=== PATIENT | female | born 1960 | race Caucasian/White ===

== ENCOUNTER → 2020-07-03 | Outpatient (CLI) | payer OTHER ==
--- NOTE | 2020-07-04 08:11 | CTL ---
EXAMINATION TYPE: CT Low Dose Lung DATE OF EXAM ORDERED: 07/03/2020 HISTORY: Personal tobacco use, nicotine dependence. Lung cancer screening CT DLP: [address] CTDI: 1.8 mGy Automated exposure control for dose reduction was used. SCREENING VISIT: Initial COMPARISON: None TECHNIQUE: Low dose computed tomography scan was performed through the chest at 1 mm thick sections a nd reconstructed images in the coronal plane at [address] DIAGNOSTIC QUALITY: Satisfactory FINDINGS: LUNG NODULES: Present, detailed below: There is a 0.7 cm nodule within the anterior right midlung. Series 5 image 219.r a 1.0 cm densities i n the periphery of the lingula. Series 5 image 224. Some scarring appears to be present at the lung apices. There are some areas of pneumonitis in the pe riphery of the right posterior upper lobe. Series 5 image 101. There may be some nonspecific thickeni ng through the right perihilar region. Some underlying underlying adenopathy may be present. This is difficult to separate from the pulmonary vessels. Series 3 image 30. LUNGS: COPD: Severity: Mild. Some peribronchial thickening may be present. Correlate for chronic bronchitis. Fibrosis: Severity: None Lymph nodes: None Other findings: None RIGHT PLEURAL SPACE: Effusion: None Calcification: None Thickening: None Pneumothorax: None LEFT PLEURAL SPACE: Effusion: None Calcification: None Thickening: None Pneumothorax: HEART: Heart Size: Normal Coronary calcification: None Pericardial effusion: None OTHER FINDINGS: Upper abdomen: Normal Bony thorax: Normal Supraclavicular region: Normal Other: Ascending thoracic aorta at the level the main pulmonary artery measures 3.2 cm. The main pul monary artery at the bifurcation measures 2.42 cm. IMPRESSION: 1. Nonspecific increased peripheral lung markings bilaterally. There are some nodules within the ante rior lower lung julian warranting additional workup. FOLLOW UP CT CHEST RECOMMENDATION: Follow-up PET/CT CT LUNG RAD: Lung-Rad 4A Suspicious
== END | disposition home or self-care (01) ==
LOC: RADCTMAIN 16:43
PROVIDERS: ATTEND Family Medicine
DX: Z12.2 Encounter for screening for malignant neoplasm of respiratory organs (principal)
CPT/HCPCS: 71271

== ENCOUNTER → 2020-07-11 | Outpatient (CLI) | payer OTHER ==
[2020-07-11 15:11] LABS: HCT 44.2 % (34.0-46.0); HGB 14.3 gm/dL (11.4-16.0); MCH 32.6 pg (25.0-35.0); MCHC 32.2 g/dL (31.0-37.0); MCV 101.3 fL (80.0-100.0); Macrocytosis Slight; Mean Platelet Volume 7.9; Platelet Count 348 k/uL (150-450); RBC 4.37 m/uL (3.80-5.40); RDW 13.3 % (11.5-15.5); WBC 5.2 k/uL (3.8-10.6)
[2020-07-11 15:25] LABS: Potassium 4.3 mmol/L (3.5-5.1)
== END | disposition home or self-care (01) ==
LOC: LABPAT 13:34
PROVIDERS: ATTEND Surgery
DX: Z01.818 Encounter for other preprocedural examination (principal); K57.33 Diverticulitis of large intestine without perforation or abscess with bleeding; I45.10 Unspecified right bundle-branch block
CPT/HCPCS: 36415; 80051; 85027; 86850; 86900; 86901; 93005

== ENCOUNTER → 2020-07-21 | Day surgery (SDC) | payer OTHER ==
[2020-07-17 12:12] VITALS: BMI 23.1
[~2020-07-21] MED LIST: IOPAMIDOL CONTRAST (ORAL USE) VIAL PO PRN; LACTATED RINGERS 1,000 ML IV SCH; LIDOCAINE 1% (10MG/ML) FOR IV START INTRADERMA PRN; PROPOFOL 10 MG/ML 20 ML VIAL IV ONE
[2020-07-21 09:16] VITALS: RESP 16; TEMP 97.8
--- NOTE | 2020-07-21 10:21 | P.GSHP ---
History of Present Illness H&P Date: 07/21/20 Chief Complaint: diverticulitis this a 59-year-old female who presents today for colonoscopy. Patient's had complaints of abdominal pain diarrhea. She's been worked up for diverticulitis. Past Medical History Past Medical History: COPD, Hyperlipidemia Additional Past Medical History / Comment(s): Has HIV 1. Recent abn lung CT, awaiting f/u. Has colostomy. Had Covid vaccine #1 07/09/20. Colostomy reversal planned for 07/22/20 History of Any Multi-Drug Resistant Organisms: None Reported Past Surgical History: Bowel Resection Additional Past Surgical History / Comment(s): jaw surgery, D&C, fallopian tube exc. Colostomy 06/20/19 est Past Anesthesia/Blood Transfusion Reactions: No Reported Reaction Smoking Status: Current every day smoker - Past Family History Mother Family Medical History: Blood Disorder, Deep Vein Thrombosis (DVT), Pulmonary Embolus Additional Family Medical History / Comment(s): Factor V Medications and Allergies Home Medications Medication Instructions Recorded Confirmed Type ARIPiprazole [Abilify] 2 mg PO DAILY 07/17/20 07/17/20 History Albuterol Sulfate [Proventil Hfa] 2 inhalation INHALATION 07/17/20 07/17/20 History DIRECTED PRN Atorvastatin [Lipitor] 10 mg PO DAILY 07/17/20 07/17/20 History Dolutegravir Sodium [Tivicay] 50 mg PO DAILY 07/17/20 07/17/20 History Emtricitabine/Tenofov Alafenam 1 tab PO DAILY 07/17/20 07/17/20 History [Descovy 200-25 mg Tablet] PARoxetine HCL [Paxil] 20 mg PO DAILY 07/17/20 07/17/20 History Tamsulosin [Flomax] 0.4 mg PO DAILY 07/17/20 07/17/20 History Tiotropium 2.5 Mcg/Puff [Spiriva 2 puff INHALATION DAILY 07/17/20 07/17/20 History Respimat 2.5 Mcg] clonazePAM [KlonoPIN] 0.5 mg PO BID 07/17/20 07/17/20 History Allergies Allergy/AdvReac Type Severity Reaction Status Date / Time No Known Allergies Allergy Verified 07/21/20 09:17 Surgical - Exam Vital Signs Temp Pulse Resp BP Pulse Ox 97.8 F 88 16 140/73 91 L 07/21/20 09:15 07/21/20 09:15 07/21/20 09:15 07/21/20 09:15 07/21/20 09:15 - General well developed, well nourished - Eyes PERRL - ENT normal pinna - Neck no masses - Respiratory normal expansion - Cardiovascular Rhythm: regular - Abdomen Abdomen: soft, non tender Assessment and Plan Assessment: diverticula is. We'll perform colonoscopy.
--- NOTE | 2020-07-21 10:23 | P.OP ---
Date of Procedure: 07/21/20 Preoperative Diagnosis: diverticulitis Postoperative Diagnosis: inflammatory changes ofsigmoid colon and rectum Procedure(s) Performed: colonoscopy Anesthesia: MAC Surgeon: Paxton Zamora Pathology: other (Llsigmoidd colon and rectum) Condition: stable Disposition: PACU Description of Procedure: patient's placed on the endoscopy table lateral position. She received IV sedation. Digital rectal exam was performed which revealed no abnormalities. Flexible colonoscope was then placed the patient's anus and passed throughout tthe colon. The scope could not pass beyond the sigmoid colon significant G;. A biopsies performed. Scope was brought back the rectum this appeared as well a biopsies performed. Scope was withdrawn for patient. Patient was scheduled for a CAT scan of the abdomen.
[2020-07-21 11:05] VITALS: BP 129/78; PULSE 72
--- NOTE | 2020-07-21 13:48 | CT ---
EXAMINATION TYPE: CT abdomen pelvis w con DATE OF EXAM: 07/21/2020 HISTORY: colitis, diverticulitis CT DLP: 623.4mGycm Automated Exposure Control for Dose Reduction was Utilized. CONTRAST: CT scan of the abdomen and pelvis is performed with IV Contrast, patient injected with 100 mL of Isov ue 300. COMPARISON: CT low-dose lung screening July 03, 2020. FINDINGS: LUNG BASES: Peripheral reticular and reticulonodular changes in the bases with mild bronchiectasis in the lingula and some distal mucous plugging is redemonstrated. LIVER/GB: No significant abnormality is appreciated. PANCREAS: No significant abnormality is seen. SPLEEN: No significant abnormality is seen. ADRENALS: Low dense thickening to both adrenal glands is nonspecific favor benign lipid rich hyperpla aysha. KIDNEYS: Symmetric cortical medullary uptake and excretion without hydronephrosis seen bilaterally. B ladder shows moderate distention with multifocal areas of outpouching or diverticulum BOWEL: Ureteral contrast reaches level of the splenic flexure. There is left-sided ostomy. There is p arastomal hernia containing nondilated contrast filled small bowel loops. There is distal sigmoid rec shirin pouch with surgical sutures axial image 56. No suspicious small 4 large bowel dilatation. Mild wa ll thickening and mucosal enhancement in the sigmoid rectal pouch. UTERUS/ADNEXA: Anteverted uterus projects to right of midline. There is 3.7 x 2.9 cm high left pelvic or ovarian low dense lesion axial image 54. Right ovary not seen with certainty. No right-sided adne xal mass. LYMPH NODES: No greater than 1cm abdominal or pelvic lymph nodes are appreciated. OSSEOUS STRUCTURES: Pesn-qu-[id number] axial joint space loss both hips. OTHER: Moderate mixed plaque of the aorta extends into branch vessels. IMPRESSION: 1. Prior partial colectomy with left-sided ostomy. No bowel obstruction. Peristomal hernia noted. Pos sible mild uncomplicated colitis of the sigmoid rectal pouch. 2. Mildly distended bladder with several scattered diverticulum. 3. There is 3.7 cm left ovarian low dense lesion, follow-up nonurgent pelvic ultrasound advised to fu rther evaluate and characterize as this is abnormal finding in a postmenopausal female
== END ==
LOC: ORWHC2ENDO 08:47
PROVIDERS: ATTEND Surgery
DX: K62.89 Other specified diseases of anus and rectum (principal); E78.5 Hyperlipidemia, unspecified; J44.9 Chronic obstructive pulmonary disease, unspecified; B20 Human immunodeficiency virus [HIV] disease; Z93.3 Colostomy status; Z90.49 Acquired absence of other specified parts of digestive tract; F17.200 Nicotine dependence, unspecified, uncomplicated; Z98.890 Other specified postprocedural states; Z83.2 Family history of diseases of the blood and blood-forming organs and certain disorders involving the immune mechanism; Z82.49 Family history of ischemic heart disease and other diseases of the circulatory system; Z79.899 Other long term (current) drug therapy
CPT/HCPCS: 88305; 74177; 45380; J2704; Q9967

== ENCOUNTER 2020-07-22 07:41 | Inpatient (IN) | payer OTHER ==
[~2020-07-22 07:41] MED LIST changes: +ACETAMINOPHEN TAB 500 MG TAB PO PRN; +DEXAMETHASONE SOD PHOSPHATE 4 MG/ML 1 ML VIAL IV ONE; +HEPARIN SODIUM,PORCINE/PF 5,000 UNIT/0.5 ML SYRINGE SQ PRN; +HYDROmorphone 0.5 MG/0.5 ML SYRINGE IVP PRN; -IOPAMIDOL CONTRAST (ORAL USE) VIAL PO PRN; -LACTATED RINGERS 1,000 ML IV SCH; -LIDOCAINE 1% (10MG/ML) FOR IV START INTRADERMA PRN; +MIDAZOLAM 2 MG/2 ML VIAL IV PRN; -PROPOFOL 10 MG/ML 20 ML VIAL IV ONE; +SCOPOLAMINE 1.5MG/72HR PATCH TRANSDERM ONE; +metroNIDAZOLE-NS PMX 500 MG in SALINE 1 100ML.BAG IVPB PRN
[2020-07-22] MEDS: ONDANSETRON 4 MG/2 ML VIAL IVP ONE ×2 (09:03→15:13)
[2020-07-22] MEDS ORDERED: ALVIMOPAN 12 MG CAPSULE PO ONE (09:03)
[2020-07-22] MEDS: LACTATED RINGERS 1,000 ML IV SCH (09:03)
--- NOTE | 2020-07-22 09:14 | P.GSHP ---
History of Present Illness H&P Date: 07/22/20 Chief Complaint: History of perforated diverticulitis Is a 59-year-old female presents today for reversal colostomy. Patient has a History of perforated diverticulitis. Past Medical History Past Medical History: COPD, Hyperlipidemia Additional Past Medical History / Comment(s): Has HIV 1. Recent abn lung CT, awaiting f/u. Has colostomy. Had Covid vaccine #1 07/09/20. Colostomy reversal planned for 07/22/20 History of Any Multi-Drug Resistant Organisms: None Reported Past Surgical History: Bowel Resection Additional Past Surgical History / Comment(s): jaw surgery, D&C, fallopian tube exc. Colostomy 06/20/19 est Past Anesthesia/Blood Transfusion Reactions: No Reported Reaction Smoking Status: Current every day smoker - Past Family History Mother Family Medical History: Blood Disorder, Deep Vein Thrombosis (DVT), Pulmonary Embolus Additional Family Medical History / Comment(s): Factor V Medications and Allergies Home Medications Medication Instructions Recorded Confirmed Type ARIPiprazole [Abilify] 2 mg PO DAILY 07/17/20 07/22/20 History Albuterol Sulfate [Proventil Hfa] 2 inhalation INHALATION 07/17/20 07/22/20 History DIRECTED PRN Atorvastatin [Lipitor] 10 mg PO DAILY 07/17/20 07/22/20 History Dolutegravir Sodium [Tivicay] 50 mg PO DAILY 07/17/20 07/22/20 History Emtricitabine/Tenofov Alafenam 1 tab PO DAILY 07/17/20 07/22/20 History [Descovy 200-25 mg Tablet] PARoxetine HCL [Paxil] 20 mg PO DAILY 07/17/20 07/22/20 History Tamsulosin [Flomax] 0.4 mg PO DAILY 07/17/20 07/22/20 History Tiotropium 2.5 Mcg/Puff [Spiriva 2 puff INHALATION DAILY 07/17/20 07/22/20 History Respimat 2.5 Mcg] clonazePAM [KlonoPIN] 0.5 mg PO BID 07/17/20 07/22/20 History Allergies Allergy/AdvReac Type Severity Reaction Status Date / Time No Known Allergies Allergy Verified 07/22/20 08:40 Surgical - Exam Vital Signs Temp Pulse Resp BP Pulse Ox 98.6 F 84 16 137/76 95 07/22/20 08:39 07/22/20 08:39 07/22/20 08:39 07/22/20 08:39 07/22/20 08:39 - General well developed, well nourished, no distress - Eyes PERRL - ENT normal pinna - Neck no masses - Respiratory normal expansion - Cardiovascular Rhythm: regular - Abdomen Parastomal hernia Abdomen: soft, non tender Assessment and Plan Assessment: History of perforated diverticula with colostomy. Patient will undergo reversal colostomy today.
[2020-07-22] MEDS ORDERED: MIDAZOLAM 2 MG/2 ML VIAL IVP ONE (09:36)
--- NOTE | 2020-07-22 09:40 | P.ANPRN ---
Procedure Note - Anesthesia - Epidural/Spinal Epidural Continuous Time Out Performed: Yes Date of Procedure: 07/22/20 Procedure Start Time: :23 Procedure Stop Time: 09:33 Location of Patient: PreOp Indication: Acute Post-Operative Pain, Analgesia, Requested by Surgeon Sedation Type: Sedate with meaningful contact maintained Preparation: Sterile Prep Number of Attempts: 1 Position: Sitting Catheter Depth at Skin (cm): 4 Catheter: Indwelling Needle Guage: 18 Injectate: Test Dose Lidocaine1.5% w/1:200,000 epi Blood Aspirated: No Pain Paresthesia on Injection Noted: No Events: Uneventful and Well Tolerated
[2020-07-22] MEDS ORDERED: PROPOFOL 10 MG/ML 20 ML VIAL IV ONE (10:20)
[2020-07-22] MEDS ORDERED: fentaNYL (PF) 50 MCG/ML 2 ML AMP ONE (10:20)
[2020-07-22] MEDS ORDERED: ROCURONIUM 10 MG/ML (5 ML VIAL) IV ONE (10:20)
[2020-07-22] MEDS ORDERED: SUCCINYLCHOLINE CHLORIDE 100 MG/5 ML SYR IV ONE (10:20)
[2020-07-22] MEDS ORDERED: GLYCOPYRROLATE 0.2 MG/ML 2 ML VIAL ONE (10:20)
[2020-07-22] MEDS ORDERED: MIDAZOLAM 2 MG/2 ML VIAL ONE (10:20)
[2020-07-22] MEDS ORDERED: NEOSTIGMINE 1 MG/ML 10 ML VIAL ONE (10:20)
[2020-07-22] MEDS ORDERED: LIDOCAINE 1% INJ 10MG/ML (20 ML MDV) ONE (10:20)
[2020-07-22] MEDS ORDERED: NALOXONE 0.4 MG/ML 1 ML VIAL IV PRN (10:35)
[2020-07-22] MEDS ORDERED: LACTATED RINGERS 1,000 ML IV ONE ×2 (11:28)
[2020-07-22] MEDS ORDERED: METOCLOPRAMIDE 5 MG/ML 2 ML VIAL IVP PRN (12:22)
[2020-07-22] MEDS ORDERED: BENZOCAINE/MENTHOL LOZENG 1 EACH LOZENGE MUCOUS MEM PRN (12:22)
--- NOTE | 2020-07-22 12:31 | P.OP ---
Date of Procedure: 07/22/20 Preoperative Diagnosis: History of diverticulitis Incisional hernia Parastomal hernia Postoperative Diagnosis: History of diverticulitis Incisional hernia Parastomal hernia Left ovarian cyst Significant adhesionsz Procedure(s) Performed: Reversal of colostomy. Incidental appendectomy Left ovarian cystectomy Lysis of extensive adhesions Repair of parastomal hernia Repair of incisional hernia Anesthesia: MICHAEL Surgeon: Paxton Zamora Estimated Blood Loss (ml): 100 Pathology: other (:/Appendix) Condition: stable Disposition: PACU Description of Procedure: Patient's placed the operative table in the supine position. She received general endotracheal tube anesthesia. Her abdomen was prepped and draped usual sterile fashion. The colostomy had been blocked off with Ioban. The skin incised in midline. It was an incisional hernia. And then using cautery subcu taneous tissue divided the abdominal wall was divided. There is extensive adhesions in the pleural cavity. These were lysed with sharp dissection prostate 20 minutes of operative time used to lyse adhesions. The colon was then transected next the fascia using the GI stapler. And then the pelvic adhesions were lysed. An incidental appendectomy was performed by dividing the mesentery of the appendix with dense device and then using the linear stapler to divide the appendix. The patient's pathology. There was a large ovarian cysts seen on the left side. This was dissected free. A cystotomy was performed. In the cyst was resolved. The rectal stump was visualized. At this point an enterotomy is made in the proximal colon and the 29 mm EEA stapler anvil was placed into the colon. The colon was then transected with the ADELE stapler and then the spike on the anvil was driven through the staple line. The system placed the EEA stapler patient's rectum. The spike was returned to the anterior abdominal wall. The endoscope to the stapler. The stapler closed and fired. 2 intact tissue rings were withdrawn. Using either get the bowel was clamped and then the bowel was insufflated air using a rigid sigmoidoscope. There is no evidence of extravasation. The parastomal hernia was then closed using #1 strep tic suture. The fascia a midline using #1 PDS suture. During fashion. The incisional hernia was repaired. Skin was closed guera. The colostomy then excised with cautery. The anterior fascia closed with #1 strep fix. The skin was closed guera. Patient top she will was sent to recovery in stable condition.
[2020-07-22] MEDS ORDERED: diphenhydrAMINE 50 MG/ML 1 ML VIAL IVP ONE (13:07)
[2020-07-22] MEDS: ROPIVACAINE 250 MG, HYDROMORPHONE (PF) 5 MG in SODIUM CHLORIDE 0.9% 200 ML EPIDURAL PRN (15:14)
[2020-07-22] MEDS: D5-0.45% NACL WITH KCL 20MEQ/L 1,000 ML IV SCH ×3 (15:53→21:04)
[2020-07-22] MEDS: HEPARIN SODIUM,PORCINE/PF 5,000 UNIT/0.5 ML SYRINGE SQ SCH ×2 (17:29→23:38)
--- NOTE | 2020-07-22 20:11 | CONS ---
CONSULTATION This is a 59-year-old female, status post diverticulitis, reversal colostomy, appendectomy, left ovarian cystectomy, lysis of extensive adhesions, repair of parastomal hernia and repair of incisional hernia, all done today. Home medicines have been reordered. She is sleepy and lethargic. Temperature 97.8, pulse 83, respiratory rate 16 to 18. She is 91% on 3 L. Blood pressure 105/67. CARDIOVASCULAR: S1, S2. LUNGS: Clear. GI is bandaged. EXTREMITIES: No edema. ASSESSMENT: Status post surgery as mentioned above. Will continue her pain control. Continue treatment for COPD and dyslipidemia. Nicotine patches. Home medicines. Prognosis extremely guarded. MMODL / IJN: [id number] /
[2020-07-22] MEDS: ALBUTEROL NEBULIZED 2.5 MG/3 ML INHALATION SCH (20:46)
[2020-07-22] MEDS: FAMOTIDINE 20 MG/2 ML VIAL IV SCH (21:05)
[2020-07-22] MEDS: clonazePAM 0.5 MG TAB PO SCH (21:05)
[2020-07-22 22:54] LABS: African American GFR (CKD) 87 (>60 ml/min/1.73 sqM); Anion Gap 6 mmol/L; Blood Urea Nitrogen 10 mg/dL (7-17); Calcium 8.2 mg/dL (8.4-10.2); Carbon Dioxide 28 mmol/L (22-30); Chloride 102 mmol/L (98-107); Glucose 156 mg/dL (74-99); Non-African American GFR(CKD) 75 (>60 ml/min/1.73 sqM); Potassium 4.7 mmol/L (3.5-5.1); Sodium 136 mmol/L (137-145)
[2020-07-23] MEDS: D5-0.45% NACL WITH KCL 20MEQ/L 1,000 ML IV SCH ×3 (01:52→21:31)
[2020-07-23] MEDS: LACTATED RINGERS 1,000 ML IV SCH (05:24)
[2020-07-23] MEDS: ALBUTEROL NEBULIZED 2.5 MG/3 ML INHALATION SCH (07:30)
--- NOTE | 2020-07-23 07:46 | P.PN ---
Progress Note - Text Progress Note Date: 07/23/20 Postoperative day #1 status post reversal colostomy epidural catheter placed for postoperative analgesia, patient doing well epidural site okay, patient currently on combination of epidural infusion solution of Ropivacaine 0.0625% and Dilaudid 20 g per mL the infusion rate at 10 ml per hour , patient had no motor deficit epidural site okay , vital signs stable , VAS 0/10 , Assessment and plan= post operative day #1 patient doing well ,pain well controlled , there is no anesthesia related complications
[2020-07-23] MEDS ORDERED: IPRATROPIUM 0.5 MG/2.5 ML NEBU INHALATION SCH (08:00)
[2020-07-23] MEDS: HEPARIN SODIUM,PORCINE/PF 5,000 UNIT/0.5 ML SYRINGE SQ SCH ×2 (09:07→16:53)
[2020-07-23] MEDS: clonazePAM 0.5 MG TAB PO SCH ×2 (09:08→21:31)
[2020-07-23] MEDS: FAMOTIDINE 20 MG/2 ML VIAL IV SCH ×2 (09:08→21:31)
[2020-07-23] MEDS: ATORVASTATIN 10 MG TAB PO SCH (09:08)
[2020-07-23] MEDS: ARIPiprazole 2 MG TAB PO SCH (09:08)
[2020-07-23] MEDS: TAMSULOSIN 0.4 MG CAP.ER.24H PO SCH (09:08)
[2020-07-23] MEDS: PARoxetine 20 MG TAB PO SCH (09:08)
[2020-07-23] MEDS: Dolutegravir Sodium [Tivicay] PO SCH (09:10)
[2020-07-23] MEDS: Emtricitabine/Tenofov Alafenam [Descovy 200-25 Mg Tablet] PO SCH (09:11)
[2020-07-23 09:23] LABS: Basophils % (A) 0 %; Eosinophils # (A) 0.1 k/uL (0-0.7); Eosinophils % (A) 1 %; HCT 40.2 % (34.0-46.0); HGB 13.3 gm/dL (11.4-16.0); Lymphocytes # (A) 1.1 k/uL (1.0-4.8); Lymphocytes % (A) 10 %; MCH 33.9 pg (25.0-35.0); MCV 102.6 fL (80.0-100.0); Macrocytosis Slight; Mean Platelet Volume 7.2; Monocytes # (A) 0.3 k/uL (0-1.0); Monocytes % (A) 3 %; Neutrophils # (A) 9.1 k/uL (1.3-7.7); Neutrophils % (A) 85 %; Platelet Count 241 k/uL (150-450); RBC 3.92 m/uL (3.80-5.40); RDW 12.7 % (11.5-15.5); WBC 10.7 k/uL (3.8-10.6)
[2020-07-23] MEDS: ROPIVACAINE 250 MG, HYDROMORPHONE (PF) 5 MG in SODIUM CHLORIDE 0.9% 200 ML EPIDURAL PRN (10:17)
[2020-07-23] MEDS: IPRATROPIUM-ALBUTEROL 3 ML NEB INHALATION SCH ×3 (11:30→19:32)
--- NOTE | 2020-07-23 13:17 | P.PN ---
Subjective Progress Note Date: 07/23/20 CHIEF COMPLAINT: Diverticulitis HISTORY OF PRESENT ILLNESS: Patient is status post Reversal of colostomy, Incidental appendectomy, Left ovarian cystectomy, Lysis of extensive adhesions, Repair of parastomal hernia and Repair of incisional hernia for history of diverticulitis, incisional hernia, parastomal hernia, left ovarian cyst and significant adhesions. She is postop day #1. She reports her pain is controlled. She was nauseated earlier this morning but did improve after clear liquids. No bowel activity yet. She is afebrile. WBC 10.7 hemoglobin 13.3 platelets 241 PHYSICAL EXAM: VITAL SIGNS: Reviewed. GENERAL: Well-developed in no acute distress. HEENT: No sclera icterus. Extraocular movements grossly intact. Moist buccal mucosa. Head is atraumatic, normocephalic. ABDOMEN: Soft. Nondistended. Incisional dressing blood saturation noted at the distal portion of the dressing. NEUROLOGIC: Alert and oriented. Cranial nerves II through XII grossly intact. ASSESSMENT: 1. History of diverticulitis, incisional hernia, parastomal hernia, left ovarian cyst and significant adhesions status post Reversal of colostomy, Incidental appendectomy, Left ovarian cystectomy, Lysis of extensive adhesions, Repair of parastomal hernia and Repair of incisional hernia PLAN: -Continue clear liquid diet -Continue epidural for pain control -Continue Dumont catheter -Continue IV fluids -Encourage incentive spirometer use -Encourage patient to increase activity -GI prophylaxis Pepcid and DVT prophylaxis subcu heparin Physician Software Reverse Engineer note has been reviewed by physician. Signing provider agrees with the documented findings, assessment, and plan of care. Objective - Vital Signs Vital signs: Vital Signs Temp 98.2 F 07/23/20 04:57 Pulse 95 07/23/20 11:41 Resp 16 07/23/20 04:57 BP 115/79 07/23/20 09:05 Pulse Ox 95 07/23/20 09:05 Intake & Output 07/22/20 07/23/20 07/23/20 18:59 06:59 18:59 Intake Total 2393 1740 Output Total 450 200 Balance 1943 1540 Weight 63.9 kg Intake: IV 2393 Intake, IV Titration 1500 Amount D5-0.45% NaCl with KCl 1500 20Meq/l 1,000 ml @ 125 mls/hr IV .Q8H DAVIE Rx#: [id number] Oral 240 Output: Urine 300 200 Uretheral (Dumont) 200 Estimated Blood Loss 150 Other: Voiding Method Indwelling Catheter Indwelling Catheter Indwelling Catheter - Labs CBC & Chem 7: 07/23/20 08:48 07/22/20 21:50 Labs: Abnormal Lab Results - Last 24 Hours (Table) 07/22/20 07/23/20 Range/Units 21:50 08:48 WBC 10.7 H (3.8-10.6) k/uL MCV 102.6 H (80.0-100.0) fL Neutrophils # 9.1 H (1.3-7.7) k/uL Sodium 136 L (137-145) mmol/L Glucose 156 H (74-99) mg/dL Calcium 8.2 L (8.4-10.2) mg/dL
--- NOTE | 2020-07-23 16:13 | PN ---
PROGRESS NOTE A 59-year-old white female, status post appendectomy, hernia repair, colostomy reversal, remains on IV. She still remains on 3 L oxygen status post surgery. She is on DuoNeb updrafts, heparin subcu, will possibly add some Solu-Medrol for COPD exacerbation. Check chest x-ray. Clinically, she is improving. CARDIOVASCULAR: S1, S2. LUNGS: Scattered rhonchi and wheeze. HEMATOLOGY: Negative Homans. ASSESSMENT: Status post surgery, colostomy reversal, appendectomy, and hernia repair. Continue current treatment. Add steroids updraft. Wean off oxygen. Continue current treatment. MMODL / IJN: [id number] /
[2020-07-23] MEDS: methylPREDNISolone SOD SUCCI 40 MG/ML 1 ML VIAL IV SCH (16:53)
[2020-07-23] MEDS: ONDANSETRON 4 MG/2 ML VIAL IVP PRN (16:53)
[2020-07-24] MEDS: methylPREDNISolone SOD SUCCI 40 MG/ML 1 ML VIAL IV SCH ×4 (00:18→23:50)
[2020-07-24] MEDS: HEPARIN SODIUM,PORCINE/PF 5,000 UNIT/0.5 ML SYRINGE SQ SCH ×4 (00:19→23:26)
[2020-07-24] MEDS: D5-0.45% NACL WITH KCL 20MEQ/L 1,000 ML IV SCH ×2 (04:56→15:06)
[2020-07-24] MEDS: LACTATED RINGERS 1,000 ML IV SCH (05:24)
[2020-07-24 05:32] LABS: Basophils % (A) 0 %; Eosinophils # (A) 0.1 k/uL (0-0.7); Eosinophils % (A) 1 %; HCT 36.7 % (34.0-46.0); HGB 12.2 gm/dL (11.4-16.0); Lymphocytes # (A) 0.4 k/uL (1.0-4.8); Lymphocytes % (A) 3 %; MCH 33.9 pg (25.0-35.0); MCHC 33.3 g/dL (31.0-37.0); MCV 101.6 fL (80.0-100.0); Mean Platelet Volume 7.1; Monocytes # (A) 0.3 k/uL (0-1.0); Monocytes % (A) 2 %; Neutrophils # (A) 12.4 k/uL (1.3-7.7); Neutrophils % (A) 94 %; Platelet Count 225 k/uL (150-450); RBC 3.61 m/uL (3.80-5.40); RDW 12.6 % (11.5-15.5); WBC 13.2 k/uL (3.8-10.6)
[2020-07-24] MEDS: ARIPiprazole 2 MG TAB PO SCH (08:38)
[2020-07-24] MEDS: ATORVASTATIN 10 MG TAB PO SCH (08:38)
[2020-07-24] MEDS: clonazePAM 0.5 MG TAB PO SCH ×2 (08:38→20:49)
[2020-07-24] MEDS: FAMOTIDINE 20 MG/2 ML VIAL IV SCH ×2 (08:38→20:49)
[2020-07-24] MEDS: PARoxetine 20 MG TAB PO SCH (08:39)
[2020-07-24] MEDS: Emtricitabine/Tenofov Alafenam [Descovy 200-25 Mg Tablet] PO SCH (08:39)
[2020-07-24] MEDS: TAMSULOSIN 0.4 MG CAP.ER.24H PO SCH (08:39)
[2020-07-24] MEDS: Dolutegravir Sodium [Tivicay] PO SCH (08:39)
--- NOTE | 2020-07-24 08:43 | P.PN ---
Progress Note - Text Progress Note Date: 07/24/20 Patient without complaints. Tolerating clears. Denies headache or weakness. Pain 0/10. Epidural at 7 ml/hr. Epidural site clean and dry. POD#2 s/p LAR. Assessment and plan: will continue epidural
[2020-07-24] MEDS: ROPIVACAINE 250 MG, HYDROMORPHONE (PF) 5 MG in SODIUM CHLORIDE 0.9% 200 ML EPIDURAL PRN (09:03)
[2020-07-24] MEDS: IPRATROPIUM-ALBUTEROL 3 ML NEB INHALATION SCH ×4 (09:56→19:53)
[2020-07-24 10:03] LABS: African American GFR (CKD) 108.4 (60.0-200.0); BUN/Creat Ratio 11.43 Ratio (12.00-20.00); Calcium 7.9 mg/dL (8.7-10.3); Non-African American GFR(CKD) 93.5 (60.0-200.0); Potassium 5.6 mmol/L (3.5-5.5)
--- NOTE | 2020-07-24 13:02 | P.PN ---
Subjective Progress Note Date: 07/24/20 CHIEF COMPLAINT: Diverticulitis HISTORY OF PRESENT ILLNESS: Patient is status post Reversal of colostomy, Incidental appendectomy, Left ovarian cystectomy, Lysis of extensive adhesions, Repair of parastomal hernia and Repair of incisional hernia for history of diverticulitis, incisional hernia, parastomal hernia, left ovarian cyst and significant adhesions. She is postop day #2. She reports her pain is controlled. Patient reports that she is passing gas. She did have some nausea earlier which is now improved. Medicine service did place patient on IV Solu- Medrol for COPD exacerbation. She is afebrile. Wbc is up at 13.2 likely due to steroids. Sodium 133 potassium 5.6 creatinine 0.7 currently on a clear liquid diet. PHYSICAL EXAM: VITAL SIGNS: Reviewed. GENERAL: Well-developed in no acute distress. HEENT: No sclera icterus. Extraocular movements grossly intact. Moist buccal mucosa. Head is atraumatic, normocephalic. ABDOMEN: Soft. Nondistended. Incisional dressing blood saturation noted at the distal portion of the dressing. NEUROLOGIC: Alert and oriented. Cranial nerves II through XII grossly intact. ASSESSMENT: 1. History of diverticulitis, incisional hernia, parastomal hernia, left ovarian cyst and significant adhesions status post Reversal of colostomy, Incidental appendectomy, Left ovarian cystectomy, Lysis of extensive adhesions, Repair of parastomal hernia and Repair of incisional hernia 2. Hyperkalemia PLAN: -Advance diet to full liquids -Discontinue IV fluids. IV fluids did contain potassium. -Change incisional dressing -Repeat potassium level in a.m. -Continue epidural for pain control -Continue Dumont catheter -Encourage incentive spirometer use -Encourage patient to increase activity -GI prophylaxis Pepcid and DVT prophylaxis subcu heparin Physician Rn Field note has been reviewed by physician. Signing provider agrees with the documented findings, assessment, and plan of care. Objective - Vital Signs Vital signs: Vital Signs Temp 98.2 F 07/24/20 05:00 Pulse 90 07/24/20 12:35 Resp 16 07/24/20 12:26 BP 107/66 07/24/20 05:00 Pulse Ox 95 07/24/20 05:00 Intake & Output 07/23/20 07/24/20 07/24/20 18:59 06:59 18:59 Intake Total 1620 1625 227.667 Output Total 600 1600 Balance 1020 25 227.667 Intake: Intake, IV Titration 1620 1225 227.667 Amount D5-0.45% NaCl with KCl 1500 1225 20Meq/l 1,000 ml @ 125 mls/hr IV .Q8H [facility] Rx#: [id number] Ropivacaine 250 mg 120 227.667 Hydromorphone (Pf) 5 mg In Sodium Chloride 0.9% 200 ml @ Per Protocol EPIDURAL .Q0M PRN Rx#: [id number] Oral 400 Output: Urine 600 1600 Uretheral (Dumont) 1600 Other: Voiding Method Indwelling Catheter Indwelling Catheter Indwelling Catheter - Labs CBC & Chem 7: 07/24/20 05:20 07/24/20 05:20 Labs: Abnormal Lab Results - Last 24 Hours (Table) 07/24/20 07/24/20 Range/Units 05:20 05:20 WBC 13.2 H (3.8-10.6) k/uL RBC 3.61 L (3.80-5.40) m/uL MCV 101.6 H (80.0-100.0) fL Neutrophils # 12.4 H (1.3-7.7) k/uL Lymphocytes # 0.4 L (1.0-4.8) k/uL Sodium 133 L (135-145) mmol/L Potassium 5.6 H (3.5-5.5) mmol/L BUN 8.0 L (9.0-27.0) mg/dL BUN/Creatinine Ratio 11.43 L (12.00-20.00) Ratio Glucose 168 H (70-110) mg/dL Calcium 7.9 L (8.7-10.3) mg/dL
--- NOTE | 2020-07-24 18:38 | PN ---
PROGRESS NOTE This 59-year-old white female is status post appendectomy, colostomy reversal, having some COPD exacerbation postoperatively. She is on 3 L, saturation 97, which is improving. Pulse rate is near 100, respiratory rate 18-20, blood pressure 107/68. She is afebrile. CARDIOVASCULAR: S1, S2. LUNGS: Decreased breath sounds. Mild wheeze x4. GI: Bandaged. HEMATOLOGY: Negative Homans. ASSESSMENT: 1. Status post surgery, as mentioned above. 2. Chronic obstructive pulmonary disease exacerbation. Continue home medications, updraft treatments. Blood pressure will be controlled with home blood pressure medicines. Prognosis guarded. MMODL / IJN: [id number] /
[2020-07-25 01:42] LABS: Glucose,Whole Blood 139 mg/dL (75-99)
[2020-07-25] MEDS: ONDANSETRON 4 MG/2 ML VIAL IVP PRN (01:45)
[2020-07-25] MEDS: HYDROmorphone 1 MG/ML 1 ML SYRINGE IVP PRN ×2 (04:00→23:18)
[2020-07-25] MEDS: LACTATED RINGERS 1,000 ML IV SCH (05:25)
[2020-07-25 06:22] LABS: Basophils % (A) 0 %; Eosinophils # (A) 0.1 k/uL (0-0.7); Eosinophils % (A) 1 %; HCT 33.9 % (34.0-46.0); HGB 11.1 gm/dL (11.4-16.0); Lymphocytes # (A) 0.4 k/uL (1.0-4.8); Lymphocytes % (A) 4 %; MCH 32.9 pg (25.0-35.0); MCHC 32.6 g/dL (31.0-37.0); MCV 100.9 fL (80.0-100.0); Mean Platelet Volume 7.5; Monocytes # (A) 0.3 k/uL (0-1.0); Monocytes % (A) 3 %; Neutrophils # (A) 10.3 k/uL (1.3-7.7); Neutrophils % (A) 93 %; Platelet Count 235 k/uL (150-450); RBC 3.36 m/uL (3.80-5.40); RDW 13.1 % (11.5-15.5); WBC 11.1 k/uL (3.8-10.6)
[2020-07-25] MEDS ORDERED: FUROSEMIDE 10 MG/ML 4 ML VIAL IV STA (07:14)
[2020-07-25] MEDS ORDERED: methylPREDNISolone SOD SUCCI 125 MG/2 ML VIAL IV STA (07:15)
[2020-07-25 07:37] LABS: ABG Base Excess 8.5 mmol/L; ABG HCO3 35 mmol/L (21-25); ABG Oxygen Saturation 88.1 % (94-97); ABG PCO2 67 mmHg (35-45); ABG PH 7.32 (7.35-7.45); ABG TCO2 37 mmol/L (19-24); Allen Test Performed? Yes
--- NOTE | 2020-07-25 07:37 | XR ---
EXAMINATION TYPE: XR chest 1V portable DATE OF EXAM: 07/25/2020 CLINICAL HISTORY: Hypoxia TECHNIQUE: Single AP portable frontal upright view of the chest is obtained. COMPARISON: CT low dose lung screening July 03, 2020 FINDINGS: There is chronic emphysematous and pulmonary fibrotic changes with new elevated right shamika diaphragm and patchy multifocal opacities. Cardiac silhouette size is upper limits of normal. The o sseous structures are intact. IMPRESSION: Chronic changes with new bilateral multifocal opacities.
[2020-07-25 07:39] LABS: Glucose,Whole Blood 143 mg/dL (75-99)
[2020-07-25 07:46] LABS: ABG PO2 56 mmHg (83-108)
[2020-07-25] MEDS: IPRATROPIUM-ALBUTEROL 3 ML NEB INHALATION SCH ×4 (08:07→19:11)
[2020-07-25] MEDS: FAMOTIDINE 20 MG/2 ML VIAL IV SCH ×2 (08:40→21:07)
[2020-07-25] MEDS: clonazePAM 0.5 MG TAB PO SCH ×2 (08:40→21:07)
[2020-07-25] MEDS: TAMSULOSIN 0.4 MG CAP.ER.24H PO SCH (08:40)
[2020-07-25] MEDS: HEPARIN SODIUM,PORCINE/PF 5,000 UNIT/0.5 ML SYRINGE SQ SCH ×3 (08:40→23:17)
[2020-07-25] MEDS: ATORVASTATIN 10 MG TAB PO SCH (08:41)
[2020-07-25] MEDS: methylPREDNISolone SOD SUCCI 40 MG/ML 1 ML VIAL IV SCH (08:41)
[2020-07-25] MEDS: PARoxetine 20 MG TAB PO SCH (08:41)
[2020-07-25] MEDS: Emtricitabine/Tenofov Alafenam [Descovy 200-25 Mg Tablet] PO SCH (08:42)
[2020-07-25] MEDS: Dolutegravir Sodium [Tivicay] PO SCH (08:42)
--- NOTE | 2020-07-25 09:11 | P.CNPUL ---
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, becomes anxious noted to be very hypoxic wheezy FiO2 requirement went up to 100% nonrebreather mask, chest x-ray patchy bilateral upper lobe infiltrates are new along with right lower lobe infiltrates, she has been on bronchodilators along with DVT prophylaxis with subcu heparin, Dilaudid for pain control, IV Solu-Medrol, and epidural pain pump, arterial blood gases revealed respiratory acidosis, pH is 7.32 pCO2 67 pO2 was only 56, she is afebrile sats are 92 with BiPAP 40% oxygen, white cell count is 11,000, BUN/creatinine is a 10/.7, d-dimer is pending, BNP and CMP pending, Review of Systems All systems: negative Past Medical History Past Medical History: COPD, Hyperlipidemia Additional Past Medical History / Comment(s): Has HIV 1. Recent abn lung CT, awaiting f/u. Has colostomy. Had Covid vaccine #1 07/09/20. Colostomy reversal planned for 07/22/20 History of Any Multi-Drug Resistant Organisms: None Reported Past Surgical History: Bowel Resection Additional Past Surgical History / Comment(s): jaw surgery, D&C, fallopian tube exc. Colostomy 06/20/19 est Past Anesthesia/Blood Transfusion Reactions: No Reported Reaction Smoking Status: Current every day smoker - Past Family History Mother Family Medical History: Blood Disorder, Deep Vein Thrombosis (DVT), Pulmonary Embolus Additional Family Medical History / Comment(s): Factor V Medications and Allergies Home Medications Medication Instructions Recorded Confirmed Type ARIPiprazole [Abilify] 2 mg PO DAILY 07/17/20 07/22/20 History Albuterol Sulfate [Proventil Hfa] 2 inhalation INHALATION 07/17/20 07/22/20 History DIRECTED PRN Atorvastatin [Lipitor] 10 mg PO DAILY 07/17/20 07/22/20 History Dolutegravir Sodium [Tivicay] 50 mg PO DAILY 07/17/20 07/22/20 History Emtricitabine/Tenofov Alafenam 1 tab PO DAILY 07/17/20 07/22/20 History [Descovy 200-25 mg Tablet] PARoxetine HCL [Paxil] 20 mg PO DAILY 07/17/20 07/22/20 History Tamsulosin [Flomax] 0.4 mg PO DAILY 07/17/20 07/22/20 History Tiotropium 2.5 Mcg/Puff [Spiriva 2 puff INHALATION DAILY 07/17/20 07/22/20 History Respimat 2.5 Mcg] clonazePAM [KlonoPIN] 0.5 mg PO BID 07/17/20 07/22/20 History Allergies Allergy/AdvReac Type Severity Reaction Status Date / Time No Known Allergies Allergy Verified 07/22/20 08:40 Physical Exam Vitals: Vital Signs Temp Pulse Pulse Resp BP Pulse Ox 07/25/20 08:20 92 07/25/20 08:07 89 07/25/20 08:00 97.5 F L 95 28 H 152/67 07/25/20 07:16 97.7 F 99 32 H 133/80 92 L 07/25/20 03:53 97.4 F L 88 112/74 91 L 07/24/20 23:23 98.0 F 96 114/61 95 07/24/20 20:31 97.8 F 104 H 14 114/67 95 07/24/20 20:08 106 H 07/24/20 19:54 106 H 96 07/24/20 15:58 90 07/24/20 15:49 98 07/24/20 12:35 90 07/24/20 12:26 98.4 F 90 101 H 19 107/68 97 07/24/20 10:08 96 07/24/20 09:59 90 Intake and Output 07/24/20 07/25/20 07/25/20 22:59 06:59 14:59 Intake Total 150 Output Total 1700 850 Balance -1550 -850 Intake: Oral 150 Output: Urine 1700 850 Uretheral (Dumont) 850 Other: Voiding Method Indwelling Catheter - Constitutional General appearance: average body habitus, cooperative, disheveled, severe distress - EENT Eyes: PERRLA Ears: bilateral: normal - Neck Neck: normal ROM Carotids: bilateral: upstroke normal Thyroid: bilateral: normal size - Respiratory Respiratory: bilateral: diminished, wheezing (Bilateral inspiratory and expiratory) - Cardiovascular Rhythm: regular Heart sounds: normal: S1, S2 - Gastrointestinal General gastrointestinal: decreased bowel sounds - Neurologic Neurologic: CNII-XII intact - Musculoskeletal Musculoskeletal: gait normal, generalized weakness, strength equal bilaterally - Psychiatric Psychiatric: A&O x's 3, appropriate affect, intact judgment & insight Results - Laboratory Findings CBC and BMP: 07/25/20 06:10 07/24/20 05:20 ABG ABG pH 7.32 (7.35-7.45) L 07/25/20 07:25 ABG pCO2 67 mmHg (35-45) H 07/25/20 07:25 ABG pO2 56 mmHg (83-108) L* 07/25/20 07:25 ABG O2 Saturation 88.1 % (94-97) L 07/25/20 07:25 Abnormal lab findings: Abnormal Labs 07/22/20 07/23/20 07/24/20 21:50 08:48 05:20 WBC 10.7 H 13.2 H RBC 3.61 L Hgb Hct MCV 102.6 H 101.6 H Neutrophils # 9.1 H 12.4 H Lymphocytes # 0.4 L ABG pH ABG pCO2 ABG pO2 ABG HCO3 ABG Total CO2 ABG O2 Saturation Sodium 136 L Potassium BUN BUN/Creatinine Ratio Glucose 156 H POC Glucose (mg/dL) Calcium 8.2 L 07/24/20 07/25/20 07/25/20 05:20 01:40 06:10 WBC 11.1 H RBC 3.36 L Hgb 11.1 L Hct 33.9 L MCV 100.9 H Neutrophils # 10.3 H Lymphocytes # 0.4 L ABG pH ABG pCO2 ABG pO2 ABG HCO3 ABG Total CO2 ABG O2 Saturation Sodium 133 L Potassium 5.6 H BUN 8.0 L BUN/Creatinine Ratio 11.43 L Glucose 168 H POC Glucose (mg/dL) 139 H Calcium 7.9 L 07/25/20 07/25/20 07:25 07:37 WBC RBC Hgb Hct MCV Neutrophils # Lymphocytes # ABG pH 7.32 L ABG pCO2 67 H ABG pO2 56 L* ABG HCO3 35 H ABG Total CO2 37 H ABG O2 Saturation 88.1 L Sodium Potassium BUN BUN/Creatinine Ratio Glucose POC Glucose (mg/dL) 143 H Calcium - Diagnostic Findings Chest x-ray: report reviewed, image reviewed (Finding as noted above) Assessment and Plan Assessment: Developing pneumonia likely aspiration pneumonia Acute COPD exacerbation Acute hypoxic and hypercapnic respiratory failure Postop day #3 of reversal of colostomy Mood disorder depression Severe COPD end-stage lung disease Dyslipidemia Plan: Broad-spectrum antibiotics IV steroids Breathing treatments BiPAP support If d-dimer is elevated consider doing a computed tomography scan of the chest rule out pulmonary embolism Continue heparin for DVT prophylaxiss Time with Patient: Greater than 30
[2020-07-25 10:29] LABS: Albumin 3.1 g/dL (3.80-4.90); Albumin/Globulin Ratio 1.55 (1.60-3.17); Anion Gap 3.2 mmol/L (4.00-12.00); BUN/Creat Ratio 13.33 Ratio (12.00-20.00); Calcium 8.4 mg/dL (8.7-10.3); Carbon Dioxide 32.8 mmol/L (21.6-31.8); Non-African American GFR(CKD) 98.4 (60.0-200.0); Potassium 5.7 mmol/L (3.5-5.5); Total Bilirubin 0.3 mg/dL (0.2-1.2); Total Protein 5.1 g/dL (6.2-8.2)
[2020-07-25] MEDS ORDERED: IPRATROPIUM-ALBUTEROL 3 ML NEB INHALATION SCH (12:00)
[2020-07-25] MEDS: methylPREDNISolone SOD SUCCI 125 MG/2 ML VIAL IV SCH ×3 (12:54→23:17)
[2020-07-25] MEDS: PIPERACILLIN-TAZOBACTAM 3.375 GM in SODIUM CHLORIDE 0.9% 100 ML IVPB SCH ×3 (12:54→23:17)
[2020-07-25] MEDS: ARIPiprazole 2 MG TAB PO SCH (12:55)
--- NOTE | 2020-07-25 13:11 | CT ---
EXAMINATION TYPE: CT chest wo con DATE OF EXAM: 07/25/2020 COMPARISON: 07/03/2020 HISTORY: Shortness of breath CT DLP: 272.3 mGycm Automated exposure control for dose reduction was used. Images obtained from the thoracic inlet to the diaphragm without contrast. There are bilateral pleural effusions. There is patchy areas of airspace consolidation in the upper a nd lower lobes bilaterally. There is no pericardial effusion. There is no mediastinal adenopathy. The re are no hilar masses. Heart size is normal. There is small hiatal hernia. Bony thorax is intact. Sternum is intact. There is no compression fracture. There is oral contrast in the large bowel. Upper abdominal soft tissues are intact. IMPRESSION: Extensive bilateral pneumonia. Pleural effusions.. Pleural fluid and pneumonia significantly increase d compared to old exam.
--- NOTE | 2020-07-25 13:21 | P.PN ---
Subjective Progress Note Date: 07/25/20 CHIEF COMPLAINT: Diverticulitis HISTORY OF PRESENT ILLNESS: Patient is status post Reversal of colostomy, Incidental appendectomy, Left ovarian cystectomy, Lysis of extensive adhesions, Repair of parastomal hernia and Repair of incisional hernia for history of diverticulitis, incisional hernia, parastomal hernia, left ovarian cyst and significant adhesions. She is postop day #3. This morning an "ATEAM" was called on the patient due to hypoxia. Patient also had pulled out her epidural. She has been transferred to cardiac floor. She did get a dose of IV Lasix IV Solu-Medrol and is requiring BiPAP. Pulmonary service has been consulted. She had a computed tomography scan of the chest shows extensive bilateral pneumonia. Pleural effusions. There are concerns that patient possibly aspirated. Pulmonary service has added IV Zosyn. She's also on steroids and neb treatments for her COPD exacerbation. Afebrile. WBC 11.1 hemoglobin 11.1 sodium 135 potassium 5.7 creatinine 0.6 patient is off of IV fluids. Patient has been passing gas. She did have a bowel movement. Denies any nausea or vomiting. PHYSICAL EXAM: VITAL SIGNS: Reviewed. GENERAL: Well-developed in no acute distress. HEENT: No sclera icterus. Extraocular movements grossly intact. Moist buccal mucosa. Head is atraumatic, normocephalic. ABDOMEN: Soft. Nondistended. Incisional dressing blood saturation noted at the distal portion of the dressing. NEUROLOGIC: Alert and oriented. Cranial nerves II through XII grossly intact. ASSESSMENT: 1. History of diverticulitis, incisional hernia, parastomal hernia, left ovarian cyst and significant adhesions status post Reversal of colostomy, Incidental appendectomy, Left ovarian cystectomy, Lysis of extensive adhesions, Repair of parastomal hernia and Repair of incisional hernia 2. Hyperkalemia should improve after the IV Lasix PLAN: -Continue full liquid diet -Change incisional dressing -Repeat potassium level in a.m. -Continue Dumont catheter -Encourage incentive spirometer use -Encourage patient to increase activity -GI prophylaxis Pepcid and DVT prophylaxis subcu heparin Physician Hemotherapist note has been reviewed by physician. Signing provider agrees with the documented findings, assessment, and plan of care. Objective - Vital Signs Vital signs: Vital Signs Temp 97.5 F L 07/25/20 08:00 Pulse 79 07/25/20 13:00 Resp 36 H 07/25/20 13:00 BP 152/67 07/25/20 08:00 Pulse Ox 84 L 07/25/20 13:00 Intake & Output 07/24/20 07/25/20 07/25/20 18:59 06:59 18:59 Intake Total 377.667 Output Total 3200 850 2700 Balance -2822.333 -850 -2910 Intake: Intake, IV Titration 227.667 Amount Ropivacaine 250 mg 227.667 Hydromorphone (Pf) 5 mg In Sodium Chloride 0.9% 200 ml @ Per Protocol EPIDURAL .Q0M PRN Rx#: [id number] Oral 150 Output: Urine 3200 850 2700 Uretheral (Dumont) 850 Other: Voiding Method Indwelling Catheter Indwelling Catheter Indwelling Catheter # Bowel Movements 1 - Labs CBC & Chem 7: 07/25/20 06:10 07/25/20 06:10 Labs: Abnormal Lab Results - Last 24 Hours (Table) 07/25/20 07/25/20 07/25/20 Range/Units 01:40 06:10 06:10 WBC 11.1 H (3.8-10.6) k/uL RBC 3.36 L (3.80-5.40) m/uL Hgb 11.1 L (11.4-16.0) gm/dL Hct 33.9 L (34.0-46.0) % MCV 100.9 H (80.0-100.0) fL Neutrophils # 10.3 H (1.3-7.7) k/uL Lymphocytes # 0.4 L (1.0-4.8) k/uL D-Dimer (<0.60) mg/L FEU ABG pH (7.35-7.45) ABG pCO2 (35-45) mmHg ABG pO2 (83-108) mmHg ABG HCO3 (21-25) mmol/L ABG Total CO2 (19-24) mmol/L ABG O2 Saturation (94-97) % Potassium 5.7 H (3.5-5.5) mmol/L Carbon Dioxide 32.8 H (21.6-31.8) mmol/L Anion Gap 3.20 L (4.00-12.00) mmol/L BUN 8.0 L (9.0-27.0) mg/dL Glucose 125 H (70-110) mg/dL POC Glucose (mg/dL) 139 H (75-99) mg/dL Calcium 8.4 L (8.7-10.3) mg/dL Total Protein 5.1 L (6.2-8.2) g/dL Albumin 3.10 L (3.80-4.90) g/dL Albumin/Globulin Ratio 1.55 L (1.60-3.17) g/dL 07/25/20 07/25/20 07/25/20 Range/Units 07:25 07:37 09:12 WBC (3.8-10.6) k/uL RBC (3.80-5.40) m/uL Hgb (11.4-16.0) gm/dL Hct (34.0-46.0) % MCV (80.0-100.0) fL Neutrophils # (1.3-7.7) k/uL Lymphocytes # (1.0-4.8) k/uL D-Dimer 1.63 H (<0.60) mg/L FEU ABG pH 7.32 L (7.35-7.45) ABG pCO2 67 H (35-45) mmHg ABG pO2 56 L* (83-108) mmHg ABG HCO3 35 H (21-25) mmol/L ABG Total CO2 37 H (19-24) mmol/L ABG O2 Saturation 88.1 L (94-97) % Potassium (3.5-5.5) mmol/L Carbon Dioxide (21.6-31.8) mmol/L Anion Gap (4.00-12.00) mmol/L BUN (9.0-27.0) mg/dL Glucose (70-110) mg/dL POC Glucose (mg/dL) 143 H (75-99) mg/dL Calcium (8.7-10.3) mg/dL Total Protein (6.2-8.2) g/dL Albumin (3.80-4.90) g/dL Albumin/Globulin Ratio (1.60-3.17) g/dL
--- NOTE | 2020-07-25 15:23 | PN ---
PROGRESS NOTE A 59-year-old white female had increased respiratory distress this morning. She was sent possible fluid overload. She was placed on the BiPAP due to elevated CO2 levels. CAT scan was ordered of her chest today, it shows extensive bilateral pneumonia, pleural effusions. When I started on broad-spectrum antibiotics, get IV Lasix, Solu- Medrol, etc. Prognosis extremely guarded. Continue to treat for bilateral pneumonia at this time, possible fluid overload. LUNGS: With scattered rhonchi and wheeze. She looks weak and fatigued. GI: Soft. HEMATOLOGY: Negative Homans. Prognosis extremely guarded. MMODL / IJN: [id number] /
--- NOTE | 2020-07-25 16:25 | P.EN ---
A- team: Indication: Respiratory distress Patient seen and examined at bedside. She complains of shrotness of breath, no chest pain, belly pain unchanged, no nausea. Vital signs reviewed General: ill appearing, moderate distress, appears at stated age Derm: warm, dry Head: atraumatic, normocephalic, symmetric Eyes: EOMI, no lid lag, anicteric sclera Mouth: no lip lesion, mucus membranes moist Cardiovascular: S1S2 tachy , no murmur, positive posterior tibial pulse bilateral, Lungs: Crackels bilateral bases, + accessory muscle use, + 3 word conversational dyspnea Abdominal: soft, nontender to palpation, no guarding, no appreciable organomegaly Assessment/Plan: 1. Acute hypoxic respiratory failure due to fluid overload - CXR review with increased interstitial edema - lasix 40 IVP - BiPap - Transfer to - [facility] reviewed with slight low O2. Placed on Bipap to help with fluid overload and work of breathing. Hypekalemia - Lasix IVP Notified: Dr. Ferrera came to bedside Dr. Saavedra and family updated by nursing. A Total of 32 minutes of critical care time was spent on the complex care of this patient.
[2020-07-25] MEDS: AZITHROMYCIN 500 MG in SODIUM CHLORIDE 0.9% 250 ML IVPB SCH (17:18)
[2020-07-25 17:47] LABS: Glucose,Whole Blood 126 mg/dL (75-99)
[2020-07-25] MEDS: FORMOTEROL FUMARATE 20 MCG/2 ML NEBU INHALATION SCH (19:11)
[2020-07-25 20:36] LABS: Glucose,Whole Blood 134 mg/dL (75-99)
--- NOTE | 2020-07-25 23:22 | P.CONS ---
History of Present Illness - Reason for Consult Consult date: 07/25/20 Pneumonia Requesting physician: Quoc Saavedra - Chief Complaint shortness of breath x 1 day - History of Present Illness Patient is a 59-year female with a past medical history significant for perforated diverticulitis status post diverting colostomy and this patient has been electively admitted to the hospital on 07/22/2020 for reversal of her colostomy patient did have the procedure completed same day in this patient who is status post incidental appendectomy left ovarian cystectomy lysis of extensive lesion repair of parastomal as well as incisional hernia patient has been subsequently admitted to hospital for postoperative care patient started having a problem with increasing shortness of breath yesterday for the patient did require BiPAP patient denies having any chest pain or significant cough or sputum production patient denies any nausea no vomiting abdominal pain is currently controlled patient did not have any fever during this hospital stay the patient did have a mild elevated white to 13.2 yesterday repeat is 11.1 today patient did have mild BUN/creatinine and liver enzymes mcpherson PCR came back negative patient did have a chest x-ray chronic changes with new bilateral multifocal opacities CT of the chest extensive bilateral pneumonia pleural effusion patient has been started on azithromycin and Zosyn infectious disease was consulted for further management, patient did mention he is breathing slightly comfortably and was on nasal oxygen at the time of evaluation this afternoon, patient also history of HIV for the patient to follow with me and is currently on Tivicay and discovey Review of Systems Positive point has been mentioned in HPI rest of the systems are negative Past Medical History Past Medical History: COPD, Hyperlipidemia Additional Past Medical History / Comment(s): Has HIV 1. Recent abn lung CT, awaiting f/u. Has colostomy. Had Covid vaccine #1 07/09/20. Colostomy reversal planned for 07/22/20 History of Any Multi-Drug Resistant Organisms: None Reported Past Surgical History: Bowel Resection Additional Past Surgical History / Comment(s): jaw surgery, D&C, fallopian tube exc. Colostomy 06/20/19 est Past Anesthesia/Blood Transfusion Reactions: No Reported Reaction Smoking Status: Current every day smoker - Past Family History Mother Family Medical History: Blood Disorder, Deep Vein Thrombosis (DVT), Pulmonary Embolus Additional Family Medical History / Comment(s): Factor V Medications and Allergies Home Medications Medication Instructions Recorded Confirmed Type ARIPiprazole [Abilify] 2 mg PO DAILY 07/17/20 07/22/20 History Albuterol Sulfate [Proventil Hfa] 2 inhalation INHALATION 07/17/20 07/22/20 History DIRECTED PRN Atorvastatin [Lipitor] 10 mg PO DAILY 07/17/20 07/22/20 History Dolutegravir Sodium [Tivicay] 50 mg PO DAILY 07/17/20 07/22/20 History Emtricitabine/Tenofov Alafenam 1 tab PO DAILY 07/17/20 07/22/20 History [Descovy 200-25 mg Tablet] PARoxetine HCL [Paxil] 20 mg PO DAILY 07/17/20 07/22/20 History Tamsulosin [Flomax] 0.4 mg PO DAILY 07/17/20 07/22/20 History Tiotropium 2.5 Mcg/Puff [Spiriva 2 puff INHALATION DAILY 07/17/20 07/22/20 History Respimat 2.5 Mcg] clonazePAM [KlonoPIN] 0.5 mg PO BID 07/17/20 07/22/20 History Allergies Allergy/AdvReac Type Severity Reaction Status Date / Time No Known Allergies Allergy Verified 07/22/20 08:40 Physical Exam Vitals: Vital Signs Temp Pulse Pulse Resp BP Pulse Ox 07/25/20 19:27 108 H 07/25/20 19:21 108 H 07/25/20 19:20 100 07/25/20 19:14 104 H 07/25/20 17:23 114 H 33 H 126/54 91 L 07/25/20 15:32 80 07/25/20 15:21 80 07/25/20 13:00 79 36 H 84 L 07/25/20 11:46 82 07/25/20 11:36 80 07/25/20 08:20 92 07/25/20 08:07 89 07/25/20 08:00 97.5 F L 95 28 H 152/67 07/25/20 07:16 97.7 F 99 32 H 133/80 92 L 07/25/20 03:53 97.4 F L 88 112/74 91 L 07/24/20 23:23 98.0 F 96 114/61 95 Intake and Output 07/25/20 07/25/20 07/25/20 06:59 14:59 22:59 Intake Total 450 Output Total 850 2700 625 Balance -646 -8404 -175 Intake: Intake, IV Titration 450 Amount Azithromycin 500 mg In 250 Sodium Chloride 0.9% 250 ml @ 250 mls/hr IVPB DAILY@1600 [facility] Rx#: [id number] Piperacillin-Tazobactam 3 200 .375 gm In Sodium Chloride 0.9% 100 ml @ 25 mls/hr IVPB Q8HR DAVIE Rx# :[id number] Output: Urine 850 2700 625 Uretheral (Dumont) 850 Other: Voiding Method Indwelling Catheter Indwelling Catheter # Voids 1 # Bowel Movements 1 GENERAL DESCRIPTION: Middle-aged female lying in bed, no distress. No tachypnea or accessory muscle of respiration use. HEENT: Shows Pallor , no scleral icterus. Oral mucous membrane is dry. NECK: Trachea central, no thyromegaly. LUNGS: Unlabored breathing. Decrease intensity of breath sounds. No wheeze or crackle. HEART: S1, S2, regular rate and rhythm. ABDOMEN: Soft, no tenderness , guarding or rigidity EXTREMITIES: No edema of feet. SKIN: No rash, no masses palpable. NEUROLOGICAL: The patient is awake, alert, oriented x3, mood and affect normal. Results CBC & Chem 7: 07/25/20 06:10 07/25/20 06:10 Labs: Abnormal Lab Results - Last 24 Hours (Table) 07/25/20 07/25/20 07/25/20 Range/Units 01:40 06:10 06:10 WBC 11.1 H (3.8-10.6) k/uL RBC 3.36 L (3.80-5.40) m/uL Hgb 11.1 L (11.4-16.0) gm/dL Hct 33.9 L (34.0-46.0) % MCV 100.9 H (80.0-100.0) fL Neutrophils # 10.3 H (1.3-7.7) k/uL Lymphocytes # 0.4 L (1.0-4.8) k/uL D-Dimer (<0.60) mg/L FEU ABG pH (7.35-7.45) ABG pCO2 (35-45) mmHg ABG pO2 (83-108) mmHg ABG HCO3 (21-25) mmol/L ABG Total CO2 (19-24) mmol/L ABG O2 Saturation (94-97) % Potassium 5.7 H (3.5-5.5) mmol/L Carbon Dioxide 32.8 H (21.6-31.8) mmol/L Anion Gap 3.20 L (4.00-12.00) mmol/L BUN 8.0 L (9.0-27.0) mg/dL Glucose 125 H (70-110) mg/dL POC Glucose (mg/dL) 139 H (75-99) mg/dL Calcium 8.4 L (8.7-10.3) mg/dL Total Protein 5.1 L (6.2-8.2) g/dL Albumin 3.10 L (3.80-4.90) g/dL Albumin/Globulin Ratio 1.55 L (1.60-3.17) g/dL 07/25/20 07/25/20 07/25/20 Range/Units 07:25 07:37 09:12 WBC (3.8-10.6) k/uL RBC (3.80-5.40) m/uL Hgb (11.4-16.0) gm/dL Hct (34.0-46.0) % MCV (80.0-100.0) fL Neutrophils # (1.3-7.7) k/uL Lymphocytes # (1.0-4.8) k/uL D-Dimer 1.63 H (<0.60) mg/L FEU ABG pH 7.32 L (7.35-7.45) ABG pCO2 67 H (35-45) mmHg ABG pO2 56 L* (83-108) mmHg ABG HCO3 35 H (21-25) mmol/L ABG Total CO2 37 H (19-24) mmol/L ABG O2 Saturation 88.1 L (94-97) % Potassium (3.5-5.5) mmol/L Carbon Dioxide (21.6-31.8) mmol/L Anion Gap (4.00-12.00) mmol/L BUN (9.0-27.0) mg/dL Glucose (70-110) mg/dL POC Glucose (mg/dL) 143 H (75-99) mg/dL Calcium (8.7-10.3) mg/dL Total Protein (6.2-8.2) g/dL Albumin (3.80-4.90) g/dL Albumin/Globulin Ratio (1.60-3.17) g/dL 07/25/20 07/25/20 Range/Units 17:45 20:15 WBC (3.8-10.6) k/uL RBC (3.80-5.40) m/uL Hgb (11.4-16.0) gm/dL Hct (34.0-46.0) % MCV (80.0-100.0) fL Neutrophils # (1.3-7.7) k/uL Lymphocytes # (1.0-4.8) k/uL D-Dimer (<0.60) mg/L FEU ABG pH (7.35-7.45) ABG pCO2 (35-45) mmHg ABG pO2 (83-108) mmHg ABG HCO3 (21-25) mmol/L ABG Total CO2 (19-24) mmol/L ABG O2 Saturation (94-97) % Potassium (3.5-5.5) mmol/L Carbon Dioxide (21.6-31.8) mmol/L Anion Gap (4.00-12.00) mmol/L BUN (9.0-27.0) mg/dL Glucose (70-110) mg/dL POC Glucose (mg/dL) 126 H 134 H (75-99) mg/dL Calcium (8.7-10.3) mg/dL Total Protein (6.2-8.2) g/dL Albumin (3.80-4.90) g/dL Albumin/Globulin Ratio (1.60-3.17) g/dL Assessment and Plan Assessment: 1-patient with increasing shortness of breath and hypoxemia more likely related to possible fluid overload as clinically not behaving as pneumonia in this patient with no fever significant cough or sputum production 2-patient with HIV in this patient who did have a undetectable viral load and a CD4 count more than 400 on her last office visit (1) HIV (human immunodeficiency virus infection) Current Visit: Yes Status: Acute Code(s): B20 - HUMAN IMMUNODEFICIENCY VIRUS [HIV] DISEASE SNOMED Code(s): 39152771 (2) Pneumonia Current Visit: Yes Status: Acute Code(s): J18.9 - PNEUMONIA, UNSPECIFIED ORGANISM SNOMED Code(s): 080368123 Plan: 1-we will obtain a CRP procalcitonin sputum culture if possible 2-patient has been started on diuretics antibiotics may continue while waiting for the condition to stabilize and culture to finalize 3-patient will be continued on discovy and Tivicay, patient can take her oral medication if this medication are not available in the hospital We will follow on clinical condition and cultures to further adjust medication if needed Thank you for this consultation we will follow the patient along with you Time with Patient: Greater than 30
[2020-07-26] MEDS: methylPREDNISolone SOD SUCCI 125 MG/2 ML VIAL IV SCH ×4 (05:50→23:24)
[2020-07-26 06:02] LABS: Glucose,Whole Blood 140 mg/dL (75-99)
[2020-07-26] MEDS: FORMOTEROL FUMARATE 20 MCG/2 ML NEBU INHALATION SCH ×2 (07:45→21:32)
[2020-07-26] MEDS: IPRATROPIUM-ALBUTEROL 3 ML NEB INHALATION SCH ×4 (07:45→21:32)
--- NOTE | 2020-07-26 09:45 | PN ---
PROGRESS NOTE 59-year-old white female with bilateral pneumonia, elevated D-dimer. Chest x-ray shows bilateral infiltrates, started on BiPAP yesterday, steroids, updrafts, Lasix. Dr. Ferrera called due to acute hypoxemic respiratory failure, fluid overload. She was given Lasix IV and BiPAP yesterday. Transferred to the 3rd floor. She was breathing better later in the day. She continues on high-flow cannula 10, O2 saturation is 90%, pulse is 102. Dr. Cheatham consulted for bilateral pneumonia seen on CAT scan, acute hypoxemic respiratory distress. His recommendations were possible fluid, he says not behaving as pneumonia. The patient with HIV in this patient. Undetectable count more than 400 with a history of HIV. He is going to order CRP, procalcitonin. Diuretics, antibiotics, await for cultures. PROGNOSIS: Guarded. MMALANL / BERTHAN: [id number] /
[2020-07-26] MEDS: PIPERACILLIN-TAZOBACTAM 3.375 GM in SODIUM CHLORIDE 0.9% 100 ML IVPB SCH ×3 (09:50→23:24)
[2020-07-26] MEDS: ARIPiprazole 2 MG TAB PO SCH (09:51)
[2020-07-26] MEDS: ATORVASTATIN 10 MG TAB PO SCH (09:51)
[2020-07-26] MEDS: FUROSEMIDE 10 MG/ML 2 ML VIAL IV SCH ×2 (09:51→23:24)
[2020-07-26] MEDS: FAMOTIDINE 20 MG/2 ML VIAL IV SCH ×2 (09:51→23:24)
[2020-07-26] MEDS: clonazePAM 0.5 MG TAB PO SCH ×2 (09:51→23:24)
[2020-07-26] MEDS: HEPARIN SODIUM,PORCINE/PF 5,000 UNIT/0.5 ML SYRINGE SQ SCH ×3 (09:51→23:24)
[2020-07-26] MEDS: PARoxetine 20 MG TAB PO SCH (09:52)
[2020-07-26] MEDS: TAMSULOSIN 0.4 MG CAP.ER.24H PO SCH (09:52)
[2020-07-26] MEDS: Emtricitabine/Tenofov Alafenam [Descovy 200-25 Mg Tablet] PO SCH (09:53)
[2020-07-26] MEDS: Dolutegravir Sodium [Tivicay] PO SCH (09:53)
[2020-07-26] MEDS: LACTATED RINGERS 1,000 ML IV SCH (10:00)
--- NOTE | 2020-07-26 10:50 | P.PN ---
Subjective Progress Note Date: 07/26/20 Principal diagnosis: eveloping pneumonia likely aspiration pneumonia Acute COPD exacerbation Acute hypoxic and hypercapnic respiratory failure Postop day #3 of reversal of colostomy Mood disorder depression Severe COPD end-stage lung disease Dyslipidemia July 26, 2020, patient seen eval examined during the rounds labs reviewed medications reviewed care plan discussed, respiratory is status still marginal but slightly improved compared to yesterday, patient remains on high flow oxygen with 10 L has been on BiPAP 12/5 with 60% oxygen switched to high flow oxygen, chest x-ray today reviewed bilateral dense infiltrate are present consistent with aspiration pneumonia, patient has been consult about smoking cessation, also present on the bedside also consult, will continue current plan of care with bronchodilators 4 times a day, antibiotics with Zithromax and Solu- Medrol and IV Zosyn, slowly titrate oxygen down, continue to monitor and do aspiration precautions, critical care time spent 35 minutes This is a 59-year-old female who was admitted into the hospital underwent reversal of the colostomy with incidental appendectomy left ovarian cystectomy lysis of adhesion and bands and repair of the parastomal hernia and repair of incisional hernia, she has a prior history of diverticulitis, postop day #3 overnight 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, becomes anxious noted to be very hypoxic wheezy FiO2 requirement went up to 100% nonrebreather mask, chest x-ray patchy bilateral upper lobe infiltrates are new along with right lower lobe infiltrates, she has been on bronchodilators along with DVT prophylaxis with subcu heparin, Dilaudid for pain control, IV Solu-Medrol, and epidural pain pump, arterial blood gases revealed respiratory acidosis, pH is 7.32 pCO2 67 pO2 was only 56, she is afebrile sats are 92 with BiPAP 40% oxygen, white cell count is 11,000, BUN/creatinine is a 10/.7, d-dimer is pending, BNP and CMP pending, Objective - Vital Signs Vital signs: Vital Signs Temp 97.4 F L 07/26/20 04:00 Pulse 102 H 07/26/20 08:05 Resp 20 07/26/20 04:00 BP 112/74 07/26/20 04:00 Pulse Ox 90 L 07/26/20 07:49 Intake & Output 05/07/21 05/08/21 05/08/21 18:59 06:59 18:59 Intake Total 450 100 480 Output Total 2700 625 Balance -2250 -525 480 Weight 65.5 kg Intake: Intake, IV Titration 450 100 Amount Azithromycin 500 mg In 250 Sodium Chloride 0.9% 250 ml @ 250 mls/hr IVPB DAILY@1600 [facility] Rx#: [id number] Piperacillin-Tazobactam 3 200 100 .375 gm In Sodium Chloride 0.9% 100 ml @ 25 mls/hr IVPB Q8HR [facility] Rx# :[id number] Oral 480 Output: Urine 2700 625 Other: Voiding Method Indwelling Catheter Indwelling Catheter # Voids 1 # Bowel Movements 1 0 - Exam Constitutional General appearance: average body habitus, cooperative, disheveled, severe distress - EENT Eyes: PERRLA Ears: bilateral: normal - Neck Neck: normal ROM Carotids: bilateral: upstroke normal Thyroid: bilateral: normal size - Respiratory Respiratory: bilateral: diminished, wheezing (Bilateral inspiratory and expiratory) - Cardiovascular Rhythm: regular Heart sounds: normal: S1, S2 - Gastrointestinal General gastrointestinal: decreased bowel sounds - Neurologic Neurologic: CNII-XII intact - Musculoskeletal Musculoskeletal: gait normal, generalized weakness, strength equal bilaterally - Psychiatric Psychiatric: A&O x's 3, appropriate affect, intact judgment & insight - Labs CBC & Chem 7: 07/25/20 06:10 07/25/20 06:10 Labs: Abnormal Lab Results - Last 24 Hours (Table) 07/25/20 07/25/20 07/26/20 Range/Units 17:45 20:15 05:47 POC Glucose (mg/dL) 126 H 134 H 140 H (75-99) mg/dL C-Reactive Protein (<1.0) mg/dL 07/26/20 Range/Units 08:17 POC Glucose (mg/dL) (75-99) mg/dL C-Reactive Protein 38.3 H (<1.0) mg/dL Assessment and Plan Assessment: Developing pneumonia likely aspiration pneumonia related to mixed bacterial gram-negative Acute COPD exacerbation Acute hypoxic and hypercapnic respiratory failure Postop reversal of colostomy Mood disorder depression Severe COPD end-stage lung disease Dyslipidemia Active smoker Plan: Broad-spectrum antibiotics with Zosyn and Zithromax IV steroids continue Solu-Medrol Breathing treatments 4 times a day and when necessary BiPAP support each night and when necessary during the day in between and use nasal cannula computed tomography scan of the chest reviewed consistent with aspiration pneumonia no pulmonary embolism seen Continue heparin for DVT prophylaxiss Peptic ulcer disease prophylaxis Time with Patient: Greater than 30
[2020-07-26 11:52] LABS: Glucose,Whole Blood 140 mg/dL (75-99)
--- NOTE | 2020-07-26 13:28 | P.PN ---
Progress Note - Text Progress Note Date: 07/26/20 Patient feels well. She has no shortness of breath. She has minimal abdominal pain. On exam vital signs are stable. Abdomen soft. Incisions clean dry tach. Patient is status post reversal colostomy. She'll have her diet advanced.
[2020-07-26] MEDS: AZITHROMYCIN 500 MG in SODIUM CHLORIDE 0.9% 250 ML IVPB SCH (16:07)
[2020-07-26 16:43] LABS: Glucose,Whole Blood 158 mg/dL (75-99)
[2020-07-26 20:02] LABS: Glucose,Whole Blood 143 mg/dL (75-99)
--- NOTE | 2020-07-26 21:05 | PN ---
PROGRESS NOTE DATE OF SERVICE: 07/26/2020 REASON FOR FOLLOWUP: 1. Pneumonia. 2. HIV. INTERVAL HISTORY: The patient is currently afebrile. The patient is breathing more comfortably. The patient denies having any chest pain, cough with occasional sputum. No nausea, no vomiting. No abdominal pain or diarrhea. PHYSICAL EXAMINATION: Blood pressure 100/59, pulse of 104, temperature is 97.4. She is 97% on 8L nasal cannula oxygen. General description is a middle-aged female lying in bed in no distress. Respiratory system: Unlabored breathing, decreased breath sounds, no wheeze. Heart S1, S2. Regular rate and rhythm. Abdomen soft, no tenderness. LAB: ( ) is up to 2.16. DIAGNOSTIC IMPRESSION AND PLAN: 1. Patient with acute shortness of breath and cough with concern for pneumonia. Patient is covered with Zosyn.( ) sputum and antibiotics. 2. Patient with HIV. The patient continue her home medication of DDK and Descovy. MMODL / IJN: [id number] /
[2020-07-27] MEDS: methylPREDNISolone SOD SUCCI 125 MG/2 ML VIAL IV SCH ×2 (06:08→15:21)
[2020-07-27 06:28] LABS: Glucose,Whole Blood 133 mg/dL (75-99)
[2020-07-27] MEDS: FORMOTEROL FUMARATE 20 MCG/2 ML NEBU INHALATION SCH ×2 (07:33→19:50)
[2020-07-27] MEDS: IPRATROPIUM-ALBUTEROL 3 ML NEB INHALATION SCH ×4 (07:33→19:50)
[2020-07-27] MEDS: LACTATED RINGERS 1,000 ML IV SCH (07:45)
[2020-07-27 07:49] LABS: Basophils % (A) 0 %; Eosinophils % (A) 0 %; HCT 35.3 % (34.0-46.0); HGB 11.6 gm/dL (11.4-16.0); Lymphocytes # (A) 0.2 k/uL (1.0-4.8); Lymphocytes % (A) 2 %; MCH 32.9 pg (25.0-35.0); MCHC 32.7 g/dL (31.0-37.0); MCV 100.7 fL (80.0-100.0); Mean Platelet Volume 7.8; Monocytes # (A) 0.3 k/uL (0-1.0); Monocytes % (A) 3 %; Neutrophils # (A) 9.1 k/uL (1.3-7.7); Neutrophils % (A) 95 %; Platelet Count 313 k/uL (150-450); RBC 3.51 m/uL (3.80-5.40); RDW 12.6 % (11.5-15.5); WBC 9.7 k/uL (3.8-10.6)
[2020-07-27] MEDS: Emtricitabine/Tenofov Alafenam [Descovy 200-25 Mg Tablet] PO SCH (07:56)
[2020-07-27] MEDS: HEPARIN SODIUM,PORCINE/PF 5,000 UNIT/0.5 ML SYRINGE SQ SCH ×2 (07:56→15:46)
[2020-07-27] MEDS: Dolutegravir Sodium [Tivicay] PO SCH (07:56)
[2020-07-27] MEDS: PIPERACILLIN-TAZOBACTAM 3.375 GM in SODIUM CHLORIDE 0.9% 100 ML IVPB SCH ×2 (07:57→15:47)
[2020-07-27] MEDS: ARIPiprazole 2 MG TAB PO SCH (07:57)
[2020-07-27] MEDS: FUROSEMIDE 10 MG/ML 2 ML VIAL IV SCH ×2 (07:57→20:40)
[2020-07-27] MEDS: clonazePAM 0.5 MG TAB PO SCH ×2 (07:57→20:39)
[2020-07-27] MEDS: FAMOTIDINE 20 MG/2 ML VIAL IV SCH ×2 (07:57→20:39)
[2020-07-27] MEDS: TAMSULOSIN 0.4 MG CAP.ER.24H PO SCH (07:57)
[2020-07-27] MEDS: PARoxetine 20 MG TAB PO SCH (07:57)
[2020-07-27] MEDS: ATORVASTATIN 10 MG TAB PO SCH (07:57)
[2020-07-27 08:04] LABS: ALT 19 U/L (4-34); AST 27 U/L (14-36); African American GFR (CKD) >90 (>60 ml/min/1.73 sqM); Alkaline Phosphatase 63 U/L (38-126); Anion Gap 7 mmol/L; Blood Urea Nitrogen 17 mg/dL (7-17); Calcium 8.8 mg/dL (8.4-10.2); Chloride 90 mmol/L (98-107); Glucose 113 mg/dL (74-99); Non-African American GFR(CKD) 80 (>60 ml/min/1.73 sqM); Potassium 3.9 mmol/L (3.5-5.1); Sodium 137 mmol/L (137-145); Total Bilirubin 0.5 mg/dL (0.2-1.3); Total Protein 5.9 g/dL (6.3-8.2)
[2020-07-27 08:11] LABS: Carbon Dioxide 40 mmol/L (22-30)
--- NOTE | 2020-07-27 11:26 | P.PN ---
Progress Note - Text Progress Note Date: 07/27/20 The patient is resting in her bed. She had some confusion and pulled out her epidural last night. She has some incisional pain. On exam vital signs are stable. Abdomen soft. Incision is clean dry intact. Status post repair of parastomal and ventral hernia and reversal colostomy. Patient is doing better. She'll continue receive supportive care.
[2020-07-27 11:50] LABS: Glucose,Whole Blood 157 mg/dL (75-99)
--- NOTE | 2020-07-27 13:40 | P.PN ---
Subjective Progress Note Date: 07/27/20 Principal diagnosis: eveloping pneumonia likely aspiration pneumonia Acute COPD exacerbation Acute hypoxic and hypercapnic respiratory failure Postop day #3 of reversal of colostomy Mood disorder depression Severe COPD end-stage lung disease Dyslipidemia 07/27/2020, patient seen eval examined during the rounds, the sputum status continued to improve, patient is on 2 L oxygen slight intermittent confusion is present, patient remains on antibiotics breathing treatments IV steroids, cough congestion and wheezing have significantly improved, patient remains on BiPAP support at nighttime July 26, 2020, patient seen eval examined during the rounds labs reviewed medications reviewed care plan discussed, respiratory is status still marginal but slightly improved compared to yesterday, patient remains on high flow oxygen with 10 L has been on BiPAP 02/22 with 60% oxygen switched to high flow oxygen, chest x-ray today reviewed bilateral dense infiltrate are present consistent with aspiration pneumonia, patient has been consult about smoking cessation, also present on the bedside also consult, will continue current plan of care with bronchodilators 4 times a day, antibiotics with Zithromax and Solu- Medrol and IV Zosyn, slowly titrate oxygen down, continue to monitor and do aspiration precautions, critical care time spent 35 minutes This is a 59-year-old female who was admitted into the hospital underwent reversal of the colostomy with incidental appendectomy left ovarian cystectomy lysis of adhesion and bands and repair of the parastomal hernia and repair of incisional hernia, she has a prior history of diverticulitis, postop day #3 overnight 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, becomes anxious noted to be very hypoxic wheezy FiO2 requirement went up to 100% nonrebreather mask, chest x-ray patchy bilateral upper lobe infiltrates are new along with right lower lobe infiltrates, she has been on bronchodilators along with DVT prophylaxis with subcu heparin, Dilaudid for pain control, IV Solu-Medrol, and epidural pain pump, arterial blood gases revealed respiratory acidosis, pH is 7.32 pCO2 67 pO2 was only 56, she is afebrile sats are 92 with BiPAP 40% oxygen, white cell count is 11,000, BUN/creatinine is a 10/.7, d-dimer is pending, BNP and CMP pending, Objective - Vital Signs Vital signs: Vital Signs Temp 98 F 07/27/20 08:00 Pulse 106 H 07/27/20 12:00 Resp 19 07/27/20 12:00 BP 119/59 07/27/20 12:00 Pulse Ox 91 L 07/27/20 12:00 Intake & Output 07/26/20 07/27/20 07/27/20 18:59 06:59 18:59 Intake Total 2160 340 Output Total 2200 1300 Balance -40 -1300 340 Weight 64.5 kg Intake: Intake, IV Titration 100 Amount Piperacillin-Tazobactam 3 100 .375 gm In Sodium Chloride 0.9% 100 ml @ 25 mls/hr IVPB Q8HR [facility] Rx# :[id number] Oral 2160 240 Output: Urine 2200 1300 Other: Voiding Method Indwelling Catheter Indwelling Catheter Indwelling Catheter - Exam Constitutional General appearance: average body habitus, cooperative, disheveled, severe distress - EENT Eyes: PERRLA Ears: bilateral: normal - Neck Neck: normal ROM Carotids: bilateral: upstroke normal Thyroid: bilateral: normal size - Respiratory Respiratory: bilateral: diminished, wheezing (Bilateral inspiratory and expiratory) - Cardiovascular Rhythm: regular Heart sounds: normal: S1, S2 - Gastrointestinal General gastrointestinal: decreased bowel sounds - Neurologic Neurologic: CNII-XII intact - Musculoskeletal Musculoskeletal: gait normal, generalized weakness, strength equal bilaterally - Psychiatric Psychiatric: A&O x's 3, appropriate affect, intact judgment & insight - Labs CBC & Chem 7: 07/27/20 06:47 07/27/20 06:47 Labs: Abnormal Lab Results - Last 24 Hours (Table) 07/26/20 07/26/20 07/27/20 Range/Units 16:42 20:00 06:26 RBC (3.80-5.40) m/uL MCV (80.0-100.0) fL Neutrophils # (1.3-7.7) k/uL Lymphocytes # (1.0-4.8) k/uL Chloride (98-107) mmol/L Carbon Dioxide (22-30) mmol/L Glucose (74-99) mg/dL POC Glucose (mg/dL) 158 H 143 H 133 H (75-99) mg/dL Total Protein (6.3-8.2) g/dL Albumin (3.5-5.0) g/dL 07/27/20 07/27/20 07/27/20 Range/Units 06:47 06:47 11:48 RBC 3.51 L (3.80-5.40) m/uL MCV 100.7 H (80.0-100.0) fL Neutrophils # 9.1 H (1.3-7.7) k/uL Lymphocytes # 0.2 L (1.0-4.8) k/uL Chloride 90 L (98-107) mmol/L Carbon Dioxide 40 H (22-30) mmol/L Glucose 113 H (74-99) mg/dL POC Glucose (mg/dL) 157 H (75-99) mg/dL Total Protein 5.9 L (6.3-8.2) g/dL Albumin 3.0 L (3.5-5.0) g/dL Assessment and Plan Assessment: Aspiration pneumonia related to mixed bacterial gram-negative Acute COPD exacerbation Acute hypoxic and hypercapnic respiratory failure Postop reversal of colostomy Mood disorder depression Severe COPD end-stage lung disease Dyslipidemia Active smoker Plan: Broad-spectrum antibiotics with Zosyn and Zithromax IV steroids continue Solu-Medrol, start tapering it down Breathing treatments 4 times a day and when necessary BiPAP support each night and when necessary during the day in between and use nasal cannula computed tomography scan of the chest reviewed consistent with aspiration pneumonia no pulmonary embolism seen Continue heparin for DVT prophylaxiss Peptic ulcer disease prophylaxis Time with Patient: Greater than 30
--- NOTE | 2020-07-27 15:33 | PN ---
PROGRESS NOTE DATE OF SERVICE: 07/27/2020 REASON FOR FOLLOWUP: 1. Pneumonia. 2. HIV. INTERVAL HISTORY: The patient is currently afebrile. The patient is breathing comfortably. Still complaining of cough and bringing up some sputum. Mentioned she has been asking for a sputum cup, nobody is giving it to her. Denies any abdominal pain. No vomiting or diarrhea. PHYSICAL EXAMINATION: Blood pressure 119/59, pulse of 106, temperature 99, she is 91% on 3 L nasal cannula. General description is an elderly female lying in bed in no distress. Respiratory system: Unlabored breathing, clear to auscultation anteriorly. Heart S1, S2. Regular rate and rhythm. Abdomen soft, no tenderness. LABS: Hemoglobin 11.1, white count 9.7, BUN of 17 and creatinine 0.8. DIAGNOSTIC IMPRESSION AND PLAN: 1. Patient with pneumonia, possible nosocomial. We will try to obtain a sputum to narrow down her antibiotics. Continue Zosyn to which the patient is responding. 2. HIV. Continue with Jane and Gilbert. MMODL / IJN: [id number] / MTDD
[2020-07-27] MEDS: AZITHROMYCIN 500 MG in SODIUM CHLORIDE 0.9% 250 ML IVPB SCH (15:46)
[2020-07-27 16:56] LABS: Glucose,Whole Blood 163 mg/dL (75-99)
[2020-07-27 19:58] LABS: Glucose,Whole Blood 214 mg/dL (75-99)
[2020-07-27] MEDS: methylPREDNISolone SOD SUCCI 40 MG/ML 1 ML VIAL IV SCH (20:40)
--- NOTE | 2020-07-27 20:52 | P.PN ---
Progress Note - Text Progress Note Date: 07/27/20 Presenting complaint: hallucinating Interval history: Covering for Dr. Quoc Saavedra Been treated for pneumonia, HIV, status post parastomal and ventral hernia and reversal of colostomy. Also acute hypoxic and hypercapnic respiratory failure, COPD exacerbation. Today: Patient for Dr. crouch. Has been hallucinating. Seen people around in the room. Tolerating a soft diet. No nausea vomiting. Slight shortness of breath. at the bedside. Review of systems: Was done for constitutional, cardiovascular, GI, pulmonary. relevant finding as above Active Medications Albuterol/Ipratropium (Ipratropium-Albuterol 3 Ml Neb) 3 ml INHALATION RT-QID [facility] Last Admin: 07/27/20 19:50 Dose: 3 ml Documented by: Aripiprazole (Aripiprazole 2 Mg Tab) 2 mg PO DAILY [facility] Last Admin: 07/27/20 07:57 Dose: 2 mg Documented by: Atorvastatin Calcium (Atorvastatin 10 Mg Tab) 10 mg PO DAILY [facility] Last Admin: 07/27/20 07:57 Dose: 10 mg Documented by: Benzocaine/Menthol (Benzocaine/Menthol Lozeng 1 Each Lozenge) 1 each MUCOUS MEM Q1HR PRN PRN Reason: Sore Throat Clonazepam (Clonazepam 0.5 Mg Tab) 0.5 mg PO BID [facility] Last Admin: 07/27/20 20:39 Dose: 0.5 mg Documented by: Famotidine (Famotidine 20 Mg/2 Ml Vial) 20 mg IV BID [facility] Last Admin: 07/27/20 20:39 Dose: 20 mg Documented by: Formoterol Fumarate (Formoterol Fumarate 20 Mcg/2 Ml Nebu) 20 mcg INHALATION RT-BID [facility] Last Admin: 07/27/20 19:50 Dose: 20 mcg Documented by: Furosemide (Furosemide 10 Mg/Ml 2 Ml Vial) 20 mg IV Q12HR [facility] Last Admin: 07/27/20 20:40 Dose: 20 mg Documented by: Heparin Sodium (Porcine) (Heparin Sodium,Porcine/Pf 5,000 Unit/0.5 Ml Syringe) 5,000 unit SQ Q8HR [facility] Last Admin: 07/27/20 15:46 Dose: 5,000 unit Documented by: Hydromorphone HCl (Hydromorphone 1 Mg/Ml 1 Ml Syringe) 1 mg IVP Q3HR PRN PRN Reason: Severe Pain Last Admin: 07/25/20 23:18 Dose: 1 mg Documented by: Lactated Ringer's (Lactated Ringers) 1,000 mls @ 20 mls/hr IV .Q24H [facility] Last Admin: 07/27/20 07:45 Dose: Not Given Documented by: Ropivacaine 250 mg/Hydromorphone HCl 5 mg/ Sodium Chloride 250 mls @ 0 mls/hr EPIDURAL .Q0M PRN; Protocol PRN Reason: Pain Control Last Admin: 07/24/20 09:03 Dose: 10 mls/hr Documented by: Piperacillin Sod/Tazobactam (Sod 3.375 gm/ Sodium Chloride) 100 mls @ 25 mls/hr IVPB Q8HR [facility] Last Admin: 07/27/20 15:47 Dose: 25 mls/hr Documented by: Azithromycin 500 mg/ Sodium (Chloride) 250 mls @ 250 mls/hr IVPB DAILY@1600 [facility] Last Admin: 07/27/20 15:46 Dose: 250 mls/hr Documented by: Methylprednisolone Sodium Succinate (Methylprednisolone Sod Succi 40 Mg/Ml 1 Ml Vial) 40 mg IV Q12HR [facility] Last Admin: 07/27/20 20:40 Dose: 40 mg Documented by: Metoclopramide HCl (Metoclopramide 5 Mg/Ml 2 Ml Vial) 10 mg IVP Q6HR PRN PRN Reason: Nausea and Vomiting Naloxone HCl (Naloxone 0.4 Mg/Ml 1 Ml Vial) 0.2 mg IV Q2M PRN PRN Reason: Opioid Reversal Dolutegravir Sodium ([Tivicay]) 50 mg PO DAILY [facility] Last Admin: 07/27/20 07:56 Dose: 50 mg Documented by: Emtricitabine/Tenofov Alafenam [ Descovy 200-25 Mg Tablet] 1 tab PO DAILY [facility] Last Admin: 07/27/20 07:56 Dose: 1 tab Documented by: Ondansetron HCl (Ondansetron 4 Mg/2 Ml Vial) 4 mg IVP Q8HR PRN PRN Reason: Nausea And Vomiting Last Admin: 07/25/20 01:45 Dose: 4 mg Documented by: Paroxetine HCl (Paroxetine 20 Mg Tab) 20 mg PO DAILY [facility] Last Admin: 07/27/20 07:57 Dose: 20 mg Documented by: Tamsulosin HCl (Tamsulosin 0.4 Mg Cap.Er.24h) 0.4 mg PO DAILY [facility] Last Admin: 07/27/20 07:57 Dose: 0.4 mg Documented by: On examination: VITAL SIGNS: 98, 113, 19, 109, 93% on 3 tumors GENERAL APPEARANCE: Reclining in bed, awake EYES: Pupils equal. Conjunctiva normal. NECK: JVD not raised. Mass not palpable. RESPIRATORY: Respiratory effort increased. Decreased breath sounds mild wheezing. CARDIOVASCULAR: First and second sounds normal. No edema. ABDOMEN: Soft. Mildly tender, bowel sounds sluggish, dressing over incision Liver and spleen not palpable. No tenderness. No mass palpable. PSYCHIATRY: Alert and oriented x3. Mood and affect anxious Investigations: WBC 9.7 hemoglobin 11.6 platelets 313 potassium 3.9 creatinine 0.8 Assessment and plan: -Patient status post reversal of colostomy, incidental appendectomy, left ovarian cystectomy, lysis radiations, repair of incisional hernia, repair of parastomal hernia Patient did pull out her epidural -Acute COPD exacerbation On DuoNeb, Solu-Medrol -Chronic nicotine dependence, patient cigarette smoker At nicotine patch -Bilateral pneumonia suspected gram-negative organism/aspiration On IV Zosyn -Hyperlipidemia On Lipitor --HIV Continue current medications -Depression and anxiety not otherwise specified On Klonopin, Paxil and Abilify -New onset of hallucinations Continue the antibiotics. If no improvement by tomorrow. consult psychiatry. Care was discussed with the patient. And has been at the bedside. Thank you Dr. Zamora
[2020-07-27] MEDS: NICOTINE 21MG/24HR PATCH TRANSDERM SCH (23:37)
[2020-07-28] MEDS: HEPARIN SODIUM,PORCINE/PF 5,000 UNIT/0.5 ML SYRINGE SQ SCH ×4 (00:19→23:33)
[2020-07-28] MEDS: PIPERACILLIN-TAZOBACTAM 3.375 GM in SODIUM CHLORIDE 0.9% 100 ML IVPB SCH ×4 (00:19→23:33)
[2020-07-28 05:59] LABS: Glucose,Whole Blood 140 mg/dL (75-99)
[2020-07-28] MEDS: LACTATED RINGERS 1,000 ML IV SCH (06:35)
[2020-07-28 07:27] LABS: Basophils % (A) 0 %; Eosinophils # (A) 0.1 k/uL (0-0.7); Eosinophils % (A) 1 %; HGB 10.9 gm/dL (11.4-16.0); Lymphocytes # (A) 0.2 k/uL (1.0-4.8); Lymphocytes % (A) 3 %; MCH 33.5 pg (25.0-35.0); MCHC 33.1 g/dL (31.0-37.0); MCV 101.3 fL (80.0-100.0); Mean Platelet Volume 7.6; Monocytes # (A) 0.2 k/uL (0-1.0); Monocytes % (A) 3 %; Neutrophils # (A) 6.3 k/uL (1.3-7.7); Neutrophils % (A) 91 %; Platelet Count 321 k/uL (150-450); RBC 3.26 m/uL (3.80-5.40); RDW 12.8 % (11.5-15.5); WBC 6.9 k/uL (3.8-10.6)
[2020-07-28 07:50] LABS: African American GFR (CKD) >90 (>60 ml/min/1.73 sqM); Anion Gap 3 mmol/L; Blood Urea Nitrogen 22 mg/dL (7-17); Calcium 8.5 mg/dL (8.4-10.2); Carbon Dioxide 39 mmol/L (22-30); Chloride 96 mmol/L (98-107); Glucose 131 mg/dL (74-99); Non-African American GFR(CKD) 80 (>60 ml/min/1.73 sqM); Sodium 138 mmol/L (137-145)
[2020-07-28] MEDS: Emtricitabine/Tenofov Alafenam [Descovy 200-25 Mg Tablet] PO SCH (09:22)
[2020-07-28] MEDS: IPRATROPIUM-ALBUTEROL 3 ML NEB INHALATION SCH ×4 (09:22→19:30)
[2020-07-28] MEDS: FORMOTEROL FUMARATE 20 MCG/2 ML NEBU INHALATION SCH ×2 (09:22→19:30)
[2020-07-28] MEDS: Dolutegravir Sodium [Tivicay] PO SCH (09:22)
[2020-07-28] MEDS: FUROSEMIDE 10 MG/ML 2 ML VIAL IV SCH ×2 (09:22→21:07)
[2020-07-28] MEDS: FAMOTIDINE 20 MG/2 ML VIAL IV SCH (09:23)
[2020-07-28] MEDS: ATORVASTATIN 10 MG TAB PO SCH (09:23)
[2020-07-28] MEDS: ARIPiprazole 2 MG TAB PO SCH (09:23)
[2020-07-28] MEDS: methylPREDNISolone SOD SUCCI 40 MG/ML 1 ML VIAL IV SCH ×2 (09:23→21:07)
[2020-07-28] MEDS: TAMSULOSIN 0.4 MG CAP.ER.24H PO SCH (09:23)
[2020-07-28] MEDS: PARoxetine 20 MG TAB PO SCH (09:23)
[2020-07-28] MEDS: clonazePAM 0.5 MG TAB PO SCH ×2 (09:24→21:08)
[2020-07-28] MEDS: NICOTINE 21MG/24HR PATCH TRANSDERM SCH (10:09)
--- NOTE | 2020-07-28 12:05 | P.PN ---
Subjective Progress Note Date: 07/28/20 Principal diagnosis: eveloping pneumonia likely aspiration pneumonia Acute COPD exacerbation Acute hypoxic and hypercapnic respiratory failure Postop day #3 of reversal of colostomy Mood disorder depression Severe COPD end-stage lung disease Dyslipidemia 07/28/2020, patient is awake and alert, down to 3 L nasal cannula, short of breath and wheezing slightly improved though, less cough congestion and confusion is present, he remains on IV antibiotics breathing treatments steroids 07/27/2020, patient seen eval examined during the rounds, the sputum status continued to improve, patient is on 2 L oxygen slight intermittent confusion is present, patient remains on antibiotics breathing treatments IV steroids, cough congestion and wheezing have significantly improved, patient remains on BiPAP support at nighttime July 26, 2020, patient seen eval examined during the rounds labs reviewed medications reviewed care plan discussed, respiratory is status still marginal but slightly improved compared to yesterday, patient remains on high flow oxygen with 10 L has been on BiPAP / with 60% oxygen switched to high flow oxygen, chest x-ray today reviewed bilateral dense infiltrate are present consistent with aspiration pneumonia, patient has been consult about smoking cessation, also present on the bedside also consult, will continue current plan of care with bronchodilators 4 times a day, antibiotics with Zithromax and Solu- Medrol and IV Zosyn, slowly titrate oxygen down, continue to monitor and do aspiration precautions, critical care time spent 35 minutes This is a 59-year-old female who was admitted into the hospital underwent reversal of the colostomy with incidental appendectomy left ovarian cystectomy lysis of adhesion and bands and repair of the parastomal hernia and repair of incisional hernia, she has a prior history of diverticulitis, postop day #3 overnight 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, becomes anxious noted to be very hypoxic wheezy FiO2 requirement went up to 100% nonrebreather mask, chest x-ray patchy bilateral upper lobe infiltrates are new along with right lower lobe infiltrates, she has been on bronchodilators along with DVT prophylaxis with subcu heparin, Dilaudid for pain control, IV Solu-Medrol, and epidural pain pump, arterial blood gases revealed respiratory acidosis, pH is 7.32 pCO2 67 pO2 was only 56, she is afebrile sats are 92 with BiPAP 40% oxygen, white cell count is 11,000, BUN/creatinine is a 10/.7, d-dimer is pending, BNP and CMP pending, Objective - Vital Signs Vital signs: Vital Signs Temp 98.1 F 07/28/20 08:00 Pulse 100 07/28/20 09:46 Resp 18 07/28/20 08:00 BP 109/59 07/28/20 08:00 Pulse Ox 93 L 07/28/20 08:00 Intake & Output 07/27/20 07/28/20 07/28/20 18:59 06:59 18:59 Intake Total 820 358 Output Total 1100 Balance 820 -1100 358 Weight 64 kg Intake: Intake, IV Titration 100 Amount Piperacillin-Tazobactam 3 100 .375 gm In Sodium Chloride 0.9% 100 ml @ 25 mls/hr IVPB Q8HR [facility] Rx# :[id number] Oral 720 358 Output: Urine 1100 Other: Voiding Method Indwelling Catheter Indwelling Catheter Indwelling Catheter # Voids 1 # Bowel Movements 1 1 - Exam Constitutional General appearance: average body habitus, cooperative, disheveled, severe distress - EENT Eyes: PERRLA Ears: bilateral: normal - Neck Neck: normal ROM Carotids: bilateral: upstroke normal Thyroid: bilateral: normal size - Respiratory Respiratory: bilateral: diminished, wheezing (Bilateral inspiratory and expiratory) - Cardiovascular Rhythm: regular Heart sounds: normal: S1, S2 - Gastrointestinal General gastrointestinal: decreased bowel sounds - Neurologic Neurologic: CNII-XII intact - Musculoskeletal Musculoskeletal: gait normal, generalized weakness, strength equal bilaterally - Psychiatric Psychiatric: A&O x's 3, appropriate affect, intact judgment & insight - Labs CBC & Chem 7: 07/28/20 06:51 07/28/20 06:51 Labs: Abnormal Lab Results - Last 24 Hours (Table) 07/27/20 07/27/20 07/28/20 Range/Units 16:49 19:57 05:49 RBC (3.80-5.40) m/uL Hgb (11.4-16.0) gm/dL Hct (34.0-46.0) % MCV (80.0-100.0) fL Lymphocytes # (1.0-4.8) k/uL Chloride (98-107) mmol/L Carbon Dioxide (22-30) mmol/L BUN (7-17) mg/dL Glucose (74-99) mg/dL POC Glucose (mg/dL) 163 H 214 H 140 H (75-99) mg/dL 07/28/20 07/28/20 Range/Units 06:51 06:51 RBC 3.26 L (3.80-5.40) m/uL Hgb 10.9 L (11.4-16.0) gm/dL Hct 33.0 L (34.0-46.0) % MCV 101.3 H (80.0-100.0) fL Lymphocytes # 0.2 L (1.0-4.8) k/uL Chloride 96 L (98-107) mmol/L Carbon Dioxide 39 H (22-30) mmol/L BUN 22 H (7-17) mg/dL Glucose 131 H (74-99) mg/dL POC Glucose (mg/dL) (75-99) mg/dL Microbiology - Last 24 Hours (Table) 07/27/20 18:00 Gram Stain - Preliminary Sputum Sputum Culture - Preliminary Assessment and Plan Assessment: Aspiration pneumonia related to mixed bacterial gram-negative Acute COPD exacerbation Acute hypoxic and hypercapnic respiratory failure Postop reversal of colostomy Mood disorder depression Severe COPD end-stage lung disease Dyslipidemia Active smoker Plan: Broad-spectrum antibiotics with Zosyn and Zithromax IV steroids continue Solu-Medrol, start tapering it down Breathing treatments 4 times a day and when necessary BiPAP support each night and when necessary during the day in between and use nasal cannula computed tomography scan of the chest reviewed consistent with aspiration pneumonia no pulmonary embolism seen Continue heparin for DVT prophylaxiss Peptic ulcer disease prophylaxis Time with Patient: Greater than 30
[2020-07-28 12:06] LABS: Glucose,Whole Blood 149 mg/dL (75-99)
--- NOTE | 2020-07-28 13:20 | P.PN ---
Subjective Progress Note Date: 07/28/20 CHIEF COMPLAINT: Diverticulitis HISTORY OF PRESENT ILLNESS: Patient is status post Reversal of colostomy, Incidental appendectomy, Left ovarian cystectomy, Lysis of extensive adhesions, Repair of parastomal hernia and Repair of incisional hernia for history of diverticulitis, incisional hernia, parastomal hernia, left ovarian cyst and significant adhesions. She is postop day #6. Patient is lying in bed comfortably. She reports her pain is controlled. She is having bowel movements and passing gas. Denies a nausea vomiting. She is tolerating diet. She is currently down to 3 L of oxygen. White count 6.9 hemoglobin is 10.9. Patient is followed by pulmonary service in regards to possible aspiration pneumonia and COPD exacerbation PHYSICAL EXAM: VITAL SIGNS: Reviewed. GENERAL: Well-developed in no acute distress. HEENT: No sclera icterus. Extraocular movements grossly intact. Moist buccal mucosa. Head is atraumatic, normocephalic. ABDOMEN: Soft. Nondistended. Incisional dressing blood saturation noted at the distal portion of the dressing. NEUROLOGIC: Alert and oriented. Cranial nerves II through XII grossly intact. ASSESSMENT: 1. History of diverticulitis, incisional hernia, parastomal hernia, left ovarian cyst and significant adhesions status post Reversal of colostomy, Incidental appendectomy, Left ovarian cystectomy, Lysis of extensive adhesions, Repair of parastomal hernia and Repair of incisional hernia PLAN: -Continue regular diet -Encourage incentive spirometer use -Encourage patient to increase activity -GI prophylaxis Pepcid and DVT prophylaxis subcu heparin Physician Photography Teacher note has been reviewed by physician. Signing provider agrees with the documented findings, assessment, and plan of care. Objective - Vital Signs Vital signs: Vital Signs Temp 98.1 F 07/28/20 08:00 Pulse 100 07/28/20 09:46 Resp 18 07/28/20 08:00 BP 109/59 07/28/20 08:00 Pulse Ox 93 L 07/28/20 08:00 Intake & Output 07/27/20 07/28/20 07/28/20 18:59 06:59 18:59 Intake Total 820 358 Output Total 1100 Balance 820 -1100 358 Weight 64 kg Intake: Intake, IV Titration 100 Amount Piperacillin-Tazobactam 3 100 .375 gm In Sodium Chloride 0.9% 100 ml @ 25 mls/hr IVPB Q8HR [facility] Rx# :[id number] Oral 720 358 Output: Urine 1100 Other: Voiding Method Indwelling Catheter Indwelling Catheter Indwelling Catheter # Voids 1 # Bowel Movements 1 1 - Labs CBC & Chem 7: 07/28/20 06:51 07/28/20 06:51 Labs: Abnormal Lab Results - Last 24 Hours (Table) 07/27/20 07/27/20 07/28/20 Range/Units 16:49 19:57 05:49 RBC (3.80-5.40) m/uL Hgb (11.4-16.0) gm/dL Hct (34.0-46.0) % MCV (80.0-100.0) fL Lymphocytes # (1.0-4.8) k/uL Chloride (98-107) mmol/L Carbon Dioxide (22-30) mmol/L BUN (7-17) mg/dL Glucose (74-99) mg/dL POC Glucose (mg/dL) 163 H 214 H 140 H (75-99) mg/dL 07/28/20 07/28/20 07/28/20 Range/Units 06:51 06:51 12:04 RBC 3.26 L (3.80-5.40) m/uL Hgb 10.9 L (11.4-16.0) gm/dL Hct 33.0 L (34.0-46.0) % MCV 101.3 H (80.0-100.0) fL Lymphocytes # 0.2 L (1.0-4.8) k/uL Chloride 96 L (98-107) mmol/L Carbon Dioxide 39 H (22-30) mmol/L BUN 22 H (7-17) mg/dL Glucose 131 H (74-99) mg/dL POC Glucose (mg/dL) 149 H (75-99) mg/dL Microbiology - Last 24 Hours (Table) 07/27/20 18:00 Gram Stain - Preliminary Sputum Sputum Culture - Preliminary
[2020-07-28 17:15] LABS: Glucose,Whole Blood 146 mg/dL (75-99)
[2020-07-28] MEDS: AZITHROMYCIN 500 MG TAB PO SCH (18:04)
[2020-07-28 19:55] LABS: Glucose,Whole Blood 170 mg/dL (75-99)
--- NOTE | 2020-07-28 20:53 | PN ---
PROGRESS NOTE This is a 59-year-old white female. She remains 94% oxygen on 3 L. She is being treated for bilateral pneumonia. Cardiovascular: S1-S2. Lungs have decreased breath sounds x4, scattered rhonchi and wheeze. Her wheezing is improving slowly. She is being treated for bilateral pneumonia. Vital signs reviewed. Cardiovascular: S1-S2. Lungs: Wheezes x4. Psych: Fair mood and affect. ASSESSMENT: 1. Aspiration pneumonia secondary to mixed Gram-negative bacteria. 2. Chronic obstructive pulmonary disease exacerbation. 3. Hypoxemic hypercapnic respiratory failure. 4. Postoperative reversal of colostomy. 5. Mood disorder. 6. Chronic obstructive pulmonary disease. 7. Dyslipidemia. 8. Active smoker. Continue broad-spectrum antibiotics, Zosyn, azithromycin, IV steroids, breathing treatments, BiPAP at night. CT of the chest: aspiration pneumonia, negative for . Prognosis guarded. MMODL / IJN: [id number] /
[2020-07-28] MEDS: FAMOTIDINE 20 MG TAB PO SCH (21:08)
[2020-07-29 05:55] LABS: Glucose,Whole Blood 125 mg/dL (75-99)
[2020-07-29] MEDS: LACTATED RINGERS 1,000 ML IV SCH (06:43)
[2020-07-29] MEDS: FORMOTEROL FUMARATE 20 MCG/2 ML NEBU INHALATION SCH ×2 (08:23→20:29)
[2020-07-29] MEDS: IPRATROPIUM-ALBUTEROL 3 ML NEB INHALATION SCH ×4 (08:23→20:29)
--- NOTE | 2020-07-29 08:41 | P.PN ---
Subjective Progress Note Date: 07/29/20 Principal diagnosis: eveloping pneumonia likely aspiration pneumonia Acute COPD exacerbation Acute hypoxic and hypercapnic respiratory failure Postop day #3 of reversal of colostomy Mood disorder depression Severe COPD end-stage lung disease Dyslipidemia 07/29/2020, patient awake and alert denies any chest pain breathing comfortably, respiratory status stable, denies any chest pain, breathing improved however still wheezing we'll continue IV steroids obtain a follow-up chest x-ray tomorrow for pneumonia antibiotics and steroids can be changed to oral 24-48 hours pending x-ray finding 07/28/2020, patient is awake and alert, down to 3 L nasal cannula, short of breath and wheezing slightly improved though, less cough congestion and confusion is present, he remains on IV antibiotics breathing treatments steroids 07/27/2020, patient seen eval examined during the rounds, the sputum status continued to improve, patient is on 2 L oxygen slight intermittent confusion is present, patient remains on antibiotics breathing treatments IV steroids, cough congestion and wheezing have significantly improved, patient remains on BiPAP support at nighttime July 26, 2020, patient seen eval examined during the rounds labs reviewed medications reviewed care plan discussed, respiratory is status still marginal but slightly improved compared to yesterday, patient remains on high flow oxygen with 10 L has been on BiPAP 02/22 with 60% oxygen switched to high flow oxygen, chest x-ray today reviewed bilateral dense infiltrate are present consistent with aspiration pneumonia, patient has been consult about smoking cessation, also present on the bedside also consult, will continue current plan of care with bronchodilators 4 times a day, antibiotics with Zithromax and Solu- Medrol and IV Zosyn, slowly titrate oxygen down, continue to monitor and do aspiration precautions, critical care time spent 35 minutes This is a 59-year-old female who was admitted into the hospital underwent reversal of the colostomy with incidental appendectomy left ovarian cystectomy lysis of adhesion and bands and repair of the parastomal hernia and repair of incisional hernia, she has a prior history of diverticulitis, postop day #3 overnight she pulled off her RECENTERER pump, becomes anxious noted to be very hypoxic wheezy FiO2 requirement went up to 100% nonrebreather mask, chest x-ray patchy bilateral upper lobe infiltrates are new along with right lower lobe infiltrates, she has been on bronchodilators along with DVT prophylaxis with subcu heparin, Dilaudid for pain control, IV Solu-Medrol, and epidural pain pump, arterial blood gases revealed respiratory acidosis, pH is 7.32 pCO2 67 pO2 was only 56, she is afebrile sats are 92 with BiPAP 40% oxygen, white cell count is 11,000, BUN/creatinine is a 10/.7, d-dimer is pending, BNP and CMP pending, Objective - Vital Signs Vital signs: Vital Signs Temp 97.9 F 07/28/20 20:00 Pulse 94 07/29/20 08:34 Resp 18 07/29/20 04:00 BP 119/66 07/29/20 04:00 Pulse Ox 96 07/29/20 04:00 Intake & Output 07/28/20 07/29/20 07/29/20 18:59 06:59 18:59 Intake Total 598 240 Output Total 700 400 Balance -102 -160 Weight 63.5 kg Intake: Oral 598 240 Output: Urine 700 400 Other: Voiding Method Indwelling Catheter # Voids 1 - Exam Constitutional General appearance: average body habitus, cooperative, disheveled, severe distress - EENT Eyes: PERRLA Ears: bilateral: normal - Neck Neck: normal ROM Carotids: bilateral: upstroke normal Thyroid: bilateral: normal size - Respiratory Respiratory: bilateral: diminished, wheezing (Bilateral inspiratory and expira tory) - Cardiovascular Rhythm: regular Heart sounds: normal: S1, S2 - Gastrointestinal General gastrointestinal: decreased bowel sounds - Neurologic Neurologic: CNII-XII intact - Musculoskeletal Musculoskeletal: gait normal, generalized weakness, strength equal bilaterally - Psychiatric Psychiatric: A&O x's 3, appropriate affect, intact judgment & insight - Labs CBC & Chem 7: 07/28/20 06:51 07/28/20 06:51 Labs: Abnormal Lab Results - Last 24 Hours (Table) 07/28/20 07/28/20 07/28/20 Range/Units 06:51 12:04 17:13 POC Glucose (mg/dL) 149 H 146 H (75-99) mg/dL Procalcitonin 0.88 H (0.02-0.09) ng/mL 07/28/20 07/29/20 Range/Units 19:50 05:54 POC Glucose (mg/dL) 170 H 125 H (75-99) mg/dL Procalcitonin (0.02-0.09) ng/mL Assessment and Plan Assessment: Aspiration pneumonia related to mixed bacterial gram-negative Acute COPD exacerbation Acute hypoxic and hypercapnic respiratory failure Postop reversal of colostomy Mood disorder depression Severe COPD end-stage lung disease Dyslipidemia Active smoker Plan: Broad-spectrum antibiotics with Zosyn and Zithromax IV steroids continue Solu-Medrol, start tapering it down Can changed to oral and 24-48 hours, pending x-ray finding Breathing treatments 4 times a day and when necessary BiPAP support each night and when necessary during the day in between and use nasal cannula computed tomography scan of the chest reviewed consistent with aspiration pneumonia no pulmonary embolism seen Continue heparin for DVT prophylaxiss Peptic ulcer disease prophylaxis Time with Patient: Greater than 30
[2020-07-29 08:47] LABS: Basophils % (A) 0 %; Eosinophils % (A) 0 %; HCT 36.8 % (34.0-46.0); HGB 11.7 gm/dL (11.4-16.0); Lymphocytes # (A) 0.5 k/uL (1.0-4.8); Lymphocytes % (A) 8 %; MCH 32.9 pg (25.0-35.0); MCHC 31.9 g/dL (31.0-37.0); MCV 103.2 fL (80.0-100.0); Macrocytosis Slight; Mean Platelet Volume 7.4; Monocytes # (A) 0.3 k/uL (0-1.0); Monocytes % (A) 5 %; Neutrophils # (A) 4.6 k/uL (1.3-7.7); Neutrophils % (A) 84 %; Platelet Count 403 k/uL (150-450); RBC 3.56 m/uL (3.80-5.40); RDW 12.9 % (11.5-15.5); WBC 5.5 k/uL (3.8-10.6)
[2020-07-29] MEDS: Dolutegravir Sodium [Tivicay] PO SCH (09:06)
[2020-07-29] MEDS: Emtricitabine/Tenofov Alafenam [Descovy 200-25 Mg Tablet] PO SCH (09:06)
[2020-07-29] MEDS: methylPREDNISolone SOD SUCCI 40 MG/ML 1 ML VIAL IV SCH ×2 (09:06→20:40)
[2020-07-29] MEDS: FUROSEMIDE 10 MG/ML 2 ML VIAL IV SCH ×2 (09:06→20:39)
[2020-07-29] MEDS: HEPARIN SODIUM,PORCINE/PF 5,000 UNIT/0.5 ML SYRINGE SQ SCH ×2 (09:06→17:17)
[2020-07-29] MEDS: PIPERACILLIN-TAZOBACTAM 3.375 GM in SODIUM CHLORIDE 0.9% 100 ML IVPB SCH ×2 (09:07→17:17)
[2020-07-29] MEDS: clonazePAM 0.5 MG TAB PO SCH ×2 (09:07→20:39)
[2020-07-29] MEDS: TAMSULOSIN 0.4 MG CAP.ER.24H PO SCH (09:07)
[2020-07-29] MEDS: ARIPiprazole 2 MG TAB PO SCH (09:07)
[2020-07-29] MEDS: FAMOTIDINE 20 MG TAB PO SCH ×2 (09:07→20:39)
[2020-07-29] MEDS: PARoxetine 20 MG TAB PO SCH (09:07)
[2020-07-29] MEDS: ATORVASTATIN 10 MG TAB PO SCH (09:07)
[2020-07-29 09:13] LABS: ALT 16 U/L (4-34); AST 16 U/L (14-36); African American GFR (CKD) >90 (>60 ml/min/1.73 sqM); Alkaline Phosphatase 56 U/L (38-126); Anion Gap 7 mmol/L; Blood Urea Nitrogen 23 mg/dL (7-17); Calcium 8.6 mg/dL (8.4-10.2); Carbon Dioxide 32 mmol/L (22-30); Chloride 98 mmol/L (98-107); Glucose 160 mg/dL (74-99); Non-African American GFR(CKD) 80 (>60 ml/min/1.73 sqM); Potassium 4.2 mmol/L (3.5-5.1); Sodium 137 mmol/L (137-145); Total Bilirubin 0.3 mg/dL (0.2-1.3); Total Protein 5.8 g/dL (6.3-8.2)
[2020-07-29] MEDS: NICOTINE 21MG/24HR PATCH TRANSDERM SCH (11:28)
[2020-07-29 11:59] VITALS: BMI 22.9
[2020-07-29 12:07] LABS: Glucose,Whole Blood 133 mg/dL (75-99)
--- NOTE | 2020-07-29 13:01 | P.PN ---
Subjective Progress Note Date: 07/29/20 CHIEF COMPLAINT: Diverticulitis HISTORY OF PRESENT ILLNESS: Patient is status post Reversal of colostomy, Incidental appendectomy, Left ovarian cystectomy, Lysis of extensive adhesions, Repair of parastomal hernia and Repair of incisional hernia for history of diverticulitis, incisional hernia, parastomal hernia, left ovarian cyst and significant adhesions. She is postop day #7. Patient is lying in bed comfortably. She reports her pain is controlled. She is having bowel movements and passing gas. Denies a nausea vomiting. She is tolerating diet. She is currently down to 3 L of oxygen. Afebrile WBC 5.5 hemoglobin 11.7. Patient is followed by pulmonary service in regards to possible aspiration pneumonia and COPD exacerbation. Pulmonary services recommending patient to continue IV steroids and repeating a chest x-ray in a.m. PHYSICAL EXAM: VITAL SIGNS: Reviewed. GENERAL: Well-developed in no acute distress. HEENT: No sclera icterus. Extraocular movements grossly intact. Moist buccal mucosa. Head is atraumatic, normocephalic. ABDOMEN: Soft. Nondistended. Small amount of blood noted on the distal portion of the dressing NEUROLOGIC: Alert and oriented. Cranial nerves II through XII grossly intact. ASSESSMENT: 1. History of diverticulitis, incisional hernia, parastomal hernia, left ovarian cyst and significant adhesions status post Reversal of colostomy, Incidental appendectomy, Left ovarian cystectomy, Lysis of extensive adhesions, Repair of parastomal hernia and Repair of incisional hernia PLAN: -Hopefully discharge tomorrow, if cleared by pulmonary service -Continue regular diet -Encourage incentive spirometer use -Encourage patient to increase activity -GI prophylaxis Pepcid and DVT prophylaxis subcu heparin Physician Skills Auditor note has been reviewed by physician. Signing provider agrees with the documented findings, assessment, and plan of care. Objective - Vital Signs Vital signs: Vital Signs Temp 98.0 F 07/29/20 08:00 Pulse 90 07/29/20 11:56 Resp 18 07/29/20 08:00 BP 122/71 07/29/20 08:00 Pulse Ox 96 07/29/20 08:00 Intake & Output 07/28/20 07/29/20 07/29/20 18:59 06:59 18:59 Intake Total 598 240 440 Output Total 700 400 Balance -102 -160 440 Weight 63.5 kg 63.5 kg Intake: Oral 598 240 440 Output: Urine 700 400 Other: Voiding Method Indwelling Catheter Indwelling Catheter # Voids 1 - Labs CBC & Chem 7: 07/29/20 07:54 07/29/20 07:54 Labs: Abnormal Lab Results - Last 24 Hours (Table) 07/28/20 07/28/20 07/28/20 Range/Units 06:51 17:13 19:50 RBC (3.80-5.40) m/uL MCV (80.0-100.0) fL Lymphocytes # (1.0-4.8) k/uL Carbon Dioxide (22-30) mmol/L BUN (7-17) mg/dL Glucose (74-99) mg/dL POC Glucose (mg/dL) 146 H 170 H (75-99) mg/dL Total Protein (6.3-8.2) g/dL Albumin (3.5-5.0) g/dL Procalcitonin 0.88 H (0.02-0.09) ng/mL 07/29/20 07/29/20 07/29/20 Range/Units 05:54 07:54 07:54 RBC 3.56 L (3.80-5.40) m/uL MCV 103.2 H (80.0-100.0) fL Lymphocytes # 0.5 L (1.0-4.8) k/uL Carbon Dioxide 32 H (22-30) mmol/L BUN 23 H (7-17) mg/dL Glucose 160 H (74-99) mg/dL POC Glucose (mg/dL) 125 H (75-99) mg/dL Total Protein 5.8 L (6.3-8.2) g/dL Albumin 3.0 L (3.5-5.0) g/dL Procalcitonin (0.02-0.09) ng/mL 07/29/20 Range/Units 12:05 RBC (3.80-5.40) m/uL MCV (80.0-100.0) fL Lymphocytes # (1.0-4.8) k/uL Carbon Dioxide (22-30) mmol/L BUN (7-17) mg/dL Glucose (74-99) mg/dL POC Glucose (mg/dL) 133 H (75-99) mg/dL Total Protein (6.3-8.2) g/dL Albumin (3.5-5.0) g/dL Procalcitonin (0.02-0.09) ng/mL Microbiology - Last 24 Hours (Table) 07/27/20 18:00 Gram Stain - Preliminary Sputum Sputum Culture - Preliminary Yeast species
--- NOTE | 2020-07-29 13:22 | PN ---
PROGRESS NOTE DATE OF SERVICE: 07/29/2020 REASON FOR FOLLOWUP: 1. Pneumonia. 2. HIV. INTERVAL HISTORY: The patient is currently afebrile. Patient is breathing comfortably. The patient's cough has decreased in intensity, still bringing up some sputum. No chest pain. Abdominal pain is currently controlled. Has been able to tolerate her diet. No diarrhea. PHYSICAL EXAMINATION: Blood pressure 122/71, pulse of 80, temperature 98, she is 97% on 3 L nasal cannula. GENERAL DESCRIPTION: A middle-aged female up in the bed in no distress. RESPIRATORY SYSTEM: Unlabored breathing, decreased intensity of breath sounds, no wheeze. HEART: S1, S2. Regular rate and rhythm. ABDOMEN: Soft, no tenderness. LABS: Hemoglobin 11.5, white count 5.5, BUN of 23, creatinine 0.80. Sputum is a yeast species. DIAGNOSTIC IMPRESSION AND PLAN: 1. Patient admitted to the hospital with elective reversal of colostomy and subsequently developing respiratory distress, concern for possible pneumonitis. Overall improvement on Zosyn. Finish a short course of oral Avelox about 5 days. 2. Patient with HIV. Continue with DDK and [place]. Close outpatient followup. MMODL / IJN: [id number] /
--- NOTE | 2020-07-29 16:38 | PN ---
PROGRESS NOTE She is breathing much better every day. Being treated for sepsis. Cardiovascular S1-S2. Lungs scattered rhonchi and wheeze. Hematology negative Homans. Psych fair mood and affect. ASSESSMENT: 1. Bilateral pneumonia. 2. Chronic obstructive pulmonary disease exacerbation. 3. Acute hypoxemic respiratory failure. 4. Day 3 status post colostomy. Continue with Zosyn, Zithromax and Solu-Medrol. She is getting BiPAP. Home oxygen will have to be set up. Possible discharge home soon as she is improving. MMODL / IJN: [id number] /
[2020-07-29 17:14] LABS: Glucose,Whole Blood 128 mg/dL (75-99)
[2020-07-29] MEDS: AZITHROMYCIN 500 MG TAB PO SCH (17:17)
[2020-07-29 19:37] LABS: Glucose,Whole Blood 146 mg/dL (75-99)
[2020-07-30 00:09] VITALS: RESP 18
[2020-07-30] MEDS: HEPARIN SODIUM,PORCINE/PF 5,000 UNIT/0.5 ML SYRINGE SQ SCH ×2 (00:10→08:57)
[2020-07-30] MEDS: PIPERACILLIN-TAZOBACTAM 3.375 GM in SODIUM CHLORIDE 0.9% 100 ML IVPB SCH ×2 (00:10→08:56)
[2020-07-30 06:08] LABS: Glucose,Whole Blood 114 mg/dL (75-99)
--- NOTE | 2020-07-30 07:52 | XR ---
EXAMINATION TYPE: XR chest 1V DATE OF EXAM: 07/30/2020 COMPARISON: 07/25/2020 HISTORY: Axial TECHNIQUE: Single frontal view of the chest is obtained. FINDINGS: Bilateral consolidation and small right effusion. Coarsened interstitium. No pneumothorax. Heart size stable. Chronic rib deformities noted. Surgical guera in the abdomen. IMPRESSION: 1. Bilateral infiltrate with small effusion stable correlate for venous congestion versus interstitia l pneumonitis.
[2020-07-30] MEDS: FORMOTEROL FUMARATE 20 MCG/2 ML NEBU INHALATION SCH (08:45)
[2020-07-30] MEDS: IPRATROPIUM-ALBUTEROL 3 ML NEB INHALATION SCH ×2 (08:45→12:01)
[2020-07-30] MEDS: NICOTINE 21MG/24HR PATCH TRANSDERM SCH (08:57)
[2020-07-30] MEDS: Dolutegravir Sodium [Tivicay] PO SCH (08:57)
[2020-07-30] MEDS: FAMOTIDINE 20 MG TAB PO SCH (08:57)
[2020-07-30] MEDS: Emtricitabine/Tenofov Alafenam [Descovy 200-25 Mg Tablet] PO SCH (08:57)
[2020-07-30] MEDS: TAMSULOSIN 0.4 MG CAP.ER.24H PO SCH (08:58)
[2020-07-30] MEDS: ARIPiprazole 2 MG TAB PO SCH (09:00)
[2020-07-30] MEDS: FUROSEMIDE 10 MG/ML 2 ML VIAL IV SCH (09:00)
[2020-07-30] MEDS: PARoxetine 20 MG TAB PO SCH (09:00)
[2020-07-30] MEDS: ATORVASTATIN 10 MG TAB PO SCH (09:00)
[2020-07-30] MEDS: clonazePAM 0.5 MG TAB PO SCH (09:00)
[2020-07-30] MEDS: methylPREDNISolone SOD SUCCI 40 MG/ML 1 ML VIAL IV SCH (09:00)
[2020-07-30 09:12] VITALS: BP 130/74; TEMP 97.8
--- NOTE | 2020-07-30 11:33 | P.DS ---
Providers Date of admission: 07/22/20 07:41 Expected date of discharge: 07/30/20 Attending physician: Paxton Zamora Consults: 07/22/20 12:22 Consult Physician Routine Consulting Provider: Quoc Saavedra Consult Reason/Comments: Management Do you want consulting provider notified?: Yes 07/25/20 07:16 Consult Physician Stat Consulting Provider: Eamon Ferrera Consult Reason/Comments: hypoxia Do you want consulting provider notified?: Yes 07/25/20 14:03 Consult Physician Routine Consulting Provider: Miryam Cheatham Consult Reason/Comments: cap Do you want consulting provider notified?: Yes Primary care physician: Quoc Saavedra [facility] Course: Discharge diagnosis 1. History of diverticulitis, incisional hernia, parastomal hernia, left ovarian cyst and significant adhesions status post Reversal of colostomy, Incidental appendectomy, Left ovarian cystectomy, Lysis of extensive adhesions, Repair of parastomal hernia and Repair of incisional hernia Hospital course This is a 59-year-old female with a known history of diverticulitis, incisional hernia, parastomal hernia, left ovarian cyst and significant adhesions status post Reversal of colostomy, Incidental appendectomy, Left ovarian cystectomy, Lysis of extensive adhesions, Repair of parastomal hernia and Repair of incisional hernia. Patient did tolerate surgery well. During this admission patient had worsening respiratory status. She required a transfer to our select care floor. She did require BiPAP. She was started on IV steroids IV antibiotics for concerns of COPD exacerbation and pneumonia. She is followed by pulmonary service and medicine service. Patient is now on 3 L of oxygen satting 96%. Her respiratory status has shown improvement. Pulmonary service has cleared her for discharge and recommended to be discharged with Augmentin for 1 week and prednisone 40 mg daily for 5 days. Patient denies any abdominal pain. She's tolerating regular diet. She is having bowel movements. She is ambulating without difficulty. She's afebrile. She is stable for discharge. Patient will require home oxygen. And she has oxygen already set up at home per nursing staff. Please refer to chart for any further details. Physician Nurse Healthcare Manager note has been reviewed by physician. Signing provider agrees with the documented findings, assessment, and plan of care. Patient Condition at Discharge: Stable Plan - Discharge Summary Discharge Rx Participant: No New Discharge Prescriptions: New Amoxicillin/Potassium Clav [Augmentin 500-125 Tablet] 1 tab PO Q12HR 7 Days #14 tab predniSONE 10 mg PO DIRECTED 5 Days #20 tab Acetaminophen Tab [Tylenol Tab] 650 mg PO Q4H PRN #30 tablet PRN Reason: Pain Continue Dolutegravir Sodium [Tivicay] 50 mg PO DAILY PARoxetine HCL [Paxil] 20 mg PO DAILY Atorvastatin [Lipitor] 10 mg PO DAILY Albuterol Sulfate [Proventil Hfa] 2 inhalation INHALATION DIRECTED PRN PRN Reason: COPD Emtricitabine/Tenofov Alafenam [Descovy 200-25 mg Tablet] 1 tab PO DAILY ARIPiprazole [Abilify] 2 mg PO DAILY clonazePAM [KlonoPIN] 0.5 mg PO BID Tiotropium 2.5 Mcg/Puff [Spiriva Respimat 2.5 Mcg] 2 puff INHALATION DAILY Tamsulosin [Flomax] 0.4 mg PO DAILY Discharge Medication List ARIPiprazole [Abilify] 2 mg PO DAILY 07/17/20 [History] Albuterol Sulfate [Proventil Hfa] 2 inhalation INHALATION DIRECTED PRN 07/17/20 [History] Atorvastatin [Lipitor] 10 mg PO DAILY 07/17/20 [History] Dolutegravir Sodium [Tivicay] 50 mg PO DAILY 07/17/20 [History] Emtricitabine/Tenofov Alafenam [Descovy 200-25 mg Tablet] 1 tab PO DAILY 07/17/20 [History] PARoxetine HCL [Paxil] 20 mg PO DAILY 07/17/20 [History] Tamsulosin [Flomax] 0.4 mg PO DAILY 07/17/20 [History] Tiotropium 2.5 Mcg/Puff [Spiriva Respimat 2.5 Mcg] 2 puff INHALATION DAILY 07/17/20 [History] clonazePAM [KlonoPIN] 0.5 mg PO BID 07/17/20 [History] Acetaminophen Tab [Tylenol Tab] 650 mg PO Q4H PRN #30 tablet 07/30/20 [Rx] Amoxicillin/Potassium Clav [Augmentin 500-125 Tablet] 1 tab PO Q12HR 7 Days #14 tab 07/30/20 [Rx] predniSONE 10 mg PO DIRECTED 5 Days #20 tab 07/30/20 [Rx] Follow up Appointment(s)/Referral(s): Quoc Saavedra MD [Primary Care Provider[facility] - 1 Week Eamon Ferrera MD [STAFF PHYSICIAN] - 2 Weeks Paxton Zamora MD [STAFF PHYSICIAN] - 1 Week Activity/Diet/Wound Care/Special Instructions: Lasix per medicine service No lifting over 10 pounds You may shower. No soaking or tub baths for 2 weeks Very light activity until you are reevaluated at your follow up appointment with your surgeon Discharge Disposition: HOME WITH HOME HEALTH SERVICES
[2020-07-30 11:47] LABS: Glucose,Whole Blood 125 mg/dL (75-99)
[2020-07-30 12:14] VITALS: PULSE 89
--- NOTE | 2020-07-30 12:37 | PN ---
PROGRESS NOTE DATE OF SERVICE: 07/30/2020 REASON FOR FOLLOWUP: 1. Pneumonia. 2. HIV. INTERVAL HISTORY: The patient is currently afebrile. The patient is breathing comfortably. Patient denies having any chest pain, shortness of breath. Occasional cough and bringing up some sputum. No vomiting. No abdominal pain or diarrhea. PHYSICAL EXAMINATION: Blood pressure is a 130/74 with a pulse of 93, temperature 97.8. She is 95% on 3 L nasal cannula. General description is a middle-aged female lying in bed in no distress. Respiratory system: Unlabored breathing, clear to auscultation anteriorly. Heart S1, S2. Regular rate. ABDOMEN: Soft. No tenderness. LABORATORY DATA: No new labs have been obtained today. Chest x-ray this morning bilateral small effusion. DIAGNOSTIC IMPRESSION AND PLAN: 1. Patient with pneumonia. Sputum has Chana likely colonization, overall improvement with Zosyn and Zithromax to finish therapy with a short course of oral Avelox. 2. Patient with HIV. Continue with Jane and Gilbert and close outpatient followup. MMODL / IJN: [id number] /
--- NOTE | 2020-08-01 10:54 | CDI ---
Documentation Clarification Form Date: 08/01/20 From: Joi Vo Admit Date: 07/22/2020 07:41:00 AM Patient Name: Marina Field Visit Number: [id number] Discharge Date: 07/30/2020 01:11:00 PM ATTENTION: The Clinical Documentation Specialists (CDI) and [facility] Coding Staff appreciate your assistance in clarifying documentation. Please respond to the clarification below the line at the bottom and electronically sign. The CDI & [facility] Coding staff will review the response and follow-up if needed. Please note: Queries are made part of the Legal Health Record. If you have any questions, please contact the author of this message via ITS. Dr. Paxton Zamora, Sepsis is documented in Dr Saavedra's progress note on 07/29 , but is not noted in subsequent documentation. Clarification is requested. History/Risk Factors: Colostomy reversal, HIV1, COPD Clinical Indicators: She underwent surgery for reversal of colostomy. On 07/25 she developed acute hypoxic respiratory distress due to fluid overload per Christina Cruz 07/25 note. WBC on 07/24-13.2, 07/25-11.1; Neutrophils on 07/24-12.4, 07/25-10.3; T-97.5, P-95, R-28, BP-152/67 Treatment: Placed on BIPAP IVP Lasix Please clarify if [ ] Sepsis confirmed, remains under treatment [ ] Sepsis confirmed, resolved [ x ] Sepsis ruled out [ ] Other condition, please specify [ ] Unable to determine MTDD
== END 2020-07-30 13:11 | disposition home health service (06) | DRG 329 ==
LOC: 2ORMAIN 07:41 → 5NMEDONC 14:53 → 3SCARD 07-25 08:00
PROVIDERS: ADMIT Surgery; ATTEND Surgery
PROC: 0BNN0ZZ Release Right Pleura, Open Approach (ICD-10-PCS; principal; 2020-07-22 09:50)
PROC: 0WQF0ZZ Repair Abdominal Wall, Open Approach (ICD-10-PCS; principal; 2020-07-22 09:50)
PROC: 0UB10ZZ Excision of Left Ovary, Open Approach (ICD-10-PCS; principal; 2020-07-22 09:50)
PROC: 0DBN0ZZ Excision of Sigmoid Colon, Open Approach (ICD-10-PCS; principal; 2020-07-22 09:50)
PROC: 0BNP0ZZ Release Left Pleura, Open Approach (ICD-10-PCS; principal; 2020-07-22 09:50)
PROC: 0DTJ0ZZ Resection of Appendix, Open Approach (ICD-10-PCS; principal; 2020-07-22 09:50)
PROC: 5A09557 Assistance with Respiratory Ventilation, Greater than 96 Consecutive Hours, Continuous Positive Airway Pressure (ICD-10-PCS; 2020-07-25)
DX: Z43.3 Encounter for attention to colostomy (principal); J96.01 Acute respiratory failure with hypoxia; J96.02 Acute respiratory failure with hypercapnia; J69.0 Pneumonitis due to inhalation of food and vomit; J15.6 Pneumonia due to other Gram-negative bacteria; J90 Pleural effusion, not elsewhere classified; E87.2 Acidosis; J44.0 Chronic obstructive pulmonary disease with (acute) lower respiratory infection; J44.1 Chronic obstructive pulmonary disease with (acute) exacerbation; Z21 Asymptomatic human immunodeficiency virus [HIV] infection status; Z20.822 Contact with and (suspected) exposure to COVID-19; E87.5 Hyperkalemia; K57.30 Diverticulosis of large intestine without perforation or abscess without bleeding; K66.0 Peritoneal adhesions (postprocedural) (postinfection); K43.2 Incisional hernia without obstruction or gangrene; K43.5 Parastomal hernia without obstruction or gangrene; N83.202 Unspecified ovarian cyst, left side; E87.70 Fluid overload, unspecified; F32.9 Major depressive disorder, single episode, unspecified; F41.9 Anxiety disorder, unspecified; E78.5 Hyperlipidemia, unspecified; T38.0X5A Adverse effect of glucocorticoids and synthetic analogues, initial encounter; F17.210 Nicotine dependence, cigarettes, uncomplicated; Z71.6 Tobacco abuse counseling; Z79.899 Other long term (current) drug therapy; Z83.2 Family history of diseases of the blood and blood-forming organs and certain disorders involving the immune mechanism
CPT/HCPCS: 36600; 71045; 71250; 80048; 80053; 82805; 83880; 84145; 84443; 85025; 85379; 86140; 86850; 86900; 86901; 87070; 87205; 87635; 88304; 94640; 94660; 94760

== ENCOUNTER → 2020-08-15 | Outpatient (CLI) | payer OTHER ==
--- NOTE | 2020-08-18 09:13 | PE ---
Nuclear medicine PET/CT HISTORY: Solitary pulmonary nodule, initial, R 91.1 Patient received 10.9 mCi F-18 FDG intravenously delayed scanning was performed from the skull base t o the mid thighs. Localization and attenuation correction CT scan was performed. Correlation to CT chest 07/25/2020 Chest and neck: There are multiple abnormal foci of increased attenuation within the lungs bilaterall y, largest in the left posterior medially, SUV 15.3, multiple smaller lytic lesions are present in th e right hemithorax, largest on the right SUV 11.1, smaller lesions also show hypermetabolic uptake. A reas of consolidation show a shaggy appearance, nodular densities are present in the right lower lobe , confluent densities present greater on the left, no pleural or pericardial effusion. There is a hia shirin hernia with partial intrathoracic stomach. ABDOMEN: Low dense mass associated with the right adrenal gland likely represents an adenoma. No evid ent liver mass, gallbladder is within normal limits. No ascites or retroperitoneal adenopathy. Along the anterior abdominal wall there is surgical suture present, some skin thickening is present, abnorm al attenuation within the subcutaneous fat is noted, there may be a seroma in the infraumbilical midl ine measuring approximately 5.5 x 3 cm, no associated uptake. There is uptake associated with the abd ominal wall likely due to postop change. Probable Hutch diverticulum present posterior laterally at t he level of the bladder. No pelvic adenopathy or free fluid. Urinary bladder shows a thickened wall. Osseous structures show no suspicious uptake. IMPRESSION: Findings within the lungs could represent metastatic disease. Postinflammatory changes whyte spected along the anterior abdominal wall, correlate with patient's surgical history. Infectious etio logies such as pneumonia, septic emboli not excluded. A Red level critical message alert has been initiated for Quoc Saavedra MD via the [email or web address] Critical Results System on 08/18/2020 9:10 AM. This message alert has been sent to Quoc Saavedra MD via the preferences provided by the clinician for the receipt of Radiology Critical Findings. Message ID [id number].
== END | disposition home or self-care (01) ==
LOC: RADPETMAIN 11:47
PROVIDERS: ATTEND Family Medicine
DX: R91.8 Other nonspecific abnormal finding of lung field (principal)
CPT/HCPCS: 78815; A9552

== ENCOUNTER 2021-11-20 10:29 | Observation (INO) | payer OTHER ==
[2021-11-20] MEDS ORDERED: ONDANSETRON 4 MG/2 ML VIAL IVP STA (10:40)
[2021-11-20] MEDS ORDERED: SODIUM CHLORIDE 0.9% 500 ML 500 ML IV STA (10:40)
--- NOTE | 2021-11-20 10:50 | ED ---
Abdominal Pain HPI - General Chief Complaint: Abdominal Pain Stated Complaint: ABD Pain Time Seen by Provider: 11/20/21 10:39 Source: patient, RN notes reviewed, old records reviewed Mode of arrival: ambulatory Limitations: no limitations - History of Present Illness Initial Comments: Nontoxic-appearing 61-year-old female presents to the emergency room with 1 week of intermittent nausea vomiting and diarrhea. She states she was seen a couple of days ago at [facility] and had a CT scan and blood work which were unremarkable. She did see her primary care doctor who put her on Bentyl with no relief. Her last episode of vomiting was yesterday morning. She states last night she developed sharp cramping abdominal pain and today she had 2 episodes of watery brown diarrhea. Denies any rectal bleeding. She does have a history of bowel resection which was resulted in a colostomy with reversal last year. She denies any fevers. Patient also has a history of HIV. MD Complaint: abdominal pain -: days(s) (1) Location: diffuse Severity scale (1-10): 10 Quality: cramping, sharp Improves With: nothing Associated Symptoms: nausea, vomiting, diarrhea Treatments Prior to Arrival: other (bentyl) - Related Data Home Medications Medication Instructions Recorded Confirmed ARIPiprazole [Abilify] 2 mg PO DAILY 07/17/20 11/20/21 Atorvastatin [Lipitor] 10 mg PO DAILY 07/17/20 11/20/21 Dolutegravir Sodium [Tivicay] 50 mg PO DAILY 07/17/20 11/20/21 Emtricitabine/Tenofov Alafenam 1 tab PO DAILY 07/17/20 11/20/21 [Descovy 200-25 mg Tablet] PARoxetine HCL [Paxil] 20 mg PO DAILY 07/17/20 11/20/21 Tamsulosin [Flomax] 0.4 mg PO DAILY 07/17/20 11/20/21 clonazePAM [KlonoPIN] 0.5 mg PO BID 07/17/20 11/20/21 Albuterol Sulfate [Proair Hfa] 2 puff INHALATION RT-Q4H 11/20/21 11/20/21 Dicyclomine [Bentyl] 20 mg PO TID 11/20/21 11/20/21 Furosemide [Lasix] 20 mg PO DAILY 11/20/21 11/20/21 Potassium Chloride [Klor-Con M20] 20 meq PO DAILY 11/20/21 11/20/21 Allergies Allergy/AdvReac Type Severity Reaction Status Date / Time No Known Allergies Allergy Verified 11/20/21 14:08 Review of Systems ROS Statement: Those systems with pertinent positive or pertinent negative responses have been documented in the HPI. ROS Other: All systems not noted in ROS Statement are negative. Past Medical History Past Medical History: No Reported History Additional Past Medical History / Comment(s): Has HIV 1. Recent abn lung CT, awaiting f/u. Has colostomy. Had Covid vaccine #1 07/09/20. Colostomy reversal planned for 07/22/20 History of Any Multi-Drug Resistant Organisms: None Reported Past Surgical History: Bowel Resection Additional Past Surgical History / Comment(s): jaw surgery, D&C, fallopian tube exc. Colostomy 06/20/19 est Past Anesthesia/Blood Transfusion Reactions: No Reported Reaction Past Psychological History: No Psychological Hx Reported Smoking Status: Former smoker Past Alcohol Use History: None Reported Past Drug Use History: None Reported - Past Family History Mother Family Medical History: Blood Disorder, Deep Vein Thrombosis (DVT), Pulmonary Embolus Additional Family Medical History / Comment(s): Factor V General Exam Limitations: no limitations General appearance: alert, in no apparent distress Eye exam: Absent: periorbital swelling Respiratory exam: Absent: respiratory distress, accessory muscle use Cardiovascular Exam: Present: tachycardia GI/Abdominal exam: Present: soft, tenderness, other (multiple scarring). Absent: distended, guarding, rebound, rigid Back exam: Absent: tenderness, CVA tenderness (R), CVA tenderness (L), rash noted Neurological exam: Present: alert, oriented X3 Psychiatric exam: Present: normal affect, normal mood Skin exam: Present: warm, dry, normal color. Absent: cyanosis, diaphoretic Course Vital Signs 11/20/21 11/20/21 10:34 13:59 Temperature 98.2 F Pulse Rate 100 80 Respiratory 20 18 Rate Blood Pressure 105/67 100/65 O2 Sat by Pulse 95 94 L Oximetry Medical Decision Making - Medical Decision Making Patient presents with 1 week of intermittent nausea,vomiting and diarrhea. She states her last episode of vomiting was yesterday morning. She did have 2 watery bowel movements today. She denies any nausea at this time. She denies any hematochezia or hematemesis. No fevers. Her pain was resolved after Toradol and IV fluids. She states that she does have a history of colostomy with bowel resection. Reversal done in June 2020. There is a mild leukocytosis noted. X-ray shows multiple air-fluid levels consistent with bowel obstruction or severe ileus. There is also a left lower lobe interstitial infiltrate noted. Patient will be admitted to the hospital with ileus versus bowel obstruction. She will be treated with Rocephin with consults to Dr. Cheatham for pneumonia with history of HIV. Case discussed with Dr. Carrasco and Dr. Keys. Patient is agreeable to admission. - Lab Data Result diagrams: 11/20/21 11:08 11/20/21 11:08 Lab Results 11/20/21 11/20/21 11/20/21 Range/Units 11:08 11:08 11:08 WBC 11.5 H (3.8-10.6) k/uL RBC 3.79 L (3.80-5.40) m/uL Hgb 11.3 L (11.4-16.0) gm/dL Hct 36.0 (34.0-46.0) % MCV 95.0 (80.0-100.0) fL MCH 29.9 (25.0-35.0) pg MCHC 31.5 (31.0-37.0) g/dL RDW 13.5 (11.5-15.5) % Plt Count 656 H (150-450) k/uL MPV 6.8 Neutrophils % 87 % Lymphocytes % 8 % Monocytes % 4 % Eosinophils % 1 % Basophils % 0 % Neutrophils # 10.0 H (1.3-7.7) k/uL Lymphocytes # 0.9 L (1.0-4.8) k/uL Monocytes # 0.4 (0-1.0) k/uL Eosinophils # 0.1 (0-0.7) k/uL Basophils # 0.0 (0-0.2) k/uL Sodium 130 L (137-145) mmol/L Potassium 3.9 (3.5-5.1) mmol/L Chloride 92 L (98-107) mmol/L Carbon Dioxide 29 (22-30) mmol/L Anion Gap 9 mmol/L BUN 7 (7-17) mg/dL Creatinine 0.74 (0.52-1.04) mg/dL Est GFR (CKD-EPI)AfAm >90 (>60 ml/min/1.73 sqM) Est GFR (CKD-EPI)NonAf 87 (>60 ml/min/1.73 sqM) Glucose 114 H (74-99) mg/dL Plasma Lactic Acid Jose Armando 0.7 (0.7-2.0) mmol/L Calcium 8.3 L (8.4-10.2) mg/dL Total Bilirubin 0.2 (0.2-1.3) mg/dL AST 9 L (14-36) U/L ALT <6 (4-34) U/L Alkaline Phosphatase 97 (38-126) U/L Total Protein 6.2 L (6.3-8.2) g/dL Albumin 3.2 L (3.5-5.0) g/dL Amylase 34 (30-110) U/L Lipase 11 L (23-300) U/L Urine Color Urine Appearance (Clear) Urine pH (5.0-8.0) Ur Specific [place] (1.001-1.035) Urine Protein (Negative) Urine Glucose (UA) (Negative) Urine Ketones (Negative) Urine Blood (Negative) Urine Nitrite (Negative) Urine Bilirubin (Negative) Urine Urobilinogen (<2.0) mg/dL Ur Leukocyte Esterase (Negative) Urine RBC (0-5) /hpf Urine WBC (0-5) /hpf Ur Squamous Epith Cells (0-4) /hpf Urine Bacteria (None) /hpf Hyaline Casts (0-2) /lpf Urine Mucus (None) /hpf Coronavirus (PCR) (Not Detectd) 11/20/21 11/20/21 Range/Units 11:27 11:54 WBC (3.8-10.6) k/uL RBC (3.80-5.40) m/uL Hgb (11.4-16.0) gm/dL Hct (34.0-46.0) % MCV (80.0-100.0) fL MCH (25.0-35.0) pg MCHC (31.0-37.0) g/dL RDW (11.5-15.5) % Plt Count (150-450) k/uL MPV Neutrophils % % Lymphocytes % % Monocytes % % Eosinophils % % Basophils % % Neutrophils # (1.3-7.7) k/uL Lymphocytes # (1.0-4.8) k/uL Monocytes # (0-1.0) k/uL Eosinophils # (0-0.7) k/uL Basophils # (0-0.2) k/uL Sodium (137-145) mmol/L Potassium (3.5-5.1) mmol/L Chloride (98-107) mmol/L Carbon Dioxide (22-30) mmol/L Anion Gap mmol/L BUN (7-17) mg/dL Creatinine (0.52-1.04) mg/dL Est GFR (CKD-EPI)AfAm (>60 ml/min/1.73 sqM) Est GFR (CKD-EPI)NonAf (>60 ml/min/1.73 sqM) Glucose (74-99) mg/dL Plasma Lactic Acid Jose Armando (0.7-2.0) mmol/L Calcium (8.4-10.2) mg/dL Total Bilirubin (0.2-1.3) mg/dL AST (14-36) U/L ALT (4-34) U/L Alkaline Phosphatase (38-126) U/L Total Protein (6.3-8.2) g/dL Albumin (3.5-5.0) g/dL Amylase (30-110) U/L Lipase (23-300) U/L Urine Color Yellow Urine Appearance Clear (Clear) Urine pH 5.5 (5.0-8.0) Ur Specific [place] 1.011 (1.001-1.035) Urine Protein Negative (Negative) Urine Glucose (UA) Negative (Negative) Urine Ketones Negative (Negative) Urine Blood Negative (Negative) Urine Nitrite Negative (Negative) Urine Bilirubin Negative (Negative) Urine Urobilinogen <2.0 (<2.0) mg/dL Ur Leukocyte Esterase Moderate H (Negative) Urine RBC 1 (0-5) /hpf Urine WBC 6 H (0-5) /hpf Ur Squamous Epith Cells 1 (0-4) /hpf Urine Bacteria Rare H (None) /hpf Hyaline Casts 1 (0-2) /lpf Urine Mucus Rare H (None) /hpf Coronavirus (PCR) Not Detected (Not Detectd) Disposition Clinical Impression: Ileus, Pneumonia, HIV (human immunodeficiency virus infection) Disposition: ADMITTED IP TO THIS HOSP Referrals: Quoc Saavedra MD [Primary Care Provider] - 1-2 days Decision Date: 11/20/21 Decision Time: 13:14
[2021-11-20 11:24] LABS: Basophils % (A) 0 %; Eosinophils # (A) 0.1 k/uL (0-0.7); Eosinophils % (A) 1 %; HGB 11.3 gm/dL (11.4-16.0); Lymphocytes # (A) 0.9 k/uL (1.0-4.8); Lymphocytes % (A) 8 %; MCH 29.9 pg (25.0-35.0); MCHC 31.5 g/dL (31.0-37.0); Mean Platelet Volume 6.8; Monocytes # (A) 0.4 k/uL (0-1.0); Monocytes % (A) 4 %; Neutrophils % (A) 87 %; Platelet Count 656 k/uL (150-450); RBC 3.79 m/uL (3.80-5.40); RDW 13.5 % (11.5-15.5); WBC 11.5 k/uL (3.8-10.6)
[2021-11-20] MEDS ORDERED: KETOROLAC 15 MG/ML 1 ML VIAL IVP STA (11:32)
[2021-11-20 11:44] LABS: ALT <6 U/L (4-34); AST 9 U/L (14-36); African American GFR (CKD) >90 (>60 ml/min/1.73 sqM); Albumin 3.2 g/dL (3.5-5.0); Alkaline Phosphatase 97 U/L (38-126); Amylase 34 U/L (30-110); Anion Gap 9 mmol/L; Blood Urea Nitrogen 7 mg/dL (7-17); Calcium 8.3 mg/dL (8.4-10.2); Carbon Dioxide 29 mmol/L (22-30); Chloride 92 mmol/L (98-107); Glucose 114 mg/dL (74-99); Lipase 11 U/L (23-300); Non-African American GFR(CKD) 87 (>60 ml/min/1.73 sqM); Potassium 3.9 mmol/L (3.5-5.1); Sodium 130 mmol/L (137-145); Total Bilirubin 0.2 mg/dL (0.2-1.3); Total Protein 6.2 g/dL (6.3-8.2)
[2021-11-20 12:12] LABS: Appearance,Urine Clear (Clear); Bacteria,Urine Rare /hpf; Bilirubin,Urine Negative (Negative); Blood,Urine Negative (Negative); Color,Urine Yellow; Glucose,Urine (UA) Negative (Negative); Hyaline Casts,Urine 1 /lpf (0-2); Ketones,Urine Negative (Negative); Leukocyte Esterase,Urine Moderate (Negative); Mucus,Urine Rare /hpf; Nitrite,Urine Negative (Negative); PH, Urine 5.5 (5.0-8.0); Protein,Urine Negative (Negative); RBC,Urine 1 /hpf (0-5); Specific Gravity,Urine 1.011 (1.001-1.035); Squamous Epithelial Cell,Urine 1 /hpf (0-4); Urobilinogen,Urine <2.0 mg/dL (<2.0); WBC,Urine 6 /hpf (0-5)
--- NOTE | 2021-11-20 12:58 | XR ---
EXAMINATION TYPE: XR KUB DATE OF EXAM: 11/20/2021 COMPARISON: NONE HISTORY: Pain TECHNIQUE: One view abdominal series FINDINGS: The osseous structures are intact. The bowel gas pattern is nonspecific. Posterior bowel gas with mu ltiple air fluid levels. Left lower lobe subsegmental interstitial infiltrate and pleural thickening or tiny effusion. Calcifications the pelvis likely vascular. Diffuse osteopenia. Hypertrophic change of the spine. IMPRESSION: 1. Multiple air-fluid levels correlate for bowel obstruction or severe ileus. 2. Left lower lobe interstitial infiltrate and tiny effusion or pleural thickening.
[2021-11-20] MEDS ORDERED: cefTRIAXone IN SWFI 1,000 MG/10 ML SYRINGE IVP STA (13:12)
[2021-11-20] MEDS ORDERED: SODIUM CHLORIDE 0.9% 500 ML 500 ML IV ONE (13:16)
[2021-11-20] MEDS ORDERED: HYDROmorphone 1 MG/ML 1 ML SYRINGE IVP PRN (13:19)
[2021-11-20] MEDS ORDERED: NALOXONE 0.4 MG/ML 1 ML VIAL IV PRN (13:19)
[2021-11-20] MEDS: SODIUM CHLORIDE 0.9% 1,000 ML IV SCH (13:57)
[2021-11-20] MEDS ORDERED: AZITHROMYCIN 500 MG in SODIUM CHLORIDE 0.9% 250 ML IVPB STA (14:26)
[2021-11-20] MEDS: ALBUTEROL NEBULIZED 2.5 MG/3 ML INHALATION SCH ×2 (19:36→20:18)
[2021-11-20] MEDS: clonazePAM 0.5 MG TAB PO SCH (20:11)
--- NOTE | 2021-11-20 23:12 | P.CONS ---
History of Present Illness - Reason for Consult Consult date: 11/20/21 Pneumoniae HIV positive Requesting physician: Aurelio Sandoval - Chief Complaint Abdominal pain and vomiting x few days - History of Present Illness Patient is a 61-year-old female who with a past medical he significant for HIV for the patient to follow-up with me patient apparently started having a problem with abdominal pain that has been going on for about a week with intermittent nausea and vomiting and the patient also having some diarrhea patient mention she was evaluated by her primary care physician has been diagnosed with irritable bowel syndrome and started on some medication without any relief she is not sure about the medication subsequently has been seen at [facility] the patient did have a CT scan and blood work which was normal and the patient was discharged home however the patient mention the symptoms have gotten worse since about 2 in the morning when she having increasing lower abdominal pain and describing it to be crampy intensity almost 7-8 out of 10 and no radiation with associated nausea and multiple episodes of vomiting patient denies having any bleeding per rectum did have a loose stool patient do have history of bowel resection with colostomy and subsequent reversal with the symptom the patient has been evaluated by the ER physician on arrival to the ER the patient was afebrile and no fever have been recorded subsequently patient did have white count of 11.5 with a left shift creatinine has been normal he was mildly positive COVID testing was negative patient did have a KUB x-ray multiple air-fluid levels correlate for bowel obstruction or ileus left lower lobe interstitial infiltrate patient was admitted to the hospital infectious he was consulted with concern for possible pneumonia however the patient denies any significant cough or shortness of breath or sputum production Review of Systems Positive point has been mentioned in the HPI rest of the systems are negative Past Medical History Past Medical History: No Reported History Additional Past Medical History / Comment(s): Has HIV 1. Recent abn lung CT, awaiting f/u. Has colostomy. Had Covid vaccine #1 07/09/20. Colostomy reversal planned for 07/22/20 History of Any Multi-Drug Resistant Organisms: None Reported Past Surgical History: Bowel Resection Additional Past Surgical History / Comment(s): jaw surgery, D&C, fallopian tube exc. Colostomy 06/20/19 est Past Anesthesia/Blood Transfusion Reactions: No Reported Reaction Past Psychological History: No Psychological Hx Reported Smoking Status: Former smoker Past Alcohol Use History: None Reported Past Drug Use History: None Reported - Past Family History Mother Family Medical History: Blood Disorder, Deep Vein Thrombosis (DVT), Pulmonary Embolus Additional Family Medical History / Comment(s): Factor V Medications and Allergies Home Medications Medication Instructions Recorded Confirmed Type ARIPiprazole [Abilify] 2 mg PO DAILY 07/17/20 11/20/21 History Atorvastatin [Lipitor] 10 mg PO DAILY 07/17/20 11/20/21 History Dolutegravir Sodium [Tivicay] 50 mg PO DAILY 07/17/20 11/20/21 History Emtricitabine/Tenofov Alafenam 1 tab PO DAILY 07/17/20 11/20/21 History [Descovy 200-25 mg Tablet] PARoxetine HCL [Paxil] 20 mg PO DAILY 07/17/20 11/20/21 History Tamsulosin [Flomax] 0.4 mg PO DAILY 07/17/20 11/20/21 History clonazePAM [KlonoPIN] 0.5 mg PO BID 07/17/20 11/20/21 History Albuterol Sulfate [Proair Hfa] 2 puff INHALATION RT-Q4H 11/20/21 11/20/21 History Dicyclomine [Bentyl] 20 mg PO TID 11/20/21 11/20/21 History Furosemide [Lasix] 20 mg PO DAILY 11/20/21 11/20/21 History Potassium Chloride [Klor-Con M20] 20 meq PO DAILY 11/20/21 11/20/21 History Allergies Allergy/AdvReac Type Severity Reaction Status Date / Time No Known Allergies Allergy Verified 11/20/21 14:08 Physical Exam Vitals: Vital Signs Temp Pulse Resp BP Pulse Ox 11/20/21 13:59 80 18 100/65 94 L 11/20/21 10:34 98.2 F 100 20 105/67 95 Intake and Output 11/20/21 11/20/21 11/20/21 06:59 14:59 22:59 Other: Weight 66.678 kg GENERAL DESCRIPTION: Middle-aged female lying in bed, no distress. No tachypnea or accessory muscle of respiration use. HEENT: Shows Pallor , no scleral icterus. Oral mucous membrane is dry. No pharyngeal erythema or thrush NECK: Trachea central, no thyromegaly. LUNGS: Unlabored breathing. Decreased intensity of breath sounds with occasional wheeze HEART: S1, S2, regular rate and rhythm. No loud murmur ABDOMEN: Soft, mild distention and tenderness , no guarding or rigidity, no organomegaly EXTREMITIES: No edema of feet. SKIN: No rash, no masses palpable. NEUROLOGICAL: The patient is awake, alert, oriented x3, mood and affect normal. Results CBC & Chem 7: 11/20/21 11:08 11/20/21 11:08 Labs: Abnormal Lab Results - Last 24 Hours (Table) 11/20/21 11/20/21 11/20/21 Range/Units 11:08 11:08 11:54 WBC 11.5 H (3.8-10.6) k/uL RBC 3.79 L (3.80-5.40) m/uL Hgb 11.3 L (11.4-16.0) gm/dL Plt Count 656 H (150-450) k/uL Neutrophils # 10.0 H (1.3-7.7) k/uL Lymphocytes # 0.9 L (1.0-4.8) k/uL Sodium 130 L (137-145) mmol/L Chloride 92 L (98-107) mmol/L Glucose 114 H (74-99) mg/dL Calcium 8.3 L (8.4-10.2) mg/dL AST 9 L (14-36) U/L Total Protein 6.2 L (6.3-8.2) g/dL Albumin 3.2 L (3.5-5.0) g/dL Lipase 11 L (23-300) U/L Ur Leukocyte Esterase Moderate H (Negative) Urine WBC 6 H (0-5) /hpf Urine Bacteria Rare H (None) /hpf Urine Mucus Rare H (None) /hpf Assessment and Plan (1) HIV (human immunodeficiency virus infection) Current Visit: Yes Status: Acute Code(s): B20 - HUMAN IMMUNODEFICIENCY VIRUS [HIV] DISEASE SNOMED Code(s): 01349492 (2) Ileus Current Visit: Yes Status: Acute Code(s): K56.7 - ILEUS, UNSPECIFIED SNOME D Code(s): 222475022 Plan: 1patient presented to hospital with acute crampy abdominal pain nausea and vomiting and diarrhea with evidence of severe ileus on the basis with KUB x-ray patient also have a elevated white count more likely related to intra-abdominal pathology patient did not have significant respiratory symptoms clinically doubt pneumonia. 2patient with HIV well-controlled with a Tivicay and Truvada 3we will start the patient on Unasyn to cover for intra-abdominal pathology and await general surgery evaluation may benefit from a CT and the patient can tolerate oral contrast 4patient to continue with the Truvada and Tivicay for underlying HIV We will follow on clinical condition and cultures to further adjust medication if needed Thank you for this consultation will follow this patient along with you Time with Patient: Greater than 30
[2021-11-21] MEDS: AMPICILLIN-SULBACTAM 3 GM in SODIUM CHLORIDE 0.9% 100 ML IVPB SCH ×5 (00:26→23:10)
[2021-11-21] MEDS: ALBUTEROL NEBULIZED 2.5 MG/3 ML INHALATION SCH ×6 (00:44→20:06)
[2021-11-21] MEDS: SODIUM CHLORIDE 0.9% 1,000 ML IV SCH ×2 (05:46→12:24)
--- NOTE | 2021-11-21 08:17 | P.HPIM ---
History of Present Illness H&P Date: 11/20/21 Chief Complaint: Abdominal pain 61-year-old female presents to the emergency room with 1 week of intermittent nausea vomiting and diarrhea. She states she was seen a couple of days ago at [facility] and had a CT scan and blood work which were unremarkable. She did see her primary care doctor who put her on Bentyl with no relief. Her last episode of vomiting was yesterday morning. She states last night she developed sharp cramping abdominal pain and today she had 2 episodes of watery brown diarrhea. Denies any rectal bleeding. She does have a history of bowel resection which was resulted in a colostomy with reversal last year. She denies any fevers. Patient also has a history of HIV. Patient has been evaluated by the ER physician; patient was afebrile; blood work reveals a WBC of 11.5 with a left shift, hemoglobin of 11.3 and platelet count of 656, sodium 1:30, potassium 2.9, BUN/creatinine of 7/0.74 and blood glucose of 114; COVID testing was negative patient did have a KUB x-ray multiple air- fluid levels correlate for bowel obstruction or ileus left lower lobe interstitial infiltrate Patient admitted to the hospital with possible pneumonia in a patient with history of HIV and ileus versus small bowel obstruction Review of Systems REVIEW OF SYSTEMS: CONSTITUTIONAL: No fever, no malaise, no fatigue. HEENT: No recent visual problems or hearing problems. Denied any sore throat. CARDIOVASCULAR: No chest pain, orthopnea, PND, no palpitations, no syncope. PULMONARY: No shortness of breath, no cough, no hemoptysis. GASTROINTESTINAL: abdominal pain. NEUROLOGICAL: No headaches, no weakness, no numbness. HEMATOLOGICAL: Denies any bleeding or petechiae. GENITOURINARY: Denies any burning micturition, frequency, or urgency. MUSCULOSKELETAL/RHEUMATOLOGICAL: Denies any joint pain, swelling, or any muscle pain. ENDOCRINE: Denies any polyuria or polydipsia. The rest of the 14-point review of systems is negative. Past Medical History Past Medical History: No Reported History Additional Past Medical History / Comment(s): Has HIV 1. Recent abn lung CT, awaiting f/u. Has colostomy. Had Covid vaccine #1 07/09/20. Colostomy reversal planned for 07/22/20 History of Any Multi-Drug Resistant Organisms: None Reported Past Surgical History: Bowel Resection Additional Past Surgical History / Comment(s): jaw surgery, D&C, fallopian tube exc. Colostomy 06/20/19 est Past Anesthesia/Blood Transfusion Reactions: No Reported Reaction Past Psychological History: No Psychological Hx Reported Smoking Status: Former smoker Past Alcohol Use History: None Reported Past Drug Use History: None Reported - Past Family History Mother Family Medical History: Blood Disorder, Deep Vein Thrombosis (DVT), Pulmonary Embolus Additional Family Medical History / Comment(s): Factor V Medications and Allergies Home Medications Medication Instructions Recorded Confirmed Type ARIPiprazole [Abilify] 2 mg PO DAILY 07/17/20 11/20/21 History Atorvastatin [Lipitor] 10 mg PO DAILY 07/17/20 11/20/21 History Dolutegravir Sodium [Tivicay] 50 mg PO DAILY 07/17/20 11/20/21 History Emtricitabine/Tenofov Alafenam 1 tab PO DAILY 07/17/20 11/20/21 History [Descovy 200-25 mg Tablet] PARoxetine HCL [Paxil] 20 mg PO DAILY 07/17/20 11/20/21 History Tamsulosin [Flomax] 0.4 mg PO DAILY 07/17/20 11/20/21 History clonazePAM [KlonoPIN] 0.5 mg PO BID 07/17/20 11/20/21 History Albuterol Sulfate [Proair Hfa] 2 puff INHALATION RT-Q4H 11/20/21 11/20/21 History Dicyclomine [Bentyl] 20 mg PO TID 11/20/21 11/20/21 History Furosemide [Lasix] 20 mg PO DAILY 11/20/21 11/20/21 History Potassium Chloride [Klor-Con M20] 20 meq PO DAILY 11/20/21 11/20/21 History Allergies Allergy/AdvReac Type Severity Reaction Status Date / Time No Known Allergies Allergy Verified 11/20/21 14:08 Physical Exam Vitals: Vital Signs Temp Pulse Resp BP Pulse Ox 11/20/21 13:59 80 18 100/65 94 L 11/20/21 10:34 98.2 F 100 20 105/67 95 Intake and Output 11/19/21 11/20/21 11/20/21 22:59 06:59 14:59 Other: Weight 66.678 kg GENERAL DESCRIPTION: Middle-aged female lying in bed, no distress. No tachypnea or accessory muscle of respiration use. HEENT: Shows Pallor , no scleral icterus. Oral mucous membrane is dry. No pharyngeal erythema or thrush NECK: Trachea central, no thyromegaly. LUNGS: Unlabored breathing. Decreased intensity of breath sounds with oc casional wheeze HEART: S1, S2, regular rate and rhythm. No loud murmur ABDOMEN: Soft, mild distention and tenderness , no guarding or rigidity, no organomegaly EXTREMITIES: No edema of feet. SKIN: No rash, no masses palpable. NEUROLOGICAL: The patient is awake, alert, oriented x3, mood and affect normal Results CBC & Chem 7: 11/20/21 11:08 11/20/21 11:08 Labs: Abnormal Lab Results - Last 24 Hours (Table) 11/20/21 11/20/21 11/20/21 Range/Units 11:08 11:08 11:54 WBC 11.5 H (3.8-10.6) k/uL RBC 3.79 L (3.80-5.40) m/uL Hgb 11.3 L (11.4-16.0) gm/dL Plt Count 656 H (150-450) k/uL Neutrophils # 10.0 H (1.3-7.7) k/uL Lymphocytes # 0.9 L (1.0-4.8) k/uL Sodium 130 L (137-145) mmol/L Chloride 92 L (98-107) mmol/L Glucose 114 H (74-99) mg/dL Calcium 8.3 L (8.4-10.2) mg/dL AST 9 L (14-36) U/L Total Protein 6.2 L (6.3-8.2) g/dL Albumin 3.2 L (3.5-5.0) g/dL Lipase 11 L (23-300) U/L Ur Leukocyte Esterase Moderate H (Negative) Urine WBC 6 H (0-5) /hpf Urine Bacteria Rare H (None) /hpf Urine Mucus Rare H (None) /hpf Assessment and Plan Assessment: 1. Abdominal ileus versus small bowel obstruction - Patient has been made nothing by mouth; IV fluid hydration with normal saline - We will monitor electrolytes and renal function closely - Gen. surgery is consulted for further evaluation 2. Possible pneumonia - Patient received IV ceftriaxone and azithromycin in ED; ID on board and patient has been switched to IV Unasyn to cover intra-abdominal pathology - Patient denies any cough or sputum production; we will order blood cultures and sputum culture if able; monitor CBC, CRP and pro-calcitonin 3. HIV infection --- patient with HIV well-controlled with a Tivicay and Truvada patient to continue with the Truvada and Tivicay for underlying HIV 4. Hyperlipidemia; currently takes Lipitor at home which has been placed to ileus/SBO resolves 5. Asthma; not in exacerbation; we will continue with home inhaler therapy 6. BPH; takes Flomax for 0.4 mg daily; we will hold till oral intake is established 7. Bipolar disorder/depression/anxiety; we will continue with current regimen with Abilify, Paxil, Klonopin DVT prophylaxis; SCDs/subcu Lovenox CODE STATUS; full code
[2021-11-21] MEDS ORDERED: NON FORMULARY DRUG (Emtricitabine/Tenofov Alafenam [Descovy 200-25 Mg Tablet] 1 EACH Table PO SCH (09:00)
[2021-11-21] MEDS ORDERED: DOLUTEGRAVIR SODIUM 50 MG TABLET PO SCH (09:00)
[2021-11-21] MEDS: clonazePAM 0.5 MG TAB PO SCH ×2 (09:32→20:06)
[2021-11-21] MEDS: PANTOPRAZOLE 40 MG/10 ML VIAL IV SCH (09:32)
[2021-11-21] MEDS: PARoxetine 20 MG TAB PO SCH (09:32)
[2021-11-21] MEDS: ARIPiprazole 2 MG TAB PO SCH (09:33)
[2021-11-21] MEDS: IOPAMIDOL CONTRAST (ORAL USE) VIAL PO PRN ×2 (09:46→10:48)
--- NOTE | 2021-11-21 11:06 | HP ---
HISTORY AND PHYSICAL HISTORY OF PRESENT ILLNESS: A 61-year-old white female with past medical history of HIV, had abdominal pain for about a week with intermittent nausea, vomiting, had some diarrhea, failed outpatient irritable bowel syndrome medicines. She came in as the abdominal pain got worse, associated with nausea. No bleeding per rectum. She had a colostomy last year. Creatinine has been normal. Mildly positive for COVID shows possible bowel obstruction versus ileus and left lower lobe infiltrate, admitted for possible pneumonia with ileus. REVIEW OF SYSTEMS: A 14-point review of systems; abdominal pain, nausea, vomiting, diarrhea, otherwise negative. 1. HIV-1. 2. COVID positive. PAST SURGERIES: Fallopian tube, D and C, colostomy. MEDICATIONS: Reviewed. A 14-point review of systems negative except as above. PHYSICAL EXAMINATION: GENERAL: She is a middle-aged female. No tachypnea or accessory muscle use. HEENT: No scleral icterus. No pallor. NECK: No thyromegaly. CARDIOVASCULAR: S1, S2. LUNGS: Scattered wheeze x4. No rhonchi. HEMATOLOGY: Negative Homans. ASSESSMENT: Human immunodeficiency virus abdominal pain with nausea, vomiting, diarrhea, elevated white count secondary pneumonia. Human immunodeficiency virus controlled with Tivicay and Truvada abdominal pathology. Evaluation may benefit from a CT, and the patient can tolerate oral contrast. Continue human immunodeficiency virus meds. Surgical consult. Prognosis guarded. MMODL / IJN: [id number] /
[2021-11-21 11:41] LABS: Basophils # (A) 0.03 X 10*3/uL (0.00-0.10); Basophils % (A) 0.4 %; Eosinophils # (A) 0.02 X 10*3/uL (0.04-0.35); Eosinophils % (A) 0.3 %; HCT 28.7 % (37.2-46.3); HGB 9.1 g/dL (12.0-15.0); Immature Grans, Automated 0.9 %; Lymphocytes # (A) 0.79 X 10*3/uL (0.90-5.00); Lymphocytes % (A) 10.1 %; MCH 30.3 pg (27.0-32.0); MCHC 31.7 g/dL (32.0-37.0); MCV 95.7 fL (80.0-97.0); Mean Platelet Volume 8.7 fL (9.5-12.2); Monocytes # (A) 0.45 X 10*3/uL (0.20-1.00); Monocytes % (A) 5.7 %; NRBC Per 100 WBC 0 /100 WBCS (0.0-0.0); Neutrophils # (A) 6.48 X 10*3/uL (1.80-7.70); Neutrophils % (A) 82.6 %; Platelet Count 566 X 10*3/uL (140-440); RDW 13.7 % (11.5-14.5); WBC 7.84 X 10*3/uL (4.50-10.00)
--- NOTE | 2021-11-21 11:48 | P.GSCN ---
History of Present Illness Consult date: 11/21/21 Reason for Consult: Abdominal pain History of present illness: 61-year-old female has had complaints of nausea and diffuse abdominal pain. Say s she has irritable bowel syndrome. Patient was seen at [facility] and again at [facility] recently. She had a CAT scan performed there which was reportedly normal. Patient came to this hospital cut she still was not feeling well. Describes diarrhea nausea and vomiting. Patient states she does feel better today although still having diarrhea. There is no pain at this time. No nausea or vomiting at this time. Repeat CAT scan was performed which results are still pending. Colonic wall thickening is appreciated however. Denies rectal bleeding. History of previous colostomy reversal by Dr. Zamora last July. C. diff is negative thus far. White blood cell count normal. Review of Systems The patient denies any acute changes in vision or hearing, no dysphagia or odynophagia, no chest pain or shortness of breath, no dysuria or hematuria, no headache, no runny nose, no rectal bleeding or melena, no unexplained weight loss Past Medical History Past Medical History: No Reported History Additional Past Medical History / Comment(s): Has HIV 1. Recent abn lung CT, awaiting f/u. Has colostomy. Had Covid vaccine #1 07/09/20. Colostomy reversal planned for 07/22/20 History of Any Multi-Drug Resistant Organisms: None Reported Past Surgical History: Bowel Resection Additional Past Surgical History / Comment(s): jaw surgery, D&C, fallopian tube exc. Colostomy 06/20/19 est Past Anesthesia/Blood Transfusion Reactions: No Reported Reaction Past Psychological History: No Psychological Hx Reported Smoking Status: Former smoker Past Alcohol Use History: None Reported Past Drug Use History: None Reported - Past Family History Mother Family Medical History: Blood Disorder, Deep Vein Thrombosis (DVT), Pulmonary Embolus Additional Family Medical History / Comment(s): Factor V Medications and Allergies Home Medications Medication Instructions Recorded Confirmed Type ARIPiprazole [Abilify] 2 mg PO DAILY 07/17/20 11/20/21 History Atorvastatin [Lipitor] 10 mg PO DAILY 07/17/20 11/20/21 History Dolutegravir Sodium [Tivicay] 50 mg PO DAILY 07/17/20 11/20/21 History Emtricitabine/Tenofov Alafenam 1 tab PO DAILY 07/17/20 11/20/21 History [Descovy 200-25 mg Tablet] PARoxetine HCL [Paxil] 20 mg PO DAILY 07/17/20 11/20/21 History Tamsulosin [Flomax] 0.4 mg PO DAILY 07/17/20 11/20/21 History clonazePAM [KlonoPIN] 0.5 mg PO BID 07/17/20 11/20/21 History Albuterol Sulfate [Proair Hfa] 2 puff INHALATION RT-Q4H 11/20/21 11/20/21 History Dicyclomine [Bentyl] 20 mg PO TID 11/20/21 11/20/21 History Furosemide [Lasix] 20 mg PO DAILY 11/20/21 11/20/21 History Potassium Chloride [Klor-Con M20] 20 meq PO DAILY 11/20/21 11/20/21 History Allergies Allergy/AdvReac Type Severity Reaction Status Date / Time No Known Allergies Allergy Verified 11/20/21 14:08 Surgical - Exam Vital Signs Temp Pulse Resp BP Pulse Ox 98.2 F 100 20 105/67 95 11/20/21 10:34 11/20/21 10:34 11/20/21 10:34 11/20/21 10:34 11/20/21 10:34 Physical exam: General: Well-developed, well-nourished HEENT: Normocephalic, sclerae nonicteric Abdomen: Nontender, nondistended Extremities: No edema Neuro: Alert and oriented Results - Labs 11/21/21 06:59 11/20/21 11:08 Abnormal Lab Results - Last 24 Hours (Table) 11/20/21 11/20/21 11/21/21 Range/Units 11:08 11:54 06:59 RBC 3.00 L (4.10-5.20) X 10*6/uL Hgb 9.1 L (12.0-15.0) g/dL Hct 28.7 L (37.2-46.3) % MCHC 31.7 L (32.0-37.0) g/dL Plt Count 566 H (140-440) X 10*3/uL MPV 8.7 L (9.5-12.2) fL Immature Gran # 0.07 H (0.00-0.04) X 10*3/uL Lymphocytes # 0.79 L (0.90-5.00) X 10*3/uL Eosinophils # 0.02 L (0.04-0.35) X 10*3/uL Sodium 130 L (137-145) mmol/L Chloride 92 L (98-107) mmol/L Glucose 114 H (74-99) mg/dL Calcium 8.3 L (8.4-10.2) mg/dL AST 9 L (14-36) U/L Total Protein 6.2 L (6.3-8.2) g/dL Albumin 3.2 L (3.5-5.0) g/dL Lipase 11 L (23-300) U/L Ur Leukocyte Esterase Moderate H (Negative) Urine WBC 6 H (0-5) /hpf Urine Bacteria Rare H (None) /hpf Urine Mucus Rare H (None) /hpf Diabetes panel 11/20/21 Range/Units 11:08 Sodium 130 L (137-145) mmol/L Potassium 3.9 (3.5-5.1) mmol/L Chloride 92 L (98-107) mmol/L Carbon Dioxide 29 (22-30) mmol/L BUN 7 (7-17) mg/dL Creatinine 0.74 (0.52-1.04) mg/dL Glucose 114 H (74-99) mg/dL Calcium 8.3 L (8.4-10.2) mg/dL AST 9 L (14-36) U/L ALT <6 (4-34) U/L Alkaline Phosphatase 97 (38-126) U/L Total Protein 6.2 L (6.3-8.2) g/dL Albumin 3.2 L (3.5-5.0) g/dL Calcium panel 11/20/21 Range/Units 11:08 Calcium 8.3 L (8.4-10.2) mg/dL Albumin 3.2 L (3.5-5.0) g/dL Pituitary panel 11/20/21 Range/Units 11:08 Sodium 130 L (137-145) mmol/L Potassium 3.9 (3.5-5.1) mmol/L Chloride 92 L (98-107) mmol/L Carbon Dioxide 29 (22-30) mmol/L BUN 7 (7-17) mg/dL Creatinine 0.74 (0.52-1.04) mg/dL Glucose 114 H (74-99) mg/dL Calcium 8.3 L (8.4-10.2) mg/dL Adrenal panel 11/20/21 Range/Units 11:08 Sodium 130 L (137-145) mmol/L Potassium 3.9 (3.5-5.1) mmol/L Chloride 92 L (98-107) mmol/L Carbon Dioxide 29 (22-30) mmol/L BUN 7 (7-17) mg/dL Creatinine 0.74 (0.52-1.04) mg/dL Glucose 114 H (74-99) mg/dL Calcium 8.3 L (8.4-10.2) mg/dL Total Bilirubin 0.2 (0.2-1.3) mg/dL AST 9 L (14-36) U/L ALT <6 (4-34) U/L Alkaline Phosphatase 97 (38-126) U/L Total Protein 6.2 L (6.3-8.2) g/dL Albumin 3.2 L (3.5-5.0) g/dL Assessment and Plan (1) Ileus Narrative/Plan: 61-year-old female with diarrhea and abdominal pain with nausea and vomiting. The patient's pain, nausea and vomiting have resolved. Still having diarrhea. Await final report from CAT scan performed today. Continue antibiotics. Will order stool cultures. Current Visit: Yes Status: Acute Code(s): K56.7 - ILEUS, UNSPECIFIED SNOMED Code(s): 294467987
[2021-11-21] MEDS: TIVICAY 50 MG PO SCH (12:23)
[2021-11-21] MEDS: Emtricitabine/Tenofov Alafenam [Descovy 200-25 Mg Tablet] PO SCH (12:23)
[2021-11-21 12:51] LABS: T4/T8 Ratio (CD4:CD8) 0.4 (1.0-3.7)
--- NOTE | 2021-11-21 12:59 | CT ---
EXAMINATION TYPE: CT abdomen pelvis w con CT DLP: 679.20 mGycm, Automated exposure control for dose reduction was used. DATE OF EXAM: 11/21/2021 11:44 AM COMPARISON: PET CT 08/15/2020. CLINICAL INDICATION:Female, 61 years old with history of abdominal pain; abdominal pain. Ileus vs bow el obstruction. TECHNIQUE: Standard CT of the abdomen and pelvis following the administration of 100 cc of Isovue 3 00 IV contrast material and oral contrast. Coronal and sagittal reformats were performed. FINDINGS: LOWER CHEST: Interval increased patchy airspace disease and nodular consolidation within the left low er lobe. Additional nodules demonstrated within the right middle lobe, lingula, and right lower lobe. Several previously seen nodules within the right lower lobe have resolved. Trace right pleural effus ion. ABDOMEN LIVER: Unremarkable GALLBLADDER AND BILE DUCTS: Unremarkable. PANCREAS: Unremarkable. SPLEEN: Unremarkable. ADRENAL GLANDS: Stable thickening of both adrenal glands which is nonspecific and favored to be benig n lipid rich hyperplasia. KIDNEYS AND URETERS: No evidence of hydronephrosis or renal calculus. The kidneys enhance symmetrical ly. PELVIS BLADDER: Trabeculated appearance of the urinary bladder with diverticula identified with largest anne g the posterior lateral wall. REPRODUCTIVE: Unremarkable CT appearance of the uterus. Stable left adnexal 4.3 cm cystic lesion whic h may represent an ovarian cyst. ABDOMEN & PELVIS STOMACH AND BOWEL: Small hiatal hernia, duodenum is unremarkable. Long segment circumferential wall t hickening of the descending colon without surrounding inflammatory changes. Enteric contrast reaches the rectum. Postsurgical changes of the sigmoid colon. No pneumatosis or portal venous gas. No khadijah lonic abscess. No evidence of bowel obstruction. PERITONEUM: No evidence of pneumoperitoneum or free fluid. VASCULATURE: Mild atherosclerotic calcifications are present throughout the abdominal aorta and its b ranches. No evidence of aortic aneurysm. MUSCULOSKELETAL: No acute osseous abnormalities LYMPH NODES: No gross evidence for lymphadenopathy. SOFT TISSUE/ABDOMINAL WALL: Postsurgical changes of the anterior wall. Right periumbilical eventratio n versus hernia containing nonobstructive small bowel. Additional ventral wall small fat containing e pigastric wall hernias. Lower ventral pelvic wall containing incisional hernia. IMPRESSION: 1. Long segment circumferential wall thickening of the descending colon without surrounding inflammat ory changes. This may represent nonspecific colitis from infectious/inflammatory etiology. No evidenc e for ileus or bowel obstruction. 2. Increased left lower lobe groundglass and consolidative opacities from prior examination suspiciou s for infectious/inflammatory process. Additional bibasilar pulmonary nodules identified with resolut ion of some nodules in the right lower lobe from prior examination. Etiologies include infectious/inf lammatory process with metastasis is not excluded. Consider short-term CT chest examination in 3 carter hs.
[2021-11-22] MEDS: ALBUTEROL NEBULIZED 2.5 MG/3 ML INHALATION SCH ×5 (01:48→19:29)
[2021-11-22] MEDS ORDERED: ALBUTEROL NEBULIZED 2.5 MG/3 ML INHALATION PRN (01:50)
[2021-11-22] MEDS: AMPICILLIN-SULBACTAM 3 GM in SODIUM CHLORIDE 0.9% 100 ML IVPB SCH ×4 (05:44→23:29)
[2021-11-22] MEDS: SODIUM CHLORIDE 0.9% 1,000 ML IV SCH ×2 (05:45→23:29)
--- NOTE | 2021-11-22 07:29 | PN ---
PROGRESS NOTE 61-year-old female complaining of nausea and diffuse abdominal pain, irritable bowel syndrome. CAT scan was done, showed some bowel thickening, possibility of some bowel obstruction. C difficile is negative. White count is normal. Waiting for surgical recommendations. Otherwise, treating her for some tracheobronchitis, possible pneumonia, and COPD. Sodium is 130, potassium 3.9. Hemoglobin is 9.1. Creatinine 0.74, BUN is 7. ASSESSMENT: Ileus. She complained of diarrhea, abdominal pain, nausea, and vomiting. Pain and nausea have resolved. Still having diarrhea. Await final report from CAT scan. Continue antibiotics. Stool cultures. White count went from 11.5 down to 7.8, hemoglobin 11.3 down to 9.1, neutrophils went from high at 10 down to 6.48. Sodium was 130. Potassium is 3.9. C-reactive protein 13.6. C difficile is negative. Coronavirus is negative. Waiting for abdominal and pelvis CT to be read. Continue current treatment at this time. She will continue with antibiotics for possible sepsis and pneumonia. Full liquid diet until CAT scan is read. PROGNOSIS: Guarded. MMODL / IJN: [id number] /
[2021-11-22 09:12] LABS: Basophils # (A) 0.02 X 10*3/uL (0.00-0.10); Basophils % (A) 0.3 %; Eosinophils # (A) 0.03 X 10*3/uL (0.04-0.35); Eosinophils % (A) 0.5 %; HCT 27.6 % (37.2-46.3); HGB 8.8 g/dL (12.0-15.0); Immature Grans, Automated 1.2 %; Lymphocytes % (A) 12.3 %; MCHC 31.9 g/dL (32.0-37.0); MCV 94.2 fL (80.0-97.0); Mean Platelet Volume 8.8 fL (9.5-12.2); Monocytes % (A) 6.1 %; NRBC Per 100 WBC 0 /100 WBCS (0.0-0.0); Neutrophils % (A) 79.6 %; Platelet Count 568 X 10*3/uL (140-440); RBC 2.93 X 10*6/uL (4.10-5.20); RDW 13.9 % (11.5-14.5); WBC 6.53 X 10*3/uL (4.50-10.00)
[2021-11-22] MEDS: PANTOPRAZOLE 40 MG/10 ML VIAL IV SCH (09:31)
[2021-11-22] MEDS: ARIPiprazole 2 MG TAB PO SCH (09:32)
[2021-11-22] MEDS: clonazePAM 0.5 MG TAB PO SCH ×2 (09:32→20:09)
[2021-11-22] MEDS: PARoxetine 20 MG TAB PO SCH (09:32)
[2021-11-22] MEDS: TIVICAY 50 MG PO SCH (09:33)
[2021-11-22] MEDS: Emtricitabine/Tenofov Alafenam [Descovy 200-25 Mg Tablet] PO SCH (09:34)
--- NOTE | 2021-11-22 10:00 | P.PN ---
Subjective Progress Note Date: 11/22/21 Principal diagnosis: Colitis Patient doing well today. Denies abdominal pain. She has a normal white blood cell count. Hemoglobin is stable. Jocelyne showed thickening of the descending colon. Remains on antibiotics. No bleeding. Objective - Vital Signs Vital signs: Vital Signs Temp 97.8 F 11/22/21 04:34 Pulse 84 11/22/21 07:54 Resp 18 11/22/21 04:34 BP 105/66 11/22/21 04:34 Pulse Ox 92 L 11/22/21 04:34 FiO2 Intake & Output 11/21/21 11/22/21 11/22/21 18:59 06:59 18:59 Intake Total 900 Balance 900 Intake: Intake, IV Titration 900 Amount Sodium Chloride 0.9% 1, 900 000 ml @ 75 mls/hr IV . [id number] [facility] Rx#:[id number] Other: # Voids 2 # Bowel Movements 2 1 - Exam Abdomen: Soft, nontender, nondistended - Labs CBC & Chem 7: 11/22/21 05:19 11/20/21 11:08 Labs: Abnormal Lab Results - Last 24 Hours (Table) 11/20/21 11/21/21 11/21/21 Range/Units 13:52 06:59 06:59 RBC 3.00 L (4.10-5.20) X 10*6/uL Hgb 9.1 L (12.0-15.0) g/dL Hct 28.7 L (37.2-46.3) % MCHC 31.7 L (32.0-37.0) g/dL Plt Count 566 H (140-440) X 10*3/uL MPV 8.7 L (9.5-12.2) fL Immature Gran # 0.07 H (0.00-0.04) X 10*3/uL Lymphocytes # 0.79 L (0.90-5.00) X 10*3/uL Eosinophils # 0.02 L (0.04-0.35) X 10*3/uL C-Reactive Protein 13.60 H (0.00-0.80) mg/dL % CD4 [place] 23 L (35-66) % Absolute CD4 [place] 244 L (443-1471) cell/ul CD4/CD8 Ratio 0.4 L (1.0-3.7) % CD8 Suppressor 53 H (9-37) % 11/22/21 Range/Units 05:19 RBC 2.93 L (4.10-5.20) X 10*6/uL Hgb 8.8 L (12.0-15.0) g/dL Hct 27.6 L (37.2-46.3) % MCHC 31.9 L (32.0-37.0) g/dL Plt Count 568 H (140-440) X 10*3/uL MPV 8.8 L (9.5-12.2) fL Immature Gran # 0.08 H (0.00-0.04) X 10*3/uL Lymphocytes # 0.80 L (0.90-5.00) X 10*3/uL Eosinophils # 0.03 L (0.04-0.35) X 10*3/uL C-Reactive Protein (0.00-0.80) mg/dL % CD4 [place] (35-66) % Absolute CD4 [place] (443-1471) cell/ul CD4/CD8 Ratio (1.0-3.7) % CD8 Suppressor (9-37) % Microbiology - Last 24 Hours (Table) 11/21/21 09:50 Stool Culture - Preliminary Stool Assessment and Plan (1) Colitis Narrative/Plan: Continue antibiotics for colitis seen on CAT scan. Etiology unclear. Follow stool cultures. C. diff is negative. Could possibly treat as outpatient given the patient's benign exam and lack of abdominal pain. Current Visit: Yes Status: Acute Code(s): K52.9 - NONINFECTIVE G ASTROENTERITIS AND COLITIS, UNSPECIFIED SNOMED Code(s): 49405100
[2021-11-22] MEDS ORDERED: RX INFO: IV CONTRAST WAS GIVEN 1 EACH MISC MISCELLANE PRN (10:57)
[2021-11-22] MEDS: metroNIDAZOLE 500 MG TAB PO SCH ×2 (12:42→20:09)
[2021-11-22 13:15] LABS: ALT <5 U/L (8-44); AST <5 U/L (13-35); African American GFR (CKD) 112.4 (60.0-200.0); Albumin 2.6 g/dL (3.8-4.9); Albumin/Globulin Ratio 1.13 (1.60-3.17); Alkaline Phosphatase 76 U/L (41-126); Blood Urea Nitrogen 2.1 mg/dL (9.0-27.0); Carbon Dioxide 24.8 mmol/L (20.0-27.5); Chloride 101 mmol/L (96-109); Globulin 2.3 g/dL (1.6-3.3); Glucose 94 mg/dL (70-110); Potassium 3.2 mmol/L (3.5-5.5); Sodium 137 mmol/L (135-145); Total Bilirubin <0.15 mg/dL (0.30-1.20); Total Protein 4.9 g/dL (6.2-8.2)
--- NOTE | 2021-11-22 13:45 | US ---
EXAMINATION TYPE: US pelvic complete DATE OF EXAM: 11/22/2021 COMPARISON: NONE CLINICAL HISTORY: ovary cyst. Pain ovarian cyst. TECHNIQUE: Transabdominal (TA). EXAM MEASUREMENTS: Uterus: 8.2 x 2.6 x cm Endometrial Stripe: .5 cm. Simple appearing fluid within the endometrial canal measuring up to 3mm. Left Ovary: 2.7 x 3.3 x 2.9 cm Missed labeled diverticuli for left ovary. 1. Uterus: Anteverted wnl 2. Endometrium: Fluid visualized measuring 3 mm. 3. Right Ovary: Obscured by overlying bowel gas 4. Left Ovary: Cystic area 2.7 x3.3 x 2.9 cm. Daughter cyst identified within this with thin septati on. No internal color flow within the lesion. 5. Bilateral Adnexa: wnl 6. Posterior cul-de-sac: wnl IMPRESSION: Left ovarian cystic lesion consistent with an uncomplicated ovarian cyst.
[2021-11-22] MEDS ORDERED: POTASSIUM CHLORIDE ER 20 MEQ TAB.ER PO STA (15:57)
--- NOTE | 2021-11-22 16:06 | CT ---
EXAMINATION TYPE: CT chest w con DATE OF EXAM: 11/22/2021 COMPARISON: PET CT scan 08/15/2020 HISTORY: pulmonary nodules CT DLP: 161.8 mGycm Automated exposure control for dose reduction was used. CONTRAST: Performed with IV Contrast, patient injected with 100ml mL of Isovue 300. Images obtained from the thoracic inlet through the diaphragm with the IV contrast. There is extensive airspace consolidation in the posterior left lower lobe. Heart size is normal. No pericardial effusion. There is some mild pulmonary emphysema. There is no mediastinal adenopathy. No hilar mass. There is small left pleural effusion. Upper abdominal soft tissues are intact. The thoracic spine is intact. No compression fracture. Sternum is intact. No evidence of a rib fractu re. Shoulder joints are intact. IMPRESSION: There is patchy airspace consolidation in the left lower lobe which is increased compared to old exam . There are multiple bilateral patchy pulmonary infiltrates in the right lung and in the left upper l obe which are essentially cleared compared to old exam.
[2021-11-22] MEDS ORDERED: AZITHROMYCIN 500 MG in SODIUM CHLORIDE 0.9% 250 ML IVPB SCH (21:00)
--- NOTE | 2021-11-22 21:32 | P.PN ---
Subjective Progress Note Date: 11/21/21 Principal diagnosis: Colitis and HIV Patient is a 61-year-old female with a past medical history significant for HIV presenting to the hospital with abdominal pain or vomiting and diarrhea in this patient CT completed this morning did shows evidence of colitis stool for C. diff was negative on today's evaluation that is 11/21/2021, the patient denies having any fever or any chills patient is breathing comfortably the patient abdominal pain has resolved no further vomiting and diarrhea slowed on no chest pain or shortness of breath she did have some cough not bringing up any sputum Objective - Vital Signs Vital signs: Vital Signs Temp 98 F 11/21/21 12:04 Pulse 88 11/21/21 12:27 Resp 20 11/21/21 12:04 BP 114/72 11/21/21 12:04 Pulse Ox 93 L 11/21/21 12:04 FiO2 Intake & Output 11/20/21 11/21/21 11/21/21 18:59 06:59 18:59 Intake Total 900 Balance 900 Weight 64 kg Intake: Intake, IV Titration 900 Amount Sodium Chloride 0.9% 1, 900 000 ml @ 75 mls/hr IV . [id number] [facility] Rx#:[id number] Other: # Voids 2 # Bowel Movements 3 2 - Exam GENERAL DESCRIPTION: Middle-age female lying in bed in no distress RESPIRATORY SYSTEM: Unlabored breathing , decreased breath sounds at bases HEART: S1 S2 regular rate and rhythm , ABDOMEN: Soft , no tenderness EXTREMITIES: No edema feet - Labs CBC & Chem 7: 11/22/21 05:19 11/22/21 05:19 Labs: Abnormal Lab Results - Last 24 Hours (Table) 11/20/21 11/21/21 11/21/21 Range/Units 13:52 06:59 06:59 RBC 3.00 L (4.10-5.20) X 10*6/uL Hgb 9.1 L (12.0-15.0) g/dL Hct 28.7 L (37.2-46.3) % MCHC 31.7 L (32.0-37.0) g/dL Plt Count 566 H (140-440) X 10*3/uL MPV 8.7 L (9.5-12.2) fL Immature Gran # 0.07 H (0.00-0.04) X 10*3/uL Lymphocytes # 0.79 L (0.90-5.00) X 10*3/uL Eosinophils # 0.02 L (0.04-0.35) X 10*3/uL C-Reactive Protein 13.60 H (0.00-0.80) mg/dL % CD4 Ada 23 L (35-66) % Absolute CD4 Ada 244 L (443-1471) cell/ul CD4/CD8 Ratio 0.4 L (1.0-3.7) % CD8 Suppressor 53 H (9-37) % Assessment and Plan (1) HIV (human immunodeficiency virus infection) Current Visit: Yes Status: Acute Code(s): B20 - HUMAN IMMUNODEFICIENCY VIRUS [HIV] DISEASE SNOMED Code(s): 83915854 (2) Ileus Current Visit: Yes Status: Acute Code(s): K56.7 - ILEUS, UNSPECIFIED SNOMED Code(s): 846035562 Plan: 1patient presented to hospital with acute crampy abdominal pain nausea and vomiting and diarrhea with evidence of severe ileus on the basis with KUB x-ray patient also have a elevated white count more likely related to intra-abdominal pathology patient did not have significant respiratory symptoms , daily in mind abnormal x-ray finding possible component of aspiration pneumonia 2patient with HIV well-controlled with a Tivicay and Truvada which will be continued 3 patient will continue with the Unasyn in view of clinical response while waiting for the stool cultures to finalize and moderately the course closely Time with Patient: Less than 30
--- NOTE | 2021-11-22 21:33 | P.PN ---
Subjective Progress Note Date: 11/22/21 Principal diagnosis: Colitis and HIV Patient is a 61-year-old female with a past medical history significant for HIV presenting to the hospital with abdominal pain or vomiting and diarrhea in this patient CT completed this morning did shows evidence of colitis stool for C. diff was negative on today's evaluation that is 11/22/2021, the patient remains to be afebrile, patient is breathing comfortably on room air, occasional cough and no sputum production the patient abdominal pain has resolved no further vomiting and diarrhea slowed , the patient denies chest pain or shortness of breath Objective - Vital Signs Vital signs: Vital Signs Temp 98.5 F 11/22/21 11:25 Pulse 88 11/22/21 16:09 Resp 18 11/22/21 11:25 BP 98/63 11/22/21 11:25 Pulse Ox 93 L 11/22/21 11:25 FiO2 Intake & Output 11/21/21 11/22/21 11/22/21 18:59 06:59 18:59 Intake Total 900 Balance 900 Intake: Intake, IV Titration 900 Amount Sodium Chloride 0.9% 1, 900 000 ml @ 75 mls/hr IV . [id number] [facility] Rx#:[id number] Other: # Voids 2 2 # Bowel Movements 2 1 - Exam GENERAL DESCRIPTION: Middle-age female lying in bed in no distress RESPIRATORY SYSTEM: Unlabored breathing , decreased breath sounds at bases HEART: S1 S2 regular rate and rhythm , ABDOMEN: Soft , no tenderness EXTREMITIES: No edema feet - Labs CBC & Chem 7: 11/22/21 05:19 11/22/21 05:19 Labs: Abnormal Lab Results - Last 24 Hours (Table) 11/22/21 11/22/21 Range/Units 05:19 05:19 RBC 2.93 L (4.10-5.20) X 10*6/uL Hgb 8.8 L (12.0-15.0) g/dL Hct 27.6 L (37.2-46.3) % MCHC 31.9 L (32.0-37.0) g/dL Plt Count 568 H (140-440) X 10*3/uL MPV 8.8 L (9.5-12.2) fL Immature Gran # 0.08 H (0.00-0.04) X 10*3/uL Lymphocytes # 0.80 L (0.90-5.00) X 10*3/uL Eosinophils # 0.03 L (0.04-0.35) X 10*3/uL Potassium 3.2 L (3.5-5.5) mmol/L BUN 2.1 L (9.0-27.0) mg/dL BUN/Creatinine Ratio 3.50 L (12.00-20.00) Ratio Calcium 8.0 L (8.7-10.3) mg/dL Total Bilirubin <0.15 L (0.30-1.20) mg/dL AST <5 L (13-35) U/L ALT <5 L (8-44) U/L Total Protein 4.9 L (6.2-8.2) g/dL Albumin 2.6 L (3.8-4.9) g/dL Albumin/Globulin Ratio 1.13 L (1.60-3.17) g/dL Microbiology - Last 24 Hours (Table) 11/21/21 09:50 Stool Culture - Preliminary Stool Assessment and Plan (1) HIV (human immunodeficiency virus infection) Current Visit: Yes Status: Acute Code(s): B20 - HUMAN IMMUNODEFICIENCY VIRUS [HIV] DISEASE SNOMED Code(s): 99331470 (2) Ileus Current Visit: Yes Status: Acute Code(s): K56.7 - ILEUS, UNSPECIFIED SNOMED Code(s): 746295414 Plan: 1patient presented to hospital with acute crampy abdominal pain nausea and vomiting and diarrhea with evidence of severe ileus on the basis with KUB x-ray patient also have a elevated white count more likely related to intra-abdominal pathology patient did not have significant respiratory symptoms , daily in mind abnormal x-ray finding possible component of aspiration pneumonia 2patient with HIV well-controlled with a Tivicay and Truvada which will be continued 3 patient has shown clinical improvement and will continue with the Unasyn that should cover both the colitis as well as possible aspiration pneumonitis Time with Patient: Less than 30
--- NOTE | 2021-11-22 23:35 | PN ---
PROGRESS NOTE SUBJECTIVE: This is a 61-year-old white female, discussed with her CAT scan of abdomen and pelvis. We are going to order an ultrasound for possible ovarian cyst up to 3.7 cm. We are also going to do a CAT scan of the chest due to pulmonary nodules prior to discharge. CAT scan of the abdomen shows descending colitis, for which she is on IV antibiotics. May start her on some Flagyl to go with Zosyn. OBJECTIVE: VITAL SIGNS: Temperature 98.5, pulse 90, respiratory rate 16 to 18, blood pressure 98/63, and O2 93 on room air. LUNGS: Scattered rhonchi and wheeze. CARDIOVASCULAR: S1 and S2. HEMATOLOGY: Negative Homans. GI: Soft. PLAN: Test as mentioned above. Otherwise, we can send her home on oral antibiotics pending how she does. PROGNOSIS: Guarded. MMODL / IJN: [id number] /
[2021-11-23] MEDS: AMPICILLIN-SULBACTAM 3 GM in SODIUM CHLORIDE 0.9% 100 ML IVPB SCH ×2 (05:23→12:37)
[2021-11-23] MEDS: metroNIDAZOLE 500 MG TAB PO SCH ×2 (05:23→12:37)
[2021-11-23] MEDS: ALBUTEROL NEBULIZED 2.5 MG/3 ML INHALATION SCH ×2 (07:56→11:45)
[2021-11-23] MEDS: TIVICAY 50 MG PO SCH (08:54)
[2021-11-23] MEDS: Emtricitabine/Tenofov Alafenam [Descovy 200-25 Mg Tablet] PO SCH (08:54)
[2021-11-23] MEDS: SODIUM CHLORIDE 0.9% 1,000 ML IV SCH (08:56)
[2021-11-23] MEDS: ARIPiprazole 2 MG TAB PO SCH (08:56)
[2021-11-23] MEDS: PARoxetine 20 MG TAB PO SCH (08:56)
[2021-11-23] MEDS: clonazePAM 0.5 MG TAB PO SCH (08:56)
[2021-11-23] MEDS: PANTOPRAZOLE 40 MG/10 ML VIAL IV SCH (08:56)
--- NOTE | 2021-11-23 10:26 | P.PN ---
Subjective Progress Note Date: 11/23/21 Principal diagnosis: Colitis Patient doing well today. She is ambulating in the room. She says she has no pain. As her diarrhea resolved as well. She would like to go home today. Objective - Vital Signs Vital signs: Vital Signs Temp 98 F 11/23/21 05:04 Pulse 78 11/23/21 08:15 Resp 20 11/23/21 05:04 BP 124/77 11/23/21 05:04 Pulse Ox 95 11/23/21 05:04 FiO2 Intake & Output 11/22/21 11/23/21 11/23/21 18:59 06:59 18:59 Intake Total 900 Output Total 350 Balance 550 Intake: Intake, IV Titration 900 Amount Sodium Chloride 0.9% 1, 900 000 ml @ 75 mls/hr IV . [id number] [facility] Rx#:[id number] Output: Urine 350 Other: # Voids 2 - Exam Abdomen: Soft, nontender, nondistended - Labs CBC & Chem 7: 11/22/21 05:19 11/22/21 05:19 Labs: Abnormal Lab Results - Last 24 Hours (Table) 11/22/21 Range/Units 05:19 Potassium 3.2 L (3.5-5.5) mmol/L BUN 2.1 L (9.0-27.0) mg/dL BUN/Creatinine Ratio 3.50 L (12.00-20.00) Ratio Calcium 8.0 L (8.7-10.3) mg/dL Total Bilirubin <0.15 L (0.30-1.20) mg/dL AST <5 L (13-35) U/L ALT <5 L (8-44) U/L Total Protein 4.9 L (6.2-8.2) g/dL Albumin 2.6 L (3.8-4.9) g/dL Albumin/Globulin Ratio 1.13 L (1.60-3.17) g/dL Assessment and Plan (1) Colitis Narrative/Plan: Patient doing well at this time. Colitis improved. May discharge from a surgical point of view. Current Visit: Yes Status: Acute Code(s): K52.9 - NONINFECTIVE GASTROENTERITIS AND COLITIS, UNSPECIFIED SNOMED Code(s): 48749761
[2021-11-23 11:39] VITALS: BP 123/76; RESP 16; TEMP 97.5
[2021-11-23 12:03] VITALS: PULSE 72
== END 2021-11-23 13:45 | disposition home or self-care (01) ==
LOC: EC 10:29 → 1SOBS 14:18 → 4SSUR 15:55 → 5NMEDONC 18:16
PROVIDERS: ADMIT Family Medicine; ATTEND Family Medicine
DX: K52.9 Noninfective gastroenteritis and colitis, unspecified (principal); K56.7 Ileus, unspecified; B20 Human immunodeficiency virus [HIV] disease; M85.88 Other specified disorders of bone density and structure, other site; F31.9 Bipolar disorder, unspecified; F32.A Depression, unspecified; F41.9 Anxiety disorder, unspecified; E78.5 Hyperlipidemia, unspecified; K58.9 Irritable bowel syndrome, unspecified; N83.292 Other ovarian cyst, left side; J90 Pleural effusion, not elsewhere classified; J43.8 Other emphysema; I70.0 Atherosclerosis of aorta; K43.2 Incisional hernia without obstruction or gangrene; Z79.899 Other long term (current) drug therapy; Z28.310 Unvaccinated for COVID-19; Z87.891 Personal history of nicotine dependence; Z83.2 Family history of diseases of the blood and blood-forming organs and certain disorders involving the immune mechanism; Z20.822 Contact with and (suspected) exposure to COVID-19
CPT/HCPCS: 96376 ×2; 96361 ×3; 96366 ×3; 96367; 96375 ×2; 96365 ×4; 99285; 36415; 94640 ×7; 80053 ×2; 86304; 86360; 82150; 83605; 83690; 85025 ×3; 86140; 81001; 87324; 87045; 87046; 84145; 87635; 74018; 76856; 71260; 74177; G0378 ×4; J2405; J0456 ×2; J0696; J0295 ×3; J1885; C9113 ×3; Q9967 ×2

== ENCOUNTER 2021-11-30 10:03 | Emergency (ER) | payer OTHER ==
[2021-11-30 10:27] VITALS: TEMP 97.6
[2021-11-30] MEDS ORDERED: SODIUM CHLORIDE 0.9% 1,000 ML IV STA (12:26)
[2021-11-30] MEDS ORDERED: ONDANSETRON 4 MG/2 ML VIAL IVP STA (12:26)
[2021-11-30] MEDS ORDERED: MORPHINE SULFATE 4 MG/ML SYRINGE IV STA (12:26)
--- NOTE | 2021-11-30 12:33 | ED ---
General Adult HPI - General Chief complaint: Abdominal Pain Stated complaint: abd pain Time Seen by Provider: 11/30/21 12:00 Source: patient Mode of arrival: ambulatory Limitations: no limitations - History of Present Illness Initial comments: Dictation was produced using [employer] dictation software. please excuse any grammatical, word or spelling errors. Chief Complaint: 61-year-old female presents to the emergency department for abd ominal pain History of Present Illness: 61-year-old female with past medical history of HIV, colon resection, irritable bowel syndrome presents to the ER for nausea vomiting abdominal pain. Patient states she's been having symptoms for the last 2 or 3 days. Patient was recently admitted to the hospital from November 21 through November 23. She was admitted for bowel instruction versus severe ileus. She was inpatient for approximately 2-3 days. She was discharged stable medical condition. Patient states that she was on 5 after being discharged until 2-3 days ago when she all of a sudden is having difficulty voiding stool and has been having bouts of suprapubic abdominal pain and nausea vomiting. She states that her emesis is nonbilious and nonbloody. Patient has any fever or consti tutional symptoms. She states that the pain as a dull ache to the suprapubic area. The ROS documented in this emergency department record has been reviewed and confirmed by me. Those systems with pertinent positive or negative responses have been documented in the HPI. All other systems are other negative and/or noncontributory. PHYSICAL EXAM: General Impression: Alert and oriented x3, not in acute distress HEENT: Normocephalic atraumatic, extra-ocular movements intact, pupils equal and reactive to light bilaterally, mucous membranes moist. Cardiovascular: Heart regular rate and rhythm Chest: Able to complete full sentences, no retractions, no tachypnea Abdomen: abdomen soft, mild palpatory tenderness to the suprapubic area, non- distended, no organomegaly Musculoskeletal: Pulses present and equal in all extremities, no peripheral edema Motor: no focal deficits noted Neurological: CN II-XII grossly intact, no focal motor or sensory deficits noted Skin: Intact with no visualized rashes Psych: Normal affect and mood ED course: 61-year-old female with past medical history of of irritable bowel syndrome, HIV presents to the emergency department for abdominal pain, nausea and vomiting. Signs upon arrival are within acceptable limits. Laboratory evaluation obtained. CBC unremarkable. Coag panel is unremarkable. Metabolic panel is negative. X-ray shows fluid levels with a small large bowel with dilated large bowel suggesting ileus. Patient reevaluated bedside at 2:30 PM. Labs and imaging results were discussed with patient. She states she feels significant better after analgesics. It was recommended patient to be admitted to the hospital for ileus. Patient did not want to be admitted to the hospital. She was agreeable however to the try oral intake to she can handle by mouth trial. Patient reevaluated again at 4:00 PM found to be stable medical condition. She was able to tolerate her oral intake. Patient wants to be discharged. Patient given strict return precautions. EKG interpretation: Ventricular rate 76, sinus rhythm,. Interval 93, Q's 89, QT c 416. No DE prolongation, no QTC prolongation, no ST or T-wave changes noted. EKG compared to Jul 25 2020 showing no changes. Overall, this EKG is unremarkable - Related Data Home Medications Medication Instructions Recorded Confirmed ARIPiprazole [Abilify] 2 mg PO DAILY 07/17/20 11/20/21 Atorvastatin [Lipitor] 10 mg PO DAILY 07/17/20 11/20/21 Dolutegravir Sodium [Tivicay] 50 mg PO DAILY 07/17/20 11/20/21 Emtricitabine/Tenofov Alafenam 1 tab PO DAILY 07/17/20 11/20/21 [Descovy 200-25 mg Tablet] PARoxetine HCL [Paxil] 20 mg PO DAILY 07/17/20 11/20/21 clonazePAM [KlonoPIN] 0.5 mg PO BID 07/17/20 11/20/21 Albuterol Sulfate [Proair Hfa] 2 puff INHALATION RT-Q4H 11/20/21 11/20/21 Dicyclomine [Bentyl] 20 mg PO TID 11/20/21 11/20/21 Furosemide [Lasix] 20 mg PO DAILY 11/20/21 11/20/21 Potassium Chloride [Klor-Con M20] 20 meq PO DAILY 11/20/21 11/20/21 Previous Rx's Medication Instructions Recorded Albuterol Nebulized [Ventolin 2.5 mg INHALATION RT-QID ml 11/23/21 Nebulized] metroNIDAZOLE [Flagyl] 500 mg PO Q8H tab 11/23/21 HYDROcodone/APAP 5-325MG [[place] 1 tab PO Q6HR PRN 3 Days #12 tab 11/30/21 5-325] Allergies Allergy/AdvReac Type Severity Reaction Status Date / Time No Known Allergies Allergy Verified 11/30/21 10:27 Review of Systems ROS Statement: Those systems with pertinent positive or pertinent negative responses have been documented in the HPI. ROS Other: All systems not noted in ROS Statement are negative. Past Medical History Past Medical History: No Reported History Additional Past Medical History / Comment(s): Has HIV 1. Recent abn lung CT, awaiting f/u. Has colostomy. Had Covid vaccine #1 07/09/20. Colostomy reversal planned for 07/22/20 History of Any Multi-Drug Resistant Organisms: None Reported Past Surgical History: Bowel Resection Additional Past Surgical History / Comment(s): jaw surgery, D&C, fallopian tube exc. Colostomy 06/20/19 est Past Anesthesia/Blood Transfusion Reactions: No Reported Reaction Past Psychological History: No Psychological Hx Reported Smoking Status: Former smoker Past Alcohol Use History: None Reported Past Drug Use History: None Reported - Past Family History Mother Family Medical History: Blood Disorder, Deep Vein Thrombosis (DVT), Pulmonary Embolus Additional Family Medical History / Comment(s): Factor V General Exam Limitations: no limitations Course Vital Signs 11/30/21 11/30/21 10:25 14:39 Temperature 97.6 F Pulse Rate 104 H 98 Respiratory 20 20 Rate Blood Pressure 130/80 120/65 O2 Sat by Pulse 97 99 Oximetry Medical Decision Making - Lab Data Result diagrams: 11/30/21 13:10 11/30/21 13:10 Lab Results 11/30/21 11/30/21 11/30/21 Range/Units 13:10 13:10 13:10 WBC 8.8 (3.8-10.6) k/uL RBC 4.20 (3.80-5.40) m/uL Hgb 12.7 (11.4-16.0) gm/dL Hct 40.8 (34.0-46.0) % MCV 97.0 (80.0-100.0) fL MCH 30.2 (25.0-35.0) pg MCHC 31.1 (31.0-37.0) g/dL RDW 14.8 (11.5-15.5) % Plt Count 687 H (150-450) k/uL MPV 7.1 Neutrophils % 87 % Lymphocytes % 8 % Monocytes % 3 % Eosinophils % 0 % Basophils % 0 % Neutrophils # 7.6 (1.3-7.7) k/uL Lymphocytes # 0.7 L (1.0-4.8) k/uL Monocytes # 0.3 (0-1.0) k/uL Eosinophils # 0.0 (0-0.7) k/uL Basophils # 0.0 (0-0.2) k/uL Hypochromasia Slight PT (9.0-12.0) sec INR (<1.2) APTT (22.0-30.0) sec Sodium 133 L (137-145) mmol/L Potassium 4.7 (3.5-5.1) mmol/L Chloride 92 L (98-107) mmol/L Carbon Dioxide 34 H (22-30) mmol/L Anion Gap 7 mmol/L BUN 7 (7-17) mg/dL Creatinine 0.77 (0.52-1.04) mg/dL Est GFR (CKD-EPI)AfAm >90 (>60 ml/min/1.73 sqM) Est GFR (CKD-EPI)NonAf 82 (>60 ml/min/1.73 sqM) Glucose 124 H (74-99) mg/dL Plasma Lactic Acid Jose Armando 1.1 (0.7-2.0) mmol/L Calcium 9.0 (8.4-10.2) mg/dL Magnesium 2.2 (1.6-2.3) mg/dL Total Bilirubin 0.4 (0.2-1.3) mg/dL AST 13 L (14-36) U/L ALT 6 (4-34) U/L Alkaline Phosphatase 91 (38-126) U/L Total Protein 6.6 (6.3-8.2) g/dL Albumin 3.8 (3.5-5.0) g/dL Lipase 36 (23-300) U/L 11/30/21 Range/Units 13:10 WBC (3.8-10.6) k/uL RBC (3.80-5.40) m/uL Hgb (11.4-16.0) gm/dL Hct (34.0-46.0) % MCV (80.0-100.0) fL MCH (25.0-35.0) pg MCHC (31.0-37.0) g/dL RDW (11.5-15.5) % Plt Count (150-450) k/uL MPV Neutrophils % % Lymphocytes % % Monocytes % % Eosinophils % % Basophils % % Neutrophils # (1.3-7.7) k/uL Lymphocytes # (1.0-4.8) k/uL Monocytes # (0-1.0) k/uL Eosinophils # (0-0.7) k/uL Basophils # (0-0.2) k/uL Hypochromasia PT 10.0 (9.0-12.0) sec INR 0.9 (<1.2) APTT 20.8 L (22.0-30.0) sec Sodium (137-145) mmol/L Potassium (3.5-5.1) mmol/L Chloride (98-107) mmol/L Carbon Dioxide (22-30) mmol/L Anion Gap mmol/L BUN (7-17) mg/dL Creatinine (0.52-1.04) mg/dL Est GFR (CKD-EPI)AfAm (>60 ml/min/1.73 sqM) Est GFR (CKD-EPI)NonAf (>60 ml/min/1.73 sqM) Glucose (74-99) mg/dL Plasma Lactic Acid Jose Armando (0.7-2.0) mmol/L Calcium (8.4-10.2) mg/dL Magnesium (1.6-2.3) mg/dL Total Bilirubin (0.2-1.3) mg/dL AST (14-36) U/L ALT (4-34) U/L Alkaline Phosphatase (38-126) U/L Total Protein (6.3-8.2) g/dL Albumin (3.5-5.0) g/dL Lipase (23-300) U/L Disposition Clinical Impression: Ileus Disposition: HOME SELF-CARE Condition: Fair Instructions (If sedation given, give patient instructions): Ileus (ED) Prescriptions: HYDROcodone/APAP 5-325MG [[place] 5-325] 1 tab PO Q6HR PRN 3 Days #12 tab PRN Reason: Severe Pain Is patient prescribed a controlled substance at d/c from ED?: Yes If prescribed controlled substance>3 days was MAPS reviewed?: Prescribed <3 Days Referrals: Quoc Saavedra MD [Primary Care Provider] - 1-2 days Time of Disposition: 16:04
[2021-11-30 13:43] LABS: Basophils % (A) 0 %; Eosinophils % (A) 0 %; HCT 40.8 % (34.0-46.0); HGB 12.7 gm/dL (11.4-16.0); Hypochromasia Slight; Lymphocytes # (A) 0.7 k/uL (1.0-4.8); Lymphocytes % (A) 8 %; MCH 30.2 pg (25.0-35.0); MCHC 31.1 g/dL (31.0-37.0); Mean Platelet Volume 7.1; Monocytes # (A) 0.3 k/uL (0-1.0); Monocytes % (A) 3 %; Neutrophils # (A) 7.6 k/uL (1.3-7.7); Neutrophils % (A) 87 %; Platelet Count 687 k/uL (150-450); RDW 14.8 % (11.5-15.5); WBC 8.8 k/uL (3.8-10.6)
[2021-11-30 13:58] LABS: INR 0.9 (<1.2)
[2021-11-30 14:05] LABS: ALT 6 U/L (4-34); AST 13 U/L (14-36); African American GFR (CKD) >90 (>60 ml/min/1.73 sqM); Albumin 3.8 g/dL (3.5-5.0); Alkaline Phosphatase 91 U/L (38-126); Anion Gap 7 mmol/L; Blood Urea Nitrogen 7 mg/dL (7-17); Carbon Dioxide 34 mmol/L (22-30); Chloride 92 mmol/L (98-107); Glucose 124 mg/dL (74-99); Lipase 36 U/L (23-300); Magnesium 2.2 mg/dL (1.6-2.3); Non-African American GFR(CKD) 82 (>60 ml/min/1.73 sqM); Potassium 4.7 mmol/L (3.5-5.1); Sodium 133 mmol/L (137-145); Total Bilirubin 0.4 mg/dL (0.2-1.3); Total Protein 6.6 g/dL (6.3-8.2)
[2021-11-30 14:06] LABS: Partial Thromboplastin Time 20.8 sec (22.0-30.0)
--- NOTE | 2021-11-30 14:17 | XR ---
EXAMINATION TYPE: XR abdomen acute w cxr DATE OF EXAM: 11/30/2021 2:11 PM INDICATION: Patient age:Female; 61 years old; Reason for study: abdominal pain, nausea, vomiting; PHH. COMPARISON: TECHNIQUE: Two radiographic views of the abdomen and an a chest radiograph were obtained. FINDINGS CHEST: Lungs/Pleura: No pneumothorax or pleural effusion. Patchy left midlung and lower lung airspace opacit ies. Mediastinum: Unremarkable. Vasculature: Normal. Heart: Normal in size. Musculoskeletal: The osseous structures are intact. Other findings: No significant. FINDINGS ABDOMEN: Bowel gas pattern: Few air fluid levels demonstrated within the small and large bowel with dilated tr ansverse colon measuring up to 8 cm. Small hiatal hernia. Musculoskeletal: Normal. Other: Pelvic phleboliths.. No pneumoperitoneum. IMPRESSION: 1. Few fluid levels within the small and large bowel with dilated large bowel. Findings suggestive of an ileus. 2. Left mid and lower lung airspace opacities concerning for pneumonia.
[2021-11-30 16:13] VITALS: BP 118/64; PULSE 68; RESP 18
== END 2021-11-30 16:13 | disposition home or self-care (01) ==
LOC: EC 10:03
DX: K56.7 Ileus, unspecified (principal); Z87.891 Personal history of nicotine dependence; Z21 Asymptomatic human immunodeficiency virus [HIV] infection status
CPT/HCPCS: 99284; 96374; 96375; 96361; 36415; 93005; 80053; 83605; 83690; 83735; 85025; 85610; 85730; 74022; J2270; J2405

== ENCOUNTER 2021-12-02 22:13 | Inpatient (IN) | payer OTHER ==
[2021-12-02] MEDS ORDERED: ONDANSETRON 4 MG/2 ML VIAL IVP STA (22:25)
[2021-12-02] MEDS ORDERED: HYDROmorphone 0.5 MG/0.5 ML SYRINGE IVP STA (22:25)
[2021-12-02] MEDS ORDERED: ONDANSETRON 4 MG/2 ML VIAL IVP PRN (22:26)
[2021-12-02] MEDS ORDERED: NALOXONE 0.4 MG/ML 1 ML VIAL IV PRN (22:26)
[2021-12-02] MEDS ORDERED: SODIUM CHLORIDE 0.9% 1,000 ML IV SCH (22:30)
--- NOTE | 2021-12-02 22:33 | ED ---
General Adult HPI - General Stated complaint: Bowel Obstruction Time Seen by Provider: 12/02/21 22:19 Source: patient, RN notes reviewed, old records reviewed Limitations: no limitations - History of Present Illness Initial comments: 61 yo female transfer from outside hospital for surgical evaluation and small bowel obstruction. Patient is known to Dr. Zamora, reversal of colostomy. Patient was seen at outside hospital she was transferred to [facility] for surgical evaluation of small bowel obstruction and was secondarily transferred to this institution due to her previous surgical history here and the fact that [facility] was completely full. Patient had complained of generalized abdominal pain nausea without vomiting and decreased stool output. - Related Data Home Medications Medication Instructions Recorded Confirmed ARIPiprazole [Abilify] 2 mg PO DAILY 07/17/20 11/20/21 Atorvastatin [Lipitor] 10 mg PO DAILY 07/17/20 11/20/21 Dolutegravir Sodium [Tivicay] 50 mg PO DAILY 07/17/20 11/20/21 Emtricitabine/Tenofov Alafenam 1 tab PO DAILY 07/17/20 11/20/21 [Descovy 200-25 mg Tablet] PARoxetine HCL [Paxil] 20 mg PO DAILY 07/17/20 11/20/21 clonazePAM [KlonoPIN] 0.5 mg PO BID 07/17/20 11/20/21 Albuterol Sulfate [Proair Hfa] 2 puff INHALATION RT-Q4H 11/20/21 11/20/21 Dicyclomine [Bentyl] 20 mg PO TID 11/20/21 11/20/21 Furosemide [Lasix] 20 mg PO DAILY 11/20/21 11/20/21 Potassium Chloride [Klor-Con M20] 20 meq PO DAILY 11/20/21 11/20/21 Previous Rx's Medication Instructions Recorded Albuterol Nebulized [Ventolin 2.5 mg INHALATION RT-QID ml 11/23/21 Nebulized] metroNIDAZOLE [Flagyl] 500 mg PO Q8H tab 11/23/21 HYDROcodone/APAP 5-325MG [[place] 1 tab PO Q6HR PRN 3 Days #12 tab 11/30/21 5-325] Allergies Allergy/AdvReac Type Severity Reaction Status Date / Time No Known Allergies Allergy Verified 11/30/21 10:27 Review of Systems ROS Statement: Those systems with pertinent positive or pertinent negative responses have been documented in the HPI. ROS Other: All systems not noted in ROS Statement are negative. Past Medical History Past Medical History: No Reported History Additional Past Medical History / Comment(s): Has HIV 1. Recent abn lung CT, awaiting f/u. Has colostomy. Had Covid vaccine #1 07/09/20. Colostomy reversal planned for 07/22/20 History of Any Multi-Drug Resistant Organisms: None Reported Past Surgical History: Bowel Resection Additional Past Surgical History / Comment(s): jaw surgery, D&C, fallopian tube exc. Colostomy 06/20/19 est Past Anesthesia/Blood Transfusion Reactions: No Reported Reaction Past Psychological History: No Psychological Hx Reported Smoking Status: Former smoker Past Alcohol Use History: None Reported Past Drug Use History: None Reported - Past Family History Mother Family Medical History: Blood Disorder, Deep Vein Thrombosis (DVT), Pulmonary Embolus Additional Family Medical History / Comment(s): Factor V General Exam General appearance: alert, in no apparent distress Head exam: Present: atraumatic, normocephalic Eye exam: Present: normal appearance, PERRL ENT exam: Present: normal exam Neck exam: Present: normal inspection. Absent: tenderness Respiratory exam: Present: normal lung sounds bilaterally. Absent: respiratory distress, wheezes GI/Abdominal exam: Present: soft, distended, tenderness. Absent: guarding, rebound, rigid Extremities exam: Present: normal inspection, normal capillary refill Neurological exam: Present: alert, oriented X3, CN II-XII intact. Absent: motor sensory deficit Psychiatric exam: Present: normal affect, normal mood Skin exam: Present: warm, dry, intact Medical Decision Making - Medical Decision Making patient had been transferred twice today and ended up at this institution. Repeat laboratory studies will be obtained these results are pending. She will be kept nothing by mouth, provided IV fluid and pain medication as well as antiemetics. She'll be admitted to her primary care physician with general surgery on consult. The images will be loaded to the PACS, pending. Disposition Clinical Impression: Abdominal pain, SBO (small bowel obstruction) Disposition: ADMITTED IP TO THIS HOSP Condition: Stable Is patient prescribed a controlled substance at d/c from ED?: No Referrals: Quoc Saavedra MD [Primary Care Provider] - 1-2 days Time of Disposition: :33
[2021-12-02 22:59] LABS: Basophils % (A) 1 %; Eosinophils # (A) 0.1 k/uL (0-0.7); Eosinophils % (A) 1 %; HCT 37.4 % (34.0-46.0); HGB 11.5 gm/dL (11.4-16.0); Hypochromasia Moderate; Lymphocytes # (A) 1.1 k/uL (1.0-4.8); Lymphocytes % (A) 15 %; MCH 30.1 pg (25.0-35.0); MCHC 30.7 g/dL (31.0-37.0); MCV 97.8 fL (80.0-100.0); Mean Platelet Volume 7.1; Monocytes # (A) 0.5 k/uL (0-1.0); Monocytes % (A) 7 %; Neutrophils # (A) 5.6 k/uL (1.3-7.7); Neutrophils % (A) 76 %; Platelet Count 542 k/uL (150-450); RBC 3.82 m/uL (3.80-5.40); RDW 14.8 % (11.5-15.5); WBC 7.4 k/uL (3.8-10.6)
[2021-12-02 23:07] LABS: ALT 6 U/L (4-34); African American GFR (CKD) >90 (>60 ml/min/1.73 sqM); Albumin 3.2 g/dL (3.5-5.0); Anion Gap 7 mmol/L; Blood Urea Nitrogen 5 mg/dL (7-17); Calcium 7.9 mg/dL (8.4-10.2); Carbon Dioxide 27 mmol/L (22-30); Chloride 98 mmol/L (98-107); Glucose 91 mg/dL (74-99); Non-African American GFR(CKD) >90 (>60 ml/min/1.73 sqM); Sodium 132 mmol/L (137-145); Total Bilirubin 0.5 mg/dL (0.2-1.3); Total Protein 5.8 g/dL (6.3-8.2)
[2021-12-02 23:09] LABS: Partial Thromboplastin Time 22.7 sec (22.0-30.0); Prothrombin Time 10.7 sec (9.0-12.0)
[2021-12-02 23:13] LABS: AST 14 U/L (14-36); Alkaline Phosphatase 52 U/L (38-126); Potassium 4.5 mmol/L (3.5-5.1)
[2021-12-02 23:26] LABS: Appearance,Urine Clear (Clear); Bilirubin,Urine Negative (Negative); Blood,Urine Negative (Negative); Color,Urine Yellow; Glucose,Urine (UA) Negative (Negative); Ketones,Urine Negative (Negative); Leukocyte Esterase,Urine Negative (Negative); Nitrite,Urine Negative (Negative); PH, Urine 6.5 (5.0-8.0); Protein,Urine Negative (Negative); Specific Gravity,Urine 1.024 (1.001-1.035); Urobilinogen,Urine <2.0 mg/dL (<2.0)
[2021-12-03] MEDS: HYDROmorphone 0.5 MG/0.5 ML SYRINGE IVP PRN ×3 (07:59→20:49)
[2021-12-03] MEDS ORDERED: ONDANSETRON 4 MG/2 ML VIAL IVP PRN (11:42)
[2021-12-03] MEDS: SODIUM CHLORIDE 0.9% 1,000 ML IV SCH ×2 (11:47→20:51)
--- NOTE | 2021-12-03 13:23 | P.GSCN ---
History of Present Illness Consult date: 12/03/21 History of present illness: CHIEF COMPLAINT: Abdominal pain HISTORY OF PRESENT ILLNESS: This is a 61-year-old female who was transferred from outside facility for small bowel obstruction. Initially she was at [facility] then transferred to [facility] for surgical evaluation for small bowel obstruction. Patient was then transferred to [facility] due to prior colostomy reversal completed by Dr. kelley and [facility] was completely full. Patient complains of diffuse abdominal pain for about 2 weeks. She was unable to have a bowel movement for about a week and a half. She has been nauseated. No vomiting. She was initially diagnosed with IBS about 2 weeks ago and had been taking Bentyl. Patient reports that her abdomen had been distended. She did have 2 bowel movements yesterday 1 was large and the other one medium size. She does not report any flatus. She reports some improvement in her abdominal distention. She had sigmoid colectomy with ostomy placement for diverticulitis at [facility] that she believes in 2019. And then in July 2020 she had colostomy reversal with Dr. kelley as well as incidental appendectomy, left ovarian cystectomy, lysis of extensive adhesions repair of parastomal hernia and repair of incisional hernia. Patient reports that since her bowel movements her abdominal pain has shown improvement and she has had some decrease in her distention. She denies any fever chills or sweats. Denies any cardiac history. Per [facility] notes and they reported a seat T scan finding of colonic obstruction at rest rectosigmoid anastomosis. On the abdominal x-ray from [facility] results showed evidence of small bowel obstruction. PAST MEDICAL HISTORY: HIV positive on medication PAST SURGICAL HISTORY: See list. MEDICATIONS: See list. ALLERGIES: See list. SOCIAL HISTORY: No illicit drug use. Prior history of smoking REVIEW OF SYSTEMS: CONSTITUTIONAL: Denies fever or chills. HEENT: Denies blurred vision, vision changes, or eye pain. Denies hemoptysis CARDIOVASCULAR: Denies chest pain or pressure. RESPIRATORY: No shortness of breath. GASTROINTESTINAL: See HPI for pertinent findings HEMATOLOGIC: Denies bleeding disorders. GENITOURINARY: Denies any blood in urine or increased urinary frequency. SKIN: Denies pruitis. Denies rash. PHYSICAL EXAM: VITAL SIGNS: Reviewed GENERAL: Well-developed in no acute distress. HEENT: No sclera icterus. Extraocular movements grossly intact. Moist buccal mucosa. Head is atraumatic, normocephalic. No nasal drainage. ABDOMEN: Soft. Distended. Mild diffuse tenderness NEUROLOGIC: Alert and oriented. Cranial nerves II through XII grossly intact. LABORATORY DATA: WBC is 7.4 Hgb 11.5 platelets 542 INR 1.0 Sodium 132 potassium 4.5 creatinine 0.68 Urinalysis negative IMAGING: ASSESSMENT: 1. Abdominal pain 2. Small bowel obstruction 3. Prior surgical history PLAN: -Encourage patient to ambulate -Continue IV fluids -Continue pain medication as needed -Continue supportive care -Further recommendations forthcoming per surgeon Physician [employer] note has been reviewed by physician. Signing provider agrees with the documented findings, assessment, and plan of care. Past Medical History Past Medical History: No Reported History Additional Past Medical History / Comment(s): Has HIV 1. Recent abn lung CT, awaiting f/u. Has colostomy. Had Covid vaccine #1 07/09/20. Colostomy reversal planned for 07/22/20 History of Any Multi-Drug Resistant Organisms: None Reported Past Surgical History: Bowel Resection Additional Past Surgical History / Comment(s): jaw surgery, D&C, fallopian tube exc. Colostomy 06/20/19 est Past Anesthesia/Blood Transfusion Reactions: No Reported Reaction Past Psychological History: No Psychological Hx Reported Additional Psychological History / Comment(s): occ panic attack Smoking Status: Former smoker Past Alcohol Use History: None Reported Additional Past Alcohol Use History / Comment(s): Smoker since age 7, 1/2 ppd Past Drug Use History: None Reported Additional Drug Use History / Comment(s): occ use - Past Family History Mother Family Medical History: Blood Disorder, Deep Vein Thrombosis (DVT), Pulmonary Embolus Additional Family Medical History / Comment(s): Factor V Medications and Allergies Home Medications Medication Instructions Recorded Confirmed Type ARIPiprazole [Abilify] 2 mg PO DAILY 07/17/20 12/03/21 History Atorvastatin [Lipitor] 10 mg PO DAILY 07/17/20 12/03/21 History Dolutegravir Sodium [Tivicay] 50 mg PO DAILY 07/17/20 12/03/21 History Emtricitabine/Tenofov Alafenam 1 tab PO DAILY 07/17/20 12/03/21 History [Descovy 200-25 mg Tablet] PARoxetine HCL [Paxil] 20 mg PO DAILY 07/17/20 12/03/21 History clonazePAM [KlonoPIN] 0.5 mg PO BID 07/17/20 12/03/21 History Albuterol Sulfate [Proair Hfa] 2 puff INHALATION RT-Q4H 11/20/21 12/03/21 History Dicyclomine [Bentyl] 20 mg PO TID 11/20/21 12/03/21 History Furosemide [Lasix] 20 mg PO DAILY 11/20/21 12/03/21 History Potassium Chloride [Klor-Con M20] 20 meq PO DAILY 11/20/21 12/03/21 History Albuterol Nebulized [Ventolin 2.5 mg INHALATION RT-QID ml 11/23/21 12/03/21 Rx Nebulized] metroNIDAZOLE [Flagyl] 500 mg PO Q8H tab 11/23/21 12/03/21 Rx HYDROcodone/APAP 5-325MG [[place] 1 tab PO Q6HR PRN 3 Days #12 tab 11/30/21 12/03/21 Rx 5-325] Allergies Allergy/AdvReac Type Severity Reaction Status Date / Time No Known Allergies Allergy Verified 12/03/21 07:10 Surgical - Exam Vital Signs Temp Pulse Resp BP Pulse Ox 97.5 F L 78 16 142/77 98 12/02/21 22:21 12/02/21 22:21 12/02/21 22:21 12/02/21 22:21 12/02/21 22:21 Results - Labs 12/02/21 22:35 12/02/21 22:35 Abnormal Lab Results - Last 24 Hours (Table) 12/02/21 12/02/21 Range/Units 22:35 22:35 MCHC 30.7 L (31.0-37.0) g/dL Plt Count 542 H (150-450) k/uL Sodium 132 L (137-145) mmol/L BUN 5 L (7-17) mg/dL Calcium 7.9 L (8.4-10.2) mg/dL Total Protein 5.8 L (6.3-8.2) g/dL Albumin 3.2 L (3.5-5.0) g/dL Diabetes panel 12/02/21 Range/Units 22:35 Sodium 132 L (137-145) mmol/L Potassium 4.5 (3.5-5.1) mmol/L Chloride 98 (98-107) mmol/L Carbon Dioxide 27 (22-30) mmol/L BUN 5 L (7-17) mg/dL Creatinine 0.68 (0.52-1.04) mg/dL Glucose 91 (74-99) mg/dL Calcium 7.9 L (8.4-10.2) mg/dL AST 14 (14-36) U/L ALT 6 (4-34) U/L Alkaline Phosphatase 52 (38-126) U/L Total Protein 5.8 L (6.3-8.2) g/dL Albumin 3.2 L (3.5-5.0) g/dL Calcium panel 12/02/21 Range/Units 22:35 Calcium 7.9 L (8.4-10.2) mg/dL Albumin 3.2 L (3.5-5.0) g/dL Pituitary panel 12/02/21 Range/Units 22:35 Sodium 132 L (137-145) mmol/L Potassium 4.5 (3.5-5.1) mmol/L Chloride 98 (98-107) mmol/L Carbon Dioxide 27 (22-30) mmol/L BUN 5 L (7-17) mg/dL Creatinine 0.68 (0.52-1.04) mg/dL Glucose 91 (74-99) mg/dL Calcium 7.9 L (8.4-10.2) mg/dL Adrenal panel 12/02/21 Range/Units 22:35 Sodium 132 L (137-145) mmol/L Potassium 4.5 (3.5-5.1) mmol/L Chloride 98 (98-107) mmol/L Carbon Dioxide 27 (22-30) mmol/L BUN 5 L (7-17) mg/dL Creatinine 0.68 (0.52-1.04) mg/dL Glucose 91 (74-99) mg/dL Calcium 7.9 L (8.4-10.2) mg/dL Total Bilirubin 0.5 (0.2-1.3) mg/dL AST 14 (14-36) U/L ALT 6 (4-34) U/L Alkaline Phosphatase 52 (38-126) U/L Total Protein 5.8 L (6.3-8.2) g/dL Albumin 3.2 L (3.5-5.0) g/dL
[2021-12-03] MEDS: ALBUTEROL NEBULIZED 2.5 MG/3 ML INHALATION SCH ×2 (15:36→19:57)
--- NOTE | 2021-12-03 15:40 | P.CNPUL ---
History of Present Illness Reason for consult: dyspnea, cough, COPD Chief complaint: Cough dry and nonproductive with dyspnea on exertion History of present illness: 61-year-old HIV positive female came into the hospital transfer from an other facility for evaluation of bowel obstruction and ileus/small bowel obstruction. Initially she was at [facility] then transferred to [facility] for surgical evaluation for small bowel obstruction. Patient was then transferred to [facility] due to prior colostomy reversal completed by Dr. kelley and [facility] was completely full. Patient complains of diffuse abdominal pain for about 2 weeks. She was unable to have a bowel movement for about a week and a half. She has been nauseated. No vomiting. She was initially diagnosed with IBS about 2 weeks ago and had been taking Bentyl. Patient reports that her abdomen had been distended. She did have 2 bowel movements yesterday 1 was large and the other one medium size. She does not report any flatus. She reports some improvement in her abdominal dis tention. She had sigmoid colectomy with ostomy placement for diverticulitis at [facility] that she believes in 2019. And then in July 2020 she had colostomy reversal with Dr. kelley as well as incidental appendectomy, left ovarian cystectomy, lysis of extensive adhesions repair of parastomal hernia and repair of incisional hernia. Patient reports that since her bowel movements her abdominal pain has shown improvement and she has had some decrease in her distention. She denies any fever chills or sweats. Denies any cardiac history. Per [facility]'s notes and they reported a computed tomography scan of the abdominal and pelvis finding of colonic obstruction at rectosigmoid anastomosis. On the abdominal x-ray from [facility] results showed evidence of small bowel obstruction. Currently patient is sitting upright denies any shortness of breath chest pain but does have dry nonproductive cough and dyspnea on exertion which is long-standing, patient has a significant history of smoking about half to 1 pack per day quit smoking in 2020, however has been other roommates continued to smoke. Labs are stable with normal white cell count, hemoglobin and hematocrit 11/37 platelet count of 542. Coags okay, mild hyponatremia with sodium 132, urine analysis unremarkable Review of Systems All systems: negative Past Medical History Past Medical History: No Reported History Additional Past Medical History / Comment(s): Has HIV 1. Recent abn lung CT, awaiting f/u. Has colostomy. Had Covid vaccine #1 07/09/20. Colostomy reversal planned for 07/22/20 History of Any Multi-Drug Resistant Organisms: None Reported Past Surgical History: Bowel Resection Additional Past Surgical History / Comment(s): jaw surgery, D&C, fallopian tube exc. Colostomy 06/20/19 est Past Anesthesia/Blood Transfusion Reactions: No Reported Reaction Past Psychological History: No Psychological Hx Reported Additional Psychological History / Comment(s): occ panic attack Smoking Status: Former smoker Past Alcohol Use History: None Reported Additional Past Alcohol Use History / Comment(s): Smoker since age 7, 1/2 ppd Past Drug Use History: None Reported Additional Drug Use History / Comment(s): occ use - Past Family History Mother Family Medical History: Blood Disorder, Deep Vein Thrombosis (DVT), Pulmonary Embolus Additional Family Medical History / Comment(s): Factor V Medications and Allergies Home Medications Medication Instructions Recorded Confirmed Type ARIPiprazole [Abilify] 2 mg PO DAILY 07/17/20 12/03/21 History Atorvastatin [Lipitor] 10 mg PO DAILY 07/17/20 12/03/21 History Dolutegravir Sodium [Tivicay] 50 mg PO DAILY 07/17/20 12/03/21 History Emtricitabine/Tenofov Alafenam 1 tab PO DAILY 07/17/20 12/03/21 History [Descovy 200-25 mg Tablet] PARoxetine HCL [Paxil] 20 mg PO DAILY 07/17/20 12/03/21 History clonazePAM [KlonoPIN] 0.5 mg PO BID 07/17/20 12/03/21 History Albuterol Sulfate [Proair Hfa] 2 puff INHALATION RT-Q4H 11/20/21 12/03/21 History Dicyclomine [Bentyl] 20 mg PO TID 11/20/21 12/03/21 History Furosemide [Lasix] 20 mg PO DAILY 11/20/21 12/03/21 History Potassium Chloride [Klor-Con M20] 20 meq PO DAILY 11/20/21 12/03/21 History Albuterol Nebulized [Ventolin 2.5 mg INHALATION RT-QID ml 11/23/21 12/03/21 Rx Nebulized] metroNIDAZOLE [Flagyl] 500 mg PO Q8H tab 11/23/21 12/03/21 Rx HYDROcodone/APAP 5-325MG [[place] 1 tab PO Q6HR PRN 3 Days #12 tab 11/30/21 12/03/21 Rx 5-325] Allergies Allergy/AdvReac Type Severity Reaction Status Date / Time No Known Allergies Allergy Verified 12/03/21 07:10 Physical Exam Vitals: Vital Signs Temp Pulse Pulse Resp BP BP Pulse Ox 12/03/21 13:22 98.1 F 77 14 120/74 90 L 12/03/21 08:09 14 12/03/21 07:00 98.2 F 83 14 132/82 92 L 12/03/21 02:05 97.9 F 88 17 101/63 96 12/02/21 23:45 98.6 F 77 18 132/80 95 12/02/21 22:21 97.5 F L 78 16 142/77 98 Intake and Output 12/03/21 12/03/21 12/03/21 06:59 14:59 22:59 Other: Voiding Method Toilet Toilet # Voids 1 2 Weight 66.678 kg - Constitutional General appearance: average body habitus, cooperative, no acute distress - EENT Eyes: anicteric sclerae, EOMI, PERRLA ENT: normal oropharynx Ears: bilateral: normal - Neck Neck: normal ROM Carotids: bilateral: upstroke normal Thyroid: bilateral: normal size - Respiratory Respiratory: bilateral: CTA - Cardiovascular Rhythm: regular Heart sounds: normal: S1, S2 - Gastrointestinal General gastrointestinal: decreased bowel sounds, soft - Integumentary Integumentary: normal turgor - Neurologic Neurologic: CNII-XII intact - Musculoskeletal Musculoskeletal: gait normal, generalized weakness, strength equal bilaterally - Psychiatric Psychiatric: A&O x's 3, appropriate affect, intact judgment & insight Results - Laboratory Findings CBC and BMP: 12/02/21 22:35 12/02/21 22:35 PT/INR, D-dimer PT 10.7 sec (9.0-12.0) 12/02/21 22:35 INR 1.0 (<1.2) 12/02/21 22:35 Abnormal lab findings: Abnormal Labs 09/14/22 09/14/22 22:35 22:35 MCHC 30.7 L Plt Count 542 H Sodium 132 L BUN 5 L Calcium 7.9 L Total Protein 5.8 L Albumin 3.2 L Assessment and Plan Assessment: Chronic cough likely related to chronic reactive bronchitis due to smoking limitation in Baseline COPD Baseline COPD Small bowel obstruction HIV positive status, compliant with medication Recently active smoker and extensive secondhand smoking exposure Dyslipidemia Generalized anxiety disorder Plan: Continue bronchodilators Cough suppressant Monitor clinical course closely We'll check a chest x-ray Further recommendations pending plan of care as per clinical response of the patient Time with Patient: Greater than 30
[2021-12-03] MEDS ORDERED: guaiFENesin-DM 100-10MG/5ML 10 ML CUP PO PRN (15:42)
[2021-12-03] MEDS: DICYCLOMINE 20 MG TAB PO SCH ×2 (15:43→20:50)
[2021-12-03] MEDS ORDERED: ALBUTEROL HFA INHALER INHALATION SCH (16:00)
--- NOTE | 2021-12-03 17:27 | XR ---
EXAMINATION TYPE: XR chest 2V DATE OF EXAM: 12/03/2021 COMPARISON: CT 11/22/2021. HISTORY: Cough, COPD. TECHNIQUE: Frontal and lateral views of the chest are obtained. FINDINGS: There is persistent mild left basilar opacity with trace pleural effusion. No pneumothorax seen. The cardiac silhouette size is within normal limits. The osseous structures are intact. IMPRESSION: Persistent left basilar infiltrate with trace pleural effusion.
[2021-12-03] MEDS ORDERED: IOPAMIDOL CONTRAST (ORAL USE) VIAL PO PRN (18:05)
[2021-12-03] MEDS: clonazePAM 0.5 MG TAB PO SCH (20:50)
--- NOTE | 2021-12-04 00:36 | HP ---
HISTORY AND PHYSICAL HISTORY OF PRESENT ILLNESS: This is a white female who was transferred from the hospital down in [place], transferred up here for possible surgical evaluation from a small bowel obstruction, surgical consult was placed. She came to the hospital with bowel obstruction, nausea, vomiting. She was seen at the ER within the last 3 days. HOME MEDICINES: Abilify 2 mg daily, Lipitor 10 mg daily, 15 mg daily, Descovy daily, Paxil 20 daily, Klonopin 0.5 b.i.d., ProAir HFA 2 puffs q.4 hours p.r.n., Bentyl 20 mg t.i.d., Lasix 20 mg daily, and Klor-Con 20 mEq daily. ALLERGIES: Negative. REVIEW OF SYSTEMS: A 14-point review of systems otherwise negative. Weakness, fatigue, cough, congestion, shortness of breath, nausea, vomiting. PAST MEDICAL HISTORY: HIV, abnormal lung CT, awaiting followup, had colostomy, COVID vaccine, reversal 07/22/2020. PHYSICAL EXAMINATION: VITAL SIGNS: Reviewed. LUNGS: Decreased breath sounds x4. GI: Increased bowel sounds x4. Mild distention. EXTREMITIES: No edema. GENERAL: She is thin cachectic overall, BMI is low PSYCH: Fair mood and affect. NEUROLOGIC: Alert, oriented x3. INTEGUMENT: Dry skin turgor, dry mucous membranes. ASSESSMENT: Abdominal pain, small bowel obstruction, dehydration. PROGNOSIS: Guarded. FOLLOWUP: Next 24 to 48 hours. Rehydrate, treat for COPD. MMODL / IJN: [id number] /
[2021-12-04] MEDS: ALBUTEROL NEBULIZED 2.5 MG/3 ML INHALATION SCH ×4 (07:22→19:31)
[2021-12-04] MEDS: clonazePAM 0.5 MG TAB PO SCH ×2 (07:52→20:22)
[2021-12-04] MEDS: SODIUM CHLORIDE 0.9% 1,000 ML IV SCH ×2 (07:52→20:23)
[2021-12-04] MEDS: DICYCLOMINE 20 MG TAB PO SCH ×3 (07:52→20:22)
[2021-12-04] MEDS: ATORVASTATIN 10 MG TAB PO SCH (07:52)
[2021-12-04] MEDS: NON FORMULARY DRUG (Emtricitabine/Tenofov Alafenam [Descovy 200-25 Mg Tablet] 1 EACH Table PO SCH (07:52)
[2021-12-04] MEDS: ARIPiprazole 2 MG TAB PO SCH (07:52)
[2021-12-04] MEDS: POTASSIUM CHLORIDE ER 20 MEQ TAB.ER PO SCH (07:52)
[2021-12-04] MEDS: FUROSEMIDE 20 MG TAB PO SCH ×2 (07:52→07:53)
[2021-12-04] MEDS: PARoxetine 20 MG TAB PO SCH (07:53)
[2021-12-04] MEDS: DOLUTEGRAVIR SODIUM 50 MG TABLET PO SCH (07:53)
[2021-12-04] MEDS: HYDROmorphone 0.5 MG/0.5 ML SYRINGE IVP PRN (07:55)
[2021-12-04 09:07] LABS: Basophils # (A) 0.04 X 10*3/uL (0.00-0.10); Basophils % (A) 0.7 %; Eosinophils # (A) 0.06 X 10*3/uL (0.04-0.35); Eosinophils % (A) 1.1 %; HGB 9.8 g/dL (12.0-15.0); Immature Grans, Automated 0.7 %; Lymphocytes % (A) 16.2 %; MCH 29.9 pg (27.0-32.0); MCHC 30.6 g/dL (32.0-37.0); MCV 97.6 fL (80.0-97.0); Mean Platelet Volume 9.1 fL (9.5-12.2); Monocytes # (A) 0.41 X 10*3/uL (0.20-1.00); Monocytes % (A) 7.4 %; NRBC Per 100 WBC 0 /100 WBCS (0.0-0.0); Neutrophils # (A) 4.12 X 10*3/uL (1.80-7.70); Neutrophils % (A) 73.9 %; Platelet Count 492 X 10*3/uL (140-440); RBC 3.28 X 10*6/uL (4.10-5.20); RDW 15.5 % (11.5-14.5); WBC 5.57 X 10*3/uL (4.50-10.00)
[2021-12-04 09:31] LABS: ALT <5 U/L (8-44); AST 8 U/L (13-35); African American GFR (CKD) 106.9 (60.0-200.0); Albumin 2.9 g/dL (3.8-4.9); Albumin/Globulin Ratio 1.45 (1.60-3.17); Alkaline Phosphatase 56 U/L (41-126); BUN/Creat Ratio 4.86 Ratio (12.00-20.00); Blood Urea Nitrogen 3.4 mg/dL (9.0-27.0); Carbon Dioxide 28.6 mmol/L (20.0-27.5); Chloride 100 mmol/L (96-109); Glucose 95 mg/dL (70-110); Non-African American GFR(CKD) 92.2 (60.0-200.0); Potassium 4.4 mmol/L (3.5-5.5); Sodium 135 mmol/L (135-145); Total Protein 4.9 g/dL (6.2-8.2)
--- NOTE | 2021-12-04 11:18 | P.PN ---
Subjective Progress Note Date: 12/04/21 CHIEF COMPLAINT: Small bowel obstruction HISTORY OF PRESENT ILLNESS: Patient is having bowel movements and flatus. She denies any blood in her stools. She is tolerating diet. She's had decrease in her abdominal pain. She still has some mild abdominal distention. Afebrile. White count normal at 5.57 Hgb 9.8 platelets 492 sodium 135 potassium 4.4 creatinine 0.7 PHYSICAL EXAM: VITAL SIGNS: Reviewed. GENERAL: Well-developed in no acute distress. HEENT: No sclera icterus. Extraocular movements grossly intact. Moist buccal mucosa. Head is atraumatic, normocephalic. ABDOMEN: Soft. Mildly distended. Mild tenderness to palpation lower abdomen. NEUROLOGIC: Alert and oriented. Cranial nerves II through XII grossly intact. ASSESSMENT: 1. Small bowel obstruction resolved 2. History of sigmoid colectomy with ostomy placement for diverticulitis and then reversal of colostomy in July 2020 3. Change in bowel habits PLAN: -Patient can be discharged from surgical standpoint -Patient had colonoscopy outpatient on 12/07/[address] kelley -Patient is to continue a full liquid diet after discharge -Patient given prescription for GoLYTELY prep for outpatient colonoscopy -Patient was seen and examined with Dr. kelley. He is aware of patient's symptoms and findings. He did not recommend any further imaging regarding patient's bowel obstruction since she is tolerating diet, having bowel movements and improvement in abdominal pain. Dr. Kelley does recommend outpatient colonoscopy on Tuesday. Physician Chief Sales Officer note has been reviewed by physician. Signing provider agrees with the documented findings, assessment, and plan of care. Objective - Vital Signs Vital signs: Vital Signs Temp 97.8 F 12/04/21 07:00 Pulse 80 12/04/21 07:34 Resp 16 12/04/21 07:00 BP 124/81 12/04/21 07:00 Pulse Ox 98 12/04/21 07:00 FiO2 Intake & Output 12/03/21 12/04/21 12/04/21 18:59 06:59 18:59 Intake Total 240 Balance 240 Intake: Oral 240 Other: Voiding Method Toilet Toilet Toilet # Voids 2 1 1 - Labs CBC & Chem 7: 12/04/21 05:17 09/16/22 05:17 Labs: Abnormal Lab Results - Last 24 Hours (Table) 12/04/21 12/04/21 Range/Units 05:17 05:17 RBC 3.28 L (4.10-5.20) X 10*6/uL Hgb 9.8 L (12.0-15.0) g/dL Hct 32.0 L (37.2-46.3) % MCV 97.6 H (80.0-97.0) fL MCHC 30.6 L (32.0-37.0) g/dL RDW 15.5 H (11.5-14.5) % Plt Count 492 H (140-440) X 10*3/uL MPV 9.1 L (9.5-12.2) fL Carbon Dioxide 28.6 H (20.0-27.5) mmol/L Anion Gap 6.40 L (10.00-18.00) mmol/L BUN 3.4 L (9.0-27.0) mg/dL BUN/Creatinine Ratio 4.86 L (12.00-20.00) Ratio Calcium 8.0 L (8.7-10.3) mg/dL Total Bilirubin 0.20 L (0.30-1.20) mg/dL AST 8 L (13-35) U/L ALT <5 L (8-44) U/L Total Protein 4.9 L (6.2-8.2) g/dL Albumin 2.9 L (3.8-4.9) g/dL Albumin/Globulin Ratio 1.45 L (1.60-3.17) g/dL
--- NOTE | 2021-12-04 11:28 | P.PN ---
Subjective Progress Note Date: 12/04/21 Principal diagnosis: Left-sided tiny small pleural effusion likely reactive due to intra-abdominal process Left sided basal atelectasis likely related to intra-abdominal process Chronic cough likely related to chronic reactive bronchitis due to smoking limitation in Baseline COPD Baseline COPD Small bowel obstruction HIV positive status, compliant with medication Recently active smoker and extensive secondhand smoking exposure Dyslipidemia Generalized anxiety disorder 12/04/2021, patient seen and evaluated examined during the rounds labs reviewed medications reviewed chest x-ray performed. A lateral view reviewed as well, cough is ongoing but slightly better with the bronchodilator, breathing is much easier, chest x-ray showed left lower lobe subsegmental atelectasis likely related to intra-abdominal process with small reactive pleural effusion patient has incentive is prior meeter recommended to keep on doing continuously, will follow-up in outpatient setting COPD, chronic cough, chronic pleural effusion and basal atelectasis 61-year-old HIV positive female came into the hospital transfer from an other facility for evaluation of bowel obstruction and ileus/small bowel obstruction. Initially she was at [facility] then transferred to [facility] for surgical evaluation for small bowel obstruction. Patient was then transferred to [facility] due to prior colostomy reversal completed by Dr. kelley and [facility] was completely full. Patient complains of diffuse abdominal pain for about 2 weeks. She was unable to have a bowel movement for about a week and a half. She has been nauseated. No vomiting. She was initially diagnosed with IBS about 2 weeks ago and had been taking Bentyl. Patient reports that her abdomen had been distended. She did have 2 bowel movements yesterday 1 was large and the other one medium size. She does not report any flatus. She reports some improvement in her abdominal distention. She had sigmoid colectomy with ostomy placement for diverticulitis at [facility] that she believes in 2019. And then in July 2020 she had colostomy reversal with Dr. kelley as well as incidental appendectomy, left ovarian cystectomy, lysis of extensive adhesions repair of parastomal hernia and repair of incisional hernia. Patient reports that since her bowel movements her abdominal pain has shown improvement and she has had some decrease in her distention. She denies any fever chills or sweats. Denies any cardiac history. Per [facility] notes and they reported a computed tomography scan of the abdominal and pelvis finding of colonic obstruction at rectosigmoid anastomosis. On the abdominal x-ray from [facility] results showed evidence of small bowel obstruction. Currently patient is sitting upright denies any shortness of breath chest pain but does have dry nonproductive cough and dyspnea on exertion which is long-standing, patient has a significant history of smoking about half to 1 pack per day quit smoking in 2020, however has been other roommates continued to smoke. Labs are stable with normal white cell count, hemoglobin and hematocrit platelet count of 542. Coags okay, mild hyponatremia with sodium 132, urine analysis unremarkable Objective - Vital Signs Vital signs: Vital Signs Temp 97.8 F 12/04/21 07:00 Pulse 80 12/04/21 07:34 Resp 16 12/04/21 07:00 BP 124/81 12/04/21 07:00 Pulse Ox 98 12/04/21 07:00 FiO2 Intake & Output 12/03/21 12/04/21 12/04/21 18:59 06:59 18:59 Intake Total 240 Balance 240 Intake: Oral 240 Other: Voiding Method Toilet Toilet Toilet # Voids 2 1 1 - Exam - Constitutional General appearance: average body habitus, cooperative, no acute distress - EENT Eyes: anicteric sclerae, EOMI, PERRLA ENT: normal oropharynx Ears: bilateral: normal - Neck Neck: normal ROM Carotids: bilateral: upstroke normal Thyroid: bilateral: normal size - Respiratory Respiratory: bilateral: CTA - Cardiovascular Rhythm: regular Heart sounds: normal: S1, S2 - Gastrointestinal General gastrointestinal: decreased bowel sounds, soft - Integumentary Integumentary: normal turgor - Neurologic Neurologic: CNII-XII intact - Musculoskeletal Musculoskeletal: gait normal, generalized weakness, strength equal bilaterally - Psychiatric Psychiatric: A&O x's 3, appropriate affect, intact judgment & insight - Labs CBC & Chem 7: 12/04/21 05:17 12/04/21 05:17 Labs: Abnormal Lab Results - Last 24 Hours (Table) 12/04/21 12/04/21 Range/Units 05:17 05:17 RBC 3.28 L (4.10-5.20) X 10*6/uL Hgb 9.8 L (12.0-15.0) g/dL Hct 32.0 L (37.2-46.3) % MCV 97.6 H (80.0-97.0) fL MCHC 30.6 L (32.0-37.0) g/dL RDW 15.5 H (11.5-14.5) % Plt Count 492 H (140-440) X 10*3/uL MPV 9.1 L (9.5-12.2) fL Carbon Dioxide 28.6 H (20.0-27.5) mmol/L Anion Gap 6.40 L (10.00-18.00) mmol/L BUN 3.4 L (9.0-27.0) mg/dL BUN/Creatinine Ratio 4.86 L (12.00-20.00) Ratio Calcium 8.0 L (8.7-10.3) mg/dL Total Bilirubin 0.20 L (0.30-1.20) mg/dL AST 8 L (13-35) U/L ALT <5 L (8-44) U/L Total Protein 4.9 L (6.2-8.2) g/dL Albumin 2.9 L (3.8-4.9) g/dL Albumin/Globulin Ratio 1.45 L (1.60-3.17) g/dL Assessment and Plan Assessment: Left-sided tiny small pleural effusion likely reactive due to intra-abdominal process Left sided basal atelectasis likely related to intra-abdominal process Chronic cough likely related to chronic reactive bronchitis due to smoking li mitation in Baseline COPD Baseline COPD Small bowel obstruction HIV positive status, compliant with medication Recently active smoker and extensive secondhand smoking exposure Dyslipidemia Generalized anxiety disorder Plan: Continue deep breathing sense incentive spirometry Continue bronchodilators Cough suppressant Monitor clinical course closely Reviewed. PA Lateral chest x-ray Further evaluation as outpatient setting Further recommendations pending plan of care as per clinical response of the patient Time with Patient: Greater than 30
[2021-12-04] MEDS: HYDROcodone/APAP 5-325MG 1 EACH TAB PO PRN (15:13)
[2021-12-05] MEDS: ARIPiprazole 2 MG TAB PO SCH (07:41)
[2021-12-05] MEDS: clonazePAM 0.5 MG TAB PO SCH ×2 (07:41→20:23)
[2021-12-05] MEDS: DICYCLOMINE 20 MG TAB PO SCH ×3 (07:41→20:23)
[2021-12-05] MEDS: HYDROcodone/APAP 5-325MG 1 EACH TAB PO PRN (07:41)
[2021-12-05] MEDS: PARoxetine 20 MG TAB PO SCH (07:41)
[2021-12-05] MEDS: ATORVASTATIN 10 MG TAB PO SCH (07:41)
[2021-12-05] MEDS: NON FORMULARY DRUG (Emtricitabine/Tenofov Alafenam [Descovy 200-25 Mg Tablet] 1 EACH Table PO SCH (07:42)
[2021-12-05] MEDS: DOLUTEGRAVIR SODIUM 50 MG TABLET PO SCH (07:42)
[2021-12-05] MEDS: POTASSIUM CHLORIDE ER 20 MEQ TAB.ER PO SCH (07:42)
[2021-12-05] MEDS: ALBUTEROL NEBULIZED 2.5 MG/3 ML INHALATION SCH ×4 (08:28→20:35)
[2021-12-05 10:12] LABS: HCT 32.4 % (37.2-46.3); MCH 30.1 pg (27.0-32.0); MCHC 30.9 g/dL (32.0-37.0); MCV 97.6 fL (80.0-97.0); Mean Platelet Volume 9.3 fL (9.5-12.2); NRBC Per 100 WBC 0 /100 WBCS (0.0-0.0); Platelet Count 500 X 10*3/uL (140-440); RBC 3.32 X 10*6/uL (4.10-5.20); WBC 4.32 X 10*3/uL (4.50-10.00)
--- NOTE | 2021-12-05 13:54 | P.PN ---
Subjective Progress Note Date: 12/05/21 CHIEF COMPLAINT: Abdominal pain HISTORY OF PRESENT ILLNESS: The patient is a 61-year-old female with pre- existing history of diverticulitis status post colostomy reversal due to diverticulitis over year ago. She was admitted for bowel obstruction. Patient reports having a large bowel movement and passing flatus. She reports intermittent midline abdominal pain from her prior surgery one year ago. Patient is pending additional studies. ROS: No reports of nausea and vomiting. No fevers or chills. No new chest pain. No productive sputum PHYSICAL EXAM: VITAL SIGNS: Reviewed CONSTITUTIONAL: Well developed and in no acute distress. EYES: Conjuctivae without sclera icterus. Extraocular movements grossly intact. HEAD, EARS, NOSE, THROAT: Moist buccal mucosa. Head is atraumatic, normocep halic. Hears conversational speech. No nasal drainage. RESPIRATORY: Non-labored respirations and equal bilateral excursions. CARDIOVASCULAR: Palpable 2+ radial pulses. ABDOMEN: Well-healed midline incision with multiple incisional hernias of the epigastrium and at the umbilicus. Well-healed left lower quadrant scar from previous ostomy. No peritonitis. Mild tenderness epigastrium. MUSCULOSKELETAL: No gross deformity of the lower extremities noted. No clubbing. No cyanosis. SKIN: Good skin turgor. Well perfused. NEUROLOGIC: Cranial nerves II through XII grossly intact. No focal or l ateralizing signs. PSYCH: Appropriate affect. Alert and oriented to person, place and time. CLINICAL LABS: Reviewed. WBC normal. Hemoglobin of 9.8-10.0, anemia STUDIES: CT of the abdomen pelvis with reviewed demonstrating bladder diverticula along the left dome of the bladder. Bowel wall thickening in the sigmoid colon, left pelvis. Multiple incisional hernias of the epigastrium and midline. This my independent interpretation. REPORT: CT report reviewed also confirming left ovarian cyst and localize colitis. RECORDS: Operative port 2020 reviewed for colostomy reversal. ASSESSMENT: 1. Colitis, sigmoid colon 2. History of bowel obstruction resolved 3. Chronic anemia PLAN: 1. Clinically, her bowel obstruction has resolved. 2. May benefit from colonoscopy due to abnormal findings on computed tomography scan for localize colitis 3. Patient reports intermittent abdominal pain which may be secondary to her incisional hernias which was also reviewed with her. Objective - Vital Signs Vital signs: Vital Signs Temp 98.1 F 12/05/21 07:00 Pulse 72 12/05/21 12:19 Resp 16 12/05/21 07:00 BP 128/64 12/05/21 07:00 Pulse Ox 96 12/05/21 07:00 FiO2 Intake & Output 12/04/21 12/05/21 12/05/21 18:59 06:59 18:59 Intake Total 120 Balance 120 Intake: Oral 120 Other: Voiding Method Toilet Toilet Toilet # Voids 2 2 - Labs CBC & Chem 7: 12/05/21 05:00 12/04/21 05:17 Labs: Abnormal Lab Results - Last 24 Hours (Table) 12/05/21 Range/Units 05:00 WBC 4.32 L (4.50-10.00) X 10*3/uL RBC 3.32 L (4.10-5.20) X 10*6/uL Hgb 10.0 L (12.0-15.0) g/dL Hct 32.4 L (37.2-46.3) % MCV 97.6 H (80.0-97.0) fL MCHC 30.9 L (32.0-37.0) g/dL RDW 16.0 H (11.5-14.5) % Plt Count 500 H (140-440) X 10*3/uL MPV 9.3 L (9.5-12.2) fL
[2021-12-05] MEDS: SODIUM CHLORIDE 0.9% 1,000 ML IV SCH (16:17)
--- NOTE | 2021-12-05 23:11 | PN ---
PROGRESS NOTE SUBJECTIVE: This is a 61-year-old white female with small bowel obstruction and abdominal pain. She is due to have an EGD tomorrow. OBJECTIVE: CARDIOVASCULAR: S1 and S2. LUNGS: Clear. PSYCH: Fair mood and affect. NEUROLOGIC: Alert and oriented x3. OPHTHALMOLOGICAL: Pupils equal, round, and reactive. ASSESSMENT: Small bowel obstruction with abdominal pain, possible esophageal stricture. EGD on Tuesday. Continue over the weekend. MMODL / IJN: [id number] /
[2021-12-06] MEDS: ATORVASTATIN 10 MG TAB PO SCH (07:18)
[2021-12-06] MEDS: POTASSIUM CHLORIDE ER 20 MEQ TAB.ER PO SCH (07:18)
[2021-12-06] MEDS: DICYCLOMINE 20 MG TAB PO SCH ×3 (07:18→20:38)
[2021-12-06] MEDS: PARoxetine 20 MG TAB PO SCH (07:18)
[2021-12-06] MEDS: clonazePAM 0.5 MG TAB PO SCH ×2 (07:18→20:38)
[2021-12-06] MEDS: ARIPiprazole 2 MG TAB PO SCH (07:18)
[2021-12-06] MEDS: FUROSEMIDE 20 MG TAB PO SCH (07:18)
[2021-12-06] MEDS: NON FORMULARY DRUG (Emtricitabine/Tenofov Alafenam [Descovy 200-25 Mg Tablet] 1 EACH Table PO SCH (07:20)
[2021-12-06] MEDS: DOLUTEGRAVIR SODIUM 50 MG TABLET PO SCH (07:20)
[2021-12-06] MEDS: ALBUTEROL NEBULIZED 2.5 MG/3 ML INHALATION SCH ×4 (08:47→19:23)
[2021-12-06] MEDS ORDERED: PEG 3350 (236 GM/BTL) + LYTES 4,000 ML BOTTLE PO ONE (09:00)
[2021-12-06] MEDS: HYDROcodone/APAP 5-325MG 1 EACH TAB PO PRN (11:16)
[2021-12-06] MEDS: SODIUM CHLORIDE 0.9% 1,000 ML IV SCH (12:22)
--- NOTE | 2021-12-06 14:56 | P.PN ---
Subjective Progress Note Date: 12/06/21 CHIEF COMPLAINT: Abdominal pain HISTORY OF PRESENT ILLNESS: The patient is a 61-year-old female with pre- existing history of diverticulitis status post colostomy reversal due to diverticulitis over year ago. She was passing flatus have a bowel movement yesterday and felt well this morning. She reports moderate abdominal cramping since start of her bowel prep. No bowel movement since yesterday or this morning. She is on her fourth, of 16 ounce bowel prep. ROS: No reports of vomiting. No fevers or chills. No new chest pain. No productive sputum PHYSICAL EXAM: VITAL SIGNS: Reviewed CONSTITUTIONAL: Well developed and in no acute distress. EYES: Conjuctivae without sclera icterus. Extraocular movements grossly intact. HEAD, EARS, NOSE, THROAT: Moist buccal mucosa. Head is atraumatic, normocephalic. Hears conversational speech. No nasal drainage. RESPIRATORY: Non-labored respirations and equal bilateral excursions. CARDIOVASCULAR: Palpable 2+ radial pulses. ABDOMEN: No peritonitis. Mild distention. MUSCULOSKELETAL: No gross deformity of the lower extremities noted. No cl ubbing. No cyanosis. SKIN: Good skin turgor. Well perfused. NEUROLOGIC: Cranial nerves II through XII grossly intact. No focal or lateralizing signs. PSYCH: Appropriate affect. Alert and oriented to person, place and time. CLINICAL LABS: Reviewed. WBC low, hemoglobin low with anemia. STUDIES: CT of the abdomen pelvis with reviewed demonstrating bladder diverticula along the left dome of the bladder. Bowel wall thickening in the sigmoid colon, left pelvis. Multiple incisional hernias of the epigastrium and midline. This my independent interpretation. ASSESSMENT: 1. Colitis, sigmoid colon 2. History of bowel obstruction resolved 3. Chronic anemia PLAN: 1. Patient encouraged to continue with bowel prep. 2. May need additional imaging due to change in clinical course Objective - Vital Signs Vital signs: Vital Signs Temp 97.9 F 12/06/21 12:41 Pulse 82 12/06/21 12:41 Resp 18 12/06/21 12:41 BP 135/80 12/06/21 12:41 Pulse Ox 95 12/06/21 12:41 FiO2 Intake & Output 12/05/21 12/06/21 12/06/21 18:59 06:59 18:59 Intake Total 90 Balance 90 Intake: Oral 90 Other: Voiding Method Toilet Toilet Toilet # Voids 2 2 4 - Labs CBC & Chem 7: 12/05/21 05:00 12/04/21 05:17
[2021-12-06] MEDS: HYDROmorphone 0.5 MG/0.5 ML SYRINGE IVP PRN ×2 (17:26→20:38)
--- NOTE | 2021-12-06 17:44 | PN ---
PROGRESS NOTE SUBJECTIVE: A 61-year-old female with history of diverticulitis, status post colostomy with diverticular reanastomosis of the bowel. She reports having a large bowel movement. Passing flatus. She still has severe epigastric midline abdominal pain. She has nausea, but no vomiting. OBJECTIVE: VITAL SIGNS: Reviewed. Temperature is 98.1, pulse 72, blood pressure 120s/60s, O2 of 96. GENERAL: Well-developed female. No acute distress. CARDIOVASCULAR: S1, S2. ABDOMEN: Midline incision. Multiple incisional hernias. Tenderness in the epigastrium. PSYCH: Fair mood and affect. LABORATORY DATA: White count normal. Hemoglobin is 9.8 to 10. CAT scan of the abdomen and pelvis was reviewed demonstrating bladder diverticula of dome of the bladder, bowel wall thickening in the sigmoid region , multiple incisional hernias. In 2020, she had a colostomy reversal. ASSESSMENT: Colitis of sigmoid colon, bowel obstruction resolved, chronic anemia. Supposed to get colonoscopy localized colitis. Continue current treatment. PROGNOSIS: Guarded. MMODL / IJN: [id number] /
[2021-12-07 06:24] LABS: Anisocytosis Slight; Basophils # (A) 0.1 k/uL (0-0.2); Basophils % (A) 0 %; Eosinophils # (A) 0.1 k/uL (0-0.7); Eosinophils % (A) 1 %; HCT 39.6 % (34.0-46.0); HGB 12.4 gm/dL (11.4-16.0); Hypochromasia Moderate; Lymphocytes # (A) 0.7 k/uL (1.0-4.8); Lymphocytes % (A) 6 %; MCHC 31.4 g/dL (31.0-37.0); MCV 98.5 fL (80.0-100.0); Macrocytosis Slight; Mean Platelet Volume 8.4; Monocytes # (A) 0.4 k/uL (0-1.0); Monocytes % (A) 3 %; Neutrophils # (A) 10.7 k/uL (1.3-7.7); Neutrophils % (A) 89 %; Platelet Count 526 k/uL (150-450); RBC 4.02 m/uL (3.80-5.40); RDW 17.1 % (11.5-15.5)
--- NOTE | 2021-12-07 07:01 | PN ---
PROGRESS NOTE SUBJECTIVE: She is doing a prep today to get the colonoscopy tomorrow and possibly an EGD, as she has some kind of recurrent. She remains on her home medicines at this time. She is complaining of some chronic nausea and epigastric abdominal pain. OBJECTIVE: VITAL SIGNS: Temperature 97.9, blood pressure 135/80, she is 95% on room air, pulse 60 to 70, respiratory rate 16 to 18. CARDIOVASCULAR: S1, S2. GI: She has tenderness to palpation epigastric. HEMATOLOGY: Negative Homans. PSYCH: Fair mood and affect. PLAN: Colonoscopy, EGD in the morning. Possible discharge home after colonoscopy, EGD depending on findings of patient's abdominal pain. MMODL / IJN: [id number] /
[2021-12-07] MEDS: ALBUTEROL NEBULIZED 2.5 MG/3 ML INHALATION SCH ×3 (07:12→16:13)
[2021-12-07 07:53] LABS: ALT 6 U/L (4-34); AST 12 U/L (14-36); African American GFR (CKD) 78 (>60 ml/min/1.73 sqM); Albumin 3.8 g/dL (3.5-5.0); Albumin/Globulin Ratio 1.5; Alkaline Phosphatase 82 U/L (38-126); Anion Gap 12 mmol/L; Blood Urea Nitrogen 7 mg/dL (7-17); Carbon Dioxide 29 mmol/L (22-30); Chloride 90 mmol/L (98-107); Globulin 2.5 g/dL; Glucose 106 mg/dL (74-99); Non-African American GFR(CKD) 67 (>60 ml/min/1.73 sqM); Potassium 5.1 mmol/L (3.5-5.1); Sodium 131 mmol/L (137-145); Total Bilirubin 0.7 mg/dL (0.2-1.3); Total Protein 6.3 g/dL (6.3-8.2)
[2021-12-07 07:55] VITALS: RESP 18
[2021-12-07] MEDS: HYDROmorphone 0.5 MG/0.5 ML SYRINGE IVP PRN (08:49)
[2021-12-07] MEDS: ATORVASTATIN 10 MG TAB PO SCH (08:50)
[2021-12-07] MEDS: ARIPiprazole 2 MG TAB PO SCH (08:50)
[2021-12-07] MEDS: DICYCLOMINE 20 MG TAB PO SCH ×2 (08:50→16:45)
[2021-12-07] MEDS: DOLUTEGRAVIR SODIUM 50 MG TABLET PO SCH (08:51)
[2021-12-07] MEDS: PARoxetine 20 MG TAB PO SCH (08:51)
[2021-12-07] MEDS: SODIUM CHLORIDE 0.9% 1,000 ML IV SCH (08:51)
[2021-12-07] MEDS: POTASSIUM CHLORIDE ER 20 MEQ TAB.ER PO SCH (08:51)
[2021-12-07] MEDS: clonazePAM 0.5 MG TAB PO SCH (08:51)
[2021-12-07] MEDS: NON FORMULARY DRUG (Emtricitabine/Tenofov Alafenam [Descovy 200-25 Mg Tablet] 1 EACH Table PO SCH (08:51)
[2021-12-07] MEDS: FUROSEMIDE 20 MG TAB PO SCH (08:51)
[2021-12-07] MEDS ORDERED: PROPOFOL 10 MG/ML 20 ML VIAL IV ONE (12:30)
[2021-12-07] MEDS ORDERED: LIDOCAINE 2% INJ 20 MG/ML (2 ML VIAL) ONE (12:30)
[2021-12-07] MEDS ORDERED: IV FLUID CONTINUATION 200 ML IV ONE (12:30)
[2021-12-07] MEDS ORDERED: SODIUM CHLORIDE 0.9% 500 ML 500 ML IV ONE (12:34)
--- NOTE | 2021-12-07 12:43 | P.OP ---
Date of Procedure: 12/07/21 Preoperative Diagnosis: Colorectal anastomotic stricture Postoperative Diagnosis: Rectal rectal anastomotic stricture Procedure(s) Performed: Balloon dilatation of colorectal anastomotic stricture Anesthesia: MICHAEL Surgeon: Paxton Zamora Pathology: none sent Condition: stable Disposition: PACU Description of Procedure: The patient's placed on the endoscopy table in the lateral position. She received IV sedation. Digital rectal exam performed. This revealed no abnormalities. Flexible colonoscope was then placed patient anus and the rectum. The colorectal anastomosis was visualized. It appeared to be slightly narrowed and strictured. This point the 20 mm balloon was placed across the stricture and dilated and held position. This was done sequentially twice. The balloon was withdrawn. A large amount liquid stool and passed through the anastomosis. Scope was withdrawn.
--- NOTE | 2021-12-07 12:48 | P.PN ---
Subjective Progress Note Date: 12/07/21 Principal diagnosis: Left-sided tiny small pleural effusion likely reactive due to intra-abdominal process Left sided basal atelectasis likely related to intra-abdominal process Chronic cough likely related to chronic reactive bronchitis due to smoking limitation in Baseline COPD Baseline COPD Small bowel obstruction HIV positive status, compliant with medication Recently active smoker and extensive secondhand smoking exposure Dyslipidemia Generalized anxiety disorder 12/07/2021, patient seen eval examined patient has been using deep breathing exercise incentive spirometry, denies any chest pain or shortness of breath, respiratory status stable, less cough now, patient is scheduled for endoscopy today including both colonoscopy and EGD, labs from today reviewed white cell count is 12,000, sodium was 131 12/04/2021, patient seen and evaluated examined during the rounds labs reviewed medications reviewed chest x-ray performed. A lateral view reviewed as well, cough is ongoing but slightly better with the bronchodilator, breathing is much easier, chest x-ray showed left lower lobe subsegmental atelectasis likely related to intra-abdominal process with small reactive pleural effusion patient has incentive is prior meeter recommended to keep on doing continuously, will follow-up in outpatient setting COPD, chronic cough, chronic pleural effusion and basal atelectasis 61-year-old HIV positive female came into the hospital transfer from an other facility for evaluation of bowel obstruction and ileus/small bowel obstruction. Initially she was at [facility] then transferred to [facility] for surgical evaluation for small bowel obstruction. Patient was then transferred to [facility] due to prior colostomy reversal completed by Dr. kelley and [facility] was completely full. Patient complains of diffuse abdominal pain for about 2 weeks. She was unable to have a bowel movement for about a week and a half. She has been nauseated. No vomiting. She was initially diagnosed with IBS about 2 weeks ago and had been taking Bentyl. Patient reports that her abdomen had been distended. She did have 2 bowel movements yesterday 1 was large and the other one medium size. She does not report any flatus. She reports some improvement in her abdominal distention. She had sigmoid colectomy with ostomy placement for diverticulitis at [facility] that she believes in 2019. And then in July 2020 she had co lostomy reversal with Dr. kelley as well as incidental appendectomy, left ovarian cystectomy, lysis of extensive adhesions repair of parastomal hernia and repair of incisional hernia. Patient reports that since her bowel movements her abdominal pain has shown improvement and she has had some decrease in her distention. She denies any fever chills or sweats. Denies any cardiac history. Per [facility] notes and they reported a computed tomography scan of the abdominal and pelvis finding of colonic obstruction at rectosigmoid anastomosis. On the abdominal x-ray from [facility] results showed evidence of small bowel obstruction. Currently patient is sitting upright denies any shortness of breath chest pain but does have dry nonproductive cough and dyspnea on exertion which is long-standing, patient has a significant history of smoking about half to 1 pack per day quit smoking in 2020, however has been other roommates continued to smoke. Labs are stable with normal white cell count, hemoglobin and hematocrit platelet count of 542. Coags okay, mild hyponatremia with sodium 132, urine analysis unremarkable Objective - Vital Signs Vital signs: Vital Signs Temp 98.2 F 12/07/21 06:55 Pulse 103 H 12/07/21 11:16 Resp 18 12/07/21 06:55 BP 129/82 12/07/21 06:55 Pulse Ox 93 L 12/07/21 06:55 FiO2 Intake & Output 12/06/21 12/07/21 12/07/21 18:59 06:59 18:59 Intake Total 90 Balance 90 Intake: Oral 90 Other: Voiding Method Toilet Toilet Toilet # Voids 4 2 - Exam - Constitutional General appearance: average body habitus, cooperative, no acute distress - EENT Eyes: anicteric sclerae, EOMI, PERRLA ENT: normal oropharynx Ears: bilateral: normal - Neck Neck: normal ROM Carotids: bilateral: upstroke normal Thyroid: bilateral: normal size - Respiratory Respiratory: bilateral: CTA - Cardiovascular Rhythm: regular Heart sounds: normal: S1, S2 - Gastrointestinal General gastrointestinal: decreased bowel sounds, soft - Integumentary Integumentary: normal turgor - Neurologic Neurologic: CNII-XII intact - Musculoskeletal Musculoskeletal: gait normal, generalized weakness, strength equal bilaterally - Psychiatric Psychiatric: A&O x's 3, appropriate affect, intact judgment & insight - Labs CBC & Chem 7: 12/07/21 05:27 12/07/21 07:21 Labs: Abnormal Lab Results - Last 24 Hours (Table) 12/07/21 12/07/21 Range/Units 05:27 07:21 WBC 12.0 H (3.8-10.6) k/uL RDW 17.1 H (11.5-15.5) % Plt Count 526 H (150-450) k/uL Neutrophils # 10.7 H (1.3-7.7) k/uL Lymphocytes # 0.7 L (1.0-4.8) k/uL Sodium 131 L (137-145) mmol/L Chloride 90 L (98-107) mmol/L Glucose 106 H (74-99) mg/dL AST 12 L (14-36) U/L Assessment and Plan Assessment: Left-sided tiny small pleural effusion likely reactive due to intra-abdominal process Left sided basal atelectasis likely related to intra-abdominal process Chronic cough likely related to chronic reactive bronchitis due to smoking limitation in Baseline COPD Baseline COPD Hyponatremia Mild leukocytosis Small bowel obstruction HIV positive status, compliant with medication Recently active smoker and extensive secondhand smoking exposure Dyslipidemia Generalized anxiety disorder Plan: Continue deep breathing sense incentive spirometry Continue bronchodilators Cough suppressant Monitor clinical course closely Gentle rehydration with crystalloid Increase activity as tolerated DVT and peptic ulcer disease prophylaxis Further evaluation as outpatient setting Further recommendations pending plan of care as per clinical response of the patient Time with Patient: Greater than 30
[2021-12-07 13:39] VITALS: BMI 24.4
[2021-12-07 14:10] VITALS: TEMP 97.9
[2021-12-07 15:02] VITALS: BP 111/77
[2021-12-07 16:25] VITALS: PULSE 98
--- NOTE | 2021-12-08 05:01 | PN ---
PROGRESS NOTE SUBJECTIVE: A 61-year-old white female had EGD and colonoscopy with chronic stenotic obstruction improved with stretching per Dr. Zamora. She has improved. The patient was asymptomatic. We are going to send her home. OBJECTIVE: LUNGS: Clear. CARDIOVASCULAR: S1, S2. GI: Soft. HEMATOLOGY: Negative Homans. PSYCH: Fair mood and affect. PLAN: Continue current treatment. Follow up in the next 24 to 48 hours for discharge. MMODL / IJN: [id number] /
== END 2021-12-07 19:23 | disposition home or self-care (01) | DRG 394 ==
LOC: EC 22:13 → 6NMEDSUR 22:26 → OBSVTOIN 12-03 10:40
PROVIDERS: ADMIT Family Medicine; ATTEND Family Medicine
PROC: 0D7P8ZZ Dilation of Rectum, Via Natural or Artificial Opening Endoscopic (ICD-10-PCS; principal; 2021-12-07 14:00)
PROC: 0D7E8ZZ Dilation of Large Intestine, Via Natural or Artificial Opening Endoscopic (ICD-10-PCS; principal; 2021-12-07 14:00)
DX: K91.89 Other postprocedural complications and disorders of digestive system (principal); E87.1 Hypo-osmolality and hyponatremia; K56.699 Other intestinal obstruction unspecified as to partial versus complete obstruction; J98.11 Atelectasis; R64 Cachexia; F41.1 Generalized anxiety disorder; K62.4 Stenosis of anus and rectum; F41.0 Panic disorder [episodic paroxysmal anxiety]; D64.9 Anemia, unspecified; E78.5 Hyperlipidemia, unspecified; E86.0 Dehydration; J44.9 Chronic obstructive pulmonary disease, unspecified; K52.9 Noninfective gastroenteritis and colitis, unspecified; Z21 Asymptomatic human immunodeficiency virus [HIV] infection status; Z90.49 Acquired absence of other specified parts of digestive tract; Z87.891 Personal history of nicotine dependence; Z77.22 Contact with and (suspected) exposure to environmental tobacco smoke (acute) (chronic); Z79.899 Other long term (current) drug therapy; Z83.2 Family history of diseases of the blood and blood-forming organs and certain disorders involving the immune mechanism; Z71.3 Dietary counseling and surveillance; Z68.24 Body mass index [BMI] 24.0-24.9, adult
CPT/HCPCS: 36415; 45386; 71046; 80053; 81003; 83605; 85025; 85027; 85610; 85730; 87040; 94640; 96361; 96374; 96375; 99285

== ENCOUNTER 2023-06-26 10:17 | Inpatient (IN) | payer OTHER ==
--- NOTE | 2023-06-26 10:37 | ED ---
General Adult HPI - General Chief complaint: Shortness of Breath Stated complaint: Respiratory issues Time Seen by Provider: 06/26/23 10:20 Source: patient, EMS, RN notes reviewed, old records reviewed Mode of arrival: EMS Limitations: no limitations - History of Present Illness Initial comments: This is a 62-year-old female with a past medical history significant for COPD. Patient states she quit smoking 3 years ago. Patient states last night she s tarted having difficulty breathing she did a bunch of albuterol treatments with her nebulizer and states she did not get improved. Patient states this morning she woke up but she is could not catch her breath so she called the ambulance. According to EMS they gave her 2 breathing treatments and Boutt. Patient states she has not felt any better. EMS also put her on CPAP. Patient states so far it is not helping much though her pulse ox on CPAP is 95%. Patient denies any fever chills or cough or patient has any abdominal pain patient is any vomiting but is nauseous currently. - Related Data Home Medications Medication Instructions Recorded Confirmed ARIPiprazole [Abilify] 2 mg PO DAILY 07/17/20 12/03/21 Atorvastatin [Lipitor] 10 mg PO DAILY 07/17/20 12/03/21 Dolutegravir Sodium [Tivicay] 50 mg PO DAILY 07/17/20 12/03/21 Emtricitabine/Tenofov Alafenam 1 tab PO DAILY 07/17/20 12/03/21 [Descovy 200-25 mg Tablet] PARoxetine HCL [Paxil] 20 mg PO DAILY 07/17/20 12/03/21 clonazePAM [KlonoPIN] 0.5 mg PO BID 07/17/20 12/03/21 Albuterol Sulfate [Proair Hfa] 2 puff INHALATION RT-Q4H 11/20/21 12/03/21 Dicyclomine [Bentyl] 20 mg PO TID 11/20/21 12/03/21 Furosemide [Lasix] 20 mg PO DAILY 11/20/21 12/03/21 Potassium Chloride [Klor-Con M20] 20 meq PO DAILY 11/20/21 12/03/21 Previous Rx's Medication Instructions Recorded Albuterol Nebulized [Ventolin 2.5 mg INHALATION RT-QID ml 11/23/21 Nebulized] HYDROcodone/APAP 5-325MG [[place] 1 tab PO Q6HR PRN 3 Days #12 tab 11/30/21 5-325] Peg 3350 (236 gm/Btl) + Lytes 4,000 ml PO DIRECTED #1 each 12/04/21 [Golytely Lavage] Allergies Allergy/AdvReac Type Severity Reaction Status Date / Time No Known Allergies Allergy Verified 06/26/23 10:24 Review of Systems ROS Statement: Those systems with pertinent positive or pertinent negative responses have been documented in the HPI. ROS Other: All systems not noted in ROS Statement are negative. Past Medical History Past Medical History: No Reported History Additional Past Medical History / Comment(s): Has HIV 1. Recent abn lung CT, awaiting f/u. Has colostomy. Had Covid vaccine #1 07/09/20. Colostomy reversal planned for 07/22/20 History of Any Multi-Drug Resistant Organisms: None Reported Past Surgical History: Bowel Resection Additional Past Surgical History / Comment(s): jaw surgery, D&C, fallopian tube exc. Colostomy 06/20/19 est Past Anesthesia/Blood Transfusion Reactions: No Reported Reaction Past Psychological History: No Psychological Hx Reported Smoking Status: Former smoker Past Alcohol Use History: None Reported Past Drug Use History: None Reported - Past Family History Mother Family Medical History: Blood Disorder, Deep Vein Thrombosis (DVT), Pulmonary Embolus Additional Family Medical History / Comment(s): Factor V General Exam - General Exam Comments Initial Comments: GENERAL: Patient is well-developed and well-nourished. Patient is nontoxic and well- hydrated and is in mild distress. ENT: Neck is soft and supple. No significant lymphadenopathy is noted. Oropharynx is clear. Moist mucous membranes. Neck has full range of motion without eliciting any pain. EYES: The sclera were anicteric and conjunctiva were pink and moist. Extraocular movements were intact and pupils were equal round and reactive to light. Eyelids were unremarkable. PULMONARY: Patient is not moving much air but there is some expiratory wheezing. Patient has some crackles on the left side CARDIOVASCULAR: There is a regular rate and rhythm without any murmurs gallops or rubs. ABDOMEN: Soft and nontender with normal bowel sounds. SKIN: Skin is clear with no lesions or rashes and otherwise unremarkable. NEUROLOGIC: Patient is alert and oriented x3. Cranial nerves II through XII are grossly intact. Motor and sensory are also intact. Normal speech, volume and content. Symmetrical smile. MUSCULOSKELETAL: Normal extremities with adequate strength and full range of motion. Left foot has edema compared to the right patient states this is chronic. LYMPHATICS: No significant lymphadenopathy is noted PSYCHIATRIC: Normal psychiatric evaluation. Limitations: no limitations Course Vital Signs 06/26/23 06/26/23 06/26/23 10:18 10:22 10:23 Temperature 97.3 F L Pulse Rate 118 H Respiratory 32 H Rate Blood Pressure O2 Sat by Pulse 94 L Oximetry Fraction of 50 50 Inspired Oxygen (FIO2) 06/26/23 06/26/23 06/26/23 10:27 11:02 11:41 Temperature Pulse Rate 126 H 126 H Respiratory 30 H Rate Blood Pressure 121/68 O2 Sat by Pulse 95 Oximetry Fraction of 50 Inspired Oxygen (FIO2) 06/26/23 12:10 Temperature Pulse Rate 115 H Respiratory Rate Blood Pressure O2 Sat by Pulse Oximetry Fraction of Inspired Oxygen (FIO2) Medical Decision Making - Medical Decision Making EKG is interpreted by myself but EKG shows a sinus tachycardia with occasional PAC at 120 beats a minute WA interval 137 QRS is 80 QT interval is 298 QTc is 369. Patient's EKG shows no ST segment ovation or depression. Patient's ideal body weight is 47.6 kg Was pt. sent in by a medical professional or institution (LUISA Khan, ER[employer]ION CONTROL SPECIALIST, urgent care, hospital, or jail...) When possible be specific @ -No Did you speak to anyone other than the patient for history (EMS, parent, family, police, friend...)? What history was obtained from this source @ -No Did you review nursing and triage notes (agree or disagree)? Why? @ -I reviewed and agree with nursing and triage notes Were old charts reviewed (outside hosp., previous admission, EMS record, old EKG, old radiological studies, urgent care reports/EKG's, jail records)? Report findings @ -I compared this to 6 was last chest x-ray shows complete opacification of the left side of the lung. I reviewed old lab work and old charts this patient Differential Diagnosis (chest pain, altered mental status, abdominal pain women, abdominal pain men, vaginal bleeding, weakness, fever, dyspnea, syncope, headache, dizziness, GI bleed, back pain, seizure, CVA, palpatations, mental health, musculoskeletal)? @ -Not applicable EKG interpreted by me (3pts min.). @ -As above X-rays interpreted by me (1pt min.). @ -Chest x-ray shows complete opacification of the left lung CT interpreted by me (1pt min.). @ -None done U/S interpreted by me (1pt. min.). @ -None done What testing was considered but not performed or refused? (CT, X-rays, U/S, labs)? Why? @ -None What meds were considered but not given or refused? Why? @ -None Did you discuss the management of the patient with other professionals (professionals i.e. , PA, EROSION CONTROL SPECIALIST, lab, RT, psych nurse, healthcare social worker, director student union, teacher, sailing officer, director case management)? Give summary @ -I spoke with Dr. Reed agreed admit the patient admit the patient wrote admitting orders Was smoking cessation discussed for >3mins.? @ -No Was critical care preformed (if so, how long)? @ -35 minutes Were there social determinants of health that impacted care today? How? (Homelessness, low income, unemployed, alcoholism, drug addiction, transportation, low edu. Level, literacy, decrease access to med. care, correction, rehab)? @ -No Was there de-escalation of care discussed even if they declined (Discuss DNR or withdrawal of care, Hospice)? DNR status @ -No What co-morbidities impacted this encounter? (DM, HTN, Smoking, COPD, CAD, Cancer, CVA, ARF, Chemo, Hep., AIDS, mental health diagnosis, sleep apnea, morbid obesity)? @ -None Was patient admitted / discharged? Hospital course, mention meds given and route, prescriptions, significant lab abnormalities, going to OR and other pertinent info. @ -Patient was placed on BiPAP when she arrived. Patient was also given antibiotics breathing treatment and steroids. Patient was oxygenating 95% and feeling much more comfortable. I will admit the patient to Dr. Reed I will place the patient on antibiotics and patient given breathing treatment steroids and get infectious disease on consult as well as pulmonary on consult Undiagnosed new problem with uncertain prognosis? @ -No Drug Therapy requiring intensive monitoring for toxicity (Heparin, Nitro, Insulin, Cardizem)? @ -No Were any procedures done? @ -No Diagnosis/symptom? @ -Pneumonia Acute, or Chronic, or Acute on Chronic? @ -Acute Uncomplicated (without systemic symptoms) or Complicated (systemic symptoms)? @ -Complicated Side effects of treatment? @ -No Exacerbation, Progression, or Severe Exacerbation? @ -No Poses a threat to life or bodily function? How? (Chest pain, [place], HI, pneumonia, PE, COPD, DKA, ARF, appy, cholecystitis, CVA, Diverticulitis, Homicidal, Suicidal, threat to staff... and all critical care pts) @ -Yes this could lead to hypoxia and end organ dysfunction - Lab Data Result diagrams: 06/26/23 11:54 06/26/23 11:54 Lab Results 06/26/23 06/26/23 06/26/23 Range/Units 11:54 11:54 11:54 WBC 42.1 H (3.8-10.6) k/uL RBC 4.40 (3.80-5.40) m/uL Hgb 13.1 (11.4-16.0) gm/dL Hct 43.3 (34.0-46.0) % MCV 98.6 (80.0-100.0) fL MCH 29.9 (25.0-35.0) pg MCHC 30.3 L (31.0-37.0) g/dL RDW 15.0 (11.5-15.5) % Plt Count 541 H (150-450) k/uL MPV 7.9 Hypochromasia Marked Sodium 137 (137-145) mmol/L Potassium 4.0 (3.5-5.1) mmol/L Chloride 94 L (98-107) mmol/L Carbon Dioxide 34 H (22-30) mmol/L Anion Gap 9 mmol/L BUN 8 (7-17) mg/dL Creatinine 0.53 (0.52-1.04) mg/dL Est GFR (CKD-EPI)AfAm >90 (>60 ml/min/1.73 sqM) Est GFR (CKD-EPI)NonAf >90 (>60 ml/min/1.73 sqM) Glucose 142 H (74-99) mg/dL Plasma Lactic Acid Jose Armando 3.2 H* (0.7-2.0) mmol/L Calcium 9.3 (8.4-10.2) mg/dL Magnesium 1.5 L (1.6-2.3) mg/dL Total Bilirubin 0.6 (0.2-1.3) mg/dL AST 16 (14-36) U/L ALT 13 (4-34) U/L Alkaline Phosphatase 93 (38-126) U/L Troponin I (0.000-0.034) ng/mL NT-Pro-B Natriuret Pep 261 pg/mL Total Protein 6.6 (6.3-8.2) g/dL Albumin 3.9 (3.5-5.0) g/dL 06/26/23 Range/Units 11:54 WBC (3.8-10.6) k/uL RBC (3.80-5.40) m/uL Hgb (11.4-16.0) gm/dL Hct (34.0-46.0) % MCV (80.0-100.0) fL MCH (25.0-35.0) pg MCHC (31.0-37.0) g/dL RDW (11.5-15.5) % Plt Count (150-450) k/uL MPV Hypochromasia Sodium (137-145) mmol/L Potassium (3.5-5.1) mmol/L Chloride (98-107) mmol/L Carbon Dioxide (22-30) mmol/L Anion Gap mmol/L BUN (7-17) mg/dL Creatinine (0.52-1.04) mg/dL Est GFR (CKD-EPI)AfAm (>60 ml/min/1.73 sqM) Est GFR (CKD-EPI)NonAf (>60 ml/min/1.73 sqM) Glucose (74-99) mg/dL Plasma Lactic Acid Jose Armando (0.7-2.0) mmol/L Calcium (8.4-10.2) mg/dL Magnesium (1.6-2.3) mg/dL Total Bilirubin (0.2-1.3) mg/dL AST (14-36) U/L ALT (4-34) U/L Alkaline Phosphatase (38-126) U/L Troponin I <0.012 (0.000-0.034) ng/mL NT-Pro-B Natriuret Pep pg/mL Total Protein (6.3-8.2) g/dL Albumin (3.5-5.0) g/dL Critical Care Time Critical Care Time: Yes Total Critical Care Time: 35 Disposition Clinical Impression: Pneumonia, Hypoxia Disposition: ADMITTED IP TO THIS HOSP Referrals: Quoc Saavedra MD [Primary Care Provider] - 1-2 days Time of Disposition: 13:28
[2023-06-26] MEDS: methylPREDNISolone SOD SUCCI 125 MG/2 ML VIAL IV STA (10:52)
[2023-06-26] MEDS: TERBUTALINE 1 MG/ML VIAL SQ STA (10:53)
[2023-06-26] MEDS: ONDANSETRON 4 MG/2 ML VIAL IVP STA (10:57)
[2023-06-26] MEDS: ALBUTEROL NEBULIZED 2.5 MG/3 ML INHALATION STA (11:00)
[2023-06-26] MEDS: IPRATROPIUM 0.5 MG/2.5 ML NEBU INHALATION STA (11:01)
[2023-06-26] MEDS: cefTRIAXone IN SWFI 1,000 MG/10 ML SYRINGE IVP STA (11:56)
[2023-06-26 12:25] LABS: HCT 43.3 % (34.0-46.0); HGB 13.1 gm/dL (11.4-16.0); Hypochromasia Marked; MCH 29.9 pg (25.0-35.0); MCHC 30.3 g/dL (31.0-37.0); MCV 98.6 fL (80.0-100.0); Mean Platelet Volume 7.9; Platelet Count 541 k/uL (150-450); WBC 42.1 k/uL (3.8-10.6)
[2023-06-26 12:35] LABS: ALT 13 U/L (4-34); AST 16 U/L (14-36); African American GFR (CKD) >90 (>60 ml/min/1.73 sqM); Albumin 3.9 g/dL (3.5-5.0); Alkaline Phosphatase 93 U/L (38-126); Anion Gap 9 mmol/L; Blood Urea Nitrogen 8 mg/dL (7-17); Calcium 9.3 mg/dL (8.4-10.2); Carbon Dioxide 34 mmol/L (22-30); Chloride 94 mmol/L (98-107); Glucose 142 mg/dL (74-99); Magnesium 1.5 mg/dL (1.6-2.3); Non-African American GFR(CKD) >90 (>60 ml/min/1.73 sqM); Sodium 137 mmol/L (137-145); Total Bilirubin 0.6 mg/dL (0.2-1.3); Total Protein 6.6 g/dL (6.3-8.2)
[2023-06-26 12:40] LABS: NT-Pro-B-Type Natriuretic Pept 261 pg/mL
--- NOTE | 2023-06-26 12:54 | XR ---
EXAMINATION TYPE: XR chest 1V portable DATE OF EXAM: 06/26/2023 12:09 PM CLINICAL INDICATION:Female, 62 years old with history of difficulty breathing; COMPARISON: Chest radiographs from 12/03/2021. TECHNIQUE: XR chest 1V portable Frontal view of the chest. FINDINGS: Lungs/Pleura: Near complete opacification of the left lung which is new from prior. There may be blun ting of the left costophrenic angle. Chronic interstitial changes throughout the lungs. Prior. There is no evidence of pleural effusion, focal consolidation, or pneumothorax. Pulmonary vascularity: Unremarkable. Heart/mediastinum: Cardiomediastinal silhouette is partially obscured due to overlying and adjacent o pacities. Musculoskeletal: No acute osseous pathology. Other findings: None IMPRESSION: Near complete opacification of the left lung likely from combination of atelectasis, airspace disease and pleural fusion. Correlate clinically.
[2023-06-26] MEDS: SODIUM CHLORIDE 0.9% 500 ML 500 ML IV ONE (13:18)
[2023-06-26] MEDS: SODIUM CHLORIDE 0.9% 1,000 ML IV ONE (13:19)
[2023-06-26] MEDS ORDERED: VANCOMYCIN IV PER PHARMACY 1 EACH MISC MISCELLANE PRN (13:41)
[2023-06-26] MEDS ORDERED: PNEUMONIA PROTOCOL UTILIZED 1 EACH MISC PO PRN (13:41)
[2023-06-26 14:11] LABS: INR 0.9 (<1.2); Partial Thromboplastin Time 22.4 sec (22.0-30.0); Prothrombin Time 9.8 sec (10.0-12.5)
[2023-06-26] MEDS: PIPERACILLIN-TAZOBACTAM 3.375 GM in SODIUM CHLORIDE 0.9% 100 ML IVPB STA (14:40)
[2023-06-26 14:46] LABS: Band Neutrophils % 14 %; Eosinophils # (M) 0.42 k/uL (0-0.7); Lymphocytes # (M) 1.68 k/uL (1.0-4.8); Metamyelocytes # (M) 0.42 k/uL (0); Metamyelocytes % 1 %; Neutrophils % (M) 81 %; Nucleated Red Blood Cells 0 /100 WBC (0-0); Total Cells Counted 200
[2023-06-26] MEDS: IPRATROPIUM-ALBUTEROL 3 ML NEB INHALATION SCH (15:50)
[2023-06-26] MEDS: HYDROcodone/APAP 5-325MG 1 EACH TAB PO PRN (17:38)
[2023-06-26] MEDS: ENOXAPARIN 40 MG/0.4 ML SYRINGE SQ SCH (17:38)
[2023-06-26] MEDS: DICYCLOMINE 20 MG TAB PO SCH (17:38)
[2023-06-26] MEDS: methylPREDNISolone SOD SUCCI 125 MG/2 ML VIAL IV SCH (17:38)
[2023-06-26] MEDS: AZITHROMYCIN 500 MG in SODIUM CHLORIDE 0.9% 250 ML IVPB STA (18:12)
[2023-06-26] MEDS: VANCOMYCIN 1,500 MG in SODIUM CHLORIDE 0.9% 500 ML 500 ML IVPB ONE (18:12)
[2023-06-26] MEDS: PIPERACILLIN-TAZOBACTAM 3.375 GM in SODIUM CHLORIDE 0.9% 100 ML IVPB SCH (20:57)
[2023-06-26] MEDS: clonazePAM 0.5 MG TAB PO SCH (20:58)
--- NOTE | 2023-06-26 23:00 | P.CONS ---
History of Present Illness - Reason for Consult Consult date: 06/26/23 Pneumonia Requesting physician: Can Loyola - Chief Complaint increasing shortness of breath x 1 day - History of Present Illness Patient is a 62-year-old female past medical history significant for HIV on HAART also with a history of COPD quit smoking 3 years ago presenting to the hospital for evaluation of difficulty in breathing that apparently has been getting worse since last night patient did use bunch of albuterol treatment and nebulizer did not have any improvement EMS was called and and the patient was brought into the hospital on arrival to the ER patient was afebrile patient was mildly tachycardic but not hypotensive she was hypoxic currently on a BiPAP did have elevated lactic acid with a white count of 42.1 creatinine 0.53 liver isms are normal influenza RSV COVID testing was negative patient did have a chest x- ray near complete opacification of the left lung likely from combination of atelectasis and airspace disease and effusion patient was started on vancomycin and Zosyn infectious he was consulted for further management of antibiotic therapy at the time my evaluation the patient is lethargic and cannot provide any history most information has been obtained from review the chart Review of Systems Positive points has been mentioned in HPI complete review could not be obtained because of his underlying mental status Past Medical History Past Medical History: No Reported History Additional Past Medical History / Comment(s): Has HIV 1. Recent abn lung CT, awaiting f/u. Has colostomy. Had Covid vaccine #1 07/09/20. Colostomy reversal planned for 07/22/20 History of Any Multi-Drug Resistant Organisms: None Reported Past Surgical History: Bowel Resection Additional Past Surgical History / Comment(s): jaw surgery, D&C, fallopian tube exc. Colostomy 06/20/19 est Past Anesthesia/Blood Transfusion Reactions: No Reported Reaction Past Psychological History: No Psychological Hx Reported Smoking Status: Former smoker Past Alcohol Use History: None Reported Past Drug Use History: None Reported - Past Family History Mother Family Medical History: Blood Disorder, Deep Vein Thrombosis (DVT), Pulmonary Embolus Additional Family Medical History / Comment(s): Factor V Medications and Allergies Home Medications Medication Instructions Recorded Confirmed Type ARIPiprazole [Abilify] 2 mg PO DAILY 07/17/20 06/26/23 History Atorvastatin [Lipitor] 10 mg PO DAILY 07/17/20 06/26/23 History Dolutegravir Sodium [Tivicay] 50 mg PO DAILY 07/17/20 06/26/23 History Emtricitabine/Tenofov Alafenam 1 tab PO DAILY 07/17/20 06/26/23 History [Descovy 200-25 mg Tablet] clonazePAM [KlonoPIN] 0.5 mg PO TID 07/17/20 06/26/23 History Dicyclomine [Bentyl] 20 mg PO TID 11/20/21 06/26/23 History Budesonide 0.5 mg INHALATION RT-BID 06/26/23 06/26/23 History Budesonide/Formoterol Fumarate 2 puff INHALATION RT-BID 06/26/23 06/26/23 History [Symbicort 160-4.5 Mcg Inhaler] Ergocalciferol [Vitamin D2 (1250 1,250 mcg PO Q7D 06/26/23 06/26/23 History Mcg = 24936 Iu)] Folic Acid 1 mg PO DAILY 06/26/23 06/26/23 History HYDROcodone/APAP 5-325MG [[place] 1 tab PO DAILY PRN 06/26/23 06/26/23 History 5-325] predniSONE 10 mg PO DAILY 06/26/23 06/26/23 History Amoxic-Pot Clav 875-125Mg 1 each PO Q12HR 10 Days #20 tab 07/01/23 Rx [Augmentin 875-125] Amoxic-Pot Clav 875-125Mg 1 tab PO Q12HR 10 Days #20 tab 07/01/23 Rx [Augmentin 875-125] Formoterol Fumarate [Perforomist] 20 mcg INHALATION RT-BID 30 Days 07/01/23 Rx #60 ml Furosemide [Lasix] 40 mg PO DAILY 30 Days #30 tab 07/01/23 Rx Ipratropium-Albuterol Nebulize 3 ml INHALATION RT-QID 30 Days 07/01/23 Rx [Duoneb 0.5 mg-3 mg/3 ml Soln] #120 each Pantoprazole [Protonix] 40 mg PO AC-BRKFST 90 Days #90 tab 07/01/23 Rx Allergies Allergy/AdvReac Type Severity Reaction Status Date / Time No Known Allergies Allergy Verified 06/26/23 14:38 Physical Exam Vitals: Vital Signs Temp Pulse Resp BP Pulse Ox FiO2 06/26/23 12:10 115 H 06/26/23 11:41 126 H 30 H 121/68 95 06/26/23 11:02 126 H 06/26/23 10:27 50 06/26/23 10:23 50 06/26/23 10:22 50 06/26/23 10:18 97.3 F L 118 H 32 H 94 L Intake and Output 06/26/23 06/26/23 06/26/23 06:59 14:59 22:59 Other: Weight 73.482 kg GENERAL DESCRIPTION: Middle-aged female lying in bed, mild distress. No tachypnea or accessory muscle of respiration use. HEENT: Shows Pallor , no scleral icterus. Oral mucous membrane is dry. NECK: Trachea central, no thyromegaly. LUNGS: Unlabored breathing. Decreased breath sounds left side HEART: S1, S2, regular rate and rhythm. No loud murmur ABDOMEN: Soft, no tenderness , guarding or rigidity, no organomegaly EXTREMITIES: No edema of feet. SKIN: No rash, no masses palpable. NEUROLOGICAL: The patient is lethargic orientation could not be determined Results CBC & Chem 7: 07/01/23 05:44 07/01/23 05:36 Labs: Abnormal Lab Results - Last 24 Hours (Table) 06/26/23 06/26/23 06/26/23 Range/Units 11:54 11:54 11:54 WBC 42.1 H (3.8-10.6) k/uL MCHC 30.3 L (31.0-37.0) g/dL Plt Count 541 H (150-450) k/uL Neutrophils # (Manual) 39.90 H (1.3-7.7) k/uL Metamyelocytes # (Man) 0.42 H (0) k/uL PT 9.8 L (10.0-12.5) sec Chloride 94 L (98-107) mmol/L Carbon Dioxide 34 H (22-30) mmol/L Glucose 142 H (74-99) mg/dL Plasma Lactic Acid Jose Armando (0.7-2.0) mmol/L Magnesium 1.5 L (1.6-2.3) mg/dL 06/26/23 Range/Units 11:54 WBC (3.8-10.6) k/uL MCHC (31.0-37.0) g/dL Plt Count (150-450) k/uL Neutrophils # (Manual) (1.3-7.7) k/uL Metamyelocytes # (Man) (0) k/uL PT (10.0-12.5) sec Chloride (98-107) mmol/L Carbon Dioxide (22-30) mmol/L Glucose (74-99) mg/dL Plasma Lactic Acid Jose Armando 3.2 H* (0.7-2.0) mmol/L Magnesium (1.6-2.3) mg/dL Assessment and Plan (1) HIV (human immunodeficiency virus infection) Status: Acute Code(s): B20 - HUMAN IMMUNODEFICIENCY VIRUS [HIV] DISEASE SNOMED Code(s): 71226844 (2) Leukocytosis Status: Acute Code(s): D72.829 - ELEVATED WHITE BLOOD CELL COUNT, UNSPECIFIED SNOMED Code(s): 182715398 (3) Pneumonia Status: Acute Code(s): J18.9 - PNEUMONIA, UNSPECIFIED ORGANISM SNOMED Code(s): 643582923 Plan: 1patient presented to hospital with increasing shortness of breath in this patient with evidence of complete opacification of the left lung with a question of possible infectious versus noninfectious etiology as the patient did have significant history of smoking 2-patient benefit from pulmonary evaluation possible bronchoscopy/thoracocentesis 3-continue with empiric vancomycin and Zosyn however watch her kidney function closely with this antibiotic combination 4-we will check a CD4 count and continue patient on Descovy and Tivicay for HIV We will follow on clinical condition and cultures to further adjust medication if needed Thank you for this consultation we will follow the patient along with you Dictation was produced using [employer] dictation software. please excuse any grammatical, word or spelling errors. Time with Patient: Greater than 30
[2023-06-27] MEDS ORDERED: RX INFO: IV CONTRAST WAS GIVEN 1 EACH MISC MISCELLANE PRN (00:09)
--- NOTE | 2023-06-27 01:54 | CT ---
EXAMINATION TYPE: CT chest w con DATE OF EXAM: 06/27/2023 COMPARISON: Chest x-ray one day earlier. Chest CT November 22, 2021 HISTORY: SOB. Abnormal x-ray. CT DLP: 332.7 mGycm. Automated Exposure Control for Dose Reduction was Utilized. TECHNIQUE: CT scan of the thorax is performed following with IV Contrast, patient injected with 100 mL of Isovue 300. FINDINGS: LUNGS: Moderate underlying emphysematous change redemonstrated with mild to moderate upper lung irreg ular parenchymal scarring. Mild irregular scarring in the right lung base. There are new multifocal a reas of irregular consolidation and groundglass opacities throughout the left lung greatest involving the lingula and left upper lobe. Tiny left pleural effusion is seen. MEDIASTINUM: There is new enlarged 2.2 x 1.7 cm left hilar lymph node image 33. No cardiomegaly or pericardial effusion is seen. OTHER: Small to moderate sized hiatal hernia is now present. IMPRESSION: 1. Moderate underlying emphysematous change redemonstrated. Tiny left pleural effusion is confirmed. Multifocal areas of ground glass opacity and irregular consolidation throughout the left lung correla te with recent x-ray. Correlate for acute infectious process. Left hilar adenopathy is also seen may be reactive in etiology. Underlying nodules or neoplasm not excluded. Short-term follow-up imaging af ter treatment is advised to rule out neoplasm.
--- NOTE | 2023-06-27 02:03 | XR ---
EXAMINATION TYPE: XR chest 2V DATE OF EXAM: 06/27/2023 COMPARISON: Chest CT same day HISTORY: Pneumonia TECHNIQUE: Frontal and lateral views of the chest are obtained. FINDINGS: Chronic emphysematous change with increased opacity throughout the left lung is redemonstrated. Cardi ac silhouette size remains within normal limits. Osseous structures are intact. IMPRESSION: Chronic emphysematous change with multifocal left lung edema and/or acute infiltrates re demonstrated.
[2023-06-27] MEDS: VANCOMYCIN 1,500 MG in SODIUM CHLORIDE 0.9% 500 ML 500 ML IVPB SCH (03:02)
--- NOTE | 2023-06-27 04:31 | P.CNPUL ---
History of Present Illness Consult date: 06/27/23 Requesting physician: Can Loyola Reason for consult: pneumonia Chief complaint: Acute shortness of breath and hypoxia History of present illness: Patient is a 62-year-old white female with past medical history significant for COPD, HIV positive, former tobacco dependence, bowel obstruction status post resection and colostomy with reversal. Her primary care provider is Dr. Quoc Saavedra. She does follow with a local supervisor inspecting, Dr. Deion Jorge. Of note, the patient states that she was treated 3 weeks ago at [facility] for pneumonia. She states that she was hospitalized for about 2 weeks. On discharge she initially felt better, however yesterday she woke up with acute shortness of breath. No improvement with her rescue albuterol nebs, so she called 911. She is currently sitting up in bed, on BiPAP, with settings 14/6 and FiO2 of 50%. She is alert and oriented, in no acute distress, no signs of CO2 narcosis. She is achieving tidal volumes of 400. Respiratory rate is 20. She has had a persistent congested and productive cough with yellow sputum. Denies any fevers. Denies hemoptysis. Denies chest pain. Chest x-ray on arrival showed near complete opacification of the left lung, likely combination of airspace disease and obstructive atelectasis. I did follow this with a CT of the chest with contrast which showed moderate underlying emphysematous changes, multifocal areas of groundglass opacity and irregular consolidations throughout the left lung, left hilar adenopathy, which may be reactive, underlying nodules and neoplasms were not entirely excluded. No personal history of malignancy. CBC on arrival shows acute leukocytosis with a WBC count of 42.1, otherwise unremarkable. CMP on arrival: Sodium 137, potassium 4, chloride 94, serum bicar b 34, BUN 8, creatinine 0.53, glucose 142. Lactic acid level as high as 3.4 down to 2.6. Troponins less than 0.012. NT proBNP 261. Negative for influenza, RSV, COVID. She has been started on broad-spectrum antibiotics in the form of azithromycin, Zosyn, and vancomycin. She is immunosuppressed, and has HIV positive status. She has been normally maintained on a combination of Tivicay and Descovy. Infectious disease specialist was consulted. Patient currently afebrile. She is tolerating BiPAP at this time. Remaining vital signs are stable. Review of Systems REVIEW OF SYSTEMS: CONSTITUTIONAL: Denies any recent significant weight loss or weight gain. EYES: Denies change in vision. EARS, NOSE, MOUTH, THROAT: Denies headaches, denies sore throat. CARDIOVASCULAR: Denies chest pain, palpitations or syncopal episodes. RESPIRATORY: See HPI. GASTROINTESTINAL: Denies change in appetite, abdominal pain, nausea and vomiting, or diarrhea GENITOURINARY: Denies hematuria, denies infections. MUSKULOSKELETAL: Denies pain, denies swelling. INTEGUMENTARY: Denies rash, denies eczema. NEUROLOGICAL: Denies recent memory loss, no recent seizure activity. PSYCHIATRIC: Denies anxiety, denies depression. HEMATOLOGIC/LYMPHATIC: Denies anemia, denies enlarged lymph node Past Medical History Past Medical History: No Reported History Additional Past Medical History / Comment(s): Has HIV 1. Recent abn lung CT, awaiting f/u. Has colostomy. Had Covid vaccine #1 07/09/20. Colostomy reversal planned for 07/22/20 History of Any Multi-Drug Resistant Organisms: None Reported Past Surgical History: Bowel Resection Additional Past Surgical History / Comment(s): jaw surgery, D&C, fallopian tube exc. Colostomy 06/20/19 est Past Anesthesia/Blood Transfusion Reactions: No Reported Reaction Past Psychological History: No Psychological Hx Reported Smoking Status: Former smoker Past Alcohol Use History: None Reported Past Drug Use History: None Reported - Past Family History Mother Family Medical History: Blood Disorder, Deep Vein Thrombosis (DVT), Pulmonary Embolus Additional Family Medical History / Comment(s): Factor V Medications and Allergies Home Medications Medication Instructions Recorded Confirmed Type ARIPiprazole [Abilify] 2 mg PO DAILY 07/17/20 06/26/23 History Atorvastatin [Lipitor] 10 mg PO DAILY 07/17/20 06/26/23 History Dolutegravir Sodium [Tivicay] 50 mg PO DAILY 07/17/20 06/26/23 History Emtricitabine/Tenofov Alafenam 1 tab PO DAILY 07/17/20 06/26/23 History [Descovy 200-25 mg Tablet] clonazePAM [KlonoPIN] 0.5 mg PO TID 07/17/20 06/26/23 History Dicyclomine [Bentyl] 20 mg PO TID 11/20/21 06/26/23 History Furosemide [Lasix] 20 mg PO DAILY 11/20/21 06/26/23 History Potassium Chloride [Klor-Con M20] 20 meq PO BID 11/20/21 06/26/23 History Budesonide 0.5 mg INHALATION RT-BID 06/26/23 06/26/23 History Budesonide/Formoterol Fumarate 2 puff INHALATION RT-BID 06/26/23 06/26/23 History [Symbicort 160-4.5 Mcg Inhaler] Ergocalciferol [Vitamin D2 (1250 1,250 mcg PO Q7D 06/26/23 06/26/23 History Mcg = 16750 Iu)] Famotidine [Pepcid] 20 mg PO DAILY 06/26/23 06/26/23 History Folic Acid 1 mg PO DAILY 06/26/23 06/26/23 History HYDROcodone/APAP 5-325MG [[place] 1 tab PO DAILY PRN 06/26/23 06/26/23 History 5-325] Tamsulosin [Flomax] 0.4 mg PO DAILY 06/26/23 06/26/23 History Tiotropium 2.5 Mcg/Puff [Spiriva 2 puff INHALATION RT-DAILY 06/26/23 06/26/23 History Respimat 2.5 Mcg] predniSONE 10 mg PO DAILY 06/26/23 06/26/23 History Allergies Allergy/AdvReac Type Severity Reaction Status Date / Time No Known Allergies Allergy Verified 06/26/23 14:38 Physical Exam Vitals: Vital Signs Temp Pulse Pulse Resp BP BP Pulse Ox 06/27/23 03:56 06/27/23 00:00 97.1 F L 85 13 92/61 98 06/26/23 23:27 06/26/23 20:54 84 06/26/23 20:00 97.8 F 85 25 H 99/65 98 06/26/23 16:09 104 H 06/26/23 16:00 98.7 F 105 H 18 107/72 97 06/26/23 15:51 102 H 06/26/23 12:10 115 H 06/26/23 11:41 126 H 30 H 121/68 95 06/26/23 11:02 126 H 06/26/23 10:27 06/26/23 10:23 06/26/23 10:22 06/26/23 10:18 97.3 F L 118 H 32 H 94 L FiO2 06/27/23 03:56 50 06/27/23 00:00 50 06/26/23 23:27 50 06/26/23 20:54 50 06/26/23 20:00 50 06/26/23 16:09 06/26/23 16:00 06/26/23 15:51 06/26/23 12:10 06/26/23 11:41 06/26/23 11:02 06/26/23 10:27 50 06/26/23 10:23 50 06/26/23 10:22 50 06/26/23 10:18 Intake and Output 06/26/23 06/26/23 06/27/23 14:59 22:59 06:59 Other: Voiding Method External Catheter Weight 73.482 kg GENERAL EXAM: Alert, 62-year-old white female, on BiPAP, fairly comfortable in no apparent distress. HEAD: Normocephalic and atraumatic EYES: Normal reaction of pupils, equal size. NOSE: Clear with pink turbinates. THROAT: No erythema or exudates. NECK: No masses, no JVD. CHEST: No chest wall deformity. LUNGS: Equal air entry with left-sided inspiratory crackles and rhonchi. On BiPAP with current settings of 14/6 and FiO2 of 50%. No conversational dyspnea or accessory muscle use.. CVS: S1 and S2 normal with no audible murmur, regular rhythm. No extra heart sounds ABDOMEN: No hepatosplenomegaly, active bowel sounds, no guarding or rigidity. Remote appearing midline abdominal incision. SPINE: No scoliosis or deformity SKIN: No rashes CENTRAL NERVOUS SYSTEM: No focal deficits, tone is normal in all 4 extremities. EXTREMITIES: There is mild nonpitting bilateral ankle edema. No clubbing, or cyanosis. Peripheral pulses are intact. Results - Laboratory Findings CBC and BMP: 06/26/23 11:54 06/26/23 11:54 PT/INR, D-dimer PT 9.8 sec (10.0-12.5) L 06/26/23 11:54 INR 0.9 (<1.2) 06/26/23 11:54 Abnormal lab findings: Abnormal Labs 06/26/23 06/26/23 06/26/23 11:54 11:54 11:54 WBC 42.1 H MCHC 30.3 L Plt Count 541 H Neutrophils # (Manual) 39.90 H Metamyelocytes # (Man) 0.42 H PT 9.8 L Chloride 94 L Carbon Dioxide 34 H Glucose 142 H Plasma Lactic Acid Jose Armando Magnesium 1.5 L 06/26/23 06/26/23 06/26/23 11:54 15:14 18:32 WBC MCHC Plt Count Neutrophils # (Manual) Metamyelocytes # (Man) PT Chloride Carbon Dioxide Glucose Plasma Lactic Acid Jose Armando 3.2 H* 3.2 H* 3.4 H* Magnesium 06/26/23 06/27/23 21:42 00:32 WBC MCHC Plt Count Neutrophils # (Manual) Metamyelocytes # (Man) PT Chloride Carbon Dioxide Glucose Plasma Lactic Acid Jose Armando 3.3 H* 2.6 H* Magnesium - Diagnostic Findings Chest x-ray: image reviewed CT scan - chest: image reviewed Assessment and Plan Assessment: Left-sided healthcare associated pneumonia/sepsis, previously treated at outside facility. Initial chest x-ray at our facility showed near complete opacification of the left lung, likely combination of airspace disease and obstructive atelectasis. I did follow this with a CT of the chest with contrast which showed moderate underlying emphysematous changes, multifocal areas of groundglass opacity and irregular consolidations throughout the left lung, left hilar adenopathy, which may be reactive, underlying nodules and neoplasms were not entirely excluded. No personal history of malignancy. Follow-up imaging, appears to show increased aeration of left lung. Acute COPD exacerbation Acute on chronic hypoxemic respiratory failure, secondary to above Acute leukocytosis Lactic acidemia, improving HIV positive status, maintained on a combination of Tivicay and Descovy Chronic obstructive pulmonary disease, reportedly prednisone and oxygen dependent at baseline. Chronic hypoxemic respiratory failure, secondary to above Former tobacco dependence, quitting 3 years ago History of previous bowel resection with colostomy and subsequent reversal Plan: Patient's medications, labs, imaging were reviewed. Patient remains on BiPAP with current settings. Follow-up imaging appears to show increased aeration of left lung. Patient is being covered on broad- spectrum antibiotics including azithromycin, Zosyn, and vancomycin. Patient is immunosuppressed. Infectious disease consult appreciated. Patient may benefit from follow-up bronchoscopy with BAL, which will be discussed with Dr. Toussaint later this morning. Continue combination of budesonide inhalation, formoterol inhalation, DuoNebs [id number], and IV Solu-Medrol Blood cultures pending. Obtain sputum culture if possible. Procalcitonin level pending. Negative for influenza, RSV, COVID. Prognosis is guarded. We will continue to follow, and additional recommendations are forthcoming. I have personally seen and examined the patient, performed the documentation and the assessment and plan as written. Number of minutes spent on the visit:20 Time with Patient: Greater than 30
[2023-06-27 05:48] LABS: Basophils % (A) 0 %; Eosinophils % (A) 0 %; HCT 32.3 % (34.0-46.0); Hypochromasia Moderate; Lymphocytes # (A) 0.4 k/uL (1.0-4.8); Lymphocytes % (A) 1 %; MCH 29.5 pg (25.0-35.0); MCHC 30.4 g/dL (31.0-37.0); MCV 97.3 fL (80.0-100.0); Mean Platelet Volume 8.1; Monocytes # (A) 0.5 k/uL (0-1.0); Monocytes % (A) 2 %; Neutrophils # (A) 30.9 k/uL (1.3-7.7); Neutrophils % (A) 97 %; Platelet Count 446 k/uL (150-450); RBC 3.32 m/uL (3.80-5.40); RDW 15.2 % (11.5-15.5)
[2023-06-27 05:49] LABS: HGB 9.8 gm/dL (11.4-16.0)
[2023-06-27 05:56] LABS: African American GFR (CKD) >90 (>60 ml/min/1.73 sqM); Anion Gap 5 mmol/L; Blood Urea Nitrogen 13 mg/dL (7-17); Calcium 8.5 mg/dL (8.4-10.2); Carbon Dioxide 28 mmol/L (22-30); Chloride 102 mmol/L (98-107); Glucose 143 mg/dL (74-99); Non-African American GFR(CKD) >90 (>60 ml/min/1.73 sqM); Potassium 4.4 mmol/L (3.5-5.1); Sodium 135 mmol/L (137-145)
[2023-06-27 06:13] LABS: RBC Morphology Normal
[2023-06-27] MEDS ORDERED: PARoxetine 20 MG TAB PO SCH (09:00)
[2023-06-27] MEDS ORDERED: DOLUTEGRAVIR SODIUM 50 MG TABLET PO SCH (09:00)
[2023-06-27] MEDS: BUDESONIDE 1 MG/2 ML NEBU INHALATION SCH (09:19)
[2023-06-27] MEDS: FORMOTEROL FUMARATE 20 MCG/2 ML NEBU INHALATION SCH (09:21)
[2023-06-27] MEDS: ATORVASTATIN 10 MG TAB PO SCH (09:32)
[2023-06-27] MEDS: ARIPiprazole 2 MG TAB PO SCH (09:32)
[2023-06-27] MEDS: AZITHROMYCIN 500 MG in SODIUM CHLORIDE 0.9% 250 ML IVPB SCH (10:27)
[2023-06-27] MEDS: TIVICAY 50 MG PO SCH (10:33)
[2023-06-27] MEDS: DESCOVY (Emtricitabine/Tenofov Alafenam) 200-25 Mg Tablet PO SCH (10:33)
--- NOTE | 2023-06-27 17:02 | P.CNPUL ---
History of Present Illness Consult date: 06/27/23 Reason for consult: dyspnea History of present illness: Patient is a 62-year-old white female with past medical history significant for COPD, HIV positive, former tobacco dependence, bowel obstruction status post resection and colostomy with reversal. Her primary care provider is Dr. Quoc Saavedra. She does follow with a local news assignment editor, Dr. Deion Jorge. Of note, the patient states that she was treated 3 weeks ago at [facility] for pneumonia. She states that she was hospitalized for about 2 weeks. On discharge she initially felt better, however yesterday she woke up with acute shortness of breath. No improvement with her rescue albuterol nebs, so she called 911. She is currently sitting up in bed, on BiPAP, with settings 14/6 and FiO2 of 50%. She is alert and oriented, in no acute distress, no signs of CO2 narcosis. She is achieving tidal volumes of 400. Respiratory rate is 20. She has had a persistent congested and productive cough with yellow sputum. Denies any fevers. Denies hemoptysis. Denies chest pain. Chest x-ray on arrival showed near complete opacification of the left lung, likely combination of airspace disease and obstructive atelectasis. I did follow this with a CT of the chest with contrast which showed moderate underlying emphysematous changes, multifocal areas of groundglass opacity and irregular consolidations throughout the left lung, left hilar adenopathy, which may be reactive, underlying nodules and neoplasms were not entirely excluded. No personal history of malignancy. CBC on arrival shows acute leukocytosis with a WBC count of 42.1, otherwise unremarkable. CMP on arrival: Sodium 137, potassium 4, chloride 94, serum bicarb 34, BUN 8, creatinine 0.53, glucose 142. Lactic acid level as high as 3.4 down to 2.6. Troponins less than 0.012. NT proBNP 261. Negative for influenza, RSV, COVID. She has been started on broad-spectrum antibiotics in the form of azithromycin, Zosyn, and vancomycin. She is immunosuppressed, and has HIV positive status. She has been normally maintained on a combination of Tivicay and Descovy. Infectious disease specialist was consulted. Patient currently afebrile. She is tolerating BiPAP at this time. Remaining vital signs are stable. The patient was seen today in consultation. The patient is slightly improved compared to yesterday. The patient is less short of breath. The patient has her CD4 count and viral load being checked as the patient is receiving highly active retroviral medication. The patient has consolidation of the left lung consistent with pneumonia. The patient is currently on broad- spectrum antibiotics. The patient is currently on Zosyn and vancomycin and Zithromax combination. The patient remains on IV Solu-Medrol. The patient is on DuoNeb nebulized treatments [id number]. She is on Lovenox for DVT prophylaxis. The white cell count has dropped compared to yesterday and is currently down to 32 with a hemoglobin of 9.8. Electrolytes are all within normal limits. Lactic acid level is dropped down to 2.2. Procalcitonin level is at 1.1 consistent with a bacterial infection. CAT scan of the chest was also done and it showed moderate emphysematous changes bilaterally and there is a tiny left-sided pleural effusion and areas of groundglass pulmonary filtrates and irregular consolidation involving the left lung consistent with pneumonia. There is also left hilar lymphadenopathy. Review of Systems CONSTITUTIONAL: Denies any recent significant weight loss or weight gain. EYES: Denies change in vision. EARS, NOSE, MOUTH, THROAT: Denies headaches, denies sore throat. CARDIOVASCULAR: Denies chest pain, palpitations or syncopal episodes. RESPIRATORY: See HPI. GASTROINTESTINAL: Denies change in appetite, abdominal pain, nausea and vomiting, or diarrhea GENITOURINARY: Denies hematuria, denies infections. MUSKULOSKELETAL: Denies pain, denies swelling. INTEGUMENTARY: Denies rash, denies eczema. NEUROLOGICAL: Denies recent memory loss, no recent seizure activity. PSYCHIATRIC: Denies anxiety, denies depression. HEMATOLOGIC/LYMPHATIC: Denies anemia, denies enlarged lymph node Past Medical History Past Medical History: No Reported History Additional Past Medical History / Comment(s): Has HIV 1. Recent abn lung CT, awaiting f/u. Has colostomy. Had Covid vaccine #1 07/09/20. Colostomy reversal planned for 07/22/20 History of Any Multi-Drug Resistant Organisms: None Reported Past Surgical History: Bowel Resection Additional Past Surgical History / Comment(s): jaw surgery, D&C, fallopian tube exc. Colostomy 06/20/19 est Past Anesthesia/Blood Transfusion Reactions: No Reported Reaction Past Psychological History: No Psychological Hx Reported Smoking Status: Former smoker Past Alcohol Use History: None Reported Past Drug Use History: None Reported - Past Family History Mother Family Medical History: Blood Disorder, Deep Vein Thrombosis (DVT), Pulmonary Embolus Additional Family Medical History / Comment(s): Factor V Medications and Allergies Home Medications Medication Instructions Recorded Confirmed Type ARIPiprazole [Abilify] 2 mg PO DAILY 07/17/20 06/26/23 History Atorvastatin [Lipitor] 10 mg PO DAILY 07/17/20 06/26/23 History Dolutegravir Sodium [Tivicay] 50 mg PO DAILY 07/17/20 06/26/23 History Emtricitabine/Tenofov Alafenam 1 tab PO DAILY 07/17/20 06/26/23 History [Descovy 200-25 mg Tablet] clonazePAM [KlonoPIN] 0.5 mg PO TID 07/17/20 06/26/23 History Dicyclomine [Bentyl] 20 mg PO TID 11/20/21 06/26/23 History Furosemide [Lasix] 20 mg PO DAILY 11/20/21 06/26/23 History Potassium Chloride [Klor-Con M20] 20 meq PO BID 11/20/21 06/26/23 History Budesonide 0.5 mg INHALATION RT-BID 06/26/23 06/26/23 History Budesonide/Formoterol Fumarate 2 puff INHALATION RT-BID 06/26/23 06/26/23 History [Symbicort 160-4.5 Mcg Inhaler] Ergocalciferol [Vitamin D2 (1250 1,250 mcg PO Q7D 06/26/23 06/26/23 History Mcg = 87513 Iu)] Famotidine [Pepcid] 20 mg PO DAILY 06/26/23 06/26/23 History Folic Acid 1 mg PO DAILY 06/26/23 06/26/23 History HYDROcodone/APAP 5-325MG [[place] 1 tab PO DAILY PRN 06/26/23 06/26/23 History 5-325] Tamsulosin [Flomax] 0.4 mg PO DAILY 06/26/23 06/26/23 History Tiotropium 2.5 Mcg/Puff [Spiriva 2 puff INHALATION RT-DAILY 06/26/23 06/26/23 History Respimat 2.5 Mcg] predniSONE 10 mg PO DAILY 06/26/23 06/26/23 History Allergies Allergy/AdvReac Type Severity Reaction Status Date / Time No Known Allergies Allergy Verified 06/26/23 14:38 Physical Exam Vitals: Vital Signs Temp Pulse Pulse Resp BP Pulse Ox FiO2 06/27/23 16:38 98.1 F 76 20 107/60 90 L 06/27/23 15:23 95 18 06/27/23 15:13 97 06/27/23 15:10 95 18 06/27/23 12:25 97.9 F 06/27/23 12:22 97.8 F 100 18 106/55 94 L 06/27/23 11:41 88 21 06/27/23 11:27 90 8 L 06/27/23 09:38 88 20 06/27/23 09:31 88 20 06/27/23 09:30 88 20 06/27/23 09:29 98.0 F 100 22 108/67 96 06/27/23 09:21 88 20 99 50 06/27/23 04:00 97.7 F 84 24 96/62 100 50 06/27/23 03:56 50 06/27/23 02:00 85 13 06/27/23 00:00 97.1 F L 85 13 92/61 98 50 06/26/23 23:27 50 06/26/23 20:54 84 50 06/26/23 20:00 97.8 F 85 25 H 99/65 98 50 Intake and Output 06/27/23 06/27/23 06/27/23 06:59 14:59 22:59 Intake Total 360 Output Total 500 Balance -500 360 Intake: Oral 360 Output: Urine 500 Other: Voiding Method External Catheter External Catheter GENERAL EXAM: Alert, 62-year-old white female, on BiPAP, fairly comfortable in no apparent distress. The patient was on 3 L of oxygen by nasal cannula and she was taken off the BiPAP. HEAD: Normocephalic and atraumatic EYES: Normal reaction of pupils, equal size. NOSE: Clear with pink turbinates. THROAT: No erythema or exudates. NECK: No masses, no JVD. CHEST: No chest wall deformity. LUNGS: Equal air entry with left-sided inspiratory crackles and rhonchi. No conversational dyspnea or accessory muscle use.. CVS: S1 and S2 normal with no audible murmur, regular rhythm. No extra heart sounds ABDOMEN: No hepatosplenomegaly, active bowel sounds, no guarding or rigidity. Remote appearing midline abdominal incision. SPINE: No scoliosis or deformity SKIN: No rashes CENTRAL NERVOUS SYSTEM: No focal deficits, tone is normal in all 4 extremities. EXTREMITIES: There is mild nonpitting bilateral ankle edema. No clubbing, or cyanosis. Peripheral pulses are intact. Results - Laboratory Findings CBC and BMP: 06/27/23 05:00 06/27/23 05:00 PT/INR, D-dimer PT 9.8 sec (10.0-12.5) L 06/26/23 11:54 INR 0.9 (<1.2) 06/26/23 11:54 Abnormal lab findings: Abnormal Labs 06/26/23 06/26/23 06/26/23 11:54 11:54 11:54 WBC 42.1 H RBC Hgb Hct MCHC 30.3 L Plt Count 541 H Neutrophils # Neutrophils # (Manual) 39.90 H Lymphocytes # Metamyelocytes # (Man) 0.42 H PT 9.8 L Sodium Chloride 94 L Carbon Dioxide 34 H Creatinine Glucose 142 H Plasma Lactic Acid Jose Armando Magnesium 1.5 L Procalcitonin 06/26/23 06/26/23 06/26/23 11:54 15:14 18:32 WBC RBC Hgb Hct MCHC Plt Count Neutrophils # Neutrophils # (Manual) Lymphocytes # Metamyelocytes # (Man) PT Sodium Chloride Carbon Dioxide Creatinine Glucose Plasma Lactic Acid Jose Armando 3.2 H* 3.2 H* 3.4 H* Magnesium Procalcitonin 06/26/23 06/27/23 06/27/23 21:42 00:32 05:00 WBC RBC Hgb Hct MCHC Plt Count Neutrophils # Neutrophils # (Manual) Lymphocytes # Metamyelocytes # (Man) PT Sodium Chloride Carbon Dioxide Creatinine Glucose Plasma Lactic Acid Jose Armando 3.3 H* 2.6 H* Magnesium Procalcitonin 1.10 H 06/27/23 06/27/23 06/27/23 05:00 05:00 05:00 WBC 32.0 H RBC 3.32 L Hgb 9.8 L D Hct 32.3 L MCHC 30.4 L Plt Count Neutrophils # 30.9 H Neutrophils # (Manual) Lymphocytes # 0.4 L Metamyelocytes # (Man) PT Sodium 135 L Chloride Carbon Dioxide Creatinine 0.49 L Glucose 143 H Plasma Lactic Acid Jose Armando 2.7 H* Magnesium Procalcitonin 06/27/23 06/27/23 06/27/23 09:10 12:27 16:14 WBC RBC Hgb Hct MCHC Plt Count Neutrophils # Neutrophils # (Manual) Lymphocytes # Metamyelocytes # (Man) PT Sodium Chloride Carbon Dioxide Creatinine Glucose Plasma Lactic Acid Jose Armando 2.5 H* 3.7 H* 2.2 H* Magnesium Procalcitonin - Diagnostic Findings Chest x-ray: image reviewed CT scan - chest: image reviewed Assessment and Plan Plan: Left-sided community-acquired versus healthcare associated pneumonia/sepsis, previously treated at outside facility. Possibility of opportunistic infection is felt to be less likely as the patient was taken her antiretroviral m edication. Awaiting CD4 count and viral load. Procalcitonin level is elevated suggestive of bacterial infection. The patient is currently on a combination of Zosyn and vancomycin and Zithromax. Acute leukocytosis, improving Acute lactic acidosis, improving Acute hypoxic respiratory failure and the patient was taken off the BiPAP and the patient is currently on 3 L of O2 nasal cannula Left hilar lymphadenopathy that needs to be monitored and watched on outpatient basis. May consider PET/CT on outpatient basis. Could be reactive. Could be malignant. Endobronchial ultrasound may be needed if there is persistent adenopathy involving the left hilum. Acute COPD exacerbation, secondary to above Acute on chronic hypoxemic respiratory failure, secondary to above HIV positive status, maintained on a combination of Tivicay and Descovy Chronic obstructive pulmonary disease, reportedly prednisone and oxygen dependent at baseline. Chronic hypoxemic respiratory failure, secondary to above Former tobacco dependence, quitting 3 years ago History of previous bowel resection with colostomy and subsequent reversal Plan: Discontinue the BiPAP and the patient is currently on 3 l of oxygen by nasal cannula White cell count is improving Lactic acid level is improving Repeat chest x-ray will next 24 to 48 hours to assess the progression of the left lung pulmonary infiltrate. If no improvement, bronchoscopy will be indicated. Opportunistic infections are considered to be less likely at this point in time. Continue combination of budesonide inhalation, formoterol inhalation, DuoNebs [id number], and IV Solu-Medrol Blood cultures pending. Obtain sputum culture if possible. Procalcitonin level pending. Negative for influenza, RSV, COVID. Prognosis is guarded. We will continue to follow, and additional recommendations are forthcoming.
--- NOTE | 2023-06-27 18:42 | P.HPIM ---
History of Present Illness H&P Date: 06/26/23 Chief Complaint: Short of breath I am rounding for Dr. Quoc Saavedra This is a pleasant 62-year-old patient who follows with Dr. Quoc Saavedra. Night before presentation to ER patient started getting increasingly short of breath. Increasing her frequent nebulizer did not respond. Became more more short of breath. Could not catch her breath. Some cough with yellow sputum. [place] feverish. Appetite okay. Patient does use 2 L of oxygen at home. Rather tired and rundown. Was put on a BiPAP in the ER. Review of systems: GEN.: Tired febrile EYES: None HEENT: None NECK: None RESPIRATORY: As above CARDIOVASCULAR: None GASTROINTESTINAL: None GENITOURINARY: None MUSCULOSKELETAL: None LYMPHATICS: None HEMATOLOGICAL: None PSYCHIATRY: None NEUROLOGICAL: None Social history: Lives with her . Smokes half a pack a day for last 47 years. Physical examination: VITAL SIGNS: 97.3, 118, 32, 94% on BiPAP upon presentation GENERAL: BMI 27, reclining in bed short of breath. EYES: Pupils equal. Conjunctiva mariana l. HEENT: External appearance of nose and ears normal, oral cavity grossly normal. NECK: JVD not raised; masses not palpable. HEART: First and second heart sounds are normal; no edema. LUNGS: Respiratory rate increased, accessory muscles are working, not able to speak in full sentences, poor air entry n. ABDOMEN: Soft, nontender, liver spleen not palpable, no masses palpable. PSYCH: Just about able to answer questions, tired l. MUSCULOSKELETAL:No Clubbing/cyanosis;muscles-grossly intact NEUROLOGICAL: Cranial nerves grossly intact; no facial asymmetry, power and sensation grossly intact. LYMPHATICS: No lymph nodes palpable in the axilla and neck INVESTIGATIONS, reviewed in the clinical context: June 25: White count 42 hemoglobin 13.1 platelets 541 left shift sodium 137 potassium 4 BUN 8 creatinine 0.53 lactic acid 3.2 proBNP 261 troponin I less than 0.012 EKG tracing personally reviewed by me-Richelle pulmonluna. Sinus tachycardia. Chest x-ray film personally reviewed by me-dense opacities on the left side Influenza type A, B, RSV, COVID-19: Not detected Assessment plan: -Severe pneumonia multilobar especially on the left side causing sepsis Received IV ceftriaxone in the ER. -Sepsis from pneumonia -Acute on chronic hypoxic respiratory failure from pneumonia and COPD exacerbation Patient on BiPAP -Acute severe COPD exacerbation in ex-smoker DuoNeb. IV Solu-Medrol -Hyperlipidemia Lipitor 10 mg a day -Bladder dysfunction Flomax -Anxiety depression Klonopin. Abilify Care was discussed with the patient. Pulmonary consulted. Past Medical History Past Medical History: No Reported History Additional Past Medical History / Comment(s): Has HIV 1. Recent abn lung CT, awaiting f/u. Has colostomy. Had Covid vaccine #1 07/09/20. Colostomy reversal planned for 07/22/20 History of Any Multi-Drug Resistant Organisms: None Reported Past Surgical History: Bowel Resection Additional Past Surgical History / Comment(s): jaw surgery, D&C, fallopian tube exc. Colostomy 06/20/19 est Past Anesthesia/Blood Transfusion Reactions: No Reported Reaction Past Psychological History: No Psychological Hx Reported Smoking Status: Former smoker Past Alcohol Use History: None Reported Past Drug Use History: None Reported - Past Family History Mother Family Medical History: Blood Disorder, Deep Vein Thrombosis (DVT), Pulmonary Embolus Additional Family Medical History / Comment(s): Factor V Medications and Allergies Home Medications Medication Instructions Recorded Confirmed Type ARIPiprazole [Abilify] 2 mg PO DAILY 07/17/20 06/26/23 History Atorvastatin [Lipitor] 10 mg PO DAILY 07/17/20 06/26/23 History Dolutegravir Sodium [Tivicay] 50 mg PO DAILY 07/17/20 06/26/23 History Emtricitabine/Tenofov Alafenam 1 tab PO DAILY 07/17/20 06/26/23 History [Descovy 200-25 mg Tablet] clonazePAM [KlonoPIN] 0.5 mg PO TID 07/17/20 06/26/23 History Dicyclomine [Bentyl] 20 mg PO TID 11/20/21 06/26/23 History Furosemide [Lasix] 20 mg PO DAILY 11/20/21 06/26/23 History Potassium Chloride [Klor-Con M20] 20 meq PO BID 11/20/21 06/26/23 History Budesonide 0.5 mg INHALATION RT-BID 06/26/23 06/26/23 History Budesonide/Formoterol Fumarate 2 puff INHALATION RT-BID 06/26/23 06/26/23 History [Symbicort 160-4.5 Mcg Inhaler] Ergocalciferol [Vitamin D2 (1250 1,250 mcg PO Q7D 06/26/23 06/26/23 History Mcg = 01300 Iu)] Famotidine [Pepcid] 20 mg PO DAILY 06/26/23 06/26/23 History Folic Acid 1 mg PO DAILY 06/26/23 06/26/23 History HYDROcodone/APAP 5-325MG [Pearson 1 tab PO DAILY PRN 06/26/23 06/26/23 History 5-325] Tamsulosin [Flomax] 0.4 mg PO DAILY 06/26/23 06/26/23 History Tiotropium 2.5 Mcg/Puff [Spiriva 2 puff INHALATION RT-DAILY 06/26/23 06/26/23 History Respimat 2.5 Mcg] predniSONE 10 mg PO DAILY 06/26/23 06/26/23 History Allergies Allergy/AdvReac Type Severity Reaction Status Date / Time No Known Allergies Allergy Verified 06/26/23 14:38 Physical Exam Vitals: Vital Signs Temp Pulse Resp BP Pulse Ox FiO2 06/26/23 12:10 115 H 06/26/23 11:41 126 H 30 H 121/68 95 06/26/23 11:02 126 H 06/26/23 10:27 50 06/26/23 10:23 50 06/26/23 10:22 50 06/26/23 10:18 97.3 F L 118 H 32 H 94 L Intake and Output 06/25/23 06/26/23 06/26/23 22:59 06:59 14:59 Other: Weight 73.482 kg Results CBC & Chem 7: 06/27/23 05:00 06/27/23 05:00 Labs: Abnormal Lab Results - Last 24 Hours (Table) 06/26/23 06/26/23 06/26/23 Range/Units 11:54 11:54 11:54 WBC 42.1 H (3.8-10.6) k/uL MCHC 30.3 L (31.0-37.0) g/dL Plt Count 541 H (150-450) k/uL Chloride 94 L (98-107) mmol/L Carbon Dioxide 34 H (22-30) mmol/L Glucose 142 H (74-99) mg/dL Plasma Lactic Acid Jose Armando 3.2 H* (0.7-2.0) mmol/L Magnesium 1.5 L (1.6-2.3) mg/dL
--- NOTE | 2023-06-27 19:04 | P.PN ---
Progress Note - Text Progress Note Date: 06/27/23 Chief Complaint: Short of breath I am rounding for Dr. Quoc Saavedra This is a pleasant 62-year-old patient who follows with Dr. Quoc Saavedra. Night before presentation to ER patient started getting increasingly short of breath. Increasing her frequent nebulizer did not respond. Became more more short of breath. Could not catch her breath. Some cough with yellow sputum. [place] feverish. Appetite okay. Patient does use 2 L of oxygen at home. Rather tired and rundown. Was put on a BiPAP in the ER. June 26: Propped up in bed. She ate improvement in breathing though still short of breath. Coughing up some sputum. IV vancomycin IV Zosyn azithromycin- pulmonary following did tolerate some diet. MRSA nasal screening Active Medications Hydrocodone Bitart/Acetaminophen (Hydrocodone/Apap 5-325mg 1 Each Tab) 1 each PO Q6HR PRN PRN Reason: Severe Pain (Scale 7 to 10) Last Admin: 06/27/23 10:36 Dose: 1 each Albuterol/Ipratropium (Ipratropium-Albuterol 3 Ml Neb) 3 ml INHALATION RT-QID FORMERLY [facility], [facility]1983 Last Admin: 06/27/23 15:10 Dose: 3 ml Aripiprazole (Aripiprazole 2 Mg Tab) 2 mg PO DAILY FOR[facility]LY [facility], [facility]1983 Last Admin: 06/27/23 09:32 Dose: 2 mg Atorvastatin Calcium (Atorvastatin 10 Mg Tab) 10 mg PO DAILY [facility], [facility]1983 Last Admin: 06/27/23 09:32 Dose: 10 mg Budesonide (Budesonide 1 Mg/2 Ml Nebu) 1 mg INHALATION RT-BID [facility], [facility]1983 Last Admin: 06/27/23 09:19 Dose: 1 mg Clonazepam (Clonazepam 0.5 Mg Tab) 0.5 mg PO BID [facility], [facility]1983 Last Admin: 06/27/23 09:32 Dose: 0.5 mg Dicyclomine HCl (Dicyclomine 20 Mg Tab) 20 mg PO TID [facility], [facility] Last Admin: 06/27/23 16:41 Dose: 20 mg Enoxaparin Sodium (Enoxaparin 40 Mg/0.4 Ml Syringe) 40 mg SQ DAILY [facility], [facility]–1983 Last Admin: 06/27/23 09:32 Dose: 40 mg Formoterol Fumarate (Formoterol Fumarate 20 Mcg/2 Ml Nebu) 20 mcg INHALATION RT-BID [facility], [facility] Last Admin: 06/27/23 09:21 Dose: 20 mcg Piperacillin Sod/Tazobactam (Sod 3.375 gm/ Sodium Chloride) 100 mls @ 25 mls/hr IVPB Q8H [facility], [facility]; Protocol Last Admin: 06/27/23 14:10 Dose: 25 mls/hr Azithromycin 500 mg/ Sodium (Chloride) 250 mls @ 250 mls/hr IVPB DAILY [facility], [facility]; Protocol Stop: 06/28/23 09:59 Last Admin: 06/27/23 10:27 Dose: 250 mls/hr Vancomycin HCl 1,500 mg/ (Sodium Chloride) 500 mls @ 167 mls/hr IVPB Q12H [facility], [facility]1983 Last Admin: 06/27/23 14:10 Dose: 167 mls/hr Methylprednisolone Sodium Succinate (Methylprednisolone Sod Succi 125 Mg/2 Ml Vial) 60 mg IV Q6HR [facility], [facility] Last Admin: 06/27/23 18:39 Dose: 60 mg Miscellaneous Information (Pneumonia Protocol Utilized 1 Each Misc) 1 each PO ONCE PRN PRN Reason: Per Protocol Miscellaneous Information (Rx Info: Iv Contrast Was Given 1 Each Misc) 1 each MISCELLANE DAILY PRN PRN Reason: Per Protocol Stop: 06/29/23 00:10 Miscellaneous Information (Vancomycin Trough Due 1 Each Misc) 0 each MISCELLANE DIRECTED ONE Stop: 06/28/23 13:01 Descovy ( Emtricitabine/Tenofov Alafenam) 200-25 Mg Tablet 1 each PO DAILY [facility], [facility] Last Admin: 06/27/23 10:33 Dose: 1 each Tivicay ( Dolutegravir Sodium) 50 Mg Tablet 50 each PO DAILY [facility], [facility] Last Admin: 06/27/23 10:33 Dose: 50 each Social history: Lives with her . Smokes half a pack a day for last 47 years. Physical examination: VITAL SIGNS: 98.1, 76, 20, 107 x 60, 90% on 3 L GENERAL: Clinic in bed, short of breath. EYES: Pupils equal. Conjunctiva mariana l. HEENT: External appearance of nose and ears normal, oral cavity grossly normal. NECK: JVD not raised; masses not palpable. HEART: First and second heart sounds are normal; no edema. LUNGS: Respiratory rate increased, diminished breath sound, coarse crackles wheezing ABDOMEN: Soft, nontender, liver spleen not palpable, no masses palpable. PSYCH: AOx3, mood affect a bit anxious. MUSCULOSKELETAL:No Clubbing/cyanosis;muscles-grossly intact INVESTIGATIONS, reviewed in the clinical context: June 26: White count 32 hemoglobin 9.8 platelets 446 potassium 4.4 creatinine 0.49 Procalcitonin 1.10 June 25: White count 42 hemoglobin 13.1 platelets 541 left shift sodium 137 potassium 4 BUN 8 creatinine 0.53 lactic acid 3.2 proBNP 261 troponin I less than 0.012 EKG tracing personally reviewed by me-P pulmonale. Sinus tachycardia. Chest x-ray film personally reviewed by me-dense opacities on the left side Influenza type A, B, RSV, COVID-19: Not detected Assessment plan: -Severe pneumonia multilobar especially on the left side causing sepsis: Slow to respond IV vancomycin, IV Zosyn Being followed by pulmonary -Sepsis from pneumonia -Acute on chronic hypoxic respiratory failure from pneumonia and COPD exacerbation: Slow to respond Initially on BiPAP. Now on nasal cannula -Acute severe COPD exacerbation in ex-smoker: Slow to respond DuoNeb. IV Solu-Medrol Add Mucinex -Hyperlipidemia Lipitor 10 mg a day -Bladder dysfunction Flomax -Anxiety depression Klonopin. Abilify Diabetic change to above. Pulmonary following. Add Mucinex. Sputum for Gram stain culture. Discussed with patient. Care will be resumed by Dr. Saavedra Past Medical History Past Medical History: No Reported History Additional Past Medical History / Comment(s): Has HIV 1. Recent abn lung CT, awaiting f/u. Has colostomy. Had Covid vaccine #1 07/09/20. Colostomy reversal planned for 07/22/20 History of Any Multi-Drug Resistant Organisms: None Reported Past Surgical History: Bowel Resection Additional Past Surgical History / Comment(s): jaw surgery, D&C, fallopian tube exc. Colostomy 06/20/19 est Past Anesthesia/Blood Transfusion Reactions: No Reported Reaction Past Psychological History: No Psychological Hx Reported Smoking Status: Former smoker Past Alcohol Use History: None Reported Past Drug Use History: None Reported
[2023-06-27] MEDS: guaiFENesin 600 MG TABLET.ER PO SCH (21:24)
--- NOTE | 2023-06-27 23:15 | P.PN ---
Subjective Progress Note Date: 06/27/23 Principal diagnosis: Reason for follow-up is pneumonia and HIV Patient is a 62-year-old female past medical history significant for HIV on HAART also with a history of COPD, presented to hospital with acute shortness of breath patient chest x-ray with the complete ossification of the left lung. On today's visit that is 06/27/2023, patient has been afebrile, patient is breathing comfortably today and is down to 3 L nasal cannula oxygen, patient denies having any significant cough no chest pain, denies any nausea no vomiting no abdominal pain or diarrhea. Patient white count is down to 32,000, creatinine 0.49 Objective - Vital Signs Vital signs: Vital Signs Temp 97.9 F 06/27/23 12:25 Pulse 100 06/27/23 12:22 Resp 18 06/27/23 12:22 BP 106/55 06/27/23 12:22 Pulse Ox 94 L 06/27/23 12:22 FiO2 50 06/27/23 09:21 Intake & Output 06/26/23 06/27/23 06/27/23 18:59 06:59 18:59 Intake Total 360 Output Total 500 Balance -500 360 Weight 73.482 kg Intake: Oral 360 Output: Urine 500 Other: Voiding Method External Catheter External Catheter # Voids 2 - Exam GENERAL DESCRIPTION: Middle-aged female lying in bed in no distress RESPIRATORY SYSTEM: Unlabored breathing , decreased breath sounds at bases HEART: S1 S2 regular rate and rhythm , ABDOMEN: Soft , no tenderness EXTREMITIES: No edema feet - Labs CBC & Chem 7: 06/27/23 05:00 06/27/23 05:00 Labs: Abnormal Lab Results - Last 24 Hours (Table) 06/26/23 06/26/23 06/26/23 Range/Units 11:54 11:54 11:54 WBC 42.1 H (3.8-10.6) k/uL RBC (3.80-5.40) m/uL Hgb (11.4-16.0) gm/dL Hct (34.0-46.0) % MCHC 30.3 L (31.0-37.0) g/dL Plt Count 541 H (150-450) k/uL Neutrophils # (1.3-7.7) k/uL Neutrophils # (Manual) 39.90 H (1.3-7.7) k/uL Lymphocytes # (1.0-4.8) k/uL Metamyelocytes # (Man) 0.42 H (0) k/uL PT 9.8 L (10.0-12.5) sec Sodium (137-145) mmol/L Chloride 94 L (98-107) mmol/L Carbon Dioxide 34 H (22-30) mmol/L Creatinine (0.52-1.04) mg/dL Glucose 142 H (74-99) mg/dL Plasma Lactic Acid Jose Armando (0.7-2.0) mmol/L Magnesium 1.5 L (1.6-2.3) mg/dL Procalcitonin (0.02-0.09) ng/mL 06/26/23 06/26/23 06/26/23 Range/Units 11:54 15:14 18:32 WBC (3.8-10.6) k/uL RBC (3.80-5.40) m/uL Hgb (11.4-16.0) gm/dL Hct (34.0-46.0) % MCHC (31.0-37.0) g/dL Plt Count (150-450) k/uL Neutrophils # (1.3-7.7) k/uL Neutrophils # (Manual) (1.3-7.7) k/uL Lymphocytes # (1.0-4.8) k/uL Metamyelocytes # (Man) (0) k/uL PT (10.0-12.5) sec Sodium (137-145) mmol/L Chloride (98-107) mmol/L Carbon Dioxide (22-30) mmol/L Creatinine (0.52-1.04) mg/dL Glucose (74-99) mg/dL Plasma Lactic Acid Jose Armando 3.2 H* 3.2 H* 3.4 H* (0.7-2.0) mmol/L Magnesium (1.6-2.3) mg/dL Procalcitonin (0.02-0.09) ng/mL 06/26/23 06/27/23 06/27/23 Range/Units 21:42 00:32 05:00 WBC (3.8-10.6) k/uL RBC (3.80-5.40) m/uL Hgb (11.4-16.0) gm/dL Hct (34.0-46.0) % MCHC (31.0-37.0) g/dL Plt Count (150-450) k/uL Neutrophils # (1.3-7.7) k/uL Neutrophils # (Manual) (1.3-7.7) k/uL Lymphocytes # (1.0-4.8) k/uL Metamyelocytes # (Man) (0) k/uL PT (10.0-12.5) sec Sodium (137-145) mmol/L Chloride (98-107) mmol/L Carbon Dioxide (22-30) mmol/L Creatinine (0.52-1.04) mg/dL Glucose (74-99) mg/dL Plasma Lactic Acid Jose Armando 3.3 H* 2.6 H* (0.7-2.0) mmol/L Magnesium (1.6-2.3) mg/dL Procalcitonin 1.10 H (0.02-0.09) ng/mL 06/27/23 06/27/23 06/27/23 Range/Units 05:00 05:00 05:00 WBC 32.0 H (3.8-10.6) k/uL RBC 3.32 L (3.80-5.40) m/uL Hgb 9.8 L D (11.4-16.0) gm/dL Hct 32.3 L (34.0-46.0) % MCHC 30.4 L (31.0-37.0) g/dL Plt Count (150-450) k/uL Neutrophils # 30.9 H (1.3-7.7) k/uL Neutrophils # (Manual) (1.3-7.7) k/uL Lymphocytes # 0.4 L (1.0-4.8) k/uL Metamyelocytes # (Man) (0) k/uL PT (10.0-12.5) sec Sodium 135 L (137-145) mmol/L Chloride (98-107) mmol/L Carbon Dioxide (22-30) mmol/L Creatinine 0.49 L (0.52-1.04) mg/dL Glucose 143 H (74-99) mg/dL Plasma Lactic Acid Jose Armando 2.7 H* (0.7-2.0) mmol/L Magnesium (1.6-2.3) mg/dL Procalcitonin (0.02-0.09) ng/mL 06/27/23 Range/Units 09:10 WBC (3.8-10.6) k/uL RBC (3.80-5.40) m/uL Hgb (11.4-16.0) gm/dL Hct (34.0-46.0) % MCHC (31.0-37.0) g/dL Plt Count (150-450) k/uL Neutrophils # (1.3-7.7) k/uL Neutrophils # (Manual) (1.3-7.7) k/uL Lymphocytes # (1.0-4.8) k/uL Metamyelocytes # (Man) (0) k/uL PT (10.0-12.5) sec Sodium (137-145) mmol/L Chloride (98-107) mmol/L Carbon Dioxide (22-30) mmol/L Creatinine (0.52-1.04) mg/dL Glucose (74-99) mg/dL Plasma Lactic Acid Jose Armando 2.5 H* (0.7-2.0) mmol/L Magnesium (1.6-2.3) mg/dL Procalcitonin (0.02-0.09) ng/mL Assessment and Plan (1) Leukocytosis Current Visit: Yes Status: Acute Code(s): D72.829 - ELEVATED WHITE BLOOD CELL COUNT, UNSPECIFIED SNOMED Code(s): 093625761 (2) Pneumonia Current Visit: Yes Status: Acute Code(s): J18.9 - PNEUMONIA, UNSPECIFIED ORGANISM SNOMED Code(s): 240002438 (3) HIV (human immunodeficiency virus infection) Current Visit: No Status: Acute Code(s): B20 - HUMAN IMMUNODEFICIENCY VIRUS [HIV] DISEASE SNOMED Code(s): 00142500 Plan: 1patient presented to hospital with increasing shortness of breath in this patient with evidence of complete opacification of the left lung with a question of possible infectious versus noninfectious etiology as the patient did have significant history of smoking 2-we will try to obtain a sputum elevated inflammatory markers 3-patient did have some clinical improvement and well continue with empiric vanc omycin and Zosyn however watch her kidney function closely with this antibiotic combination 4-patient to continue with Descovy and Tivicay for HIV, await CD4 count Dictation was produced using [employer] dictation software. please excuse any grammatical, word or spelling errors. Time with Patient: Less than 30
[2023-06-28 11:43] LABS: T4/T8 Ratio (CD4:CD8) 0.3 (1.0-3.7)
[2023-06-28 13:41] LABS: African American GFR (CKD) >90 (>60 ml/min/1.73 sqM); Non-African American GFR(CKD) >90 (>60 ml/min/1.73 sqM)
--- NOTE | 2023-06-28 14:20 | P.PN ---
Subjective Progress Note Date: 06/28/23 Patient is a 62-year-old white female with past medical history significant for COPD, HIV positive, former tobacco dependence, bowel obstruction status post resection and colostomy with reversal. Her primary care provider is Dr. Quoc Saavedra. She does follow with a local clinical services director, Dr. Deion Jorge. Of note, the patient states that she was treated 3 weeks ago at [facility] for pneumonia. She states that she was hospitalized for about 2 weeks. On discharge she initially felt better, however yesterday she woke up with acute shortness of breath. No improvement with her rescue albuterol nebs, so she called 911. She is currently sitting up in bed, on BiPAP, with settings 14/6 and FiO2 of 50%. She is alert and oriented, in no acute distress, no signs of CO2 narcosis. She is achieving tidal volumes of 400. Respiratory rate is 20. She has had a persistent congested and productive cough with yellow sputum. Denies any fevers. Denies hemoptysis. Denies chest pain. Chest x-ray on arrival showed near complete opacification of the left lung, likely combination of airspace disease and obstructive atelectasis. I did follow this with a CT of the chest with contrast which showed moderate underlying emphysematous changes, multifocal areas of groundglass opacity and irregular consolidations throughout the left lung, left hilar adenopathy, which may be reactive, underlying nodules and neoplasms were not entirely excluded. No personal history of malignancy. CBC on arrival shows acute leukocytosis with a WBC count of 42.1, otherwise unremarkable. CMP on arrival: Sodium 137, potassium 4, chloride 94, serum bicarb 34, BUN 8, creatinine 0.53, glucose 142. Lactic acid level as high as 3.4 down to 2.6. Troponins less than 0.012. NT proBNP 261. Negative for influenza, RSV, COVID. She has been started on broad-spectrum antibiotics in the form of azithromycin, Zosyn, and vancomycin. She is immunosuppressed, and has HIV positive status. She has been normally maintained on a combination of Tivicay and Descovy. Infectious disease specialist was consulted. Patient c urrently afebrile. She is tolerating BiPAP at this time. Remaining vital signs are stable. The patient was seen today in consultation. The patient is slightly improved compared to yesterday. The patient is less short of breath. The patient has her CD4 count and viral load being checked as the patient is receiving highly active retroviral medication. The patient has consolidation of the left lung consistent with pneumonia. The patient is currently on broad- spectrum antibiotics. The patient is currently on Zosyn and vancomycin and Zithromax combination. The patient remains on IV Solu-Medrol. The patient is on DuoNeb nebulized treatments [id number]. She is on Lovenox for DVT p rophylaxis. The white cell count has dropped compared to yesterday and is currently down to 32 with a hemoglobin of 9.8. Electrolytes are all within normal limits. Lactic acid level is dropped down to 2.2. Procalcitonin level is at 1.1 consistent with a bacterial infection. CAT scan of the chest was also done and it showed moderate emphysematous changes bilaterally and there is a tiny left-sided pleural effusion and areas of groundglass pulmonary filtrates and irregular consolidation involving the left lung consistent with pneumonia. There is also left hilar lymphadenopathy. On today's evaluation of 06/28/2023, I am seeing the patient for a follow-up. The patient is doing well. No specific complaints. She is currently being treated for a pneumonia of the left lung. Noted the patient has HIV and the patient is also being treated with antiretroviral medication. Note that the patient's CD4 count was 51 which is essentially low and she is potentially immunosuppressed. The CD/CD8 count ratio is at 0.3. Nevertheless, despite her lower CD4 count, the presentation is essentially consistent with a bacterial infection as the patient is responding to the current antibiotic coverage. The procalcitonin level at the time of admission was at 1.1. For now, the patient is on a comb ination of vancomycin and Zosyn. Sputum sample was positive for Chana. Blood cultures still pending for now. She is afebrile. She has a pulse ox of 97% on 2 L of oxygen by nasal cannula clinically she improved and she is feeling better compared to yesterday. Objective - Vital Signs Vital signs: Vital Signs Temp 98.3 F 06/28/23 08:00 Pulse 108 H 06/28/23 08:30 Resp 22 06/28/23 08:00 BP 129/76 06/28/23 08:00 Pulse Ox 92 L 04/09/24 08:08 FiO2 50 06/27/23 09:21 Intake & Output 06/27/23 06/28/23 06/28/23 18:59 06:59 18:59 Intake Total 960 480 Output Total 200 900 Balance 760 -420 Intake: Oral 960 480 Output: Urine 200 900 Other: Voiding Method External Catheter External Catheter # Voids 3 - Exam GENERAL EXAM: Alert, 62-year-old white female, on BiPAP, fairly comfortable in no apparent distress. The patient was on 3 L of oxygen by nasal cannula and she was taken off the BiPAP. HEAD: Normocephalic and atraumatic EYES: Normal reaction of pupils, equal size. NOSE: Clear with pink turbinates. THROAT: No erythema or exudates. NECK: No masses, no JVD. CHEST: No chest wall deformity. LUNGS: Equal air entry with left-sided inspiratory crackles and rhonchi. No conversational dyspnea or accessory muscle use.. CVS: S1 and S2 normal with no audible murmur, regular rhythm. No extra heart sounds ABDOMEN: No hepatosplenomegaly, active bowel sounds, no guarding or rigidity. Remote appearing midline abdominal incision. SPINE: No scoliosis or deformity SKIN: No rashes CENTRAL NERVOUS SYSTEM: No focal deficits, tone is normal in all 4 extremities. EXTREMITIES: There is mild nonpitting bilateral ankle edema. No clubbing, or cyanosis. Peripheral pulses are intact. - Labs CBC & Chem 7: 06/27/23 05:00 06/28/23 12:47 Labs: Abnormal Lab Results - Last 24 Hours (Table) 06/27/23 06/27/23 06/27/23 Range/Units 12:27 16:14 18:59 Plasma Lactic Acid Jose Armando 3.7 H* 2.2 H* 2.6 H* (0.7-2.0) mmol/L Microbiology - Last 24 Hours (Table) 06/27/23 10:32 Gram Stain - Preliminary Sputum Sputum Culture - Preliminary Chana albicans 06/26/23 11:45 Blood Culture - Preliminary Blood 06/26/23 11:30 Blood Culture - Preliminary Blood Assessment and Plan Plan: Left-sided community-acquired versus healthcare associated pneumonia/sepsis, previously treated at outside facility. Possibility of opportunistic infection is felt to be less likely as the patient was taken her antiretroviral medication. Procalcitonin level is elevated suggestive of bacterial infection. The patient is currently on a combination of Zosyn and vancomycin and Zithromax. Clinically, the patient is improving. Procalcitonin level is elevated at 1.1. CD4 count is 53 and obvious the patient is immunosuppressed. A portion resting infection is May need to be considered if the patient does not show any clinical improvement. Acute leukocytosis, improving, awaiting labs from today Acute lactic acidosis, improving Acute hypoxic respiratory failure and the patient was taken off the BiPAP and the patient is currently on 2 L of O2 nasal cannula Left hilar lymphadenopathy that needs to be monitored and watched on outpatient basis. May consider PET/CT on outpatient basis. Could be reactive. Could be malignant. Endobronchial ultrasound may be needed if there is persistent adenopathy involving the left hilum. Acute COPD exacerbation, secondary to above Acute on chronic hypoxemic respiratory failure, secondary to above HIV positive status, maintained on a combination of Tivicay and Descovy Chronic obstructive pulmonary disease, reportedly prednisone and oxygen dependent at baseline. Chronic hypoxemic respiratory failure, secondary to above Former tobacco dependence, quitting 3 years ago History of previous bowel resection with colostomy and subsequent reversal Plan: Currently on 2 L of oxygen nasal cannula White cell count is improving, awaiting labs from today including the white cell count Repeat chest x-ray today CD4 count is low and concern opportunistic infection of the patient shows no signs of any improvement meanwhile, the patient was kept on the same antibiotic coverage for now pending further cultures Continue combination of budesonide inhalation, formoterol inhalation, DuoNebs [id number], and IV Solu-Medrol Blood cultures pending. Obtain sputum culture if possible. Procalcitonin level pending. Negative for influenza, RSV, COVID. Prognosis is guarded. We will continue to follow, and additional recommend ations are forthcoming.
[2023-06-28] MEDS: VANCOMYCIN TROUGH DUE 1 EACH MISC MISCELLANE ONE (14:52)
--- NOTE | 2023-06-28 14:53 | P.PN ---
Subjective Progress Note Date: 06/28/23 Principal diagnosis: Reason for follow-up is pneumonia and HIV Patient is a 62-year-old female past medical history significant for HIV on HAART also with a history of COPD, presented to hospital with acute shortness of breath patient chest x-ray with the complete ossification of the left lung. On today's visit that is 06/28/2023,the patient denies any fever or any chills, patient is breathing comfortably and is down to 2 L nasal cannula oxygen the patient denies chest pain shortness of breath cough is decreased intensity, patient denies abdominal pain, no nausea vomiting or diarrhea. Patient did have a creatinine 0.54 no CBC was done today sputum is growing Chana albicans blood cultures pending Objective - Vital Signs Vital signs: Vital Signs Temp 97.8 F 06/28/23 12:00 Pulse 95 06/28/23 12:00 Resp 18 06/28/23 12:00 BP 104/66 06/28/23 12:00 Pulse Ox 97 06/28/23 12:00 FiO2 50 06/27/23 09:21 Intake & Output 06/27/23 06/28/23 06/28/23 18:59 06:59 18:59 Intake Total 960 480 Output Total 200 900 Balance 760 -420 Intake: Oral 960 480 Output: Urine 200 900 Other: Voiding Method External Catheter External Catheter # Voids 3 - Exam GENERAL DESCRIPTION: Middle-aged female lying in bed in no distress RESPIRATORY SYSTEM: Unlabored breathing , decreased breath sounds at bases HEART: S1 S2 regular rate and rhythm , ABDOMEN: Soft , no tenderness EXTREMITIES: No edema feet - Labs CBC & Chem 7: 06/27/23 05:00 06/28/23 12:47 Labs: Abnormal Lab Results - Last 24 Hours (Table) 06/27/23 06/27/23 06/27/23 Range/Units 09:10 16:14 18:59 Plasma Lactic Acid Jose Armando 2.2 H* 2.6 H* (0.7-2.0) mmol/L T-Suppressor Cells 153 L (190-832) cell/ul % CD4 [place] 14 L (35-66) % Absolute CD4 [place] 51 L (443-1471) cell/ul CD4/CD8 Ratio 0.3 L (1.0-3.7) % CD8 Suppressor 43 H (9-37) % Microbiology - Last 24 Hours (Table) 06/27/23 10:32 Gram Stain - Preliminary Sputum Sputum Culture - Preliminary Chana albicans 06/26/23 11:45 Blood Culture - Preliminary Blood 06/26/23 11:30 Blood Culture - Preliminary Blood Assessment and Plan (1) Leukocytosis Current Visit: Yes Status: Acute Code(s): D72.829 - ELEVATED WHITE BLOOD CELL COUNT, UNSPECIFIED SNOMED Code(s): 872230232 (2) Pneumonia Current Visit: Yes Status: Acute Code(s): J18.9 - PNEUMONIA, UNSPECIFIED ORGANISM SNOMED Code(s): 683897308 (3) HIV (human immunodeficiency virus infection) Current Visit: No Status: Acute Code(s): B20 - HUMAN IMMUNODEFICIENCY VIRUS [HIV] DISEASE SNOMED Code(s): 36908003 Plan: 1patient presented to hospital with increasing shortness of breath in this patient with evidence of complete opacification of the left lung with a question of possible infectious versus noninfectious etiology as the patient did have significant history of smoking 2-we will try to obtain a sputum elevated inflammatory markers 3-patient did have some clinical improvement, sputum growing Chana with no MRSA we will discontinue vancomycin continue patient on Zosyn and monitor clinical course closely 4-patient to continue with Descovy and Tivicay for HIV, CD4 count is low at 51.6 HIV viral load and genotype Dictation was produced using [employer] software. please excuse any grammatical, word or spelling errors.
--- NOTE | 2023-06-28 16:16 | XR ---
EXAMINATION TYPE: XR chest 1V portable DATE OF EXAM: 06/28/2023 COMPARISON: 06/27/2023 HISTORY: Pneumonia TECHNIQUE: Single frontal view of the chest is obtained. FINDINGS: A large area of consolidation involving the left upper and lower lobe stable given differe nces in technique. Small left pleural effusion. Tiny right pleural effusion. Basilar subsegmental con solidation. The heart size normal. Underlying COPD. No pneumothorax. IMPRESSION: 1. Diffuse left-sided infiltrate and right lower lobe infiltrate correlate for pneumonia. 2. COPD.
[2023-06-29 05:24] LABS: African American GFR (CKD) >90 (>60 ml/min/1.73 sqM); Non-African American GFR(CKD) >90 (>60 ml/min/1.73 sqM)
--- NOTE | 2023-06-29 07:53 | XR ---
EXAMINATION TYPE: XR chest 1V portable DATE OF EXAM: 06/29/2023 COMPARISON: 06/28/2023 HISTORY: Shortness of breath TECHNIQUE: Single frontal view of the chest is obtained. FINDINGS: Chronic emphysematous change with increased opacity throughout the left lung is redemonstr ated. May be on the basis of postinfectious in etiology. Follow-up to resolution to exclude underlyin g neoplasm. Cardiac silhouette size remains within normal limits. Osseous structures are intact. A pr ominent right hilum. May reflect enlarged pulmonary artery correlate for pulmonary arterial hypertens ion. IMPRESSION: 1. Bilateral infiltrate and small pleural effusion correlate for pneumonia. 2. Prominent pulmonary arteries correlate for pulmonary arterial hypertension. 3. Diffuse emphysematous changes.
[2023-06-29 08:23] LABS: HIV-1 RNA Not detected (Not detected); HIV-1 RNA, Quant <20 Copies/mL (<20); LOG HIV Copies/mL <1.30 (<1.30)
--- NOTE | 2023-06-29 12:10 | P.PN ---
Subjective Progress Note Date: 06/29/23 Patient is a 62-year-old white female with past medical history significant for COPD, HIV positive, former tobacco dependence, bowel obstruction status post resection and colostomy with reversal. Her primary care provider is Dr. Quoc Saavedra. She does follow with a local art objects supervisor, Dr. Deion Jorge. Of note, the patient states that she was treated 3 weeks ago at [facility] for pneumonia. She states that she was hospitalized for about 2 weeks. On discharge she initially felt better, however yesterday she woke up with acute shortness of breath. No improvement with her rescue albuterol nebs, so she called 911. She is currently sitting up in bed, on BiPAP, with settings 14/6 and FiO2 of 50%. She is alert and oriented, in no acute distress, no signs of CO2 narcosis. She is achieving tidal volumes of 400. Respiratory rate is 20. She has had a persistent congested and productive cough with yellow sputum. Denies any fevers. Denies hemoptysis. Denies chest pain. Chest x-ray on arrival showed near complete opacification of the left lung, likely combination of airspace disease and obstructive atelectasis. I did follow this with a CT of the chest with contrast which showed moderate underlying emphysematous changes, multifocal areas of groundglass opacity and irregular consolidations throughout the left lung, left hilar adenopathy, which may be reactive, underlying nodules and neoplasms were not entirely excluded. No personal history of malignancy. CBC on arrival shows acute leukocytosis with a WBC count of 42.1, otherwise unremarkable. CMP on arrival: Sodium 137, potassium 4, chloride 94, serum bicarb 34, BUN 8, creatinine 0.53, glucose 142. Lactic acid level as high as 3.4 down to 2.6. Troponins less than 0.012. NT proBNP 261. Negative for influenza, RSV, COVID. She has been started on broad-spectrum antibiotics in the form of azithromycin, Zosyn, and vancomycin. She is immunosuppressed, and has HIV positive status. She has been normally maintained on a combination of Tivicay and Descovy. Infectious disease specialist was consulted. Patient c urrently afebrile. She is tolerating BiPAP at this time. Remaining vital signs are stable. The patient was seen today in consultation. The patient is slightly improved compared to yesterday. The patient is less short of breath. The patient has her CD4 count and viral load being checked as the patient is receiving highly active retroviral medication. The patient has consolidation of the left lung consistent with pneumonia. The patient is currently on broad- spectrum antibiotics. The patient is currently on Zosyn and vancomycin and Zithromax combination. The patient remains on IV Solu-Medrol. The patient is on DuoNeb nebulized treatments [id number]. She is on Lovenox for DVT p rophylaxis. The white cell count has dropped compared to yesterday and is currently down to 32 with a hemoglobin of 9.8. Electrolytes are all within normal limits. Lactic acid level is dropped down to 2.2. Procalcitonin level is at 1.1 consistent with a bacterial infection. CAT scan of the chest was also done and it showed moderate emphysematous changes bilaterally and there is a tiny left-sided pleural effusion and areas of groundglass pulmonary filtrates and irregular consolidation involving the left lung consistent with pneumonia. There is also left hilar lymphadenopathy. On today's evaluation of 06/28/2023, I am seeing the patient for a follow-up. The patient is doing well. No specific complaints. She is currently being treated for a pneumonia of the left lung. Noted the patient has HIV and the patient is also being treated with antiretroviral medication. Note that the patient's CD4 count was 51 which is essentially low and she is potentially immunosuppressed. The CD/CD8 count ratio is at 0.3. Nevertheless, despite her lower CD4 count, the presentation is essentially consistent with a bacterial infection as the patient is responding to the current antibiotic coverage. The procalcitonin level at the time of admission was at 1.1. For now, the patient is on a comb ination of vancomycin and Zosyn. Sputum sample was positive for Chana. Blood cultures still pending for now. She is afebrile. She has a pulse ox of 97% on 2 L of oxygen by nasal cannula clinically she improved and she is feeling better compared to yesterday. On today's evaluation of 06/29/2023, the patient is doing well. No specific complaints. Repeat chest x-ray from yesterday showed an area of consolidation of the left lung which is essentially improved compared to the earlier chest x- ray was done at the time of admission. Repeat chest x-ray was done today and it shows some residual infiltration of the left lung. Overall x-ray picture is improved. The patient's white cell count is still pending for now. Noted the patient's white cell count was downtrending. The patient remains on broad- spectrum antibiotics with Zosyn and vancomycin. Trough levels were at 16. His CD4 count was low. His viral count was also nondetectable. The patient otherwise is doing well. No specific complaints. The patient is currently on O2 at 2 L/min nasal cannula. No chest pain. No altered mentation. No fever. Continues to be on Lovenox for DVT prophylaxis. Continues to be on DuoNeb u pdrafts. Continues to be on antiretroviral agents. The sputum sample was positive for Chana. Objective - Vital Signs Vital signs: Vital Signs Temp 97.7 F 06/29/23 06:50 Pulse 88 06/29/23 11:32 Resp 17 06/29/23 06:50 BP 129/75 06/29/23 06:50 Pulse Ox 97 06/29/23 07:47 FiO2 50 06/27/23 09:21 Intake & Output 06/28/23 06/29/23 06/29/23 18:59 06:59 18:59 Intake Total 1200 100 Output Total 900 Balance 300 100 Intake: Oral 1200 100 Output: Urine 900 Other: Voiding Method Toilet # Voids 1 - Exam GENERAL EXAM: Alert, 62-year-old white female, on BiPAP, fairly comfortable in no apparent distress. The patient was on 3 L of oxygen by nasal cannula and she was taken off the BiPAP. HEAD: Normocephalic and atraumatic EYES: Normal reaction of pupils, equal size. NOSE: Clear with pink turbinates. THROAT: No erythema or exudates. NECK: No masses, no JVD. CHEST: No chest wall deformity. LUNGS: Equal air entry with left-sided inspiratory crackles and rhonchi. No conversational dyspnea or accessory muscle use.. CVS: S1 and S2 normal with no audible murmur, regular rhythm. No extra heart sounds ABDOMEN: No hepatosplenomegaly, active bowel sounds, no guarding or rigidity. Remote appearing midline abdominal incision. SPINE: No scoliosis or deformity SKIN: No rashes CENTRAL NERVOUS SYSTEM: No focal deficits, tone is normal in all 4 extremities. EXTREMITIES: There is mild nonpitting bilateral ankle edema. No clubbing, or cyanosis. Peripheral pulses are intact. - Labs CBC & Chem 7: 06/27/23 05:00 06/29/23 04:14 Labs: Microbiology - Last 24 Hours (Table) 06/27/23 10:32 Gram Stain - Final Sputum Sputum Culture - Final Chana albicans 06/26/23 11:45 Blood Culture - Preliminary Blood 06/26/23 11:30 Blood Culture - Preliminary Blood 06/27/23 10:32 Nasal Screen MRSA/MSSA - Final Nasal Swab Assessment and Plan Plan: Left-sided community-acquired versus healthcare associated pneumonia/sepsis, previously treated at outside facility. Possibility of opportunistic infection is felt to be less likely as the patient was taken her antiretroviral medication. Procalcitonin level is elevated suggestive of bacterial infection. The patient is currently on a combination of Zosyn and vancomycin and Zithromax. Clinically, the patient is improving. Procalcitonin level is elevated at 1.1. CD4 count is 53 and obvious the patient is immunosuppressed. Noted the patient chest x-ray is improving and this has been noted on the follow-up chest x-ray that was done on 06/28/2023 on 06/29/2023. Clinically patient is also improving. Viral load was undetectable yet the CD4 count was essentially low. Acute leukocytosis, improving, awaiting labs from today Acute lactic acidosis, improving Acute hypoxic respiratory failure and the patient was taken off the BiPAP and the patient is currently on 2 L of O2 nasal cannula Left hilar lymphadenopathy that needs to be monitored and watched on outpatient basis. May consider PET/CT on outpatient basis. Could be reactive. Could be malignant. Endobronchial ultrasound may be needed if there is persistent adenopathy involving the left hilum. Acute COPD exacerbation, secondary to above Acute on chronic hypoxemic respiratory failure, secondary to above HIV positive status, maintained on a combination of Tivicay and Descovy Chronic obstructive pulmonary disease, reportedly prednisone and oxygen dependent at baseline. Chronic hypoxemic respiratory failure, secondary to above Former tobacco dependence, quitting 3 years ago History of previous bowel resection with colostomy and subsequent reversal Plan: Currently on 2 L of oxygen nasal cannula Clinically improving Chest x-ray is also improving White cell count is improving, awaiting labs from today including the white cell count CD4 count is low and concern opportunistic infection of the patient shows no signs of any improvement meanwhile, the patient was kept on the same antibiotic coverage for now pending further cultures Continue combination of budesonide inhalation, formoterol inhalation, DuoNebs [id number] Blood cultures pending. Sputum sample was positive for Chana Repeat procalcitonin level in a.m. negative for influenza, RSV, COVID. The patient will be taken off the IV Solu-Medrol without a prednisone burst taper Prognosis is guarded. We will continue to follow, and additional recommendations are forthcoming.
[2023-06-29] MEDS: predniSONE 20 MG TAB PO SCH (12:35)
[2023-06-29 12:36] LABS: Glucose,Whole Blood 182 mg/dL (70-110)
--- NOTE | 2023-06-29 14:30 | P.PN ---
Subjective Progress Note Date: 06/29/23 Principal diagnosis: Reason for follow-up is pneumonia and HIV Patient is a 62-year-old female past medical history significant for HIV on HAART also with a history of COPD, presented to hospital with acute shortness of breath patient chest x-ray with the complete ossification of the left lung. On today's visit that is 06/29/2023,the patient remains to be afebrile, patient is on 2 L nasal cannula supplemental oxygen, patient mention breathing more comfortably denies any chest pain no worsening cough or sputum production no abdominal pain no diarrhea. Patient HIV RNA came back not detected, sputum is Chana blood culture negative Objective - Vital Signs Vital signs: Vital Signs Temp 98.2 F 06/29/23 13:40 Pulse 79 06/29/23 13:40 Resp 18 06/29/23 13:40 BP 129/77 06/29/23 13:40 Pulse Ox 98 06/29/23 13:40 FiO2 50 06/27/23 09:21 Intake & Output 06/28/23 06/29/23 06/29/23 18:59 06:59 18:59 Intake Total 1200 100 Output Total 900 Balance 300 100 Intake: Oral 1200 100 Output: Urine 900 Other: Voiding Method Toilet # Voids 1 - Exam GENERAL DESCRIPTION: Middle-aged female lying in bed in no distress RESPIRATORY SYSTEM: Unlabored breathing , decreased breath sounds at bases HEART: S1 S2 regular rate and rhythm , ABDOMEN: Soft , no tenderness EXTREMITIES: No edema feet - Labs CBC & Chem 7: 06/27/23 05:00 06/29/23 04:14 Labs: Abnormal Lab Results - Last 24 Hours (Table) 06/29/23 Range/Units 12:35 POC Glucose (mg/dL) 182 H (70-110) mg/dL Microbiology - Last 24 Hours (Table) 06/27/23 10:32 Gram Stain - Final Sputum Sputum Culture - Final Chana albicans 06/26/23 11:45 Blood Culture - Preliminary Blood 06/26/23 11:30 Blood Culture - Preliminary Blood 06/27/23 10:32 Nasal Screen MRSA/MSSA - Final Nasal Swab Assessment and Plan (1) Leukocytosis Current Visit: Yes Status: Acute Code(s): D72.829 - ELEVATED WHITE BLOOD CELL COUNT, UNSPECIFIED SNOMED Code(s): 729619965 (2) Pneumonia Current Visit: Yes Status: Acute Code(s): J18.9 - PNEUMONIA, UNSPECIFIED ORGANISM SNOMED Code(s): 206736692 (3) HIV (human immunodeficiency virus infection) Current Visit: No Status: Acute Code(s): B20 - HUMAN IMMUNODEFICIENCY VIRUS [HIV] DISEASE SNOMED Code(s): 59137648 Plan: 1patient presented to hospital with increasing shortness of breath in this patient with evidence of complete opacification of the left lung with a question of possible infectious versus noninfectious etiology as the patient did have significant history of smoking 2--patient did have some clinical improvement, sputum growing Chana with no MRSA, patient to continue with the Zosyn and finishing therapy with oral Augmentin 4-patient to continue with Descovy and Tivicay for HIV, CD4 count is low at 51.6, however HIV viral load is not detected further management as an outpatient Dictation was produced using [employer] dictation software. please excuse any grammatical, word or spelling errors. Time with Patient: Less than 30
--- NOTE | 2023-06-29 21:11 | PN ---
PROGRESS NOTE SUBJECTIVE: Came in with pneumonia, hypoxemia, acute hypoxemic respiratory failure, severe COPD, O2 dependent at home and reviewed on 06/28/2023. OBJECTIVE: LUNGS: Scattered wheeze, rhonchi. CARDIOVASCULAR: S1, S2. NEUROLOGIC: Cranial nerves intact. PSYCH: She is alert and oriented x3. She is on 2 to 3 L sat in the high 90s. She is sitting up in the chair. ASSESSMENT: Pneumonia, community-acquired pneumonia, COPD, possible hypoxemic respiratory failure secondary to COPD and pneumonia, community-acquired pneumonia, hypoxemic respiratory failure, HIV. She remains on piperacillin, tazobactam, Descovy for HIV, Bentyl for IBS, Perforomist for COPD, DuoNeb for COPD, Abilify for bipolar, possible discharge home in next 24 to 48 hours. Prognosis guarded. MMALANL / BERTHAN: [id number] /
--- NOTE | 2023-06-30 08:22 | XR ---
EXAMINATION TYPE: XR chest 1V portable DATE OF EXAM: 06/30/2023 COMPARISON: 06/29/2023 HISTORY: Abnormal x-ray TECHNIQUE: Single frontal view of the chest is obtained. FINDINGS: Chronic emphysematous change with increased opacity throughout the left lung is redemonstr ated. May be on the basis of postinfectious in etiology. Follow-up to resolution to exclude underlyin g neoplasm. Cardiac silhouette size remains within normal limits. Osseous structures are intact. A pr ominent right hilum. May reflect enlarged pulmonary artery correlate for pulmonary arterial hypertens ion. Prominent left hilum likely also reflects the CT reported history of pathologic adenopathy. 1.2 cm nodule overlying the left clavicle in the left lung apex. IMPRESSION: 1. Stable bilateral infiltrates and small pleural effusion. Correlate for pneumonia. 2. There is a nodule overlying the left clavicle in the left apex measuring 1.2 cm. Prominence of the left hilum likely reflects the reported CT finding of adenopathy.
[2023-06-30 12:58] VITALS: BMI 28.8
[2023-06-30 13:49] LABS: Basophils % (A) 0 %; Eosinophils # (A) 0.1 k/uL (0-0.7); Eosinophils % (A) 1 %; HCT 31.5 % (34.0-46.0); HGB 9.4 gm/dL (11.4-16.0); Hypochromasia Marked; Lymphocytes # (A) 0.3 k/uL (1.0-4.8); Lymphocytes % (A) 3 %; MCH 29.7 pg (25.0-35.0); MCHC 29.9 g/dL (31.0-37.0); MCV 99.4 fL (80.0-100.0); Macrocytosis Slight; Monocytes # (A) 0.4 k/uL (0-1.0); Monocytes % (A) 4 %; Neutrophils # (A) 10.7 k/uL (1.3-7.7); Neutrophils % (A) 93 %; Platelet Count 418 k/uL (150-450); RBC 3.17 m/uL (3.80-5.40); RDW 15.2 % (11.5-15.5); WBC 11.6 k/uL (3.8-10.6)
--- NOTE | 2023-06-30 15:41 | P.PN ---
Subjective Progress Note Date: 06/30/23 Patient is a 62-year-old white female with past medical history significant for COPD, HIV positive, former tobacco dependence, bowel obstruction status post resection and colostomy with reversal. Her primary care provider is Dr. Quoc Saavedra. She does follow with a local cooler man, Dr. Deion Jorge. Of note, the patient states that she was treated 3 weeks ago at [facility] for pneumonia. She states that she was hospitalized for about 2 weeks. On discharge she initially felt better, however yesterday she woke up with acute shortness of breath. No improvement with her rescue albuterol nebs, so she called 911. She is currently sitting up in bed, on BiPAP, with settings 14/6 and FiO2 of 50%. She is alert and oriented, in no acute distress, no signs of CO2 narcosis. She is achieving tidal volumes of 400. Respiratory rate is 20. She has had a persistent congested and productive cough with yellow sputum. Denies any fevers. Denies hemoptysis. Denies chest pain. Chest x-ray on arrival showed near complete opacification of the left lung, likely combination of airspace disease and obstructive atelectasis. I did follow this with a CT of the chest with contrast which showed moderate underlying emphysematous changes, multifocal areas of groundglass opacity and irregular consolidations throughout the left lung, left hilar adenopathy, which may be reactive, underlying nodules and neoplasms were not entirely excluded. No personal history of malignancy. CBC on arrival shows acute leukocytosis with a WBC count of 42.1, otherwise unremarkable. CMP on arrival: Sodium 137, potassium 4, chloride 94, serum bicarb 34, BUN 8, creatinine 0.53, glucose 142. Lactic acid level as high as 3.4 down to 2.6. Troponins less than 0.012. NT proBNP 261. Negative for influenza, RSV, COVID. She has been started on broad-spectrum antibiotics in the form of azithromycin, Zosyn, and vancomycin. She is immunosuppressed, and has HIV positive status. She has been normally maintained on a combination of Tivicay and Descovy. Infectious disease specialist was consulted. Patient c urrently afebrile. She is tolerating BiPAP at this time. Remaining vital signs are stable. The patient was seen today in consultation. The patient is slightly improved compared to yesterday. The patient is less short of breath. The patient has her CD4 count and viral load being checked as the patient is receiving highly active retroviral medication. The patient has consolidation of the left lung consistent with pneumonia. The patient is currently on broad- spectrum antibiotics. The patient is currently on Zosyn and vancomycin and Zithromax combination. The patient remains on IV Solu-Medrol. The patient is on DuoNeb nebulized treatments [id number]. She is on Lovenox for DVT p rophylaxis. The white cell count has dropped compared to yesterday and is currently down to 32 with a hemoglobin of 9.8. Electrolytes are all within normal limits. Lactic acid level is dropped down to 2.2. Procalcitonin level is at 1.1 consistent with a bacterial infection. CAT scan of the chest was also done and it showed moderate emphysematous changes bilaterally and there is a tiny left-sided pleural effusion and areas of groundglass pulmonary filtrates and irregular consolidation involving the left lung consistent with pneumonia. There is also left hilar lymphadenopathy. On today's evaluation of 06/28/2023, I am seeing the patient for a follow-up. The patient is doing well. No specific complaints. She is currently being treated for a pneumonia of the left lung. Noted the patient has HIV and the patient is also being treated with antiretroviral medication. Note that the patient's CD4 count was 51 which is essentially low and she is potentially immunosuppressed. The CD/CD8 count ratio is at 0.3. Nevertheless, despite her lower CD4 count, the presentation is essentially consistent with a bacterial infection as the patient is responding to the current antibiotic coverage. The procalcitonin level at the time of admission was at 1.1. For now, the patient is on a comb ination of vancomycin and Zosyn. Sputum sample was positive for Chana. Blood cultures still pending for now. She is afebrile. She has a pulse ox of 97% on 2 L of oxygen by nasal cannula clinically she improved and she is feeling better compared to yesterday. On today's evaluation of 06/29/2023, the patient is doing well. No specific complaints. Repeat chest x-ray from yesterday showed an area of consolidation of the left lung which is essentially improved compared to the earlier chest x- ray was done at the time of admission. Repeat chest x-ray was done today and it shows some residual infiltration of the left lung. Overall x-ray picture is improved. The patient's white cell count is still pending for now. Noted the patient's white cell count was downtrending. The patient remains on broad- spectrum antibiotics with Zosyn and vancomycin. Trough levels were at 16. His CD4 count was low. His viral count was also nondetectable. The patient otherwise is doing well. No specific complaints. The patient is currently on O2 at 2 L/min nasal cannula. No chest pain. No altered mentation. No fever. Continues to be on Lovenox for DVT prophylaxis. Continues to be on DuoNeb u pdrafts. Continues to be on antiretroviral agents. The sputum sample was positive for Chana. On today's evaluation of 06/30/2023, the patient is doing well. Repeat chest x- ray was also done today that showed stable and improved left lower lobe pulmonary filtration. Questionable apex and left measuring around 1 cm. The patient otherwise has no specific complaints. The patient has no fever and she is hemodynamically stable and pulse ox is improved 99% on room air oxygen. Also, the white cell count is currently down to 11.6 with a hemoglobin 11.4 and a platelet count of 418. Awake and alert and communicating. No altered mentation at this point in time. The viral load regarding HIV was nondetectable. The patient continues to receive hide active active retroviral treatment. No significant shortness of breath at this point in time. The patient has a low CD4 count of 51.6. This will be managed further on an outpatient basis. Her pneumonia is essentially improving at this point in time. The patient had a sputum sample that showed Chana. The patient remains on Zosyn. Objective - Vital Signs Vital signs: Vital Signs Temp 98.2 F 06/30/23 12:52 Pulse 86 06/30/23 12:55 Resp 20 06/30/23 13:28 BP 138/82 06/30/23 12:52 Pulse Ox 100 06/30/23 12:52 FiO2 50 06/27/23 09:21 Intake & Output 06/29/23 06/30/23 06/30/23 18:59 06:59 18:59 Intake Total 100 Balance 100 Weight 78.6 kg 78.6 kg Intake: Oral 100 Other: Voiding Method Toilet Toilet # Voids 3 2 - Exam GENERAL EXAM: Alert, 62-year-old white female, on room air oxygen, no significant respiratory distress HEAD: Normocephalic and atraumatic EYES: Normal reaction of pupils, equal size. NOSE: Clear with pink turbinates. THROAT: No erythema or exudates. NECK: No masses, no JVD. CHEST: No chest wall deformity. LUNGS: Equal air entry with left-sided inspiratory crackles and rhonchi. No conversational dyspnea or accessory muscle use.. CVS: S1 and S2 normal with no audible murmur, regular rhythm. No extra heart sounds ABDOMEN: No hepatosplenomegaly, active bowel sounds, no guarding or rigidity. Remote appearing midline abdominal incision. SPINE: No scoliosis or deformity SKIN: No rashes CENTRAL NERVOUS SYSTEM: No focal deficits, tone is normal in all 4 extremities. EXTREMITIES: There is mild nonpitting bilateral ankle edema. No clubbing, or cyanosis. Peripheral pulses are intact. - Labs CBC & Chem 7: 06/30/23 13:08 06/29/23 04:14 Labs: Abnormal Lab Results - Last 24 Hours (Table) 06/29/23 06/30/23 Range/Units 04:14 13:08 WBC 11.6 H (3.8-10.6) k/uL RBC 3.17 L (3.80-5.40) m/uL Hgb 9.4 L (11.4-16.0) gm/dL Hct 31.5 L (34.0-46.0) % MCHC 29.9 L (31.0-37.0) g/dL Neutrophils # 10.7 H (1.3-7.7) k/uL Lymphocytes # 0.3 L (1.0-4.8) k/uL Procalcitonin 0.38 H (0.02-0.09) ng/mL Microbiology - Last 24 Hours (Table) 06/26/23 11:45 Blood Culture - Preliminary Blood 06/26/23 11:30 Blood Culture - Preliminary Blood Assessment and Plan Plan: Left-sided community-acquired versus healthcare associated pneumonia/sepsis, previously treated at outside facility. Possibility of opportunistic infection is felt to be less likely as the patient was taken her antiretroviral medication. Procalcitonin level is elevated suggestive of bacterial infection. The patient is currently on a combination of Zosyn and vancomycin and Zithromax. Clinically, the patient is improving. Procalcitonin level is elevated at 1.1. CD4 count is 53 and obvious the patient is immunosuppressed. Noted the patient chest x-ray is improving and this has been noted on the follow-up chest x-ray that was done on 06/28/2023 on 06/29/2023. Clinically patient is also improving. Viral load was undetectable yet the CD4 count was essentially low. Acute leukocytosis, improved and the white cell count is normalized Acute lactic acidosis, improving Acute hypoxic respiratory failure and the patient off BiPAP, off oxygen and patient is currently on room air oxygen Left hilar lymphadenopathy that needs to be monitored and watched on outpatient basis. May consider PET/CT on outpatient basis. Could be reactive. Could be malignant. Endobronchial ultrasound may be needed if there is persistent adenopathy involving the left hilum. Acute COPD exacerbation, secondary to above Acute on chronic hypoxemic respiratory failure, secondary to above HIV positive status, maintained on a combination of Tivicay and Descovy Chronic obstructive pulmonary disease, reportedly prednisone and oxygen dependent at baseline. Chronic hypoxemic respiratory failure, secondary to above Former tobacco dependence, quitting 3 years ago History of previous bowel resection with colostomy and subsequent reversal Plan: Currently on room air oxygen Clinically improving Chest x-ray is also improving White cell count is improving, essentially normalized CD4 count is low, viral load is undetectable Continue combination of budesonide inhalation, formoterol inhalation, DuoNebs [id number] Blood cultures pending. Sputum sample was positive for Chana Repeat procalcitonin level in a.m. negative for influenza, RSV, COVID is improving Prednisone burst taper Choice of oral antibiotics per ID Possible discharge today or within next 24 hours.
--- NOTE | 2023-06-30 21:15 | PN ---
PROGRESS NOTE SUBJECTIVE: The patient is having community-acquired pneumonia, COPD exacerbation. OBJECTIVE: VITAL SIGNS: Blood pressure 145/90, O2 98% on 2 L, temp 98.1, pulse 80, and respiratory rate 14. CARDIOVASCULAR: S1, S2. LUNGS: Wheezes x4. HEMATOLOGY: Negative for Homans. EXTREMITIES: No edema. White count is 11.6, hemoglobin is 9.4. Procalcitonin 0.38. Sugars are 182. HIV RNA is negative, not detected. ASSESSMENT: Community-acquired pneumonia, acute hypoxemic respiratory failure, COPD exacerbation, pulmonary hypertension. She is doing well. A 1 cm home pressure spot on the apex. No specific complaints. Hemoglobin went from 6 to 11.4, now is 9.4, viral load for HIV is nondetectable, low CD count of 15.6. Pneumonia is improved. Sputum shows Chana, remains on Zosyn. She does have community acquired pneumonia versus aspiration sepsis, HIV. Procalcitonin is still elevated. She is on Zosyn, vancomycin, Zithromax, clinically improving. Procalcitonin is down from 1.1 to 0.34. CD4 count 53. She is improving. Viral load is undetectable. Lactic acidosis improved, hypoxemic respiratory failure improved, off the BiPAP. Get a PET scan as an outpatient for left hilar lymphadenopathy, COPD exacerbation of chronic hypoxic respiratory failure, HIV positive, Metformin, nicotine addiction. Started on formoterol, DuoNeb, budesonide, and blood cultures pending. Her sputum sample positive for Chana. Repeat procalcitonin in the morning. Negative RSV, flu, influenza, COVID. Prednisone burst taper, possible oral antibiotics on discharge. Prognosis guarded. Wait for Megha to clear for discharge. MMODL / IJN: [id number] /
--- NOTE | 2023-07-01 08:33 | P.PN ---
Subjective Progress Note Date: 06/30/23 Principal diagnosis: Reason for follow-up is pneumonia and HIV Patient is a 62-year-old female past medical history significant for HIV on HAART also with a history of COPD, presented to hospital with acute shortness of breath patient chest x-ray with the complete ossification of the left lung. On today's visit that is 06/30/2023, the patient continues to be afebrile, the patient is on 2 L nasal cannula oxygen and breathing comfortably, the Pt denies having any chest pain and cough has decreased intensity mostly dry in nature, the patient denies having any abdominal pain no vomiting or any diarrhea, mention feeling slightly anxious today. The patient white count is down to 11.6 creatinine 0.62 sputum with Chana blood culture negative Objective - Vital Signs Vital signs: Vital Signs Temp 97.7 F 06/30/23 07:08 Pulse 86 06/30/23 12:55 Resp 20 06/30/23 07:08 BP 134/77 06/30/23 07:08 Pulse Ox 97 06/30/23 09:41 FiO2 50 06/27/23 09:21 Intake & Output 06/29/23 06/30/23 06/30/23 18:59 06:59 18:59 Intake Total 100 Balance 100 Weight 78.6 kg 78.6 kg Intake: Oral 100 Other: Voiding Method Toilet # Voids 3 2 - Exam GENERAL DESCRIPTION: Middle-aged female lying in bed in no distress RESPIRATORY SYSTEM: Unlabored breathing , decreased breath sounds at bases HEART: S1 S2 regular rate and rhythm , ABDOMEN: Soft , no tenderness EXTREMITIES: No edema feet - Labs CBC & Chem 7: 06/30/23 13:08 06/29/23 04:14 Labs: Abnormal Lab Results - Last 24 Hours (Table) 06/29/23 Range/Units 04:14 Procalcitonin 0.38 H (0.02-0.09) ng/mL Microbiology - Last 24 Hours (Table) 06/26/23 11:45 Blood Culture - Preliminary Blood 06/26/23 11:30 Blood Culture - Preliminary Blood 06/27/23 10:32 Gram Stain - Final Sputum Sputum Culture - Final Chana albicans Assessment and Plan (1) Leukocytosis Current Visit: Yes Status: Acute Code(s): D72.829 - ELEVATED WHITE BLOOD CELL COUNT, UNSPECIFIED SNOMED Code(s): 351328403 (2) Pneumonia Current Visit: Yes Status: Acute Code(s): J18.9 - PNEUMONIA, UNSPECIFIED ORGANISM SNOMED Code(s): 990183579 (3) HIV (human immunodeficiency virus infection) Current Visit: No Status: Acute Code(s): B20 - HUMAN IMMUNODEFICIENCY VIRUS [HIV] DISEASE SNOMED Code(s): 92243498 Plan: 1patient presented to hospital with increasing shortness of breath in this patient with evidence of complete opacification of the left lung with a question of possible infectious versus noninfectious etiology as the patient did have significant history of smoking 2--patient did have some clinical improvement, sputum growing Chana with no MRSA, patient to continue with the Zosyn however will be able to finish therapy with oral antibiotics 4-patient with HIV, CD4 count is low at 51.6, however HIV viral load is not detected, to continue with Descovy and Tijerilyn Dictation was produced using [employer] dictation software. please excuse any grammatical, word or spelling errors. Time with Patient: Less than 30
[2023-07-01 08:55] LABS: Basophils # (A) 0.02 X 10*3/uL (0.00-0.10); Basophils % (A) 0.3 %; Eosinophils # (A) 0 X 10*3/uL (0.04-0.35); Eosinophils % (A) 0 %; HCT 28.3 % (37.2-46.3); HGB 8.5 g/dL (12.0-15.0); Lymphocytes # (A) 0.65 X 10*3/uL (0.90-5.00); Lymphocytes % (A) 9.6 %; MCH 29.1 pg (27.0-32.0); MCV 96.9 FL (80.0-97.0); Mean Platelet Volume 9.7 FL (9.5-12.2); Monocytes # (A) 0.45 X 10*3/uL (0.20-1.00); Monocytes % (A) 6.6 %; NRBC Per 100 WBC 0 X 10*3/uL (0.00-0.01); Neutrophils # (A) 5.49 X 10*3/uL (1.80-7.70); Neutrophils % (A) 81.1 %; Platelet Count 437 X 10*3/uL (140-440); RBC 2.92 X 10*6/uL (4.10-5.20); RDW 15.4 % (11.5-14.5); WBC 6.77 X 10*3/uL (4.50-10.00)
[2023-07-01 09:00] LABS: ALT 9 U/L (8-44); AST <5 U/L (13-35); Albumin 3.4 g/dL (3.8-4.9); Alkaline Phosphatase 49 U/L (41-126); BUN/Creat Ratio 16.43 Ratio (12.00-20.00); Blood Urea Nitrogen 11.5 mg/dL (9.0-27.0); Carbon Dioxide 27.9 mmol/L (21.6-31.8); Chloride 101 mmol/L (96-109); Glucose 85 mg/dL (70-110); Potassium 4.4 mmol/L (3.5-5.5); Sodium 138 mmol/L (135-145); Total Bilirubin <0.2 mg/dL (0.3-1.2); Total Protein 5.4 g/dL (6.2-8.2)
--- NOTE | 2023-07-01 13:19 | P.PN ---
Subjective Progress Note Date: 07/01/23 Principal diagnosis: Reason for follow-up is pneumonia and HIV Patient is a 62-year-old female past medical history significant for HIV on HAART also with a history of COPD, presented to hospital with acute shortness of breath patient chest x-ray with the complete ossification of the left lung. On today's visit that is 07/01/2023, Patient is afebrile patient is currently on room air and denies having any chest pain cough I decreased intensity no nausea vomiting no abdominal pain or diarrhea feeling better. Patient white count is down to 6.77, creatinine 0.7 sputum culture has been Chana Objective - Vital Signs Vital signs: Vital Signs Temp 97.9 F 07/01/23 07:19 Pulse 100 07/01/23 11:33 Resp 15 07/01/23 08:54 BP 126/83 07/01/23 07:19 Pulse Ox 94 L 07/01/23 07:54 FiO2 50 06/27/23 09:21 Intake & Output 06/30/23 07/01/23 07/01/23 18:59 06:59 18:59 Weight 78.6 kg 79 kg Other: Voiding Method Toilet Toilet # Voids 3 1 - Exam GENERAL DESCRIPTION: Middle-aged female lying in bed in no distress RESPIRATORY SYSTEM: Unlabored breathing , decreased breath sounds at bases HEART: S1 S2 regular rate and rhythm , ABDOMEN: Soft , no tenderness EXTREMITIES: No edema feet - Labs CBC & Chem 7: 07/01/23 05:44 07/01/23 05:36 Labs: Abnormal Lab Results - Last 24 Hours (Table) 06/30/23 07/01/23 07/01/23 Range/Units 13:08 05:36 05:44 WBC 11.6 H (3.8-10.6) k/uL RBC 3.17 L 2.92 L (3.80-5.40) m/uL Hgb 9.4 L 8.5 L (11.4-16.0) gm/dL Hct 31.5 L 28.3 L (34.0-46.0) % MCHC 29.9 L 30.0 L (31.0-37.0) g/dL RDW 15.4 H (11.5-14.5) % Immature Gran # 0.16 H (0.00-0.04) X 10*3/uL Neutrophils # 10.7 H (1.3-7.7) k/uL Lymphocytes # 0.3 L 0.65 L (1.0-4.8) k/uL Eosinophils # 0 L (0.04-0.35) X 10*3/uL Total Bilirubin <0.2 L (0.3-1.2) mg/dL AST <5 L (13-35) U/L Total Protein 5.4 L (6.2-8.2) g/dL Albumin 3.4 L (3.8-4.9) g/dL Assessment and Plan (1) Leukocytosis Current Visit: Yes Status: Acute Code(s): D72.829 - ELEVATED WHITE BLOOD CELL COUNT, UNSPECIFIED SNOMED Code(s): 591950441 (2) Pneumonia Current Visit: Yes Status: Acute Code(s): J18.9 - PNEUMONIA, UNSPECIFIED ORGANISM SNOMED Code(s): 943512289 (3) HIV (human immunodeficiency virus infection) Current Visit: No Status: Acute Code(s): B20 - HUMAN IMMUNODEFICIENCY VIRUS [HIV] DISEASE SNOMED Code(s): 01471339 Plan: 1patient presented to hospital with increasing shortness of breath in this patient with evidence of complete opacification of the left lung with a question of possible infectious versus noninfectious etiology as the patient did have significant history of smoking 2--patient did have some clinical improvement, sputum growing Chana with no MRSA, patient to continue with the Zosyn, plan is to finish therapy with a week course of Augmentin on discharge. And close outpatient follow-up 4-patient with HIV, CD4 count is low at 51.6, however HIV viral load is not detected, to continue with Candi, advised to follow-up in the office in a week or 2 Dictation was produced using [employer] dictation software. please excuse any grammatical, word or spelling errors. Time with Patient: Less than 30
[2023-07-01] MEDS: FUROSEMIDE 40 MG TAB PO SCH (14:35)
[2023-07-01 15:42] VITALS: BP 134/76; TEMP 98
[2023-07-01 15:43] VITALS: RESP 16
--- NOTE | 2023-07-01 15:45 | P.PN ---
Subjective Progress Note Date: 07/01/23 Patient is a 62-year-old white female with past medical history significant for COPD, HIV positive, former tobacco dependence, bowel obstruction status post resection and colostomy with reversal. Her primary care provider is Dr. Quoc Saavedra. She does follow with a local marketing designer, Dr. Deion Jorge. Of note, the patient states that she was treated 3 weeks ago at [facility] for pneumonia. She states that she was hospitalized for about 2 weeks. On discharge she initially felt better, however yesterday she woke up with acute shortness of breath. No improvement with her rescue albuterol nebs, so she called 911. She is currently sitting up in bed, on BiPAP, with settings 14/6 and FiO2 of 50%. She is alert and oriented, in no acute distress, no signs of CO2 narcosis. She is achieving tidal volumes of 400. Respiratory rate is 20. She has had a persistent congested and productive cough with yellow sputum. Denies any fevers. Denies hemoptysis. Denies chest pain. Chest x-ray on arrival showed near complete opacification of the left lung, likely combination of airspace disease and obstructive atelectasis. I did follow this with a CT of the chest with contrast which showed moderate underlying emphysematous changes, multifocal areas of groundglass opacity and irregular consolidations throughout the left lung, left hilar adenopathy, which may be reactive, underlying nodules and neoplasms were not entirely excluded. No personal history of malignancy. CBC on arrival shows acute leukocytosis with a WBC count of 42.1, otherwise unremarkable. CMP on arrival: Sodium 137, potassium 4, chloride 94, serum bicarb 34, BUN 8, creatinine 0.53, glucose 142. Lactic acid level as high as 3.4 down to 2.6. Troponins less than 0.012. NT proBNP 261. Negative for influenza, RSV, COVID. She has been started on broad-spectrum antibiotics in the form of azithromycin, Zosyn, and vancomycin. She is immunosuppressed, and has HIV positive status. She has been normally maintained on a combination of Tivicay and Descovy. Infectious disease specialist was consulted. Patient c urrently afebrile. She is tolerating BiPAP at this time. Remaining vital signs are stable. The patient was seen today in consultation. The patient is slightly improved compared to yesterday. The patient is less short of breath. The patient has her CD4 count and viral load being checked as the patient is receiving highly active retroviral medication. The patient has consolidation of the left lung consistent with pneumonia. The patient is currently on broad- spectrum antibiotics. The patient is currently on Zosyn and vancomycin and Zithromax combination. The patient remains on IV Solu-Medrol. The patient is on DuoNeb nebulized treatments [id number]. She is on Lovenox for DVT p rophylaxis. The white cell count has dropped compared to yesterday and is currently down to 32 with a hemoglobin of 9.8. Electrolytes are all within normal limits. Lactic acid level is dropped down to 2.2. Procalcitonin level is at 1.1 consistent with a bacterial infection. CAT scan of the chest was also done and it showed moderate emphysematous changes bilaterally and there is a tiny left-sided pleural effusion and areas of groundglass pulmonary filtrates and irregular consolidation involving the left lung consistent with pneumonia. There is also left hilar lymphadenopathy. On today's evaluation of 06/28/2023, I am seeing the patient for a follow-up. The patient is doing well. No specific complaints. She is currently being treated for a pneumonia of the left lung. Noted the patient has HIV and the patient is also being treated with antiretroviral medication. Note that the patient's CD4 count was 51 which is essentially low and she is potentially immunosuppressed. The CD/CD8 count ratio is at 0.3. Nevertheless, despite her lower CD4 count, the presentation is essentially consistent with a bacterial infection as the patient is responding to the current antibiotic coverage. The procalcitonin level at the time of admission was at 1.1. For now, the patient is on a comb ination of vancomycin and Zosyn. Sputum sample was positive for Chana. Blood cultures still pending for now. She is afebrile. She has a pulse ox of 97% on 2 L of oxygen by nasal cannula clinically she improved and she is feeling better compared to yesterday. On today's evaluation of 06/29/2023, the patient is doing well. No specific complaints. Repeat chest x-ray from yesterday showed an area of consolidation of the left lung which is essentially improved compared to the earlier chest x- ray was done at the time of admission. Repeat chest x-ray was done today and it shows some residual infiltration of the left lung. Overall x-ray picture is improved. The patient's white cell count is still pending for now. Noted the patient's white cell count was downtrending. The patient remains on broad- spectrum antibiotics with Zosyn and vancomycin. Trough levels were at 16. His CD4 count was low. His viral count was also nondetectable. The patient otherwise is doing well. No specific complaints. The patient is currently on O2 at 2 L/min nasal cannula. No chest pain. No altered mentation. No fever. Continues to be on Lovenox for DVT prophylaxis. Continues to be on DuoNeb u pdrafts. Continues to be on antiretroviral agents. The sputum sample was positive for Chana. On today's evaluation of 06/30/2023, the patient is doing well. Repeat chest x- ray was also done today that showed stable and improved left lower lobe pulmonary filtration. Questionable apex and left measuring around 1 cm. The patient otherwise has no specific complaints. The patient has no fever and she is hemodynamically stable and pulse ox is improved 99% on room air oxygen. Also, the white cell count is currently down to 11.6 with a hemoglobin 11.4 and a platelet count of 418. Awake and alert and communicating. No altered mentation at this point in time. The viral load regarding HIV was nondetectable. The patient continues to receive hide active active retroviral treatment. No significant shortness of breath at this point in time. The patient has a low CD4 count of 51.6. This will be managed further on an outpatient basis. Her pneumonia is essentially improving at this point in time. The patient had a sputum sample that showed Chana. The patient remains on Zosyn. On today's evaluation of 07/01/2023, the patient has no specific complaints. Chest x-ray as mentioned from yesterday showed clearing of the left lung pulm infiltrate. Clinically patient is improved. The white cell count has dropped from as high as 42,000 down to 6.7. Hemoglobin is at 8.5. Platelet count is at 437. Electrolytes are all within normal limits. The patient remains on IV Zosyn. Discussed the case with infectious disease and the patient should be able to get home on Augmentin. Oxygenation is also stable on 2 L. Hemodynamically stable and the patient is afebrile for now. Objective - Vital Signs Vital signs: Vital Signs Temp 97.9 F 07/01/23 07:19 Pulse 100 07/01/23 11:33 Resp 15 07/01/23 08:54 BP 126/83 07/01/23 07:19 Pulse Ox 94 L 07/01/23 07:54 FiO2 50 06/27/23 09:21 Intake & Output 06/30/23 07/01/23 07/01/23 18:59 06:59 18:59 Weight 78.6 kg 79 kg Other: Voiding Method Toilet Toilet # Voids 3 1 - Exam GENERAL EXAM: Alert, 62-year-old white female, on room air oxygen, no significant respiratory distress HEAD: Normocephalic and atraumatic EYES: Normal reaction of pupils, equal size. NOSE: Clear with pink turbinates. THROAT: No erythema or exudates. NECK: No masses, no JVD. CHEST: No chest wall deformity. LUNGS: Equal air entry with left-sided inspiratory crackles and rhonchi. No conversational dyspnea or accessory muscle use.. CVS: S1 and S2 normal with no audible murmur, regular rhythm. No extra heart s ounds ABDOMEN: No hepatosplenomegaly, active bowel sounds, no guarding or rigidity. Remote appearing midline abdominal incision. SPINE: No scoliosis or deformity SKIN: No rashes CENTRAL NERVOUS SYSTEM: No focal deficits, tone is normal in all 4 extremities. EXTREMITIES: There is mild nonpitting bilateral ankle edema. No clubbing, or cyanosis. Peripheral pulses are intact. - Labs CBC & Chem 7: 07/01/23 05:44 07/01/23 05:36 Labs: Abnormal Lab Results - Last 24 Hours (Table) 06/30/23 07/01/23 07/01/23 Range/Units 13:08 05:36 05:44 WBC 11.6 H (3.8-10.6) k/uL RBC 3.17 L 2.92 L (3.80-5.40) m/uL Hgb 9.4 L 8.5 L (11.4-16.0) gm/dL Hct 31.5 L 28.3 L (34.0-46.0) % MCHC 29.9 L 30.0 L (31.0-37.0) g/dL RDW 15.4 H (11.5-14.5) % Immature Gran # 0.16 H (0.00-0.04) X 10*3/uL Neutrophils # 10.7 H (1.3-7.7) k/uL Lymphocytes # 0.3 L 0.65 L (1.0-4.8) k/uL Eosinophils # 0 L (0.04-0.35) X 10*3/uL Total Bilirubin <0.2 L (0.3-1.2) mg/dL AST <5 L (13-35) U/L Total Protein 5.4 L (6.2-8.2) g/dL Albumin 3.4 L (3.8-4.9) g/dL Assessment and Plan Plan: Left-sided community-acquired versus healthcare associated pneumonia/sepsis, previously treated at outside facility. Possibility of opportunistic infection is felt to be less likely as the patient was taken her antiretroviral medication. Procalcitonin level is elevated suggestive of bacterial infection. The patient is currently on a combination of Zosyn and vancomycin and Zithromax. Clinically, the patient is improving. Procalcitonin level is elevated at 1.1. CD4 count is 53 and obvious the patient is immunosuppressed. Noted the patient chest x-ray is improving and this has been noted on the follow-up chest x-ray that was done on 06/28/2023 on 06/29/2023. Clinically patient is also improving. Viral load was undetectable yet the CD4 count was essentially low. Clinically the patient is improved. Procalcitonin level is dropped down to 0.38. Chest x- ray showing clearing of the left lung pulm infiltrate in the white cell count also has normalized. Acute leukocytosis, improved and the white cell count is normalized Acute lactic acidosis, improving Acute hypoxic respiratory failure and the patient off BiPAP, off oxygen and patient is currently on 2 L of oxygen nasal cannula Left hilar lymphadenopathy that needs to be monitored and watched on outpatient basis. May consider PET/CT on outpatient basis. Could be reactive. Could be malignant. Endobronchial ultrasound may be needed if there is persistent adeno filiberto involving the left hilum. Acute COPD exacerbation, secondary to above Acute on chronic hypoxemic respiratory failure, secondary to above HIV positive status, maintained on a combination of Tivicay and Descovy Chronic obstructive pulmonary disease, reportedly prednisone and oxygen dependen t at baseline. Chronic hypoxemic respiratory failure, secondary to above Former tobacco dependence, quitting 3 years ago History of previous bowel resection with colostomy and subsequent reversal Plan: Currently on 2 L O2 nasal cannula, evaluate for need for home O2. Clinically improving Chest x-ray is also improving White cell count is improving, essentially normalized Procalcitonin level is dropped CD4 count is low, viral load is undetectable Continue combination of budesonide inhalation, formoterol inhalation, DuoNebs [id number] Blood cultures pending. Sputum sample was positive for Chana Repeat procalcitonin level in a.m. negative for influenza, RSV, COVID is improving Prednisone burst taper Patient can be discharged home on a course of Augmentin to be followed up on out patient basis repeat chest x-ray within 7 to 10 days. Discharge today.
[2023-07-01 16:59] VITALS: PULSE 90
[2023-07-01] MEDS ORDERED: AMOXIC-POT CLAV 875-125MG 1 EACH TAB PO SCH (21:00)
[2023-07-02] MEDS ORDERED: PANTOPRAZOLE 40 MG TABLET PO SCH (07:30)
--- NOTE | 2023-07-06 14:19 | CDI ---
Documentation Clarification Form Date: 07/06/2023 01:45:52 PM From: Renu Ford Admit Date: 06/26/2023 01:42:00 PM Patient Name: Marina Field Visit Number: [id number] Discharge Date: 07/01/2023 06:45:00 PM ATTENTION: The Clinical Documentation Specialists (CDI) and [facility] Coding Staff appreciate your assistance in clarifying documentation. Please respond to the clarification below the line at the bottom and electronically sign. The CDI & [facility] Coding staff will review the response and follow-up if needed. Please note: Queries are made part of the Legal Health Record. If you have any questions, please contact the author of this message via ITS. Dr. Amrik Reed Sepsis from pneumonia is documented in the H&P 06/26/23 and Progress Note 06/27/23. Left sided community-acquired versus healthcare associated pneumonia/sepsis, previously treated at outside facility is documented in Consult note 06/27/23 and Progress Notes 06/28/23 - 07/01/23. Clarification regarding Sepsis is requested. History/Risk Factors: patient is a 62 year old who presented with increasing shortness of breath. Has a history of HIV, colostomy, COPD, Chronic hypoxic respiratory failure, HTN, and a history of cigarette smoking. Per the notes the patient was treated for pneumonia 3 weeks ago at [facility] for pneumonia. Per your H&P Assessment: severe pneumonia multilobar on the left side causing sepsis, and sepsis from pneumonia Per Dr Peacock Pulmonology Consult Note Assessment: left sided community acquired versus healthcare associated pneumonia/sepsis previously treated at outside facility. Possibility of opportunistic infection is felt to be less likely as the patient was taking her antiretroviral medication. Pro-calcitonin level is elevated suggestive of bacterial infection. Clinical Indicators: Patient presented with increasing shortness of breath with evidence of complete opacification of the left lung with a question of possible infectious versus noninfectious. Treatment: was placed on empiric vancomycin and Zosyn, and BIPAP Vitals: T97.3, Pulse 118, RR 32, O2 94 on Bipap. Labs: WBC: 42.1, lactic acid 3.2, procalcitonin 1.10 Please clarify if the Sepsis is: [ + ] Sepsis confirmed [ ] Sepsis is ruled out [ ] Other condition, please specify [ ] Unable to determine MTDD
== END 2023-07-01 18:45 | disposition home or self-care (01) | DRG 890 ==
LOC: EC 10:17 → 3SCARD 13:42 → 4SSUR 06-29 00:17
PROVIDERS: ADMIT Family Medicine; ATTEND Family Medicine
PROC: 5A09357 Assistance with Respiratory Ventilation, Less than 24 Consecutive Hours, Continuous Positive Airway Pressure (ICD-10-PCS; principal; 2023-06-26)
DX: A41.9 Sepsis, unspecified organism (principal); J18.9 Pneumonia, unspecified organism; B20 Human immunodeficiency virus [HIV] disease; J96.21 Acute and chronic respiratory failure with hypoxia; I27.20 Pulmonary hypertension, unspecified; J44.0 Chronic obstructive pulmonary disease with (acute) lower respiratory infection; J44.1 Chronic obstructive pulmonary disease with (acute) exacerbation; I10 Essential (primary) hypertension; Y95 Nosocomial condition; J98.11 Atelectasis; K58.9 Irritable bowel syndrome, unspecified; F17.210 Nicotine dependence, cigarettes, uncomplicated; Z99.81 Dependence on supplemental oxygen; Z79.899 Other long term (current) drug therapy; Z79.52 Long term (current) use of systemic steroids; Z79.51 Long term (current) use of inhaled steroids; Z87.01 Personal history of pneumonia (recurrent); Z90.49 Acquired absence of other specified parts of digestive tract
CPT/HCPCS: 36415; 36600; 71045; 71046; 71260; 80048; 80053; 80202; 82565; 83605; 83735; 83880; 84145; 84484; 85025; 85610; 85730; 86360; 87040; 87070; 87205; 87536; 87636; 87901; 93005; 94640; 94660; 94760; 96361; 96365; 96366; 96372; 96375; 96376; 99291

== ENCOUNTER 2024-01-17 10:31 | Inpatient (IN) | payer MEDICARE, OTHER ==
[2024-01-17] MEDS: LORazepam 2 MG/ML INJ IV STA ×3 (11:26→14:46)
[2024-01-17 12:07] LABS: Appearance,Urine Clear (Clear); Bilirubin,Urine Negative (Negative); Blood,Urine Negative (Negative); Color,Urine Light Yellow; Glucose,Urine (UA) Negative (Negative); Ketones,Urine Negative (Negative); Leukocyte Esterase,Urine Negative (Negative); Nitrite,Urine Negative (Negative); Protein,Urine Negative (Negative); Specific Gravity,Urine 1.009 (1.001-1.035); Urobilinogen,Urine <2.0 mg/dL (<2.0)
[2024-01-17 12:18] LABS: INR 0.9 (<1.2); Partial Thromboplastin Time 20.5 sec (22.0-30.0); Prothrombin Time 10.1 sec (10.0-12.5)
[2024-01-17 12:42] LABS: Anisocytosis Slight; Basophils % (A) 0 %; Eosinophils % (A) 0 %; HCT 45.4 % (34.0-46.0); HGB 13.8 gm/dL (11.4-16.0); Hypochromasia Moderate; Lymphocytes # (A) 0.3 k/uL (1.0-4.8); Lymphocytes % (A) 2 %; MCH 27.7 pg (25.0-35.0); MCHC 30.3 g/dL (31.0-37.0); MCV 91.4 fL (80.0-100.0); Mean Platelet Volume 6.7; Monocytes # (A) 0.2 k/uL (0-1.0); Monocytes % (A) 2 %; Neutrophils % (A) 95 %; Platelet Count 384 k/uL (150-450); RBC 4.96 m/uL (3.80-5.40); RDW 18.1 % (11.5-15.5); WBC 11.6 k/uL (3.8-10.6)
[2024-01-17 12:55] LABS: ALT 11 U/L (4-34); AST 16 U/L (14-36); African American GFR (CKD) >90 (>60 ml/min/1.73 sqM); Albumin 3.9 g/dL (3.5-5.0); Alkaline Phosphatase 100 U/L (38-126); Anion Gap 10 mmol/L; Blood Urea Nitrogen 12 mg/dL (7-17); Calcium 8.8 mg/dL (8.4-10.2); Carbon Dioxide 36 mmol/L (22-30); Chloride 87 mmol/L (98-107); Glucose 223 mg/dL (74-99); Lactic Acid, Venous 5.5 mmol/L (0.7-2.0); Non-African American GFR(CKD) >90 (>60 ml/min/1.73 sqM); Potassium 3.7 mmol/L (3.5-5.1); Sodium 133 mmol/L (137-145); Total Bilirubin 0.5 mg/dL (0.2-1.3); Total Protein 6.3 g/dL (6.3-8.2)
[2024-01-17] MEDS: SODIUM CHLORIDE 0.9% 500 ML 500 ML IV ONE (13:26)
[2024-01-17 14:09] LABS: Amphetamine Screen,Urine Not Detected (NotDetected); Barbiturate Screen,Urine Not Detected (NotDetected); Benzodiazepines Screen,Urine Not Detected (NotDetected); Cocaine Screen,Urine Not Detected (NotDetected); Methadone Screen, Urine Not Detected (NotDetected); Opiate Screen,Urine Not Detected (NotDetected); Oxycodone Screen, Urine Not Detected (NotDetected); Phencyclidine Screen,Urine Not Detected (NotDetected); Tricyclic Antidepressant,Urine Not Detected (NotDetected); Urn Cannabinoid Scrn Detected (NotDetected)
--- NOTE | 2024-01-17 14:16 | ED ---
Altered Mental Status HPI - General Chief Complaint: Altered Mental Status Stated Complaint: Unresponsive Time Seen by Provider: 01/17/24 10:37 Source: family, EMS, RN notes reviewed, Caregiver Mode of arrival: EMS Limitations: altered mental status - History of Present Illness Initial Comments: 63-year-old female presents emergency department via EMS chief complaint of altered mental status. Patient was with a friend who recently took her to their PCPs office and then went to the gas station after. This was in which she became unresponsive at that time. Patient was found by EMS to have a pulse ox in the 70s she was placed on nonrebreather and became responsive to EMS she was combative for period of time but was aroused. Patient presented there were department in which she then proceeded to have a seizure. Patient has no history of seizures per friend he does not know much information about this patient other than that she has COPD and is oxygen dependent. Patient unable provide any significant information no obvious injuries. - Related Data Home Medications Medication Instructions Recorded Confirmed ARIPiprazole [Abilify] 2 mg PO DAILY 07/17/20 01/17/24 Atorvastatin [Lipitor] 10 mg PO DAILY 07/17/20 01/17/24 Dicyclomine [Bentyl] 20 mg PO TID 11/20/21 01/17/24 Budesonide 0.5 mg INHALATION RT-BID 06/26/23 01/17/24 Budesonide/Formoterol Fumarate 2 puff INHALATION RT-BID 06/26/23 01/17/24 [Symbicort 160-4.5 Mcg Inhaler] Ergocalciferol [Vitamin D2 (1250 1,250 mcg PO WE 06/26/23 01/17/24 Mcg = 61521 Iu)] Folic Acid 1 mg PO DAILY 06/26/23 01/17/24 predniSONE See Taper PO DIRECTED 06/26/23 01/17/24 Amoxic-Pot Clav 875-125Mg 1 tab PO Q12HR 01/17/24 01/17/24 [Augmentin 875-125] Doxycycline Monohydrate [Monodox] 100 mg PO BID 01/17/24 01/17/24 Ferrous Sulfate [Feosol] 325 mg PO DAILY 01/17/24 01/17/24 Furosemide [Lasix] 20 mg PO DAILY 01/17/24 01/17/24 HYDROcodone/APAP 7.5-325MG [[place] 1 tab PO QID 01/17/24 01/17/24 7.5-325] PARoxetine [Paxil] 20 mg PO DAILY 01/17/24 01/17/24 amLODIPine [Norvasc] 5 mg PO DAILY 01/17/24 01/17/24 clonazePAM [KlonoPIN] 1 mg PO HS 01/17/24 01/17/24 methocarbamoL [Robaxin] 250 mg PO BID 01/17/24 01/17/24 Previous Rx's Medication Instructions Recorded Ipratropium-Albuterol Nebulize 3 ml INHALATION RT-QID 30 Days 07/01/23 [Duoneb 0.5 mg-3 mg/3 ml Soln] #120 each Pantoprazole [Protonix] 40 mg PO AC-BRKFST 90 Days #90 tab 07/01/23 Allergies Allergy/AdvReac Type Severity Reaction Status Date / Time codeine Allergy Unknown Verified 01/17/24 13:34 Penicillins Allergy Unknown Verified 01/17/24 13:34 Sulfa (Sulfonamide Allergy Unknown Verified 01/17/24 13:34 Antibiotics) Review of Systems ROS Statement: Those systems with pertinent positive or pertinent negative responses have been documented in the HPI. ROS Other: All systems not noted in ROS Statement are negative. Past Medical History Past Medical History: No Reported History Additional Past Medical History / Comment(s): Has HIV 1. Recent abn lung CT, awaiting f/u. Has colostomy. Had Covid vaccine #1 07/09/20. Colostomy reversal planned for 07/22/20 History of Any Multi-Drug Resistant Organisms: None Reported Past Surgical History: Bowel Resection Additional Past Surgical History / Comment(s): jaw surgery, D&C, fallopian tube exc. Colostomy 06/20/19 est Past Anesthesia/Blood Transfusion Reactions: No Reported Reaction Past Psychological History: No Psychological Hx Reported Smoking Status: Former smoker Past Alcohol Use History: None Reported Past Drug Use History: None Reported - Past Family History Mother Family Medical History: Blood Disorder, Deep Vein Thrombosis (DVT), Pulmonary Embolus Additional Family Medical History / Comment(s): Factor V General Exam Limitations: altered mental status General appearance: in no apparent distress, lethargic Head exam: Present: atraumatic, normocephalic, normal inspection Eye exam: Present: normal appearance, PERRL, EOMI. Absent: scleral icterus, conjunctival injection, periorbital swelling ENT exam: Present: normal exam, normal oropharynx, mucous membranes moist Neck exam: Present: normal inspection, full ROM. Absent: tenderness, meningismus, lymphadenopathy Respiratory exam: Present: normal lung sounds bilaterally. Absent: respiratory distress, wheezes, rales, rhonchi, stridor Cardiovascular Exam: Present: regular rate, normal rhythm, normal heart sounds. Absent: systolic murmur, diastolic murmur, rubs, gallop, clicks GI/Abdominal exam: Present: soft, normal bowel sounds, other (Surgical scar noted). Absent: distended, tenderness, guarding, rebound, rigid Neurological exam: Present: altered. Absent: alert, oriented X3 Skin exam: Present: warm, dry, intact, normal color. Absent: rash Course Vital Signs 01/17/24 01/17/24 01/17/24 10:36 11:15 13:10 Temperature 97.4 F L Pulse Rate 75 78 87 Respiratory 12 12 16 Rate Blood Pressure 144/75 118/79 O2 Sat by Pulse 100 94 L 100 Oximetry Medical Decision Making - Medical Decision Making Was pt. sent in by a medical professional or institution (, PA, FURNITURE SALESPERSON, urgent care, hospital, or fci...) When possible be specific @ -No Did you speak to anyone other than the patient for history (EMS, parent, family, police, friend...)? What history was obtained from this source @ -No Did you review nursing and triage notes (agree or disagree)? Why? @ -I reviewed and agree with nursing and triage notes Were old charts reviewed (outside hosp., previous admission, EMS record, old EKG, old radiological studies, urgent care reports/EKG's, fci records)? Report findings @ -No old charts were reviewed Differential Diagnosis (chest pain, altered mental status, abdominal pain women, abdominal pain men, vaginal bleeding, weakness, fever, dyspnea, syncope, headache, dizziness, GI bleed, back pain, seizure, CVA, palpatations, mental health, musculoskeletal)? @ -Differential Altered Mental Status: Hypoglycemia, DKA, hypercapnia, ETOH, overdose, CO poisoning, trauma, myxedema coma, HTN encephalopathy, infection, encephalitis, psychosis, intercranial hemorrhage, hepatic encephalopathy, meningitis, CVA, this is not meant to be an all-inclusive list EKG interpreted by me (3pts min.). @ -As above X-rays interpreted by me (1pt min.). @ -Chest x-ray 1 view no definite infiltrate possible pulmonary edema CT interpreted by me (1pt min.). @ -CT brain showing no acute intracranial hemorrhage, mass effect, degenerative changes noted U/S interpreted by me (1pt. min.). @ -None done What testing was considered but not performed or refused? (CT, X-rays, U/S, labs)? Why? @ -None What meds were considered but not given or refused? Why? @ -None Did you discuss the management of the patient with other professionals (professionals i.e. , PA, FURNITURE SALESPERSON, lab, RT, psych nurse, social work program coordinator, technical intern, teacher, chief investment officer, case advocate)? Give summary @ -Dr Ferrera covering for Dr. Saavedra for admission with consult to neurology Was smoking cessation discussed for >3mins.? @ -No Was critical care preformed (if so, how long)? @ -No Were there social determinants of health that impacted care today? How? (Homelessness, low income, unemployed, alcoholism, drug addiction, transportation, low edu. Level, literacy, decrease access to med. care, halfway, rehab)? @ -No Was there de-escalation of care discussed even if they declined (Discuss DNR or withdrawal of care, Hospice)? DNR status @ -No What co-morbidities impacted this encounter? (DM, HTN, Smoking, COPD, CAD, Cancer, CVA, ARF, Chemo, Hep., AIDS, mental health diagnosis, sleep apnea, morbid obesity)? @ -None Was patient admitted / discharged? Hospital course, mention meds given and route, prescriptions, significant lab abnormalities, going to OR and other pertinent info. @ -Admitted patient presented for hypoxia, altered mental status. Patient had witnessed seizure in the emergency department. Patient has no history will be admitted as she has prolonged postictal state, altered mental status and new onset seizures. Patient was started on Keppra, Ativan was given patient was placed in seizure precautions. Undiagnosed new problem with uncertain prognosis? @ -Yes Drug Therapy requiring intensive monitoring for toxicity (Heparin, Nitro, Insulin, Cardizem)? @ -No Were any procedures done? @ -No Diagnosis/symptom? @ -Altered mental status, new onset seizure Acute, or Chronic, or Acute on Chronic? @ -Acute Uncomplicated (without systemic symptoms) or Complicated (systemic symptoms)? @ -Complicated Side effects of treatment? @ -No Exacerbation, Progression, or Severe Exacerbation? @ -No Poses a threat to life or bodily function? How? (Chest pain, [place], [place], pneumonia, PE, COPD, DKA, ARF, appy, cholecystitis, CVA, Diverticulitis, Homicidal, Suicidal, threat to staff... and all critical care pts) @ -No - Lab Data Result diagrams: 01/17/24 11:31 01/17/24 11:31 Lab Results 01/17/24 01/17/24 01/17/24 Range/Units 11:31 11:31 11:31 WBC 11.6 H (3.8-10.6) k/uL RBC 4.96 (3.80-5.40) m/uL Hgb 13.8 (11.4-16.0) gm/dL Hct 45.4 (34.0-46.0) % MCV 91.4 (80.0-100.0) fL MCH 27.7 (25.0-35.0) pg MCHC 30.3 L (31.0-37.0) g/dL RDW 18.1 H (11.5-15.5) % Plt Count 384 (150-450) k/uL MPV 6.7 Neutrophils % 95 % Lymphocytes % 2 % Monocytes % 2 % Eosinophils % 0 % Basophils % 0 % Neutrophils # 11.0 H (1.3-7.7) k/uL Lymphocytes # 0.3 L (1.0-4.8) k/uL Monocytes # 0.2 (0-1.0) k/uL Eosinophils # 0.0 (0-0.7) k/uL Basophils # 0.0 (0-0.2) k/uL Hypochromasia Moderate Anisocytosis Slight PT 10.1 (10.0-12.5) sec INR 0.9 (<1.2) APTT 20.5 L (22.0-30.0) sec Sodium (137-145) mmol/L Potassium (3.5-5.1) mmol/L Chloride (98-107) mmol/L Carbon Dioxide (22-30) mmol/L Anion Gap mmol/L BUN (7-17) mg/dL Creatinine (0.52-1.04) mg/dL Est GFR (CKD-EPI)AfAm (>60 ml/min/1.73 sqM) Est GFR (CKD-EPI)NonAf (>60 ml/min/1.73 sqM) Glucose (74-99) mg/dL Lactic Ac Sepsis Rflx Plasma Lactic Acid Jose Armando (0.7-2.0) mmol/L Calcium (8.4-10.2) mg/dL Total Bilirubin (0.2-1.3) mg/dL AST (14-36) U/L ALT (4-34) U/L Alkaline Phosphatase (38-126) U/L Ammonia (<30) umol/L Troponin I (0.000-0.034) ng/mL Total Protein (6.3-8.2) g/dL Albumin (3.5-5.0) g/dL Urine Color Urine Appearance (Clear) Urine pH (5.0-8.0) Ur Specific [place] (1.001-1.035) Urine Protein (Negative) Urine Glucose (UA) (Negative) Urine Ketones (Negative) Urine Blood (Negative) Urine Nitrite (Negative) Urine Bilirubin (Negative) Urine Urobilinogen (<2.0) mg/dL Ur Leukocyte Esterase (Negative) Urine Opiates Screen Not Detected (NotDetected) Ur Oxycodone Screen Not Detected (NotDetected) Urine Methadone Screen Not Detected (NotDetected) Ur Barbiturates Screen Not Detected (NotDetected) U Tricyclic Antidepress Not Detected (NotDetected) Ur Phencyclidine Scrn Not Detected (NotDetected) Ur Amphetamines Screen Not Detected (NotDetected) U Methamphetamines Scrn Not Detected (NotDetected) U Benzodiazepines Scrn Not Detected (NotDetected) Urine Cocaine Screen Not Detected (NotDetected) U Marijuana (THC) Screen Detected H (NotDetected) 01/17/24 01/17/24 01/17/24 Range/Units 11:31 11:31 11:31 WBC (3.8-10.6) k/uL RBC (3.80-5.40) m/uL Hgb (11.4-16.0) gm/dL Hct (34.0-46.0) % MCV (80.0-100.0) fL MCH (25.0-35.0) pg MCHC (31.0-37.0) g/dL RDW (11.5-15.5) % Plt Count (150-450) k/uL MPV Neutrophils % % Lymphocytes % % Monocytes % % Eosinophils % % Basophils % % Neutrophils # (1.3-7.7) k/uL Lymphocytes # (1.0-4.8) k/uL Monocytes # (0-1.0) k/uL Eosinophils # (0-0.7) k/uL Basophils # (0-0.2) k/uL Hypochromasia Anisocytosis PT (10.0-12.5) sec INR (<1.2) APTT (22.0-30.0) sec Sodium 133 L (137-145) mmol/L Potassium 3.7 (3.5-5.1) mmol/L Chloride 87 L (98-107) mmol/L Carbon Dioxide 36 H (22-30) mmol/L Anion Gap 10 mmol/L BUN 12 (7-17) mg/dL Creatinine 0.60 (0.52-1.04) mg/dL Est GFR (CKD-EPI)AfAm >90 (>60 ml/min/1.73 sqM) Est GFR (CKD-EPI)NonAf >90 (>60 ml/min/1.73 sqM) Glucose 223 H (74-99) mg/dL Lactic Ac Sepsis Rflx Plasma Lactic Acid Jose Armando (0.7-2.0) mmol/L Calcium 8.8 (8.4-10.2) mg/dL Total Bilirubin 0.5 (0.2-1.3) mg/dL AST 16 (14-36) U/L ALT 11 (4-34) U/L Alkaline Phosphatase 100 (38-126) U/L Ammonia (<30) umol/L Troponin I <0.012 (0.000-0.034) ng/mL Total Protein 6.3 (6.3-8.2) g/dL Albumin 3.9 (3.5-5.0) g/dL Urine Color Light Yellow Urine Appearance Clear (Clear) Urine pH 6.0 (5.0-8.0) Ur Specific [place] 1.009 (1.001-1.035) Urine Protein Negative (Negative) Urine Glucose (UA) Negative (Negative) Urine Ketones Negative (Negative) Urine Blood Negative (Negative) Urine Nitrite Negative (Negative) Urine Bilirubin Negative (Negative) Urine Urobilinogen <2.0 (<2.0) mg/dL Ur Leukocyte Esterase Negative (Negative) Urine Opiates Screen (NotDetected) Ur Oxycodone Screen (NotDetected) Urine Methadone Screen (NotDetected) Ur Barbiturates Screen (NotDetected) U Tricyclic Antidepress (NotDetected) Ur Phencyclidine Scrn (NotDetected) Ur Amphetamines Screen (NotDetected) U Methamphetamines Scrn (NotDetected) U Benzodiazepines Scrn (NotDetected) Urine Cocaine Screen (NotDetected) U Marijuana (THC) Screen (NotDetected) 01/17/24 01/17/24 Range/Units 11:31 12:56 WBC (3.8-10.6) k/uL RBC (3.80-5.40) m/uL Hgb (11.4-16.0) gm/dL Hct (34.0-46.0) % MCV (80.0-100.0) fL MCH (25.0-35.0) pg MCHC (31.0-37.0) g/dL RDW (11.5-15.5) % Plt Count (150-450) k/uL MPV Neutrophils % % Lymphocytes % % Monocytes % % Eosinophils % % Basophils % % Neutrophils # (1.3-7.7) k/uL Lymphocytes # (1.0-4.8) k/uL Monocytes # (0-1.0) k/uL Eosinophils # (0-0.7) k/uL Basophils # (0-0.2) k/uL Hypochromasia Anisocytosis PT (10.0-12.5) sec INR (<1.2) APTT (22.0-30.0) sec Sodium (137-145) mmol/L Potassium (3.5-5.1) mmol/L Chloride (98-107) mmol/L Carbon Dioxide (22-30) mmol/L Anion Gap mmol/L BUN (7-17) mg/dL Creatinine (0.52-1.04) mg/dL Est GFR (CKD-EPI)AfAm (>60 ml/min/1.73 sqM) Est GFR (CKD-EPI)NonAf (>60 ml/min/1.73 sqM) Glucose (74-99) mg/dL Lactic Ac Sepsis Rflx Y Plasma Lactic Acid Jose Armando 5.5 H* (0.7-2.0) mmol/L Calcium (8.4-10.2) mg/dL Total Bilirubin (0.2-1.3) mg/dL AST (14-36) U/L ALT (4-34) U/L Alkaline Phosphatase (38-126) U/L Ammonia 14 (<30) umol/L Troponin I (0.000-0.034) ng/mL Total Protein (6.3-8.2) g/dL Albumin (3.5-5.0) g/dL Urine Color Urine Appearance (Clear) Urine pH (5.0-8.0) Ur Specific [place] (1.001-1.035) Urine Protein (Negative) Urine Glucose (UA) (Negative) Urine Ketones (Negative) Urine Blood (Negative) Urine Nitrite (Negative) Urine Bilirubin (Negative) Urine Urobilinogen (<2.0) mg/dL Ur Leukocyte Esterase (Negative) Urine Opiates Screen (NotDetected) Ur Oxycodone Screen (NotDetected) Urine Methadone Screen (NotDetected) Ur Barbiturates Screen (NotDetected) U Tricyclic Antidepress (NotDetected) Ur Phencyclidine Scrn (NotDetected) Ur Amphetamines Screen (NotDetected) U Methamphetamines Scrn (NotDetected) U Benzodiazepines Scrn (NotDetected) Urine Cocaine Screen (NotDetected) U Marijuana (THC) Screen (NotDetected) Disposition Clinical Impression: New onset seizure, AMS (altered mental status) Disposition: ADMITTED IP TO THIS HOSP Condition: Fair Instructions (If sedation given, give patient instructions): Seizure/Epilepsy D ischarge Instructions & Follow-Up Referrals: Quoc Saavedra MD [Primary Care Provider] - 1-2 days Time of Disposition: 15:37
--- NOTE | 2024-01-17 14:23 | XR ---
EXAMINATION TYPE: XR chest 1V portable DATE OF EXAM: 01/17/2024 1:28 PM COMPARISON: Chest radiographs from 06/30/2023 CLINICAL INDICATION: Female, 63 years old with history of altered mental status; TECHNIQUE: XR chest 1V portable Frontal view of the chest. FINDINGS: Lungs/Pleura: There is no evidence of pleural effusion, focal consolidation, or pneumothorax. Pulmonary vascularity: Pulmonary vascular congestion. Heart/mediastinum: Cardiomediastinal silhouette is enlarged. Musculoskeletal: No acute osseous pathology. Other findings: None IMPRESSION: Cardiomegaly and mild pulmonary vascular congestion. Correlate with BNP for congestive heart failure. [facility], , 01/17/2024 2:21 PM
--- NOTE | 2024-01-17 15:14 | CT ---
EXAMINATION TYPE: CT brain wo con DATE OF EXAM: 01/17/2024 COMPARISON: 08/15/2020 INDICATION: ams, patient agitated DLP: 1256.4 mGycm, Automated exposure control for dose reduction was used. CONTRAST: None CT of the brain is performed utilizing 3 mm thick sections through the posterior fossa and 3 mm thick sections through the remaining calvarium. Study is performed within 24 hours of arrival to the hosp ital. No abnormal hyperdensity is present to suggest an acute intracranial hemorrhage. No mass lesion is evident. No acute infarcts are evident. Some mild periventricular white matter hypodensity is present, likely in the basilar right matter ischemic changes. Ventricles and sulci are appropriate for the patient age. Paranasal sinuses and mastoid air cells within the [id number] are clear. IMPRESSION: 1. No acute intracranial process. Follow up MRI can be performed as clinically indicated. 2. Chronic appearing periventricular white matter ischemic-type changes [facility], Workstation: [facility], 01/17/2024 3:12 PM
[2024-01-17] MEDS ORDERED: NALOXONE 0.4 MG/ML 1 ML VIAL IV PRN (15:37)
[2024-01-17] MEDS ORDERED: ONDANSETRON 4 MG/2 ML VIAL IVP PRN (15:37)
[2024-01-17] MEDS: levETIRAcetam IV 500 MG/5 ML VIAL IVP STA (16:18)
[2024-01-17] MEDS: LORazepam 2 MG/ML INJ IV PRN (19:01)
--- NOTE | 2024-01-17 20:18 | P.HPIM ---
History of Present Illness H&P Date: 01/17/24 Chief Complaint: Acute seizure recurrent 63-year-old female well-known to me patient has a history of interstitial lung disease, on chronic oxygen dependent, patient is HIV positive has been compliant with medications. Presented into the hospital with recurrent for seizures while she was going back from PMD office to home patient presented emergency department with altered mental status. MS found her with oxygen saturation in 70s she was placed on nonrebreather mask on arrival in the emergency department she had another seizure patient unable to give any detailed history most of her data has been obtained from older daughter present at bedside. Patient admitted into hospital with neurology on consult. Labs significant for mild leukocytosis with WBC count of 11.6, platelet count 384, PT/INR within normal limit, sodium is 133 potassium 3.7 CO2 is 36 anion gap is 10 lactic acidosis 5.5 glucose is 223 urine analysis unremarkable urine drug screen positive for marijuana/THC, chest x-ray cardiomegaly interstitial edema, CT scan of the head no acute intracranial process chronic periventricular white matter ischemic changes Past medical history significant for interstitial lung disease, HIV positive, dyslipidemia, major depression, COPD, chronic anemia, chronic low back pain, hypertension hypertensive cardiovascular disease Review of Systems ROS unobtainable: due to mental status Past Medical History Past Medical History: No Reported History Additional Past Medical History / Comment(s): Has HIV 1. Recent abn lung CT, awaiting f/u. Has colostomy. Had Covid vaccine #1 07/09/20. Colostomy reversal planned for 07/22/20 History of Any Multi-Drug Resistant Organisms: None Reported Past Surgical History: Bowel Resection Additional Past Surgical History / Comment(s): jaw surgery, D&C, fallopian tube exc. Colostomy 06/20/19 est Past Anesthesia/Blood Transfusion Reactions: No Reported Reaction Past Psychological History: No Psychological Hx Reported Smoking Status: Former smoker Past Alcohol Use History: None Reported Past Drug Use History: None Reported - Past Family History Mother Family Medical History: Blood Disorder, Deep Vein Thrombosis (DVT), Pulmonary Embolus Additional Family Medical History / Comment(s): Factor V Medications and Allergies Home Medications Medication Instructions Recorded Confirmed Type ARIPiprazole [Abilify] 2 mg PO DAILY 07/17/20 01/17/24 History Atorvastatin [Lipitor] 10 mg PO DAILY 07/17/20 01/17/24 History Dicyclomine [Bentyl] 20 mg PO TID 11/20/21 01/17/24 History Budesonide 0.5 mg INHALATION RT-BID 06/26/23 01/17/24 History Budesonide/Formoterol Fumarate 2 puff INHALATION RT-BID 06/26/23 01/17/24 History [Symbicort 160-4.5 Mcg Inhaler] Ergocalciferol [Vitamin D2 (1250 1,250 mcg PO WE 06/26/23 01/17/24 History Mcg = 59677 Iu)] Folic Acid 1 mg PO DAILY 06/26/23 01/17/24 History predniSONE See Taper PO DIRECTED 06/26/23 01/17/24 History Ipratropium-Albuterol Nebulize 3 ml INHALATION RT-QID 30 Days 07/01/23 01/17/24 Rx [Duoneb 0.5 mg-3 mg/3 ml Soln] #120 each Pantoprazole [Protonix] 40 mg PO AC-BRKFST 90 Days #90 tab 07/01/23 01/17/24 Rx Amoxic-Pot Clav 875-125Mg 1 tab PO Q12HR 01/17/24 01/17/24 History [Augmentin 875-125] Doxycycline Monohydrate [Monodox] 100 mg PO BID 01/17/24 01/17/24 History Ferrous Sulfate [Feosol] 325 mg PO DAILY 01/17/24 01/17/24 History Furosemide [Lasix] 20 mg PO DAILY 01/17/24 01/17/24 History HYDROcodone/APAP 7.5-325MG [[place] 1 tab PO QID 01/17/24 01/17/24 History 7.5-325] PARoxetine [Paxil] 20 mg PO DAILY 01/17/24 01/17/24 History amLODIPine [Norvasc] 5 mg PO DAILY 01/17/24 01/17/24 History clonazePAM [KlonoPIN] 1 mg PO HS 01/17/24 01/17/24 History methocarbamoL [Robaxin] 250 mg PO BID 01/17/24 01/17/24 History Allergies Allergy/AdvReac Type Severity Reaction Status Date / Time codeine Allergy Unknown Verified 01/17/24 13:34 Penicillins Allergy Unknown Verified 01/17/24 13:34 Sulfa (Sulfonamide Allergy Unknown Verified 01/17/24 13:34 Antibiotics) Physical Exam Vitals: Vital Signs Temp Pulse Resp BP Pulse Ox 01/17/24 17:09 73 16 114/67 100 01/17/24 16:18 85 16 100 01/17/24 13:10 87 16 118/79 100 01/17/24 11:15 97.4 F L 78 12 94 L 01/17/24 10:36 75 12 144/75 100 Intake and Output 01/17/24 01/17/24 01/17/24 06:59 14:59 22:59 Other: Weight 68.039 kg - Constitutional General appearance: average body habitus, cooperative, disheveled - EENT Eyes: EOMI, PERRLA Ears: bilateral: normal - Neck Carotids: bilateral: upstroke normal - Respiratory Respiratory: bilateral: CTA - Cardiovascular Rhythm: regular Heart sounds: normal: S1, S2 - Gastrointestinal General gastrointestinal: normal bowel sounds - Integumentary Integumentary: decreased turgor - Neurologic Neurologic: CNII-XII intact - Musculoskeletal Musculoskeletal: generalized weakness Patient is arousable confused but moving all 4 extremities Results CBC & Chem 7: 01/17/24 11:31 01/17/24 11:31 Labs: Abnormal Lab Results - Last 24 Hours (Table) 01/17/24 01/17/24 01/17/24 Range/Units 11:31 11:31 11:31 WBC 11.6 H (3.8-10.6) k/uL MCHC 30.3 L (31.0-37.0) g/dL RDW 18.1 H (11.5-15.5) % Neutrophils # 11.0 H (1.3-7.7) k/uL Lymphocytes # 0.3 L (1.0-4.8) k/uL APTT 20.5 L (22.0-30.0) sec Sodium (137-145) mmol/L Chloride (98-107) mmol/L Carbon Dioxide (22-30) mmol/L Glucose (74-99) mg/dL Plasma Lactic Acid Jose Armando (0.7-2.0) mmol/L U Marijuana (THC) Screen Detected H (NotDetected) 01/17/24 01/17/24 Range/Units 11:31 11:31 WBC (3.8-10.6) k/uL MCHC (31.0-37.0) g/dL RDW (11.5-15.5) % Neutrophils # (1.3-7.7) k/uL Lymphocytes # (1.0-4.8) k/uL APTT (22.0-30.0) sec Sodium 133 L (137-145) mmol/L Chloride 87 L (98-107) mmol/L Carbon Dioxide 36 H (22-30) mmol/L Glucose 223 H (74-99) mg/dL Plasma Lactic Acid Jose Armando 5.5 H* (0.7-2.0) mmol/L U Marijuana (THC) Screen (NotDetected) Assessment and Plan Assessment: Acute on chronic hypoxic respiratory failure, obtain arterial blood gas to make sure patient does not have CO2 retention if that is the case may need BiPAP support Acute new onset recurrent seizure, patient has been placed on IV Keppra with neurology on consultation CT of the head unremarkable, EEG End-stage COPD oxygen dependent prednisone dependent, not in exacerbation, continue maintenance dose of prednisone, as patient cannot take oral we will start IV then gradually taper down to oral, continue supplemental oxygen bronchodilators HIV positive status, consult infectious disease services Interstitial lung disease of clearing unclear etiology, patient had recent bronchoscopy with negative bronchoalveolar lavage Hypertension hypertensive cardiovascular disease Plan: As above Time with Patient: Greater than 30
[2024-01-17] MEDS: levETIRAcetam IV 500 MG/5 ML VIAL IVP SCH (22:21)
[2024-01-17] MEDS: methylPREDNISolone SOD SUCCI 40 MG/ML 1 ML VIAL IV SCH (22:22)
[2024-01-18 06:20] LABS: Anisocytosis Slight; Basophils % (A) 0 %; Eosinophils % (A) 0 %; HCT 32.7 % (34.0-46.0); Hypochromasia Moderate; Lymphocytes # (A) 0.4 k/uL (1.0-4.8); Lymphocytes % (A) 4 %; MCH 27.6 pg (25.0-35.0); MCHC 29.9 g/dL (31.0-37.0); MCV 92.2 fL (80.0-100.0); Monocytes # (A) 0.4 k/uL (0-1.0); Monocytes % (A) 3 %; Neutrophils # (A) 9.7 k/uL (1.3-7.7); Neutrophils % (A) 92 %; Platelet Count 465 k/uL (150-450); RBC 3.54 m/uL (3.80-5.40); RDW 17.8 % (11.5-15.5); WBC 10.6 k/uL (3.8-10.6)
[2024-01-18 06:28] LABS: ALT 7 U/L (4-34); AST 15 U/L (14-36); African American GFR (CKD) >90 (>60 ml/min/1.73 sqM); Albumin 3.2 g/dL (3.5-5.0); Alkaline Phosphatase 83 U/L (38-126); Blood Urea Nitrogen 7 mg/dL (7-17); Calcium 8.5 mg/dL (8.4-10.2); Chloride 91 mmol/L (98-107); Glucose 121 mg/dL (74-99); Non-African American GFR(CKD) >90 (>60 ml/min/1.73 sqM); Potassium 3.1 mmol/L (3.5-5.1); Sodium 134 mmol/L (137-145); Total Bilirubin 0.4 mg/dL (0.2-1.3); Total Protein 5.7 g/dL (6.3-8.2)
[2024-01-18 06:34] LABS: Anion Gap 10 mmol/L
[2024-01-18 06:35] LABS: Carbon Dioxide 33 mmol/L (22-30)
[2024-01-18 06:38] LABS: HGB 9.8 gm/dL (11.4-16.0)
[2024-01-18] MEDS ORDERED: predniSONE 10 MG TAB PO SCH (07:45)
[2024-01-18] MEDS ORDERED: BUDESONIDE 0.5 MG/2 ML NEBU INHALATION SCH (08:00)
[2024-01-18] MEDS: IPRATROPIUM-ALBUTEROL 3 ML NEB INHALATION SCH (08:27)
[2024-01-18] MEDS: SYMBICORT 160-4.5 MCG INHALER INHALATION SCH (08:27)
--- NOTE | 2024-01-18 08:28 | P.PN ---
Subjective Progress Note Date: 01/18/24 Principal diagnosis: Acute on chronic hypoxic respiratory failure, obtain arterial blood gas to make sure patient does not have CO2 retention if that is the case may need BiPAP sup port Acute new onset recurrent seizure, patient has been placed on IV Keppra with neurology on consultation CT of the head unremarkable, EEG End-stage COPD oxygen dependent prednisone dependent, not in exacerbation, continue maintenance dose of prednisone, as patient cannot take oral we will start IV then gradually taper down to oral, continue supplemental oxygen bronchodilators HIV positive status, consult infectious disease services Interstitial lung disease of clearing unclear etiology, patient had recent bronchoscopy with negative bronchoalveolar lavage Hypertension hypertensive cardiovascular disease January 18, 2024, patient seen eval examined during rounds labs reviewed medications and care plan discussed with RN and patient, patient continue to complain of severe back pain more alert and awake now, no new seizure activity noted, home medications reviewed and reinitiated consult also requested from spine surgery for severe back pain 63-year-old female well-known to me patient has a history of interstitial lung disease, on chronic oxygen dependent, patient is HIV positive has been compliant with medications. Presented into the hospital with recurrent for seizures while she was going back from PMD office to home patient presented emergency department with altered mental status. MS found her with oxygen saturation in 70s she was placed on nonrebreather mask on arrival in the emergency department she had another seizure patient unable to give any detailed history most of her data has been obtained from older daughter present at bedside. Patient admitted into hospital with neurology on consult. Labs significant for mild leukocytosis with WBC count of 11.6, platelet count 384, PT/INR within normal limit, sodium is 133 potassium 3.7 CO2 is 36 anion gap is 10 lactic acidosis 5.5 glucose is 223 urine analysis unremarkable urine drug screen positive for marijuana/THC, chest x-ray cardiomegaly interstitial edema, CT scan of the head no acute intracranial process chronic periventricular white matter ischemic changes Past medical history significant for interstitial lung disease, HIV positive, dyslipidemia, major depression, COPD, chronic anemia, chronic low back pain, hypertension hypertensive cardiovascular disease Objective - Vital Signs Vital signs: Vital Signs Temp 97.4 F L 01/17/24 11:15 Pulse 84 01/18/24 06:00 Resp 19 01/18/24 06:00 BP 98/68 01/18/24 06:00 Pulse Ox 97 01/18/24 06:00 FiO2 Intake & Output 10/29/24 10/30/24 10/30/24 18:59 06:59 18:59 Output Total 825 Balance -825 Weight 68.039 kg Output: Urine 825 - Exam - Constitutional General appearance: average body habitus, cooperative, disheveled - EENT Eyes: EOMI, PERRLA Ears: bilateral: normal - Neck Carotids: bilateral: upstroke normal - Respiratory Respiratory: bilateral: CTA - Cardiovascular Rhythm: regular Heart sounds: normal: S1, S2 - Gastrointestinal General gastrointestinal: normal bowel sounds - Integumentary Integumentary: decreased turgor - Neurologic Neurologic: CNII-XII intact - Musculoskeletal Musculoskeletal: generalized weakness Patient is arousable less confused and more awake but moving all 4 extremities, complaining of pain in the back - Labs CBC & Chem 7: 01/18/24 06:05 01/18/24 06:05 Labs: Abnormal Lab Results - Last 24 Hours (Table) 01/17/24 01/17/24 01/17/24 Range/Units 11:31 11:31 11:31 WBC 11.6 H (3.8-10.6) k/uL RBC (3.80-5.40) m/uL Hgb (11.4-16.0) gm/dL Hct (34.0-46.0) % MCHC 30.3 L (31.0-37.0) g/dL RDW 18.1 H (11.5-15.5) % Plt Count (150-450) k/uL Neutrophils # 11.0 H (1.3-7.7) k/uL Lymphocytes # 0.3 L (1.0-4.8) k/uL APTT 20.5 L (22.0-30.0) sec Sodium (137-145) mmol/L Potassium (3.5-5.1) mmol/L Chloride (98-107) mmol/L Carbon Dioxide (22-30) mmol/L Creatinine (0.52-1.04) mg/dL Glucose (74-99) mg/dL Plasma Lactic Acid Jose Armando (0.7-2.0) mmol/L Total Protein (6.3-8.2) g/dL Albumin (3.5-5.0) g/dL U Marijuana (THC) Screen Detected H (NotDetected) 01/17/24 01/17/24 01/18/24 Range/Units 11:31 11:31 06:05 WBC (3.8-10.6) k/uL RBC 3.54 L (3.80-5.40) m/uL Hgb 9.8 L D (11.4-16.0) gm/dL Hct 32.7 L (34.0-46.0) % MCHC 29.9 L (31.0-37.0) g/dL RDW 17.8 H (11.5-15.5) % Plt Count 465 H (150-450) k/uL Neutrophils # 9.7 H (1.3-7.7) k/uL Lymphocytes # 0.4 L (1.0-4.8) k/uL APTT (22.0-30.0) sec Sodium 133 L (137-145) mmol/L Potassium (3.5-5.1) mmol/L Chloride 87 L (98-107) mmol/L Carbon Dioxide 36 H (22-30) mmol/L Creatinine (0.52-1.04) mg/dL Glucose 223 H (74-99) mg/dL Plasma Lactic Acid Jose Armando 5.5 H* (0.7-2.0) mmol/L Total Protein (6.3-8.2) g/dL Albumin (3.5-5.0) g/dL U Marijuana (THC) Screen (NotDetected) 01/18/24 Range/Units 06:05 WBC (3.8-10.6) k/uL RBC (3.80-5.40) m/uL Hgb (11.4-16.0) gm/dL Hct (34.0-46.0) % MCHC (31.0-37.0) g/dL RDW (11.5-15.5) % Plt Count (150-450) k/uL Neutrophils # (1.3-7.7) k/uL Lymphocytes # (1.0-4.8) k/uL APTT (22.0-30.0) sec Sodium 134 L (137-145) mmol/L Potassium 3.1 L (3.5-5.1) mmol/L Chloride 91 L (98-107) mmol/L Carbon Dioxide 33 H (22-30) mmol/L Creatinine 0.41 L (0.52-1.04) mg/dL Glucose 121 H (74-99) mg/dL Plasma Lactic Acid Jose Armando (0.7-2.0) mmol/L Total Protein 5.7 L (6.3-8.2) g/dL Albumin 3.2 L (3.5-5.0) g/dL U Marijuana (THC) Screen (NotDetected) Assessment and Plan Assessment: Acute on chronic hypoxic respiratory failure, on 2 L nasal cannula Acute new onset recurrent seizure, patient has been placed on IV Keppra with neurology on consultation CT of the head unremarkable, EEG, more awake no new seizures seen End-stage COPD oxygen dependent prednisone dependent, not in exacerbation, continue maintenance dose of prednisone, as patient cannot take oral we will start IV then gradually taper down to oral, continue supplemental oxygen bronchodilators HIV positive status, consult infectious disease services Interstitial lung disease of clearing unclear etiology, patient had recent bronchoscopy with negative bronchoalveolar lavage Hypertension hypertensive cardiovascular disease Severe back pain, consult spine surgery Plan: As above Time with Patient: Greater than 30
[2024-01-18] MEDS: ERGOCALCIFEROL 1,250 MCG (50,000 IU) CAPSULE PO SCH (08:58)
[2024-01-18] MEDS: ATORVASTATIN 10 MG TAB PO SCH (08:58)
[2024-01-18] MEDS: methocarbamoL 500 MG TAB PO SCH (08:58)
[2024-01-18] MEDS: ARIPiprazole 2 MG TAB PO SCH (08:58)
[2024-01-18] MEDS: PARoxetine 20 MG TAB PO SCH (08:59)
[2024-01-18] MEDS: FERROUS SULFATE 325 MG TAB PO SCH (08:59)
[2024-01-18] MEDS: DICYCLOMINE 20 MG TAB PO SCH (08:59)
[2024-01-18] MEDS: HYDROcodone/APAP 7.5-325MG 1 EACH TAB PO SCH (08:59)
[2024-01-18] MEDS: FUROSEMIDE 20 MG TAB PO SCH (08:59)
[2024-01-18] MEDS: PANTOPRAZOLE 40 MG TABLET PO SCH (08:59)
[2024-01-18] MEDS: amLODIPine 5 MG TAB PO SCH (08:59)
[2024-01-18] MEDS: POTASSIUM CHLORIDE ER 20 MEQ TAB.ER PO STA (09:00)
[2024-01-18] MEDS: FOLIC ACID 1 MG TAB PO SCH (09:00)
--- NOTE | 2024-01-18 12:22 | P.PN ---
Progress Note - Text Progress Note Date: 01/18/24 Chart reviewed, we will consult on patient when there is imaging ordered to evaluate.
--- NOTE | 2024-01-18 15:28 | XR ---
EXAMINATION TYPE: XR lumbar spine 1V DATE OF EXAM: 01/18/2024 3:08 PM COMPARISON: None CLINICAL INDICATION: Female, 63 years old with history of back pain; [facility] TECHNIQUE: XR lumbar spine 1V - Frontal of the spine. FINDINGS: No evidence of any acute osseous pathology. No evidence of loss of vertebral body height i s seen. There is normal alignment of the lumbar vertebral bodies. Scattered disc space narrowing. Mul tilevel marginal osteophyte formation throughout the visualized spine. There is facet joint arthropat hy throughout the spine. Surgical suture present projects over the left pelvis. Bilateral presumable pelvic fluid was present. IMPRESSION: 1. No acute fracture. 2. Moderate multilevel disc degeneration. [facility], , 01/18/2024 3:26 PM
--- NOTE | 2024-01-18 16:12 | P.CNOR ---
History of Present Illness - [facility] Consult date: 01/18/24 Requesting physician: Eamon Ferrera Consult reason: fracture (Lumbar compression fracture) History of present illness: Patient is a very pleasant 63-year-old female who is seen and examined at the bedside for further evaluation of her lumbar spine. Consultation was placed by medicine. Patient states she sustained a fall approximately 6 to 8 weeks ago and has had significant lower lumbar/lumbosacral pain since that time. She has follow-up with her primary care provider, Dr. Saavedra. She states she was diagnosed with a compression fracture. She was just prescribed and fitted with a TLSO brace. Patient does not remember having any imaging. She does not know where her fracture is. She feels her pain has not improved over the past 6 to 8 weeks. She denies any lower extremity weakness or radiculopathy bilaterally. She is able to perform good active range of motion of her lower extremities independently without difficulty. She is currently admitted to the hospital for further evaluation for acute new onset seizure. She states she has never had a seizure before. She is currently undergoing further workup as to the cause of her seizure. Patient states she recently had a nerve block. Therefore she has a Dumont catheter placed. Past Medical History Past Medical History: No Reported History Additional Past Medical History / Comment(s): Has HIV 1. Recent abn lung CT, awaiting f/u. Colostomy reversal planned for 07/22/20 History of Any Multi-Drug Resistant Organisms: None Reported Past Surgical History: Bowel Resection Additional Past Surgical History / Comment(s): jaw surgery, D&C, fallopian tube exc. Colostomy 06/20/19 est, broken back Past Anesthesia/Blood Transfusion Reactions: No Reported Reaction Past Psychological History: No Psychological Hx Reported Additional Psychological History / Comment(s): occ panic attack Smoking Status: Former smoker Past Alcohol Use History: None Reported Additional Past Alcohol Use History / Comment(s): Smoker since age 7, 1/2 ppd Past Drug Use History: None Reported Additional Drug Use History / Comment(s): occ use - Past Family History Mother Family Medical History: Blood Disorder, Deep Vein Thrombosis (DVT), Pulmonary Embolus Additional Family Medical History / Comment(s): Factor V Medications and Allergies Home Medications Medication Instructions Recorded Confirmed Type ARIPiprazole [Abilify] 2 mg PO DAILY 07/17/20 01/17/24 History Atorvastatin [Lipitor] 10 mg PO DAILY 07/17/20 01/17/24 History Dicyclomine [Bentyl] 20 mg PO TID 11/20/21 01/17/24 History Budesonide 0.5 mg INHALATION RT-BID 06/26/23 01/17/24 History Budesonide/Formoterol Fumarate 2 puff INHALATION RT-BID 06/26/23 01/17/24 History [Symbicort 160-4.5 Mcg Inhaler] Ergocalciferol [Vitamin D2 (1250 1,250 mcg PO WE 06/26/23 01/17/24 History Mcg = 38321 Iu)] Folic Acid 1 mg PO DAILY 06/26/23 01/17/24 History predniSONE See Taper PO DIRECTED 06/26/23 01/17/24 History Ipratropium-Albuterol Nebulize 3 ml INHALATION RT-QID 30 Days 07/01/23 01/17/24 Rx [Duoneb 0.5 mg-3 mg/3 ml Soln] #120 each Pantoprazole [Protonix] 40 mg PO AC-BRKFST 90 Days #90 tab 07/01/23 01/17/24 Rx Amoxic-Pot Clav 875-125Mg 1 tab PO Q12HR 01/17/24 01/17/24 History [Augmentin 875-125] Doxycycline Monohydrate [Monodox] 100 mg PO BID 01/17/24 01/17/24 History Ferrous Sulfate [Feosol] 325 mg PO DAILY 01/17/24 01/17/24 History Furosemide [Lasix] 20 mg PO DAILY 01/17/24 01/17/24 History HYDROcodone/APAP 7.5-325MG [[place] 1 tab PO QID 01/17/24 01/17/24 History 7.5-325] PARoxetine [Paxil] 20 mg PO DAILY 01/17/24 01/17/24 History amLODIPine [Norvasc] 5 mg PO DAILY 01/17/24 01/17/24 History clonazePAM [KlonoPIN] 1 mg PO HS 01/17/24 01/17/24 History methocarbamoL [Robaxin] 250 mg PO BID 01/17/24 01/17/24 History Allergies Allergy/AdvReac Type Severity Reaction Status Date / Time codeine Allergy Unknown Verified 01/17/24 13:34 Penicillins Allergy Unknown Verified 01/17/24 13:34 Sulfa (Sulfonamide Allergy Unknown Verified 01/17/24 13:34 Antibiotics) Physical Examination Physical exam: Patient is awake, alert, and oriented 3 Vital signs stable Good chest excursion with deep inspiration and expiration Examination of lumbar spine reveals skin is intact with no abrasions, lacerations, or bruises; no erythema, purulence or signs of infection Significant pain on palpation along the midline of the lower lumbar spine and lumbosacral junction. Dorsiflexion, plantarflexion, and extensor hallucis longus positive sustained bilaterally Lower extremity strength 5/5 bilaterally Straight leg test negative bilateral lower extremities No signs or symptoms of DVT; no calf pain No pain with internal and external rotation of the hips bilaterally Neurovascularly intact Dumont catheter intact Results - Labs Labs: Abnormal Lab Results - Last 24 Hours (Table) 01/18/24 01/18/24 Range/Units 06:05 06:05 RBC 3.54 L (3.80-5.40) m/uL Hgb 9.8 L D (11.4-16.0) gm/dL Hct 32.7 L (34.0-46.0) % MCHC 29.9 L (31.0-37.0) g/dL RDW 17.8 H (11.5-15.5) % Plt Count 465 H (150-450) k/uL Neutrophils # 9.7 H (1.3-7.7) k/uL Lymphocytes # 0.4 L (1.0-4.8) k/uL Sodium 134 L (137-145) mmol/L Potassium 3.1 L (3.5-5.1) mmol/L Chloride 91 L (98-107) mmol/L Carbon Dioxide 33 H (22-30) mmol/L Creatinine 0.41 L (0.52-1.04) mg/dL Glucose 121 H (74-99) mg/dL Total Protein 5.7 L (6.3-8.2) g/dL Albumin 3.2 L (3.5-5.0) g/dL H & H 01/17/24 01/18/24 Range/Units 11:31 06:05 Hgb 13.8 9.8 L D (11.4-16.0) gm/dL Hct 45.4 32.7 L (34.0-46.0) % Coagulation 01/17/24 Range/Units 11:31 INR 0.9 (<1.2) Result Diagrams: 01/18/24 06:05 01/18/24 06:05 Assessment and Plan Assessment: Assessment: Subacute low back pain over the past 6 to 8 weeks Status post fall Lumbar compression fracture diagnosed in the outpatient setting Acute new onset seizure (1) Lumbar compression fracture Current Visit: Yes Status: Acute Code(s): S32.000A - WEDGE COMPRESSION FRACTURE OF UNSP LUMBAR VERTEBRA, INIT SNOMED Code(s): 122156435 (2) Low back pain Current Visit: Yes Status: Acute Code(s): M54.50 - LOW BACK PAIN, UNSPECIFIED SNOMED Code(s): 458205669 (3) Status post fall Current Visit: Yes Status: Acute Code(s): Z91.81 - HISTORY OF FALLING SNOMED Code(s): 820893694 (4) New onset seizure Current Visit: Yes Status: Acute Code(s): R56.9 - UNSPECIFIED CONVULSIONS SNOMED Code(s): 88504252 Plan: Plan: 1. Patient states she sustained a fall approximately 6 to 8 weeks ago and has had significant lower lumbar/lumbosacral pain since that time. She has follow- up with her primary care provider, Dr. Saavedra. She states she was diagnosed with a compression fracture. She was just prescribed and fitted with a TLSO brace. She has this brace present with her at the bedside. We do not have visualized imaging that shows fracture. I have ordered x-ray imaging with AP and lateral views for better visualization. Given her history, diagnosis and the outside facility, and bracing which she was prescribed, we will currently treat her as though she has an acute compression fracture deformity with the bracing as previously prescribed. Patient does admit to onset of acute pain previously status post fall. Patient should wear this brace while sitting upright at greater than 45, during increase activities, during ambulation. Brace does not have to or while lying in bed or while bathing. We will plan to review her x-ray imaging and follow-up with the patient. Currently we are not planning for surgical intervention. Following reviewing of imaging and follow-up evaluation we will clear the patient for discharge. Following discharge, patient may follow-up with Emilio Alcaraz PA-C or Dr. Danny Rivas at [facility]. 2. Patient will continue following with multiple other medical providers for evaluation of acute onset seizure. Time with Patient: Greater than 30 (Including obtaining history, physical examination, reviewing of imaging, and dictation.)
--- NOTE | 2024-01-18 17:38 | XR ---
EXAMINATION TYPE: XR lumbar spine 2 or 3V DATE OF EXAM: 01/18/2024 COMPARISON: 01/18/2024 HISTORY: Evaluation of compression fracture TECHNIQUE: 3 view lumbar spine FINDINGS: There are 5 lumbar-type vertebral bodies. The pedicles are intact. Subtle endplate changes along the superior endplates of L3-L4 and L5. There is a superior endplate compression deformity of L 2. There is a compression deformity of T12r which appears to be approximately 50% within the midporti on. Overall there appears to be some loss of vertebral body height at T12 compared to remaining verte bral bodies no obvious retropulsion is evident. CT lumbar spine can be performed for additional evalu ation. IMPRESSION: 1. T12 compression deformity with limited visualization. CT of the lumbar spine including T12 can be performed for additional evaluation. 2. Superior endplate compression deformity L2 with milder superior endplate compressions of L3-L5. [facility], Workstation: [facility], 01/18/2024 5:36 PM
[2024-01-18] MEDS: clonazePAM 1 MG TAB PO SCH (21:27)
--- NOTE | 2024-01-19 02:37 | EEG ---
ELECTROENCEPHALOGRAM REPORT PREAMBLE: This is a 63-year-old female, who came to the hospital because of seizure-type spells. CURRENT MEDICATIONS: 1. Keppra. 2. Ativan. 3. Zofran. EEG FINDINGS: This is a 21-channel digital EEG recorded with video component, utilizing 10/20 international system with referential and bipolar montages. Background consists of moderately well-developed and regulated, mixed frequencies of 6 hertz theta, intermixed with some low-voltage beta and some alpha activity in bihemispheric region. Background is posterior dominant, does not seem to be clearly reactive to eye opening or closing. Photic driving response was not seen. The patient was asleep during most of the study with presence of sleep spindles. Some myogenic artifacts were also seen frequently. Some occasional left temporal sharp transients were seen, but did not appear clearly epileptiform. No definitive focal or generalized epileptiform activity was seen. IMPRESSION: This is an abnormal EEG due to background slowing of mild to moderate degree. This is suggestive of generalized cerebral dysfunction as can be seen with toxic metabolic encephalopathy or related to diffuse structural brain abnormality. Clinical correlation is recommended. No definitive epileptiform activity was seen. If your suspicion for seizures is high, suggest prolonged, sleep-deprived EEG. MMODL / IJN: [id number] /
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
--- NOTE | 2024-01-19 10:33 | P.PN ---
Progress Note - Text Progress Note Date: 01/19/24 Orthopedic spine: History of present illness: Patient is a very pleasant 63-year-old female who is seen and examined at the bedside for follow-up evaluation of her lumbar spine. Consultation was placed by medicine. Patient states she sustained a fall approximately 6 to 8 weeks ago and has had significant lower lumbar/lumbosacral pain since that time. She has follow-up with her primary care provider, Dr. Saavedra. She states she was diagnosed with a compression fracture. She was just prescribed and fitted with a TLSO brace. Patient does not remember having any imaging. She feels her pain has not improved over the past 6 to 8 weeks. She denies any lower extremity weakness or radiculopathy bilaterally. She is able to perform good active range of motion of her lower extremities independently without difficulty. She has not had any change in her symptoms as compared to yesterday. She states she continues to have pain most significant near the lumbosacral junction. She has had x-ray imaging performed since being seen and examined yesterday. Her TLSO brace is sitting at the bedside. She has been seen by neurology. She states they have stated the cause of her seizure was a mixture of hydrocodone and Klonopin medication. She does admit to taking hydrocodone in outpatient setting as prescribed through her primary care provider. Physical exam: Patient is awake, alert, and oriented 3 Vital signs stable Good chest excursion with deep inspiration and expiration Examination of lumbar spine reveals skin is intact with no abrasions, lacerations, or bruises; no erythema, purulence or signs of infection Significant pain on palpation along the midline of the lower lumbar spine and lumbosacral junction. Dorsiflexion, plantarflexion, and extensor hallucis longus positive sustained bilaterally Lower extremity strength 5/5 bilaterally Straight leg test negative bilateral lower extremities No signs or symptoms of DVT; no calf pain No pain with internal and external rotation of the hips bilaterally Neurovascularly intact Dumont catheter intact Pertinent studies: X-rays of the lumbosacral spine taken on 01/18/2024: Multiple compression fracture deformities including compression fractures of T12, L1-2, L3, L4, and L5 of indeterminate age Assessment: Subacute low back pain over the past 6 to 8 weeks Status post fall Compression fracture deformities of T12, L2, L3, L4, and L5 of indeterminate age Acute new onset seizure Plan: 1. Patient states she sustained a fall approximately 6 to 8 weeks ago and has had significant lower lumbar/lumbosacral pain since that time. She has follow- up with her primary care provider, Dr. Saavedra. She states she was diagnosed with a compression fracture. She was just prescribed and fitted with a TLSO brace. She has this brace present with her at the bedside. X-ray imaging of the lumbar spine was ordered yesterday which shows evidence of compression fracture deformities of T12, L2, L3, L4, and L5 Given her history, diagnosis and the outside facility, bracing which was prescribed, and compression fracture deformities found on x-ray imaging, we will continue with our plan as set forth yesterday. We will currently treat her as though she has an acute compression fracture deformity with the bracing as previously prescribed. Patient does admit to onset of acute pain previously status post fall. Patient should wear this brace while sitting upright at greater than 45, during increase activities, during ambulation. Brace does not have to or while lying in bed or while bathing. Currently we are not planning for surgical intervention. Following reviewing of imaging and further evaluation at the bedside, patient is currently cleared for discharge from an orthopedic spine standpoint. Following discharge, patient may follow-up with Emilio Alcaraz PA-C or Dr. Danny Rivas at [facility] in 2 to 3 weeks for further evaluation. We did discuss if her symptoms do not improve, we may plan to obtain further imaging with MRI and/or bone scan imaging prior to discussing the possibility of surgical intervention. 2. Patient will continue following with multiple other medical providers for evaluation of acute onset seizure. The patient is seen and examined at bedside. She is neurologically intact in her lower extremities. Her imaging is reviewed to show multiple compression fractures though she does not have any knowledge of any specific injuries to her back in the past. It is difficult to determine which levels may be contributing to her pain but hopefully she can have some benefit with bracing. She may mobilize and ambulate with the brace intact. From our standpoint is okay for her to follow-up on an outpatient basis closely. She may need further imaging and we would consider surgical intervention if she is not improving but hopefully she can have good benefit with continued medical management, pain control and bracing. She is continuing her medical management as well for her other issues
--- NOTE | 2024-01-19 11:59 | P.PN ---
Subjective Progress Note Date: 01/19/24 Principal diagnosis: Intractable lower back pain Acute on chronic hypoxic respiratory failure, obtain arterial blood gas to make sure patient does not have CO2 retention if that is the case may need BiPAP support Acute new onset recurrent seizure, patient has been placed on IV Keppra with neurology on consultation CT of the head unremarkable, EEG End-stage COPD oxygen dependent prednisone dependent, not in exacerbation, continue maintenance dose of prednisone, as patient cannot take oral we will start IV then gradually taper down to oral, continue supplemental oxygen bron chodilators HIV positive status, consult infectious disease services Interstitial lung disease of clearing unclear etiology, patient had recent bronchoscopy with negative bronchoalveolar lavage Hypertension hypertensive cardiovascular disease January 19, 2024, patient seen eval examined during rounds labs reviewed medications and care plan discussed, patient on 2 L oxygen respiratory status back to baseline known new seizures have been seen neurology has been evaluating the patient, patient seen by spine surgery due to multiple compression deformities in lumbar and thoracic vertebra, MRI is pending, in the meantime back brace is being recommended with pain control January 18, 2024, patient seen eval examined during rounds labs reviewed medications and care plan discussed with RN and patient, patient continue to complain of severe back pain more alert and awake now, no new seizure activity noted, home medications reviewed and reinitiated consult also requested from spine surgery for severe back pain 63-year-old female well-known to me patient has a history of interstitial lung disease, on chronic oxygen dependent, patient is HIV positive has been compliant with medications. Presented into the hospital with recurrent for seizures while she was going back from PMD office to home patient presented emergency department with altered mental status. MS found her with oxygen saturation in 70s she was placed on nonrebreather mask on arrival in the emergency department she had another seizure patient unable to give any detailed history most of her data has been obtained from older daughter present at bedside. Patient admitted into hospital with neurology on consult. Labs significant for mild leukocytosis with WBC count of 11.6, platelet count 384, PT/INR within normal limit, sodium is 133 potassium 3.7 CO2 is 36 anion gap is 10 lactic acidosis 5.5 glucose is 223 urine analysis unremarkable urine drug screen positive for marijuana/THC, chest x-ray cardiomegaly interstitial edema, CT scan of the head no acute intracranial process chronic periventricular white matter ischemic changes Past medical history significant for interstitial lung disease, HIV positive, dyslipidemia, major depression, COPD, chronic anemia, chronic low back pain, hypertension hypertensive cardiovascular disease Objective - Vital Signs Vital signs: Vital Signs Temp 97.7 F 01/19/24 08:00 Pulse 85 01/19/24 11:51 Resp 16 01/19/24 04:00 BP 103/64 01/19/24 08:00 Pulse Ox 97 01/19/24 08:43 FiO2 Intake & Output 01/18/24 01/19/24 01/19/24 18:59 06:59 18:59 Intake Total 356 480 118 Output Total 600 300 Balance -244 180 118 Weight 68.039 kg 62.1 kg Intake: Oral 356 480 118 Output: Urine 600 300 Other: Voiding Method Indwelling Catheter Indwelling Catheter Indwelling Catheter - Exam - Constitutional General appearance: average body habitus, cooperative, disheveled, more awake and alert - EENT Eyes: EOMI, PERRLA Ears: bilateral: normal - Neck Carotids: bilateral: upstroke normal - Respiratory Respiratory: bilateral: CTA - Cardiovascular Rhythm: regular Heart sounds: normal: S1, S2 - Gastrointestinal General gastrointestinal: normal bowel sounds - Integumentary Integumentary: decreased turgor - Neurologic Neurologic: CNII-XII intact - Musculoskeletal Musculoskeletal: generalized weakness Patient is arousable more awake and alert minimal confusion moving all 4 extremities, complaining of pain in the back - Labs CBC & Chem 7: 01/18/24 06:05 01/18/24 06:05 Assessment and Plan Assessment: Intractable lower back pain due to compression fracture of multiple thoracolumbar vertebra, spine surgery evaluated patient and recommendations pending Acute on chronic hypoxic respiratory failure, on 2 L nasal cannula Acute new onset recurrent seizure, patient has been placed on IV Keppra with neurology on consultation CT of the head unremarkable, EEG, more awake no new seizures seen End-stage COPD oxygen dependent prednisone dependent, not in exacerbation, continue maintenance dose of prednisone, as patient cannot take oral we will start IV then gradually taper down to oral, continue supplemental oxygen bronchodilators HIV positive status, consult infectious disease services Interstitial lung disease of clearing unclear etiology, patient had recent bronchoscopy with negative bronchoalveolar lavage Hypertension hypertensive cardiovascular disease Severe back pain, consult spine surgery Plan: As above Time with Patient: Greater than 30
[2024-01-19 12:41] VITALS: BMI 25.0
[2024-01-20 09:56] LABS: Anisocytosis Slight; HCT 31.3 % (34.0-46.0); HGB 9.3 gm/dL (11.4-16.0); Hypochromasia Moderate; MCH 27.6 pg (25.0-35.0); MCHC 29.7 g/dL (31.0-37.0); MCV 93.1 fL (80.0-100.0); Mean Platelet Volume 7.4; Platelet Count 419 k/uL (150-450); RBC 3.36 m/uL (3.80-5.40); RDW 17.8 % (11.5-15.5); WBC 12.8 k/uL (3.8-10.6)
[2024-01-20 10:48] LABS: African American GFR (CKD) >90 (>60 ml/min/1.73 sqM); Anion Gap 3 mmol/L; Blood Urea Nitrogen 22 mg/dL (7-17); Calcium 9.4 mg/dL (8.4-10.2); Carbon Dioxide 35 mmol/L (22-30); Chloride 95 mmol/L (98-107); Glucose 141 mg/dL (74-99); Magnesium 1.8 mg/dL (1.6-2.3); Non-African American GFR(CKD) >90 (>60 ml/min/1.73 sqM); Potassium 4.3 mmol/L (3.5-5.1); Sodium 133 mmol/L (137-145)
[2024-01-20] MEDS ORDERED: ALPRAZolam 0.25 MG TAB PO PRN (11:10)
[2024-01-20] MEDS: LORazepam 0.5 MG TAB PO PRN (11:50)
--- NOTE | 2024-01-20 13:37 | MR ---
INDICATION: Patient age:Female; 63 years old; Reason for study: New onset seizure; PHH. COMPARISON: CT brain 01/17/2024. TECHNIQUE: Multi planar, multi sequence imaging was performed through the brain. The patient was then given 6 cc of Gadavist intravenously and multi planar, T1 fat-saturation images were obtained. FINDINGS: The bender-white junctions, ventricular system, basal cisterns appear unremarkable. Age-appropriate dif fuse mild cerebral volume loss. Diffusion-weighted imaging shows no evidence of restricted diffusion to suggest acute/subacute infarct. Intracranial arterial flow voids are maintained. Midline structure s show no abnormality. Patchy areas of high T2 /FLAIR signal intensity are seen within the periventri cular and subcortical white matter. Approximately 25 foci. Largest measures up to 6 mm within the lef t posterior frontal lobe (series 701, image 22). The susceptibility weighted images do not reveal any evidence for micro-hemorrhage. After administration of gadolinium, no abnormal enhancement is seen. The bone marrow signal is within normal limits. Mild mucosal thickening of the ethmoid sinuses. The g lobes are unremarkable. IMPRESSION: 1. No evidence of intracranial mass, acute/subacute infarct, or abnormal enhancement. 2. Nonspecific white matter changes, likely related to small vessel ischemic disease versus other bayron ologies such a demyelinating process. No enhancement to suggest active process. [facility], , 01/20/2024 1:35 PM
--- NOTE | 2024-01-20 17:28 | P.PN ---
Subjective Progress Note Date: 01/20/24 Principal diagnosis: Intractable lower back pain Acute on chronic hypoxic respiratory failure, obtain arterial blood gas to make sure patient does not have CO2 retention if that is the case may need BiPAP support Acute new onset recurrent seizure, patient has been placed on IV Keppra with neurology on consultation CT of the head unremarkable, EEG End-stage COPD oxygen dependent prednisone dependent, not in exacerbation, continue maintenance dose of prednisone, as patient cannot take oral we will start IV then gradually taper down to oral, continue supplemental oxygen bron chodilators HIV positive status, consult infectious disease services Interstitial lung disease of clearing unclear etiology, patient had recent bronchoscopy with negative bronchoalveolar lavage Hypertension hypertensive cardiovascular disease Number first 2023, patient seen eval examined during rounds labs reviewed medications reviewed care plan discussed patient is more awake and alert however continued to have pain in the back. Patient remains on IV antiseizure medicine also MRI of the spine is pending. Labs reviewed WBC count 12.8 hemoglobin hematocrit 9.3/ platelet count of 1 19,000, chemistry reviewed as well sodium is 133 potassium 4.3 BUN/creatinine 22/0.56, patient is on 2 L nasal cannula oxygen saturation 96%, hemodynamic status stable January 19, 2024, patient seen eval examined during rounds labs reviewed medications and care plan discussed, patient on 2 L oxygen respiratory status back to baseline known new seizures have been seen neurology has been evaluating the patient, patient seen by spine surgery due to multiple compression deformities in lumbar and thoracic vertebra, MRI is pending, in the meantime back brace is being recommended with pain control January 18, 2024, patient seen eval examined during rounds labs reviewed medications and care plan discussed with RN and patient, patient continue to complain of severe back pain more alert and awake now, no new seizure activity noted, home medications reviewed and reinitiated consult also requested from spine surgery for severe back pain 63-year-old female well-known to me patient has a history of interstitial lung disease, on chronic oxygen dependent, patient is HIV positive has been compliant with medications. Presented into the hospital with recurrent for seizures while she was going back from PMD office to home patient presented emergency department with altered mental status. MS found her with oxygen saturation in 70s she was placed on nonrebreather mask on arrival in the emergency department she had another seizure patient unable to give any detailed history most of her data has been obtained from older daughter present at bedside. Patient admitted into hospital with neurology on consult. Labs significant for mild leukocytosis with WBC count of 11.6, platelet count 384, PT/INR within normal limit, sodium is 133 potassium 3.7 CO2 is 36 anion gap is 10 lactic acidosis 5.5 glucose is 223 urine analysis unremarkable urine drug screen positive for marijuana/THC, chest x-ray cardiomegaly interstitial edema, CT scan of the head no acute intracranial process chronic periventricular white matter ischemic changes Past medical history significant for interstitial lung disease, HIV positive, dyslipidemia, major depression, COPD, chronic anemia, chronic low back pain, hypertension hypertensive cardiovascular disease Objective - Vital Signs Vital signs: Vital Signs Temp 98.3 F 01/20/24 08:00 Pulse 82 01/20/24 08:36 Resp 18 01/20/24 08:36 BP 105/67 01/20/24 08:00 Pulse Ox 95 01/20/24 08:24 FiO2 Intake & Output 01/19/24 01/20/24 01/20/24 18:59 06:59 18:59 Intake Total 236 236 Output Total 250 500 Balance -14 -500 236 Weight 62.1 kg 62 kg Intake: Oral 236 236 Output: Urine 250 500 Other: Voiding Method Indwelling Catheter Indwelling Catheter Indwelling Catheter - Exam - Constitutional General appearance: average body habitus, cooperative, disheveled, more awake and alert - EENT Eyes: EOMI, PERRLA Ears: bilateral: normal - Neck Carotids: bilateral: upstroke normal - Respiratory Respiratory: bilateral: CTA - Cardiovascular Rhythm: regular Heart sounds: normal: S1, S2 - Gastrointestinal General gastrointestinal: normal bowel sounds - Integumentary Integumentary: decreased turgor - Neurologic Neurologic: CNII-XII intact - Musculoskeletal Musculoskeletal: generalized weakness Patient is arousable more awake and alert minimal confusion moving all 4 extremities, complaining of pain in the back - Labs CBC & Chem 7: 01/20/24 09:26 01/20/24 09:26 Labs: Abnormal Lab Results - Last 24 Hours (Table) 01/20/24 01/20/24 Range/Units 09: 09:26 WBC 12.8 H (3.8-10.6) k/uL RBC 3.36 L (3.80-5.40) m/uL Hgb 9.3 L (11.4-16.0) gm/dL Hct 31.3 L (34.0-46.0) % MCHC 29.7 L (31.0-37.0) g/dL RDW 17.8 H (11.5-15.5) % Sodium 133 L (137-145) mmol/L Chloride 95 L (98-107) mmol/L Carbon Dioxide 35 H (22-30) mmol/L BUN 22 H (7-17) mg/dL Glucose 141 H (74-99) mg/dL Assessment and Plan Assessment: Intractable lower back pain due to compression fracture of multiple thoracolumbar vertebra, spine surgery evaluated patient and recommendations p ending Acute on chronic hypoxic respiratory failure, on 2 L nasal cannula Acute new onset recurrent seizure, patient has been on IV Keppra with neurology on consultation CT of the head unremarkable, EEG, more awake no new seizures seen End-stage COPD oxygen dependent prednisone dependent, not in exacerbation, continue maintenance dose of prednisone, as patient cannot take oral we will start IV then gradually taper down to oral, continue supplemental oxygen bronchodilators HIV positive status, consult infectious disease services Interstitial lung disease of clearing unclear etiology, patient had recent bronchoscopy with negative bronchoalveolar lavage Hypertension hypertensive cardiovascular disease Severe back pain, consult spine surgery Plan: As above Time with Patient: Greater than 30
--- NOTE | 2024-01-21 00:40 | P.PN ---
Subjective Progress Note Date: 01/20/24 Patient was seen for a follow-up. Patient is sitting comfortably in the recliner. Patient's family members were also present. No further seizure type spells. No new concerns. Objective - Vital Signs Vital signs: Vital Signs Temp 98.1 F 01/20/24 16:00 Pulse 94 01/20/24 16:00 Resp 16 01/20/24 16:00 BP 96/61 01/20/24 16:00 Pulse Ox 96 01/20/24 16:00 FiO2 Intake & Output 01/19/24 01/20/24 01/20/24 18:59 06:59 18:59 Intake Total 236 1316 Output Total 250 500 650 Balance -14 500 666 Weight 62.1 kg 62 kg Intake: Oral 236 1316 Output: Urine 250 500 650 Other: Voiding Method Indwelling Catheter Indwelling Catheter Indwelling Catheter - Exam Patient is fully alert and awake in no distress. Examination unchanged. - Labs CBC & Chem 7: 01/20/24 09:26 01/20/24 09:26 Labs: Abnormal Lab Results - Last 24 Hours (Table) 01/20/24 01/20/24 Range/Units 09:26 09:26 WBC 12.8 H (3.8-10.6) k/uL RBC 3.36 L (3.80-5.40) m/uL Hgb 9.3 L (11.4-16.0) gm/dL Hct 31.3 L (34.0-46.0) % MCHC 29.7 L (31.0-37.0) g/dL RDW 17.8 H (11.5-15.5) % Sodium 133 L (137-145) mmol/L Chloride 95 L (98-107) mmol/L Carbon Dioxide 35 H (22-30) mmol/L BUN 22 H (7-17) mg/dL Glucose 141 H (74-99) mg/dL Assessment and Plan Assessment: * Benzodiazepine withdrawal seizure. Patient has been on Klonopin 1 mg daily for 2 to 3 years. Because of her back pain, for a few days she could not sleep, therefore was taking an extra tablet of Klonopin, ran out of Klonopin 3 days prior to her seizure. * Recent history of fall with compression fracture * Advanced COPD, oxygen dependent * Lactic acidosis, likely due to seizure * HIV positive * Hypertension * Ex tobacco use * Marijuana use * History of concussion in 1976 Plan: * Patient had a new onset seizure, likely due to benzodiazepine withdrawal seizure. * EEG was performed, which was abnormal due to background slowing of mild to moderate degree. This is suggestive of generalized cerebral dysfunction as can be seen with toxic metabolic encephalopathy or related to diffuse structural brain abnormality. Clinical correlation is recommended. No definitive epileptiform activity was seen. * MRI of the brain with and without contrast revealed no evidence of intracranial mass, acute/subacute infarct or abnormal enhancement. Nonspecific white matter changes, likely related to small vessel ischemic disease versus other etiologies such as demented lady process. No enhancement to suggest active process. I personally reviewed MRI, agree with the findings. * Patient's seizure was likely provoked due to reasons mentioned above. No indication for antiepileptic medication. We will stop Keppra. * Patient recommended not to stop benzodiazepine abruptly, otherwise is a risk for withdrawal seizure. * Other management as per IM and other specialties on board. * Patient informed of [place] state law of no driving unless seizure-free for 6 months, climbing ladders, operating dangerous machinery or unsupervised swimming. * Neurologically clear, no other workup indicated. We will sign off. Please reconsult neurology if any concerns.
--- NOTE | 2024-01-22 00:16 | PN ---
PROGRESS NOTE SUBJECTIVE: The patient had a brain MRI which shows no stroke, nonspecific white stuff. She has severe COPD; pulmonary hypertension; acute on chronic respiratory failure; intractable lumbar pain; new-onset seizure, started on IV Keppra at this point, EEG was ordered; COPD exacerbation; hypertensive cardiovascular disease. OBJECTIVE: VITAL SIGNS: Blood pressure is low 100s over 50s, respiratory rate 16 to 18, pulse is 70s to 80s, O2 saturation 95. CARDIOVASCULAR: S1, S2. LUNGS: Transmitted upper sounds, scattered wheeze. CAROTIDS: No carotid stenosis. HEENT: Within normal limit. GI: Soft, nontender. MUSCULOSKELETAL: Generalized weakness. 2 to 3+ edema, decreased turgor and redness to the lower extremities. NEUROLOGIC: Cranial nerves are intact. Hemoglobin is 9.3, white count 12.8, BUN is 22, creatinine 0.56. ASSESSMENT: 1. Intractable lumbar back pain due to multiple compression fractures. 2. Chronic respiratory failure. 3. New onset seizure, on Keppra. 4. Human immunodeficiency virus positive. 5. Interstitial lung disease. 6. Hypertensive cardiovascular disease. 7. History of back pain. We did consult Spine Surgery. 8. Prognosis guarded. MMODL / IJN: [id number] /
--- NOTE | 2024-01-22 21:29 | P.CONS ---
History of Present Illness - Reason for Consult Consult date: 01/22/24 Right lower extremity: Requesting physician: Quoc Saavedra - Chief Complaint Seizure at home on admission - History of Present Illness Patient is a 63-year-old female with a past medical history significant for HIV did have a history of colostomy for a bowel perforation interstitial lung disease chronic O2 dependent patient has been admitted to the hospital about a week ago when the patient presented with recurrent seizure patient apparently was also recently admitted to [facility] with the patient developed significant swelling to the lower extremity has developed blister that has subsequently ruptured lead to superficial ulceration that has not healed patient complaining of pain to the right lower extremity wound needed to be mostly been leaking mild to moderate intensity without radiation infectious was consulted today for management of the stone patient mention she has been compliant with her HIV medication and has been taking them regularly patient on presentation to the hospital was afebrile and no fever have been called subsequently patient was not tachycardic or hypotensive mildly hypoxic currently on 2 L nasal cannula oxygen patient did have white count of 12.8 today creatinine 0.56 UA has been negative urine testing was positive for marijuana Review of Systems Positive point and negatives has been mentioned in the HPI, complete review of systems was performed and all other systems are negative Past Medical History Past Medical History: No Reported History Additional Past Medical History / Comment(s): Has HIV 1. Recent abn lung CT, awaiting f/u. Colostomy reversal planned for 07/22/20 History of Any Multi-Drug Resistant Organisms: None Reported Past Surgical History: Bowel Resection Additional Past Surgical History / Comment(s): jaw surgery, D&C, fallopian tube exc. Colostomy 06/20/19 est, broken back Past Anesthesia/Blood Transfusion Reactions: No Reported Reaction Past Psychological History: No Psychological Hx Reported Additional Psychological History / Comment(s): occ panic attack Smoking Status: Former smoker Past Alcohol Use History: None Reported Additional Past Alcohol Use History / Comment(s): Smoker since age 7, 1/2 ppd Past Drug Use History: None Reported Additional Drug Use History / Comment(s): occ use - Past Family History Mother Family Medical History: Blood Disorder, Deep Vein Thrombosis (DVT), Pulmonary Embolus Additional Family Medical History / Comment(s): Factor V Medications and Allergies Home Medications Medication Instructions Recorded Confirmed Type ARIPiprazole [Abilify] 2 mg PO DAILY 07/17/20 01/17/24 History Atorvastatin [Lipitor] 10 mg PO DAILY 07/17/20 01/17/24 History Dicyclomine [Bentyl] 20 mg PO TID 11/20/21 01/17/24 History Budesonide 0.5 mg INHALATION RT-BID 06/26/23 01/17/24 History Budesonide/Formoterol Fumarate 2 puff INHALATION RT-BID 06/26/23 01/17/24 History [Symbicort 160-4.5 Mcg Inhaler] Ergocalciferol [Vitamin D2 (1250 1,250 mcg PO WE 06/26/23 01/17/24 History Mcg = 57640 Iu)] Folic Acid 1 mg PO DAILY 06/26/23 01/17/24 History predniSONE See Taper PO DIRECTED 06/26/23 01/17/24 History Ipratropium-Albuterol Nebulize 3 ml INHALATION RT-QID 30 Days 07/01/23 01/17/24 Rx [Duoneb 0.5 mg-3 mg/3 ml Soln] #120 each Pantoprazole [Protonix] 40 mg PO AC-BRKFST 90 Days #90 tab 07/01/23 01/17/24 Rx Doxycycline Monohydrate [Monodox] 100 mg PO BID 01/17/24 01/17/24 History Ferrous Sulfate [Iron (65 MG 325 mg PO DAILY 01/17/24 01/17/24 History Elemental)] Furosemide [Lasix] 20 mg PO DAILY 01/17/24 01/17/24 History HYDROcodone/APAP 7.5-325MG [Alvo 1 tab PO QID 01/17/24 01/17/24 History 7.5-325] PARoxetine [Paxil] 20 mg PO DAILY 01/17/24 01/17/24 History amLODIPine [Norvasc] 5 mg PO DAILY 01/17/24 01/17/24 History clonazePAM [KlonoPIN] 1 mg PO HS 01/17/24 01/17/24 History ALPRAZolam [Xanax] 0.25 mg PO BID PRN tab 01/22/24 Rx Allergies Allergy/AdvReac Type Severity Reaction Status Date / Time codeine Allergy Unknown Verified 01/17/24 13:34 Penicillins Allergy Unknown Verified 01/17/24 13:34 Sulfa (Sulfonamide Allergy Unknown Verified 01/17/24 13:34 Antibiotics) Physical Exam Vitals: Vital Signs Temp Pulse Pulse Pulse Resp BP Pulse Ox 01/22/24 11:58 92 01/22/24 09:30 97.9 F 95 16 110/66 93 L 01/22/24 08:49 96 01/22/24 08:36 92 01/22/24 03:35 97.3 F L 91 20 131/65 91 L 01/22/24 02:00 18 01/21/24 23:20 79 18 112/74 92 L 01/21/24 20:47 100 01/21/24 20:34 98 01/21/24 19:55 97.8 F 64 18 117/59 97 01/21/24 16:00 97.9 F 96 18 112/69 95 01/21/24 15:33 92 01/21/24 15:23 88 Intake and Output 01/21/24 01/22/24 01/22/24 23:59 06:59 14:59 Intake Total 150 Output Total Balance 150 Intake: Oral 150 Output: Urine Other: Voiding Method Weight GENERAL DESCRIPTION: Elderly female lying in bed, no distress. No tachypnea or accessory muscle of respiration use. HEENT: Shows Pallor , no scleral icterus. Oral mucous membrane is dry. No pharyngeal erythema or thrush NECK: Trachea central, no thyromegaly. LUNGS: Unlabored breathing. Clear to auscultation anteriorly. No wheeze or crackle. HEART: S1, S2, regular rate and rhythm. No loud murmur ABDOMEN: Soft, no tenderness , guarding or rigidity, no organomegaly EXTREMITIES: Right lower extremity has superficial ulceration with no slough tissue no surrounding redness or any drainage SKIN: No rash, no masses palpable. NEUROLOGICAL: The patient is awake, alert, oriented x3, mood and affect normal. Results CBC & Chem 7: 01/20/24 09:26 01/20/24 09:26 Assessment and Plan (1) Leg wound, right Current Visit: Yes Status: Acute Code(s): S81.801A - UNSPECIFIED OPEN WOUND, RIGHT LOWER LEG, INITIAL ENCOUNTER SNOMED Code(s): 65357995408811737 (2) Allergy to multiple antibiotics Current Visit: Yes Status: Acute Code(s): Z88.1 - ALLERGY STATUS TO OTHER ANTIBIOTIC AGENTS SNOMED Code(s): 351860630 (3) HIV (human immunodeficiency virus infection) Current Visit: No Status: Acute Code(s): B20 - HUMAN IMMUNODEFICIENCY VIRUS [HIV] DISEASE SNOMED Code(s): 72888085 Plan: 1patient with right lower extremity wound likely from a ruptured blister overall wound base looks clean with no evidence of any secondary cellulitis recommend local wound care. 2patient with history of HIV for the patient has been on provide and Tivicay however he did not see those medication on the chart will make sure the patient is able to get the medication from home so she can restart it. 3we will check HIV viral load and CD4 count. 4local wound care with dry Aquacel silver dressing change q. 48-hour discussed with the nursing staff 5mild leukocytosis more likely steroid related and will monitor closely We will follow on clinical condition and cultures to further adjust medication if needed Thank you for this consultation we will follow the patient along with you Dictation was produced using [employer] dictation software. please excuse any grammatical, word or spelling errors. Time with Patient: Greater than 30
--- NOTE | 2024-01-23 02:48 | PN ---
PROGRESS NOTE SUBJECTIVE: A 63-year-old white female who is admitted with cellulitis of the legs, altered mental status. She was found to have seizures, started on seizure medicines, which was stabilized by Neurology. She was treated for cellulitis of the legs, COPD, diastolic heart failure. The patient is stabilized, improved, wants to go home soon. OBJECTIVE: VITAL SIGNS: Temp 98.7, pulse 88 to 92, respiratory rate 16 to 18, blood pressure 109/68, sat 93% on 2 L. CARDIOVASCULAR: S1, S2. LUNGS: Transmitted upper sounds. HEMATOLOGY: Negative Homans. PSYCH: Fair mood and affect. IMPRESSION: Prognosis guarded. Continue current treatment. She has a right lower leg with some cellulitis on the outside part of the leg. Wound dressing changes. Consult with Infectious Disease. Prognosis guarded. She is back to her normal status with alert and oriented x3. Continue current treatment. Prognosis guarded. MMODL / IJN: [id number] /
[2024-01-23 09:14] VITALS: RESP 16; TEMP 98.5
--- NOTE | 2024-01-23 12:38 | P.PN ---
Subjective Progress Note Date: 01/23/24 Principal diagnosis: Reason for follow-up is right lower extremity wound and HIV Patient is a 63-year-old female with a past medical history significant for HIV did have a history of colostomy for a bowel perforation interstitial lung disease chronic O2 dependent patient has been admitted to the hospital about a week ago when the patient presented with recurrent seizure patient apparently noticed to have right lower extremity ulcer probably this consultation. On today's evaluation that is 01/23/2024, Patient is afebrile this morning patient denies having any chest pain shortness of breath or cough, the patient is currently on 2 L current oxygen, patient denies any abdominal pain no diarrhea no nausea no vomiting, patient has been to the right lower extremity wound. No new lab has been repeated today Objective - Vital Signs Vital signs: Vital Signs Temp 98.5 F 01/23/24 08:00 Pulse 92 01/23/24 12:04 Resp 16 01/23/24 08:00 BP 112/70 01/23/24 08:00 Pulse Ox 95 01/23/24 08:00 FiO2 Intake & Output 01/22/24 01/23/24 01/23/24 18:59 06:59 18:59 Intake Total 1360 236 Output Total 450 500 Balance 910 -264 Weight 63.3 kg Intake: Oral 1360 236 Output: Urine 450 500 Other: Voiding Method Toilet Toilet Toilet # Voids 1 - Exam GENERAL DESCRIPTION: An elderly female lying in bed in no distress RESPIRATORY SYSTEM: Unlabored breathing , decreased breath sounds at bases HEART: S1 S2 regular rate and rhythm , ABDOMEN: Soft , no tenderness EXTREMITIES: Right leg wound is currently dressed - Labs CBC & Chem 7: 01/20/24 09:26 01/20/24 09:26 Assessment and Plan (1) Leg wound, right Current Visit: Yes Status: Acute Code(s): S81.801A - UNSPECIFIED OPEN WOUND, RIGHT LOWER LEG, INITIAL ENCOUNTER SNOMED Code(s): 14510764890889468 (2) Allergy to multiple antibiotics Current Visit: Yes Status: Acute Code(s): Z88.1 - ALLERGY STATUS TO OTHER ANTIBIOTIC AGENTS SNOMED Code(s): 139138424 (3) HIV (human immunodeficiency virus infection) Current Visit: No Status: Acute Code(s): B20 - HUMAN IMMUNODEFICIENCY VIRUS [HIV] DISEASE SNOMED Code(s): 43207630 Plan: 1patient with right lower extremity wound likely from a ruptured blister overall wound base looks clean with no evidence of any secondary cellulitis recommend local wound care. 2patient with history of HIV for the patient has been on provide and Tivicay however he did not see those medication on the chart will make sure the patient is able to get the medication from home so she can restart it. 3currently waiting for HIV viral load and CD4 count. 4local wound care with dry Aquacel silver dressing change q. 48-hour discussed with the nursing staff Dictation was produced using [employer] dictation software. please excuse any grammatical, word or spelling errors. Time with Patient: Less than 30
[2024-01-23 17:06] VITALS: BP 114/70; PULSE 91
--- NOTE | 2024-01-23 22:24 | DS ---
DISCHARGE SUMMARY A 63-year-old white female was admitted to the hospital with altered mental status, was found to have metabolic encephalopathy and possible seizure secondary to her anxiety withdrawal. The patient's MRI was negative for stroke, seen by a neurologist, who started on Keppra and stopped that. We placed her back on her anxiety medicines and she stabilized. Her mental status was normal. Continue current treatment. Follow up as an outpatient. Prognosis guarded. Ambulate as tolerated. DISCHARGE MEDICATIONS: 1. Klonopin 1 mg at night. 2. Xanax 0.25 b.i.d. 3. Norvasc 5 mg daily. 4. DuoNeb q.i.d. 5. Lipitor 10 mg daily. 6. Bentyl 20 t.i.d. 7. Iron sulfate 325 daily. 8. Folic acid 1 mg daily. 9. Lasix 20 mg daily. 10.[place] 7.5 one q.i.d. 11.Robaxin b.i.d. 12.Protonix 40 mg daily. 13.Paxil 20 mg daily. Condition stable. Prognosis guarded. Ambulate as tolerated. Follow up as an outpatient. Please see further orders. MMODL / IJN: [id number] /
[2024-01-24 10:59] LABS: T4/T8 Ratio (CD4:CD8) 0.2 (1.0-3.7)
[2024-01-24 11:19] LABS: HIV-1 RNA DETECTED (Not detected); LOG HIV Copies/mL 6.27 (<1.30)
== END 2024-01-23 18:19 | disposition home or self-care (01) | DRG 189 ==
LOC: EC 10:31 → 3SCARD 15:29
PROVIDERS: ADMIT Internal Medicine Sleep Medicine; ATTEND Internal Medicine Sleep Medicine
PROC: 4A10X4Z Monitoring of Central Nervous Electrical Activity, External Approach (ICD-10-PCS; principal; 2024-01-18)
DX: J96.21 Acute and chronic respiratory failure with hypoxia (principal); J84.9 Interstitial pulmonary disease, unspecified; M48.56XA Collapsed vertebra, not elsewhere classified, lumbar region, initial encounter for fracture; F13.239 Sedative, hypnotic or anxiolytic dependence with withdrawal, unspecified; E87.20 Acidosis, unspecified; I50.32 Chronic diastolic (congestive) heart failure; L03.115 Cellulitis of right lower limb; L03.116 Cellulitis of left lower limb; J44.1 Chronic obstructive pulmonary disease with (acute) exacerbation; L97.919 Non-pressure chronic ulcer of unspecified part of right lower leg with unspecified severity; E78.5 Hyperlipidemia, unspecified; G89.29 Other chronic pain; I50.9 Heart failure, unspecified; I11.0 Hypertensive heart disease with heart failure; D64.9 Anemia, unspecified; I27.23 Pulmonary hypertension due to lung diseases and hypoxia; Z21 Asymptomatic human immunodeficiency virus [HIV] infection status; R56.9 Unspecified convulsions; Z99.81 Dependence on supplemental oxygen; Z79.52 Long term (current) use of systemic steroids; W19.XXXA Unspecified fall, initial encounter; Z87.820 Personal history of traumatic brain injury; Z87.891 Personal history of nicotine dependence; Z79.51 Long term (current) use of inhaled steroids; Z79.899 Other long term (current) drug therapy; Z88.1 Allergy status to other antibiotic agents; Z91.81 History of falling; Z93.3 Colostomy status; Z88.2 Allergy status to sulfonamides; Z88.5 Allergy status to narcotic agent; Z88.0 Allergy status to penicillin; Z87.19 Personal history of other diseases of the digestive system
CPT/HCPCS: 36415; 36600; 70450; 70553; 71045; 72020; 72100; 80048; 80053; 80306; 81003; 82140; 83605; 83735; 84484; 85025; 85027; 85610; 85730; 86360; 87536; 93005; 94640; 94760; 95819; 96374; 96375; 96376; 99285

== ENCOUNTER 2024-02-22 06:21 | Inpatient (IN) | payer MEDICARE ==
[2024-02-22] MEDS: LORazepam 2 MG/ML INJ IV STA (06:54)
[2024-02-22 07:04] LABS: Glucose,Whole Blood 121 mg/dL (70-110)
--- NOTE | 2024-02-22 07:04 | ED ---
General Adult HPI - General Source: patient, EMS, RN notes reviewed, old records reviewed Mode of arrival: EMS Limitations: altered mental status <Humble Daley - Last Filed: 02/22/24 10:05> <Anurag Holt - Last Filed: 02/22/24 15:23> - General Chief complaint: Shortness of Breath Stated complaint: SOB Time Seen by Provider: 02/22/24 06:22 - History of Present Illness Initial comments: 63-year-old female presents emergency department with chief complaint of shortness of breath, altered mental status. Patient initially called EMS stating that she had some shortness of breath and chronic back pain. Patient slowly became confused which patient had recent presentation similar to this and was admitted to the hospital for benzodiazepine withdrawal seizures. Patient does have a past medical history of COPD, chronic pain, HIV. Patient has severe anxiety unclear if she is taking her medication she is very anxious crying. Patient has no obvious injuries patient's information is very limited given curr ent condition. (Humble Daley) - Related Data Home Medications Medication Instructions Recorded Confirmed ARIPiprazole [Abilify] 2 mg PO DAILY 07/17/20 02/22/24 Atorvastatin [Lipitor] 10 mg PO DAILY 07/17/20 02/22/24 Dicyclomine [Bentyl] 20 mg PO TID 11/20/21 02/22/24 Budesonide 0.5 mg INHALATION RT-BID 06/26/23 02/22/24 Budesonide/Formoterol Fumarate 2 puff INHALATION RT-BID 06/26/23 02/22/24 [Symbicort 160-4.5 Mcg Inhaler] Ergocalciferol [Vitamin D2 (1250 1,250 mcg PO WE 06/26/23 02/22/24 Mcg = 16996 Iu)] Folic Acid 1 mg PO DAILY 06/26/23 02/22/24 Ferrous Sulfate [Iron (65 MG 325 mg PO DAILY 01/17/24 02/22/24 Elemental)] Furosemide [Lasix] 20 mg PO DAILY 01/17/24 02/22/24 PARoxetine [Paxil] 20 mg PO DAILY 01/17/24 02/22/24 amLODIPine [Norvasc] 5 mg PO DAILY 01/17/24 02/22/24 clonazePAM [KlonoPIN] 1 mg PO HS 01/17/24 02/22/24 ALPRAZolam [Xanax] 0.25 mg PO DIRECTED PRN 02/22/24 02/22/24 HYDROcodone/APAP 10-325MG [[place] 1 tab PO QID 02/22/24 02/22/24 10-325] Previous Rx's Medication Instructions Recorded Ipratropium-Albuterol Nebulize 3 ml INHALATION RT-QID 30 Days 07/01/23 [Duoneb 0.5 mg-3 mg/3 ml Soln] #120 each Pantoprazole [Protonix] 40 mg PO AC-BRKFST 90 Days #90 tab 07/01/23 Allergies Allergy/AdvReac Type Severity Reaction Status Date / Time codeine Allergy Unknown Verified 02/22/24 10:36 Penicillins Allergy Unknown Verified 02/22/24 10:36 Sulfa (Sulfonamide Allergy Unknown Verified 02/22/24 10:36 Antibiotics) Review of Systems ROS Other: All systems not noted in ROS Statement are negative. <Humble Dlaey - Last Filed: 02/22/24 10:05> ROS Other: All systems not noted in ROS Statement are negative. <Anurag Holt - Last Filed: 02/22/24 15:23> ROS Statement: Those systems with pertinent positive or pertinent negative responses have been documented in the HPI. Past Medical History Past Medical History: No Reported History Additional Past Medical History / Comment(s): Has HIV 1. Recent abn lung CT, awaiting f/u. Colostomy reversal planned for 07/22/20 History of Any Multi-Drug Resistant Organisms: None Reported Past Surgical History: Bowel Resection Additional Past Surgical History / Comment(s): jaw surgery, D&C, fallopian tube exc. Colostomy 06/20/19 est, broken back Past Anesthesia/Blood Transfusion Reactions: No Reported Reaction Past Psychological History: No Psychological Hx Reported Smoking Status: Former smoker Past Alcohol Use History: None Reported Past Drug Use History: None Reported - Past Family History Mother Family Medical History: Blood Disorder, Deep Vein Thrombosis (DVT), Pulmonary Embolus Additional Family Medical History / Comment(s): Factor V <Humble Daley - Last Filed: 02/22/24 10:05> General Exam Limitations: altered mental status General appearance: alert, in no apparent distress, anxious Head exam: Present: atraumatic, normocephalic, normal inspection Eye exam: Present: normal appearance, PERRL, EOMI. Absent: scleral icterus, conjunctival injection, periorbital swelling ENT exam: Present: normal exam, normal oropharynx, mucous membranes moist Neck exam: Present: normal inspection, full ROM. Absent: tenderness, meningismus, lymphadenopathy Respiratory exam: Present: normal lung sounds bilaterally. Absent: respiratory distress, wheezes, rales, rhonchi, stridor Cardiovascular Exam: Present: normal rhythm, tachycardia, normal heart sounds. Absent: systolic murmur, diastolic murmur, rubs, gallop, clicks GI/Abdominal exam: Present: soft, normal bowel sounds. Absent: distended, tenderness, guarding, rebound, rigid Extremities exam: Present: pedal edema, other (Old wound the lower extremity) Neurological exam: Present: altered Skin exam: Present: warm, dry, intact, normal color. Absent: rash <Humble Daley - Last Filed: 02/22/24 10:05> Course Vital Signs 02/22/24 02/22/24 02/22/24 06:22 06:56 07:20 Temperature 97.8 F 97.8 F Pulse Rate 123 H 117 H 112 H Respiratory 22 20 18 Rate Blood Pressure 102/71 134/108 100/80 O2 Sat by Pulse 95 96 98 Oximetry 02/22/24 02/22/24 02/22/24 07:48 10:02 11:06 Temperature 97.6 F 97.5 F L Pulse Rate 109 H 107 H 101 H Respiratory 19 19 20 Rate Blood Pressure 99/75 97/67 72/45 O2 Sat by Pulse 97 96 96 Oximetry 02/22/24 02/22/24 02/22/24 12:15 12:34 13:51 Temperature Pulse Rate 101 H 105 H 101 H Respiratory 19 18 19 Rate Blood Pressure 100/88 99/72 104/59 O2 Sat by Pulse 96 95 95 Oximetry 02/22/24 15:09 Temperature Pulse Rate 95 Respiratory Rate Blood Pressure O2 Sat by Pulse Oximetry EKG Findings - EKG Comments: EKG Findings:: EKG performed at 7: 32 sinus tachycardia rate of 109 FL 157 QRS 98 QT/QTc 335/399 - EKG Results: EKG: interpreted by ERMD <Humble Daley - Last Filed: 12/04/24 10:05> Medical Decision Making - Lab Data Result diagrams: 02/22/24 06:33 02/22/24 06:33 <Humble Daley - Last Filed: 02/22/24 10:05> - Lab Data Result diagrams: 02/22/24 06:33 02/22/24 06:33 <JonathonAnurag - Last Filed: 02/22/24 15:23> - Medical Decision Making Was pt. sent in by a medical professional or institution (, [facility], [employer], urgent care, hospital, or alf...) When possible be specific @ -No Did you speak to anyone other than the patient for history (EMS, parent, family, police, friend...)? What history was obtained from this source @ -EMS regarding patient's presentation, medications given Did you review nursing and triage notes (agree or disagree)? Why? @ -I reviewed and agree with nursing and triage notes Were old charts reviewed (outside hosp., previous admission, EMS record, old EKG, old radiological studies, urgent care reports/EKG's, alf records)? Report findings @ -Inpatient records from 1 month ago Differential Diagnosis (chest pain, altered mental status, abdominal pain women, abdominal pain men, vaginal bleeding, weakness, fever, dyspnea, syncope, headache, dizziness, GI bleed, back pain, seizure, CVA, palpatations, mental health, musculoskeletal)? @ -Differential Dyspnea: Coronary syndrome, arrhythmia, tamponade, asthma, COPD, pulmonary embolism, pneumonia, pneumothorax, pulmonary effusion, anaphylaxis, diabetic ketoacidosis, flailed chest, pulmonary contusion, diaphragmatic rupture, anemia, neuromuscular, this is not meant to be an all-inclusive list. EKG interpreted by me (3pts min.). @ -As above X-rays interpreted by me (1pt min.). @ -Chest x-ray shows diffuse atypical pneumonia changes CT interpreted by me (1pt min.). @ -None done U/S interpreted by me (1pt. min.). @ -None done What testing was considered but not performed or refused? (CT, X-rays, U/S, labs)? Why? @ -None What meds were considered but not given or refused? Why? @ -None Did you discuss the management of the patient with other professionals (professionals i.e. , PA, [employer]ELER, lab, RT, psych nurse, social security assessor, microsoft dynamics ax developer, teacher, workplace rehabilitation officer, pillowcase folder)? Give summary @ -Dr. Saavedra for admission and Sayed regarding patient's HIV and pneumonia presentation Was smoking cessation discussed for >3mins.? @ -No Was critical care preformed (if so, how long)? @ -No Were there social determinants of health that impacted care today? How? (Homelessness, low income, unemployed, alcoholism, drug addiction, t ransportation, low edu. Level, literacy, decrease access to med. care, prison, rehab)? @ -No Was there de-escalation of care discussed even if they declined (Discuss DNR or withdrawal of care, Hospice)? DNR status @ -No What co-morbidities impacted this encounter? (DM, HTN, Smoking, COPD, CAD, Cancer, CVA, ARF, Chemo, Hep., AIDS, mental health diagnosis, sleep apnea, morbid obesity)? @ -HIV, COPD Was patient admitted / discharged? Hospital course, mention meds given and route, prescriptions, significant lab abnormalities, going to OR and other pertinent info. @ -Admitted patient presented for increasing dyspnea, weakness, altered mental status. Patient found have atypical pneumonia, patient's atrial positive with low CD4 count 1 month ago. Patient started on Rocephin, azithromycin consulted ID discussed the case in which he will add additional antibiotics, antifungals antivirals as needed. Undiagnosed new problem with uncertain prognosis? @ -No Drug Therapy requiring intensive monitoring for toxicity (Heparin, Nitro, Insulin, Cardizem)? @ -No Were any procedures done? @ -No Diagnosis/symptom? @ -Pneumonia, altered mental status, HIV Acute, or Chronic, or Acute on Chronic? @ -Acute Uncomplicated (without systemic symptoms) or Complicated (systemic symptoms)? @ -Complicated Side effects of treatment? @ -No Exacerbation, Progression, or Severe Exacerbation? @ -No Poses a threat to life or bodily function? How? (Chest pain, [place], [place], pneumonia, PE, COPD, DKA, ARF, appy, cholecystitis, CVA, Diverticulitis, Homicidal, Suicidal, threat to staff... and all critical care pts) @ -[Yes possible sepsis, endorgan failure (Humble Daley) Discussed case with on-call infectious disease physician, Dr. Knutson who was in agreement the plan for antibiotics. Due to the Bactrim allergy, he will work on a PCP prophylaxis plan. Patient will be started on IV steroids. (Anurag Holt) - Lab Data Lab Results 02/22/24 02/22/24 02/22/24 Range/Units 06:33 06:33 06:33 WBC 26.3 H (3.8-10.6) k/uL RBC 3.79 L (3.80-5.40) m/uL Hgb 11.0 L (11.4-16.0) gm/dL Hct 34.5 (34.0-46.0) % MCV 91.0 (80.0-100.0) fL MCH 29.1 (25.0-35.0) pg MCHC 32.0 (31.0-37.0) g/dL RDW 15.5 (11.5-15.5) % Plt Count 452 H (150-450) k/uL MPV 7.9 Neutrophils % 95 % Lymphocytes % 4 % Monocytes % 1 % Eosinophils % 0 % Basophils % 0 % Neutrophils # 24.9 H (1.3-7.7) k/uL Lymphocytes # 0.9 L (1.0-4.8) k/uL Monocytes # 0.3 (0-1.0) k/uL Eosinophils # 0.0 (0-0.7) k/uL Basophils # 0.1 (0-0.2) k/uL Hypochromasia Slight PT 11.2 (10.0-12.5) sec INR 1.0 (<1.2) APTT 25.4 (22.0-30.0) sec VBG pH (7.31-7.41) VBG pCO2 (37-51) mmHg VBG HCO3 (24-28) mmol/L Sodium 126 L (137-145) mmol/L Potassium 3.7 (3.5-5.1) mmol/L Chloride 81 L (98-107) mmol/L Carbon Dioxide 32 H (22-30) mmol/L Anion Gap 13 mmol/L BUN 23 H (7-17) mg/dL Creatinine 0.87 (0.52-1.04) mg/dL Est GFR (CKD-EPI)AfAm 81 (>60 ml/min/1.73 sqM) Est GFR (CKD-EPI)NonAf 70 (>60 ml/min/1.73 sqM) Glucose 100 H (74-99) mg/dL POC Glucose (mg/dL) (70-110) mg/dL POC Glu Screw[employer] St[employer] Polisher ID Calcium 8.7 (8.4-10.2) mg/dL Total Bilirubin 0.8 (0.2-1.3) mg/dL AST 25 (14-36) U/L ALT 20 (4-34) U/L Alkaline Phosphatase 170 H (38-126) U/L Troponin I (0.000-0.034) ng/mL Total Protein 6.1 L (6.3-8.2) g/dL Albumin 3.2 L (3.5-5.0) g/dL Urine Color Urine Appearance (Clear) Urine pH (5.0-8.0) Ur Specific [place] (1.001-1.035) Urine Protein (Negative) Urine Glucose (UA) (Negative) Urine Ketones (Negative) Urine Blood (Negative) Urine Nitrite (Negative) Urine Bilirubin (Negative) Urine Urobilinogen (<2.0) mg/dL Ur Leukocyte Esterase (Negative) Urine RBC (0-5) /hpf Urine WBC (0-5) /hpf Urine WBC Clumps (None) /hpf Ur Squamous Epith Cells (0-4) /hpf Urine Bacteria (None) /hpf Urine Mucus (None) /hpf Urine Opiates Screen (NotDetected) Ur Oxycodone Screen (NotDetected) Urine Methadone Screen (NotDetected) Ur Barbiturates Screen (NotDetected) U Tricyclic Antidepress (NotDetected) Ur Phencyclidine Scrn (NotDetected) Ur Amphetamines Screen (NotDetected) U Methamphetamines Scrn (NotDetected) U Benzodiazepines Scrn (NotDetected) Urine Cocaine Screen (NotDetected) U Marijuana (THC) Screen (NotDetected) 02/22/24 02/22/24 02/22/24 Range/Units 06:33 07:02 07:03 WBC (3.8-10.6) k/uL RBC (3.80-5.40) m/uL Hgb (11.4-16.0) gm/dL Hct (34.0-46.0) % MCV (80.0-100.0) fL MCH (25.0-35.0) pg MCHC (31.0-37.0) g/dL RDW (11.5-15.5) % Plt Count (150-450) k/uL MPV Neutrophils % % Lymphocytes % % Monocytes % % Eosinophils % % Basophils % % Neutrophils # (1.3-7.7) k/uL Lymphocytes # (1.0-4.8) k/uL Monocytes # (0-1.0) k/uL Eosinophils # (0-0.7) k/uL Basophils # (0-0.2) k/uL Hypochromasia PT (10.0-12.5) sec INR (<1.2) APTT (22.0-30.0) sec VBG pH 7.42 H (7.31-7.41) VBG pCO2 51 (37-51) mmHg VBG HCO3 33 H (24-28) mmol/L Sodium (137-145) mmol/L Potassium (3.5-5.1) mmol/L Chloride (98-107) mmol/L Carbon Dioxide (22-30) mmol/L Anion Gap mmol/L BUN (7-17) mg/dL Creatinine (0.52-1.04) mg/dL Est GFR (CKD-EPI)AfAm (>60 ml/min/1.73 sqM) Est GFR (CKD-EPI)NonAf (>60 ml/min/1.73 sqM) Glucose (74-99) mg/dL POC Glucose (mg/dL) 121 H (70-110) mg/dL POC Glu [employer] ID [place] Ay[place] Calcium (8.4-10.2) mg/dL Total Bilirubin (0.2-1.3) mg/dL AST (14-36) U/L ALT (4-34) U/L Alkaline Phosphatase (38-126) U/L Troponin I <0.012 (0.000-0.034) ng/mL Total Protein (6.3-8.2) g/dL Albumin (3.5-5.0) g/dL Urine Color Urine Appearance (Clear) Urine pH (5.0-8.0) Ur Specific [place] (1.001-1.035) Urine Protein (Negative) Urine Glucose (UA) (Negative) Urine Ketones (Negative) Urine Blood (Negative) Urine Nitrite (Negative) Urine Bilirubin (Negative) Urine Urobilinogen (<2.0) mg/dL Ur Leukocyte Esterase (Negative) Urine RBC (0-5) /hpf Urine WBC (0-5) /hpf Urine WBC Clumps (None) /hpf Ur Squamous Epith Cells (0-4) /hpf Urine Bacteria (None) /hpf Urine Mucus (None) /hpf Urine Opiates Screen (NotDetected) Ur Oxycodone Screen (NotDetected) Urine Methadone Screen (NotDetected) Ur Barbiturates Screen (NotDetected) U Tricyclic Antidepress (NotDetected) Ur Phencyclidine Scrn (NotDetected) Ur Amphetamines Screen (NotDetected) U Methamphetamines Scrn (NotDetected) U Benzodiazepines Scrn (NotDetected) Urine Cocaine Screen (NotDetected) U Marijuana (THC) Screen (NotDetected) 02/22/24 Range/Units 08:23 WBC (3.8-10.6) k/uL RBC (3.80-5.40) m/uL Hgb (11.4-16.0) gm/dL Hct (34.0-46.0) % MCV (80.0-100.0) fL MCH (25.0-35.0) pg MCHC (31.0-37.0) g/dL RDW (11.5-15.5) % Plt Count (150-450) k/uL MPV Neutrophils % % Lymphocytes % % Monocytes % % Eosinophils % % Basophils % % Neutrophils # (1.3-7.7) k/uL Lymphocytes # (1.0-4.8) k/uL Monocytes # (0-1.0) k/uL Eosinophils # (0-0.7) k/uL Basophils # (0-0.2) k/uL Hypochromasia PT (10.0-12.5) sec INR (<1.2) APTT (22.0-30.0) sec VBG pH (7.31-7.41) VBG pCO2 (37-51) mmHg VBG HCO3 (24-28) mmol/L Sodium (137-145) mmol/L Potassium (3.5-5.1) mmol/L Chloride (98-107) mmol/L Carbon Dioxide (22-30) mmol/L Anion Gap mmol/L BUN (7-17) mg/dL Creatinine (0.52-1.04) mg/dL Est GFR (CKD-EPI)AfAm (>60 ml/min/1.73 sqM) Est GFR (CKD-EPI)NonAf (>60 ml/min/1.73 sqM) Glucose (74-99) mg/dL POC Glucose (mg/dL) (70-110) mg/dL POC Glu Scre[employer] ID Calcium (8.4-10.2) mg/dL Total Bilirubin (0.2-1.3) mg/dL AST (14-36) U/L ALT (4-34) U/L Alkaline Phosphatase (38-126) U/L Troponin I (0.000-0.034) ng/mL Total Protein (6.3-8.2) g/dL Albumin (3.5-5.0) g/dL Urine Color Yellow Urine Appearance Turbid H (Clear) Urine pH 8.5 H (5.0-8.0) Ur Specific [place] 1.017 (1.001-1.035) Urine Protein 2+ H (Negative) Urine Glucose (UA) Negative (Negative) Urine Ketones Negative (Negative) Urine Blood Small H (Negative) Urine Nitrite Negative (Negative) Urine Bilirubin Negative (Negative) Urine Urobilinogen <2.0 (<2.0) mg/dL Ur Leukocyte Esterase Large H (Negative) Urine RBC 43 H (0-5) /hpf Urine WBC >182 H (0-5) /hpf Urine WBC Clumps Many H (None) /hpf Ur Squamous Epith Cells 3 (0-4) /hpf Urine Bacteria Many H (None) /hpf Urine Mucus Rare H (None) /hpf Urine Opiates Screen Detected H (NotDetected) Ur Oxycodone Screen Not Detected (NotDetected) Urine Methadone Screen Not Detected (NotDetected) Ur Barbiturates Screen Not Detected (NotDetected) U Tricyclic Antidepress Not Detected (NotDetected) Ur Phencyclidine Scrn Not Detected (NotDetected) Ur Amphetamines Screen Not Detected (NotDetected) U Methamphetamines Scrn Not Detected (NotDetected) U Benzodiazepines Scrn Detected H (NotDetected) Urine Cocaine Screen Not Detected (NotDetected) U Marijuana (THC) Screen Detected H (NotDetected) Disposition Time of Disposition: 10:02 <Humble Daley - Last Filed: 02/22/24 10:05> <Anurag Holt - Last Filed: 02/22/24 15:23> Clinical Impression: HIV (human immunodeficiency virus infection), Pneumonia, AMS (altered mental status) Disposition: ADMITTED IP TO THIS HOSP Condition: Serious
[2024-02-22 07:41] LABS: Basophils # (A) 0.1 k/uL (0-0.2); Basophils % (A) 0 %; Eosinophils % (A) 0 %; HCT 34.5 % (34.0-46.0); Hypochromasia Slight; Lymphocytes # (A) 0.9 k/uL (1.0-4.8); Lymphocytes % (A) 4 %; MCH 29.1 pg (25.0-35.0); Mean Platelet Volume 7.9; Monocytes # (A) 0.3 k/uL (0-1.0); Monocytes % (A) 1 %; Neutrophils # (A) 24.9 k/uL (1.3-7.7); Neutrophils % (A) 95 %; Platelet Count 452 k/uL (150-450); RBC 3.79 m/uL (3.80-5.40); RDW 15.5 % (11.5-15.5); WBC 26.3 k/uL (3.8-10.6)
[2024-02-22 07:45] LABS: Partial Thromboplastin Time 25.4 sec (22.0-30.0); Prothrombin Time 11.2 sec (10.0-12.5)
[2024-02-22 07:49] LABS: AST 25 U/L (14-36); African American GFR (CKD) 81 (>60 ml/min/1.73 sqM); Albumin 3.2 g/dL (3.5-5.0); Alkaline Phosphatase 170 U/L (38-126); Anion Gap 13 mmol/L; Blood Urea Nitrogen 23 mg/dL (7-17); Calcium 8.7 mg/dL (8.4-10.2); Carbon Dioxide 32 mmol/L (22-30); Chloride 81 mmol/L (98-107); Glucose 100 mg/dL (74-99); Non-African American GFR(CKD) 70 (>60 ml/min/1.73 sqM); Potassium 3.7 mmol/L (3.5-5.1); Sodium 126 mmol/L (137-145); Total Bilirubin 0.8 mg/dL (0.2-1.3); Total Protein 6.1 g/dL (6.3-8.2)
[2024-02-22 07:56] LABS: ALT 20 U/L (4-34)
[2024-02-22 07:59] LABS: VBG PH 7.42 (7.31-7.41)
--- NOTE | 2024-02-22 08:36 | XR ---
EXAMINATION TYPE: XR chest 2V DATE OF EXAM: 02/22/2024 8:19 AM COMPARISON: Chest radiographs from 01/17/2024 CLINICAL INDICATION: Female, 63 years old with history of altered mental status; TECHNIQUE: XR chest 2V Frontal and lateral views of the chest. FINDINGS: Lungs/Pleura: Multifocal airspace opacities. No evidence of pneumothorax or pleural effusion. Pulmonary vascularity: Unremarkable. Heart/mediastinum: Cardiomediastinal silhouette is unremarkable. Musculoskeletal: No acute osseous pathology. IMPRESSION: Diffuse airspace opacities correlate for pulmonary edema versus atypical pneumonia. [facility], , 02/22/2024 8:34 AM
[2024-02-22] MEDS: AZITHROMYCIN 500 MG in SODIUM CHLORIDE 0.9% 250 ML IVPB STA (09:54)
[2024-02-22] MEDS ORDERED: PNEUMONIA PROTOCOL UTILIZED 1 EACH MISC PO PRN (10:02)
[2024-02-22] MEDS: methylPREDNISolone SOD SUCCI 40 MG/ML 1 ML VIAL IV STA (10:25)
[2024-02-22] MEDS: SODIUM CHLORIDE 0.9% 1,000 ML IV ONE (10:27)
[2024-02-22] MEDS: SODIUM CHLORIDE 0.9% 1,000 ML IV SCH (10:27)
[2024-02-22] MEDS: clonazePAM 0.5 MG TAB PO SCH (13:48)
[2024-02-22] MEDS: HYDROcodone/APAP 10-325MG 1 EACH TAB PO SCH (13:49)
[2024-02-22] MEDS ORDERED: HYDROmorphone 0.5 MG/0.5 ML SYRINGE IVP PRN (13:52)
--- NOTE | 2024-02-22 14:04 | CT ---
EXAMINATION TYPE: CT chest wo con DATE OF EXAM: 02/22/2024 1:23 PM COMPARISON: 06/27/2023 CLINICAL INDICATION: Female, 63 years old with history of cap, RICKIE, SOB TECHNIQUE: Axial images were obtained at 5 mm thick sections. Reconstructed images are reviewed on [employer] computer in the coronal plane. Contrast used: mL of , (none if empty) Oral contrast used: (none if empty) CT DLP: 271.7 mGycm, Automated exposure control for dose reduction was used. FINDINGS: Portion of the thyroid visualized is normal. There are scattered irregular infiltrates present. There is some posterior consolidations within the lungs bilaterally. Groundglass opacity is present in solid lesions are within the periphery of the ri ght lower lobe. Underlying masses are not excluded. Findings of developed from prior exam No enlarged mediastinal or hilar adenopathy is evident. The ascending aorta diameter at the level o f the main pulmonary artery is 3.2 cm. The main pulmonary artery diameter at the bifurcation is 2.[address] sections are obtained through the upper abdomen. There is a moderate-sized hiatal hernia. Some debris is within the distal esophagus. IMPRESSION: 1. Bilateral lung infiltrates are within the posterior dependent lungs correlate for pneumonia. Consi janina atypical pneumonia. Findings are worsened over the interval, Follow-up recommended. 2. Hiatal hernia [facility], Workstation: [id number], 02/22/2024 2:01 PM
[2024-02-22 14:54] LABS: Appearance,Urine Turbid (Clear); Bacteria,Urine Many /hpf; Bilirubin,Urine Negative (Negative); Blood,Urine Small (Negative); Color,Urine Yellow; Glucose,Urine (UA) Negative (Negative); Ketones,Urine Negative (Negative); Leukocyte Esterase,Urine Large (Negative); Mucus,Urine Rare /hpf; Nitrite,Urine Negative (Negative); PH, Urine 8.5 (5.0-8.0); Protein,Urine 2+ (Negative); RBC,Urine 43 /hpf (0-5); Specific Gravity,Urine 1.017 (1.001-1.035); Squamous Epithelial Cell,Urine 3 /hpf (0-4); Urobilinogen,Urine <2.0 mg/dL (<2.0); WBC,Urine >182 /hpf (0-5)
[2024-02-22 14:59] LABS: Amphetamine Screen,Urine Not Detected (NotDetected); Barbiturate Screen,Urine Not Detected (NotDetected); Benzodiazepines Screen,Urine Detected (NotDetected); Cocaine Screen,Urine Not Detected (NotDetected); Methadone Screen, Urine Not Detected (NotDetected); Opiate Screen,Urine Detected (NotDetected); Oxycodone Screen, Urine Not Detected (NotDetected); Phencyclidine Screen,Urine Not Detected (NotDetected); Tricyclic Antidepressant,Urine Not Detected (NotDetected); Urn Cannabinoid Scrn Detected (NotDetected)
[2024-02-22] MEDS ORDERED: DICYCLOMINE 20 MG TAB PO SCH (16:00)
[2024-02-22] MEDS: methylPREDNISolone SOD SUCCI 40 MG/ML 1 ML VIAL IV SCH (16:18)
--- NOTE | 2024-02-22 17:20 | P.CNPUL ---
History of Present Illness Consult date: 02/22/24 Reason for consult: dyspnea, pneumonia Chief complaint: Shortness of breath History of present illness: Patient is a 63-year-old female well-known to me came into hospital with confusion altered mental status along with shortness of breath, EMS were called due to ongoing shortness of breath and chronic back pain in addition patient has been more confused than baseline thought to be related to benzodiazepine. 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 On arrival patient was tachypneic tachycardic with a respiratory rate of 22 heart rate of 123 soft blood pressure 100/70 she was however afebrile. White cell count is 26.3 stable hemoglobin hematocrit, chemistry significant for low sodium of 126 potassium 3.7, BUN/creatinine 23/0.87. Urinalysis suggestive of ongoing inflammatory process with turbid urine, large leukocyte esterase many WBCs RBCs and bacteria urine drug screen was positive for opiates as well as benzodiazepine and marijuana. Chest x-ray significant for diffuse airspace opacities suggestive of atypical pneumonia versus pulmonary edema, ECG positive for sinus tachycardia, COPD like pattern, incomplete right bundle branch block, RVH. CT scan of the chest irregular infiltrate seen with posterior consolidation and groundglass opacities predominantly more so on the right side compared to left side likely pneumonia/atypical pneumonia overall symptoms are progressive. Patient has been admitted to hospital on broad-spectrum antibiotics currently patient is being continued on home medicine also on IV Zithromax along with Rocephin and clindamycin, Solu-Medrol is being continued 40 mg IV Q8 patient has been on PCP prophylaxis with primaquine also gently being hydrated. Past medical history significant for severe degree of degenerative joint disease and compression fracture of spine, chronic pain syndrome, end-stage COPD oxygen dependent, HIV positive status, mood disorder depression, dyslipidemia, osteoporosis, hypertension hypertensive cardiovascular disease, Review of Systems All systems: negative Past Medical History Past Medical History: No Reported History Additional Past Medical History / Comment(s): Has HIV 1. Recent abn lung CT, awaiting f/u. Colostomy reversal planned for 07/22/20 History of Any Multi-Drug Resistant Organisms: None Reported Past Surgical History: Bowel Resection Additional Past Surgical History / Comment(s): jaw surgery, D&C, fallopian tube exc. Colostomy 06/20/19 est, broken back Past Anesthesia/Blood Transfusion Reactions: No Reported Reaction Past Psychological History: No Psychological Hx Reported Smoking Status: Former smoker Past Alcohol Use History: None Reported Past Drug Use History: None Reported - Past Family History Mother Family Medical History: Blood Disorder, Deep Vein Thrombosis (DVT), Pulmonary Embolus Additional Family Medical History / Comment(s): Factor V Medications and Allergies Home Medications Medication Instructions Recorded Confirmed Type ARIPiprazole [Abilify] 2 mg PO DAILY 07/17/20 02/22/24 History Atorvastatin [Lipitor] 10 mg PO DAILY 07/17/20 02/22/24 History Dicyclomine [Bentyl] 20 mg PO TID 11/20/21 02/22/24 History Budesonide 0.5 mg INHALATION RT-BID 06/26/23 02/22/24 History Budesonide/Formoterol Fumarate 2 puff INHALATION RT-BID 06/26/23 02/22/24 History [Symbicort 160-4.5 Mcg Inhaler] Ergocalciferol [Vitamin D2 (1250 1,250 mcg PO WE 06/26/23 02/22/24 History Mcg = 44279 Iu)] Folic Acid 1 mg PO DAILY 06/26/23 02/22/24 History Ipratropium-Albuterol Nebulize 3 ml INHALATION RT-QID 30 Days 07/01/23 02/22/24 Rx [Duoneb 0.5 mg-3 mg/3 ml Soln] #120 each Pantoprazole [Protonix] 40 mg PO AC-BRKFST 90 Days #90 tab 07/01/23 02/22/24 Rx Ferrous Sulfate [Iron (65 MG 325 mg PO DAILY 01/17/24 02/22/24 History Elemental)] Furosemide [Lasix] 20 mg PO DAILY 01/17/24 02/22/24 History PARoxetine [Paxil] 20 mg PO DAILY 01/17/24 02/22/24 History amLODIPine [Norvasc] 5 mg PO DAILY 01/17/24 02/22/24 History clonazePAM [KlonoPIN] 1 mg PO HS 01/17/24 02/22/24 History ALPRAZolam [Xanax] 0.25 mg PO DIRECTED PRN 02/22/24 02/22/24 History HYDROcodone/APAP 10-325MG [[place] 1 tab PO QID 02/22/24 02/22/24 History 10-325] Allergies Allergy/AdvReac Type Severity Reaction Status Date / Time codeine Allergy Unknown Verified 02/22/24 10:36 Penicillins Allergy Unknown Verified 02/22/24 10:36 Sulfa (Sulfonamide Allergy Unknown Verified 02/22/24 10:36 Antibiotics) Physical Exam Vitals: Vital Signs Temp Pulse Resp BP Pulse Ox 02/22/24 15:09 95 02/22/24 13:51 101 H 19 104/59 95 02/22/24 12:34 105 H 18 99/72 95 02/22/24 12:15 101 H 19 100/88 96 02/22/24 11:06 97.5 F L 101 H 20 72/45 96 02/22/24 10:02 97.6 F 107 H 19 97/67 96 02/22/24 07:48 109 H 19 99/75 97 02/22/24 07:20 97.8 F 112 H 18 100/80 98 02/22/24 06:56 117 H 20 134/108 96 02/22/24 06:22 97.8 F 123 H 22 102/71 95 Intake and Output 02/22/24 02/22/24 02/22/24 06:59 14:59 22:59 Other: Weight 63.503 kg - Constitutional General appearance: average body habitus, cooperative, disheveled, mild distress - EENT Eyes: EOMI, PERRLA Ears: bilateral: normal - Neck Carotids: bilateral: upstroke normal - Respiratory Respiratory: bilateral: diminished, rales (Dry bilateral) - Cardiovascular Rhythm: regular Heart sounds: normal: S1, S2 - Gastrointestinal General gastrointestinal: normal bowel sounds - Integumentary Integumentary: normal turgor - Neurologic Neurologic: CNII-XII intact - Musculoskeletal Musculoskeletal: gait normal, generalized weakness, strength equal bilaterally - Psychiatric Psychiatric: A&O x's 3, appropriate affect, intact judgment & insight Results - Laboratory Findings CBC and BMP: 02/22/24 06:33 02/22/24 06:33 PT/INR, D-dimer PT 11.2 sec (10.0-12.5) 02/22/24 06:33 INR 1.0 (<1.2) 02/22/24 06:33 Abnormal lab findings: Abnormal Labs 02/22/24 02/22/24 02/22/24 06:33 06:33 07:02 WBC 26.3 H RBC 3.79 L Hgb 11.0 L Plt Count 452 H Neutrophils # 24.9 H Lymphocytes # 0.9 L VBG pH VBG HCO3 Sodium 126 L Chloride 81 L Carbon Dioxide 32 H BUN 23 H Glucose 100 H POC Glucose (mg/dL) 121 H Alkaline Phosphatase 170 H Total Protein 6.1 L Albumin 3.2 L Urine Appearance Urine pH Urine Protein Urine Blood Ur Leukocyte Esterase Urine RBC Urine WBC Urine WBC Clumps Urine Bacteria Urine Mucus Urine Opiates Screen U Benzodiazepines Scrn U Marijuana (THC) Screen 02/22/24 02/22/24 07:03 08:23 WBC RBC Hgb Plt Count Neutrophils # Lymphocytes # VBG pH 7.42 H VBG HCO3 33 H Sodium Chloride Carbon Dioxide BUN Glucose POC Glucose (mg/dL) Alkaline Phosphatase Total Protein Albumin Urine Appearance Turbid H Urine pH 8.5 H Urine Protein 2+ H Urine Blood Small H Ur Leukocyte Esterase Large H Urine RBC 43 H Urine WBC >182 H Urine WBC Clumps Many H Urine Bacteria Many H Urine Mucus Rare H Urine Opiates Screen Detected H U Benzodiazepines Scrn Detected H U Marijuana (THC) Screen Detected H Assessment and Plan Assessment: Altered mental status likely related to sepsis as well as pneumonia, benzodiazepine and narcotics Sepsis related to pneumonia Acute on chronic hypoxic respiratory failure due to baseline COPD as well as added pneumonia Atypical pneumonia versus opportunistic lung disease, patient has been on PCP prophylaxis as well HIV status versus AIDS Chronic back pain due to compression fracture of lower thoracic vertebra Hypertension hypertensive cardiovascular disease, Dyslipidemia, End-stage lung disease due to severe COPD emphysema Plan: Continue broad-spectrum IV antibiotics IV steroids Will discuss with infectious disease services about considering patient for bronchoscopy and BAL, however will wait for patient stabilization Consider pneumocystis therapy in addition to bacterial pneumonia treatment Will discuss with infectious disease services about HIV status Further plan of care as per clinical response the patient and diagnostic planning Time with Patient: Greater than 30
[2024-02-22] MEDS: BUDESONIDE 0.5 MG/2 ML NEBU INHALATION SCH (20:12)
[2024-02-22] MEDS: clonazePAM 1 MG TAB PO SCH (21:13)
--- NOTE | 2024-02-22 22:43 | P.CONS ---
History of Present Illness - Reason for Consult Consult date: 02/22/24 Pneumonia, HIV Requesting physician: Humble Daley - Chief Complaint Increasing shortness of breath x days - History of Present Illness Patient is a 63-year-old female with a past medical history significant for COPD HIV but not compliant with her medication patient has been brought into the hospital for evaluation of increasing shortness of breath and mental status changes EMS was called into the house as the patient complaining of shortness of breath which apparently has been getting worse for the last few days patient was noticed to be confused anxious and crying and subsequently has been brought into the hospital on arrival to the ER patient was afebrile and no fever have been recorded subsequently patient was tachycardic mildly hypertensive as well as hypoxic and is currently on 2 L nasal cannula oxygen patient did have white count of 26.3 with a left shift creatinine 0.87 elevated sed rate normal urine has been positive ureterocele was positive for opiates benzos and marijuana influenza RSV and COVID testing was negative patient did have a chest x-ray diffuse airspace opacity correlate for pulm edema versus atypical pneumonia patient was started on Rocephin and Zithromax infectious disease was consulted for further management of antibiotic therapy most information has been extracted from review the chart as 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 Recent abn lung CT, awaiting f/u. Colostomy reversal planned for 07/22/20 History of Any Multi-Drug Resistant Organisms: None Reported Past Surgical History: Bowel Resection Additional Past Surgical History / Comment(s): jaw surgery, D&C, fallopian tube exc. Colostomy 06/20/19 est, broken back Past Anesthesia/Blood Transfusion Reactions: No Reported Reaction Past Psychological History: No Psychological Hx Reported Smoking Status: Former smoker Past Alcohol Use History: None Reported Past Drug Use History: None Reported - Past Family History Mother Family Medical History: Blood Disorder, Deep Vein Thrombosis (DVT), Pulmonary Embolus Additional Family Medical History / Comment(s): Factor V Medications and Allergies Home Medications Medication Instructions Recorded Confirmed Type ARIPiprazole [Abilify] 2 mg PO DAILY 07/17/20 02/22/24 History Atorvastatin [Lipitor] 10 mg PO DAILY 07/17/20 02/22/24 History Dicyclomine [Bentyl] 20 mg PO TID 11/20/21 02/22/24 History Budesonide 0.5 mg INHALATION RT-BID 06/26/23 02/22/24 History Budesonide/Formoterol Fumarate 2 puff INHALATION RT-BID 06/26/23 02/22/24 Histor y [Symbicort 160-4.5 Mcg Inhaler] Ergocalciferol [Vitamin D2 (1250 1,250 mcg PO WE 06/26/23 02/22/24 History Mcg = 42190 Iu)] Folic Acid 1 mg PO DAILY 06/26/23 02/22/24 History Ipratropium-Albuterol Nebulize 3 ml INHALATION RT-QID 30 Days 07/01/23 02/22/24 Rx [Duoneb 0.5 mg-3 mg/3 ml Soln] #120 each Pantoprazole [Protonix] 40 mg PO AC-BRKFST 90 Days #90 tab 07/01/23 02/22/24 Rx Ferrous Sulfate [Iron (65 MG 325 mg PO DAILY 01/17/24 02/22/24 History Elemental)] Furosemide [Lasix] 20 mg PO DAILY 01/17/24 02/22/24 History PARoxetine [Paxil] 20 mg PO DAILY 01/17/24 02/22/24 History amLODIPine [Norvasc] 5 mg PO DAILY 01/17/24 02/22/24 History clonazePAM [KlonoPIN] 1 mg PO HS 01/17/24 02/22/24 History ALPRAZolam [Xanax] 0.25 mg PO DIRECTED PRN 02/22/24 02/22/24 History HYDROcodone/APAP 10-325MG [[place] 1 tab PO QID 02/22/24 02/22/24 History 10-325] Allergies Allergy/AdvReac Type Severity Reaction Status Date / Time codeine Allergy Unknown Verified 02/22/24 10:36 Penicillins Allergy Unknown Verified 02/22/24 10:36 Sulfa (Sulfonamide Allergy Unknown Verified 02/22/24 10:36 Antibiotics) Physical Exam Vitals: Vital Signs Temp Pulse Resp BP Pulse Ox 02/22/24 10:02 97.6 F 107 H 19 97/67 96 02/22/24 07:48 109 H 19 99/75 97 02/22/24 07:20 97.8 F 112 H 18 100/80 98 02/22/24 06:56 117 H 20 134/108 96 02/22/24 06:22 97.8 F 123 H 22 102/71 95 Intake and Output 02/21/24 02/22/24 02/22/24 22:59 06:59 14:59 Other: Weight 63.503 kg GENERAL DESCRIPTION: Elderly female lying in bed, no distress. No tachypnea or accessory muscle of respiration use. HEENT: Shows Pallor , no scleral icterus. Oral mucous membrane is dry. NECK: Trachea central, no thyromegaly. LUNGS: Unlabored breathing. Coarse breath sounds bilaterally HEART: S1, S2, regular rate and rhythm. No loud murmur ABDOMEN: Soft, no tenderness , EXTREMITIES: No edema of feet. SKIN: No rash, no masses palpable. NEUROLOGICAL: The patient is awake, but pleasantly confused orientation could not be determined Results CBC & Chem 7: 02/22/24 06:33 02/22/24 06:33 Labs: Abnormal Lab Results - Last 24 Hours (Table) 02/22/24 02/22/24 02/22/24 Range/Units 06:33 06:33 07:02 WBC 26.3 H (3.8-10.6) k/uL RBC 3.79 L (3.80-5.40) m/uL Hgb 11.0 L (11.4-16.0) gm/dL Plt Count 452 H (150-450) k/uL Neutrophils # 24.9 H (1.3-7.7) k/uL Lymphocytes # 0.9 L (1.0-4.8) k/uL VBG pH (7.31-7.41) VBG HCO3 (24-28) mmol/L Sodium 126 L (137-145) mmol/L Chloride 81 L (98-107) mmol/L Carbon Dioxide 32 H (22-30) mmol/L BUN 23 H (7-17) mg/dL Glucose 100 H (74-99) mg/dL POC Glucose (mg/dL) 121 H (70-110) mg/dL Alkaline Phosphatase 170 H (38-126) U/L Total Protein 6.1 L (6.3-8.2) g/dL Albumin 3.2 L (3.5-5.0) g/dL 02/22/24 Range/Units 07:03 WBC (3.8-10.6) k/uL RBC (3.80-5.40) m/uL Hgb (11.4-16.0) gm/dL Plt Count (150-450) k/uL Neutrophils # (1.3-7.7) k/uL Lymphocytes # (1.0-4.8) k/uL VBG pH 7.42 H (7.31-7.41) VBG HCO3 33 H (24-28) mmol/L Sodium (137-145) mmol/L Chloride (98-107) mmol/L Carbon Dioxide (22-30) mmol/L BUN (7-17) mg/dL Glucose (74-99) mg/dL POC Glucose (mg/dL) (70-110) mg/dL Alkaline Phosphatase (38-126) U/L Total Protein (6.3-8.2) g/dL Albumin (3.5-5.0) g/dL Assessment and Plan (1) AMS (altered mental status) Current Visit: Yes Status: Acute Code(s): R41.82 - ALTERED MENTAL STATUS, UNSPECIFIED SNOMED Code(s): 086842526 (2) Pneumonia Current Visit: Yes Status: Acute Code(s): J18.9 - PNEUMONIA, UNSPECIFIED ORGANISM SNOMED Code(s): 687808042 (3) Allergy to multiple antibiotics Current Visit: No Status: Acute Code(s): Z88.1 - ALLERGY STATUS TO OTHER ANT IBIOTIC AGENTS SNOMED Code(s): 113613327 Plan: 1patient with HIV for many years unfortunately patient not very compliant with her medication and the last CD4 count on 01/23/2024 was 54 and elevated HIV RNA unfortunately the patient has not follow-up in the office for very long time now presented hospital with increasing shortness of breath with evidence of diffuse infiltrate on the chest x-ray hide likely suspicious for possible PCP pneumonia however we need to cover for the community-acquired pathogen as well while waiting for the workup to be completed. 2patient to have a sulfa allergy and unable to use IV Bactrim for her suspected PCP pneumonia unfortunately pamaquine atovaquone while pending but did not available as per discussion with the pharmacy. 3patient will be empirically treated with Rocephin and Zithromax p.o. trying to arrange for primaquin hopefully will be evaluated tomorrow will be started along with the clindamycin for suspected PCP pneumonia and the patient was started on steroids 4we will check a sputum for Gram stain and culture check a urine for Legionella antigen Mycoplasma IgM as well as sputum for PCP stain 5once clinically condition stabilizes, will obtain HIV genotype before recommending any treatment for her underlying HIV We will follow on clinical condition and cultures to further adjust medication if needed Thank you for this consultation we will follow the patient along with you Dictation was produced using [employer] dictation software. please excuse any grammatical, word or spelling errors. Time with Patient: Greater than 30
--- NOTE | 2024-02-22 23:43 | HP ---
HISTORY AND PHYSICAL HISTORY OF PRESENT ILLNESS: A 63-year-old white female, history of HIV, severe COPD, pulmonary hypertension, came in with recurrent shortness of breath, chronic back pain, confusion. She is being admitted to the hospital for benzodiazepine withdrawal seizures. PAST MEDICAL HISTORY: COPD, chronic pain, HIV, severe anxiety, unclear, very anxious, crying. MEDICATIONS: Include: 1. Abilify 2 mg at night. 2. Lipitor 10 mg daily. 3. Bentyl 20 t.i.d. 4. Symbicort inhaler 2 puffs b.i.d. 5. Folic acid 1 mg daily. 6. Ferrous sulfate 325 daily. 7. Lasix 20 mg daily. 8. [place] 7.5 q.i.d. 9. Paxil 20 mg daily. 10.Amlodipine 5 mg daily. 11.Klonopin 1 mg at night. ALLERGIES: Penicillin, codeine, sulfa. SURGERIES: Jaw surgeries, fallopian tubes, colostomy, broken back, vertebral fractures. SOCIAL HISTORY: Former smoker. FAMILY HISTORY: Mother; DVT, PE. PHYSICAL EXAMINATION: VITAL SIGNS: Temperature 97.8, pulse 112, respiratory rate 16 to 18, blood pressure 100 to 130s over 80s to 100s, O2 of 95 to 98 on 2 to 3 L. GENERAL: Thin, cachectic, looks in visibly short of breath. Respiratory rate 20 to 25. LUNGS: Scattered wheeze and rhonchi. CARDIOVASCULAR: S1, S2. NEUROLOGIC: Cranial nerves intact. PSYCHIATRIC: Fair mood and affect. EXTREMITIES: No cyanosis, clubbing, or edema. IMAGING DATA: EKG shows sinus rhythm. LABORATORY DATA: Leukocytosis, white count is 26.3, severely high; hemoglobin is 11. Sodium 126, BUN 23, creatinine 0.87. ASSESSMENT: 1. Human immunodeficiency virus. 2. Community-acquired pneumonia. 3. Altered mental status. 4. Metabolic encephalopathy. 5. Dehydration. 6. Hyponatremia. 7. Hypokalemia. 8. Acute hypoxemic respiratory distress secondary to probable pneumonia bilaterally. PLAN: We will do CAT scan of the chest to reassess better on the lungs, as she has history of a lung nodule. She has hypercapnic respiratory failure. Pulmonary, Infectious Disease consult. Please see further orders. MMODL / IJN: [id number] /
[2024-02-23 05:36] LABS: ALT 9 U/L (4-34); AST 16 U/L (14-36); African American GFR (CKD) >90 (>60 ml/min/1.73 sqM); Albumin 2.2 g/dL (3.5-5.0); Albumin/Globulin Ratio 0.9; Alkaline Phosphatase 110 U/L (38-126); Anion Gap 2 mmol/L; Blood Urea Nitrogen 20 mg/dL (7-17); Calcium 7.5 mg/dL (8.4-10.2); Carbon Dioxide 30 mmol/L (22-30); Chloride 97 mmol/L (98-107); Globulin 2.4 g/dL; Glucose 127 mg/dL (74-99); Non-African American GFR(CKD) >90 (>60 ml/min/1.73 sqM); Potassium 3.4 mmol/L (3.5-5.1); Sodium 129 mmol/L (137-145); Total Bilirubin 0.3 mg/dL (0.2-1.3); Total Protein 4.6 g/dL (6.3-8.2)
[2024-02-23] MEDS: PANTOPRAZOLE 40 MG TABLET PO SCH (08:52)
[2024-02-23] MEDS: FOLIC ACID 1 MG TAB PO SCH (08:52)
[2024-02-23] MEDS: ATORVASTATIN 10 MG TAB PO SCH (08:52)
[2024-02-23] MEDS: FERROUS SULFATE 325 MG TAB PO SCH (08:54)
[2024-02-23] MEDS: ARIPiprazole 2 MG TAB PO SCH (08:55)
[2024-02-23 09:01] LABS: HCT 26.1 % (37.2-46.3); HGB 8.2 g/dL (12.0-15.0); MCH 29.4 pg (27.0-32.0); MCHC 31.4 g/dL (32.0-37.0); MCV 93.5 FL (80.0-97.0); Mean Platelet Volume 9.6 FL (9.5-12.2); NRBC Per 100 WBC 0 X 10*3/uL (0.00-0.01); Platelet Count 368 X 10*3/uL (140-440); RBC 2.79 X 10*6/uL (4.10-5.20); RDW 15.1 % (11.5-14.5); WBC 14.26 X 10*3/uL (4.50-10.00)
[2024-02-23] MEDS: PARoxetine 20 MG TAB PO SCH (09:05)
--- NOTE | 2024-02-23 09:08 | XR ---
EXAMINATION TYPE: XR chest 2V DATE OF EXAM: 02/23/2024 7:20 AM COMPARISON: Chest radiographs from 02/22/2024 CLINICAL INDICATION: Female, 63 years old with history of pneumonia; TECHNIQUE: XR chest 2V Frontal and lateral views of the chest. FINDINGS: Lungs/Pleura: Scattered subtle reticular and hazy opacities. No evidence of pneumothorax, focal conso lidation or pleural effusion. Pulmonary vascularity: Unremarkable. Heart/mediastinum: Cardiomediastinal silhouette is prominent in size. Musculoskeletal: No acute osseous pathology. IMPRESSION: Improved aeration of the lungs with persistent multifocal airspace opacities. [facility], , 02/23/2024 9:06 AM
[2024-02-23] MEDS: AZITHROMYCIN 500 MG in SODIUM CHLORIDE 0.9% 250 ML IVPB SCH (10:18)
[2024-02-23 11:35] LABS: Basophils # (A) 0.05 X 10*3/uL (0.00-0.10); Basophils % (A) 0.4 %; Eosinophils # (A) 0 X 10*3/uL (0.04-0.35); Eosinophils % (A) 0 %; Lymphocytes # (A) 0.33 X 10*3/uL (0.90-5.00); Lymphocytes % (A) 2.3 %; Monocytes # (A) 0.08 X 10*3/uL (0.20-1.00); Monocytes % (A) 0.6 %; Neutrophils # (A) 13.37 X 10*3/uL (1.80-7.70); Neutrophils % (A) 93.7 %; RBC Morphology Normal (Normal)
--- NOTE | 2024-02-23 12:53 | P.PN ---
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 Patient on bronchodilators along with IV steroids and breathing treatment Patient is a 63-year-old female well-known to me came into hospital with confusion altered mental status along with shortness of breath, EMS were called due to ongoing shortness of breath and chronic back pain in addition patient has been more confused than baseline thought to be related to benzodiazepine. 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 On arrival patient was tachypneic tachycardic with a respiratory rate of 22 heart rate of 123 soft blood pressure 100/70 she was however afebrile. White cell count is 26.3 stable hemoglobin hematocrit, chemistry significant for low sodium of 126 potassium 3.7, BUN/creatinine 23/0.87. Urinalysis suggestive of ongoing inflammatory process with turbid urine, large leukocyte esterase many WBCs RBCs and bacteria urine drug screen was positive for opiates as well as benzodiazepine and marijuana. Chest x-ray significant for diffuse airspace opacities suggestive of atypical pneumonia versus pulmonary edema, ECG positive for sinus tachycardia, COPD like pattern, incomplete right bundle branch block, RVH. CT scan of the chest irregular infiltrate seen with posterior consolidatio n and groundglass opacities predominantly more so on the right side compared to left side likely pneumonia/atypical pneumonia overall symptoms are progressive. Patient has been admitted to hospital on broad-spectrum antibiotics currently patient is being continued on home medicine also on IV Zithromax along with Rocephin and clindamycin, Solu-Medrol is being continued 40 mg IV Q8 patient has been on PCP prophylaxis with primaquine also gently being hydrated. Past medical history significant for severe degree of degenerative joint disease and compression fracture of spine, chronic pain syndrome, end-stage COPD oxygen dependent, HIV positive status, mood disorder depression, dyslipidemia, os teoporosis, hypertension hypertensive cardiovascular disease, Objective - Vital Signs Vital signs: Vital Signs Temp 97.9 F 02/23/24 07:27 Pulse 96 02/23/24 08:58 Resp 18 02/23/24 07:27 BP 105/68 02/23/24 07:27 Pulse Ox 95 02/23/24 08:50 FiO2 Intake & Output 02/22/24 02/23/24 02/23/24 18:59 06:59 18:59 Weight 60.6 kg Other: Voiding Method Toilet Toilet # Voids 2 - Exam - Constitutional General appearance: average body habitus, cooperative, disheveled, mild distress - EENT Eyes: EOMI, PERRLA Ears: bilateral: normal - Neck Carotids: bilateral: upstroke normal - Respiratory Respiratory: bilateral: diminished, rales (Dry bilateral) - Cardiovascular Rhythm: regular Heart sounds: normal: S1, S2 - Gastrointestinal General gastrointestinal: normal bowel sounds - Integumentary Integumentary: normal turgor - Neurologic Neurologic: CNII-XII intact - Musculoskeletal Musculoskeletal: gait normal, generalized weakness, strength equal bilaterally - Psychiatric Psychiatric: A&O x's 3, appropriate affect, intact judgment & insight - Labs CBC & Chem 7: 02/23/24 05:02 02/23/24 04:52 Labs: Abnormal Lab Results - Last 24 Hours (Table) 02/22/24 02/23/24 02/23/24 Range/Units 08:23 04:52 05:02 WBC 14.26 H (4.50-10.00) X 10*3/uL RBC 2.79 L (4.10-5.20) X 10*6/uL Hgb 8.2 L (12.0-15.0) g/dL Hct 26.1 L (37.2-46.3) % MCHC 31.4 L (32.0-37.0) g/dL RDW 15.1 H (11.5-14.5) % Immature Gran # 0.43 H (0.00-0.04) X 10*3/uL Neutrophils # 13.37 H (1.80-7.70) X 10*3/uL Lymphocytes # 0.33 L (0.90-5.00) X 10*3/uL Monocytes # 0.08 L (0.20-1.00) X 10*3/uL Eosinophils # 0 L (0.04-0.35) X 10*3/uL Sodium 129 L (137-145) mmol/L Potassium 3.4 L (3.5-5.1) mmol/L Chloride 97 L (98-107) mmol/L BUN 20 H (7-17) mg/dL Glucose 127 H (74-99) mg/dL Calcium 7.5 L (8.4-10.2) mg/dL Total Protein 4.6 L (6.3-8.2) g/dL Albumin 2.2 L (3.5-5.0) g/dL Urine Appearance Turbid H (Clear) Urine pH 8.5 H (5.0-8.0) Urine Protein 2+ H (Negative) Urine Blood Small H (Negative) Ur Leukocyte Esterase Large H (Negative) Urine RBC 43 H (0-5) /hpf Urine WBC >182 H (0-5) /hpf Urine WBC Clumps Many H (None) /hpf Urine Bacteria Many H (None) /hpf Urine Mucus Rare H (None) /hpf Urine Opiates Screen Detected H (NotDetected) U Benzodiazepines Scrn Detected H (NotDetected) U Marijuana (THC) Screen Detected H (NotDetected) Assessment and Plan Assessment: Altered mental status likely related to sepsis as well as pneumonia, benzodiazepine and narcotics Sepsis related to pneumonia Acute on chronic hypoxic respiratory failure due to baseline COPD as well as added pneumonia Atypical pneumonia versus opportunistic lung disease, patient has been on PCP prophylaxis as well HIV status versus AIDS as CD4 count very low in 50s with high RNA count ID Chronic back pain due to compression fracture of lower thoracic vertebra Hypertension hypertensive cardiovascular disease, Dyslipidemia, End-stage lung disease due to severe COPD emphysema Plan: Continue broad-spectrum IV antibiotics IV steroids Is scheduled for bronchoscopy and bronchoalveolar lavage tomorrow morning if schedule permits for endoscopy Consider pneumocystis therapy in addition to bacterial pneumonia treatment Will discuss with infectious disease services about HIV status Further plan of care as per clinical response the patient and diagnostic planning Time with Patient: Greater than 30
[2024-02-23] MEDS: CLINDAMYCIN 150 MG CAP PO SCH ×2 (12:56→21:12)
[2024-02-23] MEDS: PRIMAQUINE PO SCH ×2 (12:56→13:00)
[2024-02-23 13:26] LABS: T4/T8 Ratio (CD4:CD8) 0.2 (1.0-3.7)
--- NOTE | 2024-02-23 15:47 | P.PN ---
Subjective Progress Note Date: 02/23/24 Principal diagnosis: Reason for follow-up is HIV and pneumonia Patient is a 63-year-old female with a past medical history significant for COPD HIV but not compliant with her medication patient has been brought into the hospital for evaluation of increasing shortness of breath patient was hypoxic and did have evidence of diffuse airspace opacity concerning for pneumonia also with elevated white count. On today's evaluation that is 02/23/2024,the patient remains to be afebrile, patient is more awake and alert today she is currently breathing comfortably 2 L nasal cannula oxygen, patient denies any chest pain he did have a cough with minimal sputum production no nausea no vomiting or diarrhea. The patient white count is down to 14.26, creatinine 0.58 influenza RSV COVID testing negative Objective - Vital Signs Vital signs: Vital Signs Temp 97.9 F 02/23/24 07:27 Pulse 96 02/23/24 08:58 Resp 18 02/23/24 07:27 BP 105/68 02/23/24 07:27 Pulse Ox 95 02/23/24 08:50 FiO2 Intake & Output 02/22/24 02/23/24 02/23/24 18:59 06:59 18:59 Weight 60.6 kg Other: Voiding Method Toilet # Voids 2 - Exam GENERAL DESCRIPTION: An elderly female up in the chair in no distress RESPIRATORY SYSTEM: Unlabored breathing , decreased breath sounds at bases HEART: S1 S2 regular rate and rhythm , ABDOMEN: Soft , no tenderness EXTREMITIES: No edema feet - Labs CBC & Chem 7: 02/23/24 05:02 02/23/24 04:52 Labs: Abnormal Lab Results - Last 24 Hours (Table) 02/22/24 02/23/24 02/23/24 Range/Units 08:23 04:52 05:02 WBC 14.26 H (4.50-10.00) X 10*3/uL RBC 2.79 L (4.10-5.20) X 10*6/uL Hgb 8.2 L (12.0-15.0) g/dL Hct 26.1 L (37.2-46.3) % MCHC 31.4 L (32.0-37.0) g/dL RDW 15.1 H (11.5-14.5) % Sodium 129 L (137-145) mmol/L Potassium 3.4 L (3.5-5.1) mmol/L Chloride 97 L (98-107) mmol/L BUN 20 H (7-17) mg/dL Glucose 127 H (74-99) mg/dL Calcium 7.5 L (8.4-10.2) mg/dL Total Protein 4.6 L (6.3-8.2) g/dL Albumin 2.2 L (3.5-5.0) g/dL Urine Appearance Turbid H (Clear) Urine pH 8.5 H (5.0-8.0) Urine Protein 2+ H (Negative) Urine Blood Small H (Negative) Ur Leukocyte Esterase Large H (Negative) Urine RBC 43 H (0-5) /hpf Urine WBC >182 H (0-5) /hpf Urine WBC Clumps Many H (None) /hpf Urine Bacteria Many H (None) /hpf Urine Mucus Rare H (None) /hpf Urine Opiates Screen Detected H (NotDetected) U Benzodiazepines Scrn Detected H (NotDetected) U Marijuana (THC) Screen Detected H (NotDetected) Assessment and Plan (1) AMS (altered mental status) Current Visit: Yes Status: Acute Code(s): R41.82 - ALTERED MENTAL STATUS, UNSPECIFIED SNOMED Code(s): 794673702 (2) Pneumonia Current Visit: Yes Status: Acute Code(s): J18.9 - PNEUMONIA, UNSPECIFIED ORGANISM SNOMED Code(s): 282477115 (3) Allergy to multiple antibiotics Current Visit: No Status: Acute Code(s): Z88.1 - ALLERGY STATUS TO OTHER ANTIBIOTIC AGENTS SNOMED Code(s): 519868687 Plan: 1patient with HIV for many years unfortunately patient not very compliant with her medication and the last CD4 count on 01/23/2024 was 54 and elevated HIV RNA unfortunately the patient has not follow-up in the office for very long time now presented hospital with increasing shortness of breath with evidence of diffuse infiltrate on the chest x-ray hide likely suspicious for possible PCP pneumonia however we need to cover for the community-acquired pathogen as well while waiting for the workup to be completed. 2patient to have a sulfa allergy 3patient seem to have shown clinical improvement compared to yesterday could be dealing with more likely community-acquired pathogen rather than PCP still waiting on the sputum studies for now continue with the Rocephin and Zithromax Primaxin and clindamycin while waiting for the workup to be completed 44 HIV currently waiting for the genotype before suggesting any antiretroviral therapy Dictation was produced using [employer] software. please excuse any grammatical, word or spelling errors.
--- NOTE | 2024-02-24 03:52 | PN ---
PROGRESS NOTE SUBJECTIVE: Marina Field came in with acute respiratory failure. White count is 14.26, hemoglobin is 8.2. Sodium was 129, potassium 3.4. She is dehydrated. She has poor skin turgor. Dry mucous membranes. Very high anxiety. Medications for nausea. Procalcitonin 0.43. Started on broad-spectrum antibiotics for acute on chronic respiratory failure. CT of the chest shows bilateral lung infiltrates posterior dependent on lungs for pneumonia, hiatal hernia, so she has bilateral community-acquired pneumonia. OBJECTIVE: LUNGS: Scattered wheeze and rhonchi. CARDIOVASCULAR: S1, S2. NEUROLOGIC: Poor mood and affect. Anxiety severe, thin, cachectic. VITAL SIGNS: Blood pressure 105/58, O2 of 95%, temp 97.9, pulse 90 to 96, respiratory rate 16 to 18. ASSESSMENT: She has altered mental status, metabolic encephalopathy, community-acquired pneumonia bilaterally. Allergies to antibiotics, HIV. She has sulfa allergy. We are going to keep her on Rocephin, azithromycin, Primaxin, and clindamycin. Awaiting further workup to be completed. Prognosis guarded. Ambulate as tolerated. MMODL / IJN: [id number] /
[2024-02-24 08:51] LABS: Blood Urea Nitrogen 13.2 mg/dL (9.0-27.0); Glucose 126 mg/dL (70-110)
[2024-02-24 08:52] LABS: ALT 7 U/L (8-44); AST 13 U/L (13-35); Albumin 2.6 g/dL (3.8-4.9); Albumin/Globulin Ratio 1.13 Ratio (1.60-3.17); Alkaline Phosphatase 109 U/L (41-126); Calcium 7.9 mg/dL (8.7-10.3); Carbon Dioxide 25.6 mmol/L (21.6-31.8); Chloride 100 mmol/L (96-109); Globulin 2.3 g/dL (1.6-3.3); Potassium 3.7 mmol/L (3.5-5.5); Sodium 137 mmol/L (135-145); Total Bilirubin <0.2 mg/dL (0.3-1.2); Total Protein 4.9 g/dL (6.2-8.2)
[2024-02-24 09:11] LABS: Basophils # (A) 0.03 X 10*3/uL (0.00-0.10); Basophils % (A) 0.3 %; Eosinophils # (A) 1.43 X 10*3/uL (0.04-0.35); HCT 26.6 % (37.2-46.3); HGB 8.3 g/dL (12.0-15.0); Lymphocytes # (A) 0.35 X 10*3/uL (0.90-5.00); Lymphocytes % (A) 3.9 %; MCH 29.3 pg (27.0-32.0); MCHC 31.2 g/dL (32.0-37.0); Mean Platelet Volume 9.6 FL (9.5-12.2); Monocytes # (A) 0.17 X 10*3/uL (0.20-1.00); Monocytes % (A) 1.9 %; NRBC Per 100 WBC 0 X 10*3/uL (0.00-0.01); Neutrophils # (A) 6.61 X 10*3/uL (1.80-7.70); Neutrophils % (A) 73.9 %; Platelet Count 368 X 10*3/uL (140-440); RBC 2.83 X 10*6/uL (4.10-5.20); RBC Morphology Normal (Normal); RDW 15.5 % (11.5-14.5); WBC 8.95 X 10*3/uL (4.50-10.00)
--- NOTE | 2024-02-24 12:42 | P.PN ---
Subjective Progress Note Date: 02/24/24 Principal diagnosis: Reason for follow-up is HIV and pneumonia Patient is a 63-year-old female with a past medical history significant for COPD HIV but not compliant with her medication patient has been brought into the hospital for evaluation of increasing shortness of breath patient was hypoxic and did have evidence of diffuse airspace opacity concerning for pneumonia also with elevated white count. On today's evaluation that is 02/24/2024, the patient continues to be afebrile, the patient is on room air and breathing comfortably, the Pt denies having any chest pain and cough has decreased in intensity , the patient denies having any abdominal pain no vomiting or any diarrhea, mention feeling better. Patient white count normalized to 8.95, creatinine 0.5, urine for Legionella antigen pending sputum cultures pending Objective - Vital Signs Vital signs: Vital Signs Temp 97.4 F L 02/24/24 12:06 Pulse 74 02/24/24 12:06 Resp 18 02/24/24 12:06 BP 108/65 02/24/24 12:06 Pulse Ox 99 02/24/24 12:06 FiO2 Intake & Output 02/23/24 02/24/24 02/24/24 18:59 06:59 18:59 Weight 60.6 kg 55 kg Other: Voiding Method Toilet Toilet Toilet # Voids 1 1 - Exam GENERAL DESCRIPTION: An elderly female up in the chair in no distress RESPIRATORY SYSTEM: Unlabored breathing , decreased breath sounds at bases HEART: S1 S2 regular rate and rhythm , ABDOMEN: Soft , no tenderness EXTREMITIES: No edema feet - Labs CBC & Chem 7: 02/24/24 05:28 02/24/24 05:28 Labs: Abnormal Lab Results - Last 24 Hours (Table) 02/22/24 02/24/24 02/24/24 Range/Units 08:40 05:28 05:28 RBC 2.83 L (4.10-5.20) X 10*6/uL Hgb 8.3 L (12.0-15.0) g/dL Hct 26.6 L (37.2-46.3) % MCHC 31.2 L (32.0-37.0) g/dL RDW 15.5 H (11.5-14.5) % Immature Gran # 0.36 H (0.00-0.04) X 10*3/uL Lymphocytes # 0.35 L (0.90-5.00) X 10*3/uL Monocytes # 0.17 L (0.20-1.00) X 10*3/uL Eosinophils # 1.43 H (0.04-0.35) X 10*3/uL Creatinine 0.5 L (0.6-1.5) mg/dL BUN/Creatinine Ratio 26.40 H (12.00-20.00) Ratio Glucose 126 H (70-110) mg/dL Calcium 7.9 L (8.7-10.3) mg/dL Total Bilirubin <0.2 L (0.3-1.2) mg/dL ALT 7 L (8-44) U/L Total Protein 4.9 L (6.2-8.2) g/dL Albumin 2.6 L (3.8-4.9) g/dL Albumin/Globulin Ratio 1.13 L (1.60-3.17) Ratio % CD4 Jarreau 9 L (35-66) % Absolute CD4 Jarreau 76 L (443-1471) cell/ul CD4/CD8 Ratio 0.2 L (1.0-3.7) % CD8 Suppressor 41 H (9-37) % Microbiology - Last 24 Hours (Table) 02/22/24 08:23 Urine Culture - Preliminary Urine,Voided 02/22/24 09:51 Blood Culture - Preliminary Blood Assessment and Plan (1) AMS (altered mental status) Current Visit: Yes Status: Acute Code(s): R41.82 - ALTERED MENTAL STATUS, UNSPECIFIED SNOMED Code(s): 497342240 (2) Pneumonia Current Visit: Yes Status: Acute Code(s): J18.9 - PNEUMONIA, UNSPECIFIED ORGANISM SNOMED Code(s): 286855634 (3) Allergy to multiple antibiotics Current Visit: No Status: Acute Code(s): Z88.1 - ALLERGY STATUS TO OTHER ANTIBIOTIC AGENTS SNOMED Code(s): 494939519 Plan: 1patient with HIV for many years unfortunately patient not very compliant with her medication and the last CD4 count on 01/23/2024 was 54 and elevated HIV RNA unfortunately the patient has not follow-up in the office for very long time now presented hospital with increasing shortness of breath with evidence of diffuse infiltrate on the chest x-ray hide likely suspicious for possible PCP pneumonia however we need to cover for the community-acquired pathogen as well while waiting for the workup to be completed. 2patient to have a sulfa allergy 3patient seem to have shown clinical improvement with initial antibiotic exposure and more likely dealing with community-acquired pathogen rather than PCP still waiting on the sputum studies. Patient will be treated with the Rocephin and Zithromax Primaxin and clindamycin while waiting for the workup to be completed 4 HIV currently waiting for the genotype before suggesting any antiretroviral therapy because of the patient noncompliance with the previous regime Dictation was produced using [employer] dictation software. please excuse any grammatical, word or spelling errors. Time with Patient: Less than 30
[2024-02-24] MEDS ORDERED: KETAMINE HCL IN 0.9 % NACL 50 MG/5 ML SYRINGE ONE (13:34)
[2024-02-24] MEDS: IV FLUID CONTINUATION 200 ML IV ONE (13:34)
[2024-02-24] MEDS ORDERED: LIDOCAINE 1% INJ 10MG/ML (20 ML MDV) ONE (13:34)
[2024-02-24] MEDS ORDERED: GLYCOPYRROLATE 0.2 MG/ML 2 ML VIAL ONE (13:34)
[2024-02-24] MEDS ORDERED: PROPOFOL 10 MG/ML 20 ML VIAL IV ONE (13:34)
[2024-02-24] MEDS: LACTATED RINGERS 1,000 ML IV ONE (14:00)
[2024-02-24] MEDS: LIDOCAINE 2% INJ 20 MG/ML INTRATRACH ONE (14:04)
--- NOTE | 2024-02-24 14:41 | P.PN ---
Subjective Progress Note Date: 02/24/24 Principal diagnosis: Altered mental status likely related to sepsis as well as pneumonia, benzodiazepine and narcotics Sepsis related to pneumonia Acute on chronic hypoxic respiratory failure due to baseline COPD as well as added pneumonia Atypical pneumonia versus opportunistic lung disease, patient has been on PCP prophylaxis as well HIV status versus AIDS Chronic back pain due to compression fracture of lower thoracic vertebra Hypertension hypertensive cardiovascular disease, Dyslipidemia, End-stage lung disease due to severe COPD emphysema February 24, 2024, patient seen evaluate examined during rounds labs reviewed medications reviewed care plan discussed with the patient at length. Patient remains on supplemental oxygen, saturation is 96% on 3 L, afebrile however remains tachycardic blood pressure stabilized and improved. Labs from today reviewed white cell count is down to 8.9, hemoglobin hematocrit remained stable 8.3/26, platelet count of 3 68,000. Sodium is 137 potassium 3.7 BUN/creatinine 13/0.5, glucose 126, urine and blood culture no growth so far. Patient remains on high-dose IV Rocephin along with clindamycin p.o. and IV steroids gently being hydrated. Patient is scheduled for bronchoscopy and BAL later on today procedure at length explained to the patient February 23, 2024, patient seen eval examined during rounds labs reviewed medications reviewed care plan discussed, mental status slightly improved more awake and alert, ongoing shortness of breath cough congestion is present, patient remains on 2 L oxygen, oxygen saturation is 95%, blood pressure is stable, patient remains afebrile, white cell count is 14.27 labs from today reviewed sodium remains low 129 potassium 3.4 has been on replacement protocol and gently being hydrated. Patient on bronchodilators along with IV steroids and breathing treatment Patient is a 63-year-old female well-known to me came into hospital with confusion altered mental status along with shortness of breath, EMS were called due to ongoing shortness of breath and chronic back pain in addition patient has been more confused than baseline thought to be related to benzodiazepine. Patie nt does have a history of benzodiazepine withdrawal seizures. On arrival patient was tachypneic tachycardic with a respiratory rate of 22 heart rate of 123 soft blood pressure 100/70 she was however afebrile. White cell count is 26.3 stable hemoglobin hematocrit, chemistry significant for low sodium of 126 potassium 3.7, BUN/creatinine 23/0.87. Urinalysis suggestive of ongoing inflammatory process with turbid urine, large leukocyte esterase many WBCs RBCs and bacteria urine drug screen was positive for opiates as well as benzodiazepine and marijuana. Chest x-ray significant for diffuse airspace opacities suggestive of atypical pneumonia versus pulmonary edema, ECG positive for sinus tachycardia, COPD like pattern, incomplete right bundle branch block, RVH. CT scan of the chest irregular infiltrate seen with posterior consolidation and groundglass opacities predominantly more so on the right side compared to left side likely pneumonia/atypical pneumonia overall symptoms are progressive. Patient has been admitted to hospital on broad-spectrum antibiotics currently patient is being continued on home medicine also on IV Zithromax along with Rocephin and clindamycin, Solu-Medrol is being continued 40 mg IV Q8 patient has been on PCP prophylaxis with primaquine also gently being hydrated. Past medical history significant for severe degree of degenerative joint disease and compression fracture of spine, chronic pain syndrome, end-stage COPD oxygen dependent, HIV positive status, mood disorder depression, dyslipidemia, osteoporosis, hypertension hypertensive cardiovascular disease, Objective - Vital Signs Vital signs: Vital Signs Temp 97.7 F 02/24/24 14:33 Pulse 112 H 02/24/24 14:33 Resp 20 02/24/24 14:33 BP 124/69 02/24/24 14:33 Pulse Ox 96 02/24/24 14:33 FiO2 Intake & Output 02/23/24 02/24/24 02/24/24 18:59 06:59 18:59 Intake Total 100 Balance 100 Weight 60.6 kg 55 kg Intake: IV 100 Other: Voiding Method Toilet Toilet Toilet # Voids 1 1 - Exam - Constitutional General appearance: average body habitus, cooperative, disheveled, mild distress - EENT Eyes: EOMI, PERRLA Ears: bilateral: normal - Neck Carotids: bilateral: upstroke normal - Respiratory Respiratory: bilateral: diminished, rales (Dry bilateral) - Cardiovascular Rhythm: regular Heart sounds: normal: S1, S2 - Gastrointestinal General gastrointestinal: normal bowel sounds - Integumentary Integumentary: normal turgor - Neurologic Neurologic: CNII-XII intact - Musculoskeletal Musculoskeletal: gait normal, generalized weakness, strength equal bilaterally - Psychiatric Psychiatric: A&O x's 3, appropriate affect, intact judgment & insight - Labs CBC & Chem 7: 02/24/24 05:28 02/24/24 05:28 Labs: Abnormal Lab Results - Last 24 Hours (Table) 02/24/24 02/24/24 Range/Units 05:28 05:28 RBC 2.83 L (4.10-5.20) X 10*6/uL Hgb 8.3 L (12.0-15.0) g/dL Hct 26.6 L (37.2-46.3) % MCHC 31.2 L (32.0-37.0) g/dL RDW 15.5 H (11.5-14.5) % Immature Gran # 0.36 H (0.00-0.04) X 10*3/uL Lymphocytes # 0.35 L (0.90-5.00) X 10*3/uL Monocytes # 0.17 L (0.20-1.00) X 10*3/uL Eosinophils # 1.43 H (0.04-0.35) X 10*3/uL Creatinine 0.5 L (0.6-1.5) mg/dL BUN/Creatinine Ratio 26.40 H (12.00-20.00) Ratio Glucose 126 H (70-110) mg/dL Calcium 7.9 L (8.7-10.3) mg/dL Total Bilirubin <0.2 L (0.3-1.2) mg/dL ALT 7 L (8-44) U/L Total Protein 4.9 L (6.2-8.2) g/dL Albumin 2.6 L (3.8-4.9) g/dL Albumin/Globulin Ratio 1.13 L (1.60-3.17) Ratio Microbiology - Last 24 Hours (Table) 02/22/24 08:23 Urine Culture - Preliminary Urine,Voided 02/22/24 09:51 Blood Culture - Preliminary Blood Assessment and Plan Assessment: Altered mental status likely related to sepsis as well as pneumonia, benzodiazepine and narcotics, slowly improving Sepsis related to pneumonia Acute on chronic hypoxic respiratory failure due to baseline COPD as well as added pneumonia Atypical pneumonia versus opportunistic lung disease, patient has been on PCP prophylaxis as well HIV status versus AIDS as CD4 count very low in 50s with high RNA count ID following Chronic back pain due to compression fracture of lower thoracic vertebra Hypertension hypertensive cardiovascular disease, Dyslipidemia, 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
--- NOTE | 2024-02-24 14:46 | P.PCN ---
Date of Procedure: 02/24/24 Preoperative Diagnosis: Interstitial pneumonia, AIDS, HIV positive status Postoperative Diagnosis: As above Procedure(s) Performed: #1 bronchoscopy #2 bronchoalveolar lavage of right upper lobe right lower lobe and left lower lobe Anesthesia: MAC Surgeon: Eamon Ferrera Estimated Blood Loss (ml): 0 Condition: stable Disposition: floor Indications for Procedure: Pneumonia/pneumocystis pneumonia, acute hypoxic respiratory failure, bilateral interstitial pneumonia, HIV positive status Operative Findings: For anesthesia please look at the anesthesia report, fiberoptic bronchoscope passed through the right nares, laryngeal area was approached vocal cords were normal in structure and function tip of the scope was passed beyond the vocal cords mild erythema edema of tracheobronchial tree was noted, BAL performed from the right upper lobe, right lower lobe, left lower lobe, patient tolerated well, all bronchopulmonary segments were inspected including the right upper lobe right middle lobe right lower lobe along with left upper lobe and left lower lobe with subsegment no endobronchial mass lesion was identified, patient tolerated procedure well Description of Procedure: As above
[2024-02-25] MEDS: ZOLPIDEM 5 MG TAB PO PRN (00:52)
--- NOTE | 2024-02-25 01:34 | PN ---
PROGRESS NOTE SUBJECTIVE: A 63-year-old white female. OBJECTIVE: VITAL SIGNS: Temp 97.7, pulse 112, respirations 18 to 20, blood pressure 124/69, O2 is 93% on 3 L. CARDIOVASCULAR: S1, S2. LUNGS: Transmitted upper sounds. Scattered wheeze. GI: Soft. HEMATOLOGY: Negative Homans. PSYCH: Fair mood and affect. LABORATORY DATA: Hemoglobin is 8.3, sodium 132, potassium 3.7, creatinine 0.5. ASSESSMENT: Acute on chronic anemia. She was admitted with community-acquired pneumonia, respiratory failure, acute on chronic. Cultures pending. Blood culture so far is negative. She has history of HIV, COPD, asthma, bilateral pneumonia. Prognosis guarded. Continue with broad-spectrum antibiotics and multiple antibiotics. Wait for Dr. Cheatham's recommendations. weekend if cultures come back. MMALANL / IJN: [id number] /
[2024-02-25 10:07] LABS: Basophils # (A) 0.02 X 10*3/uL (0.00-0.10); Basophils % (A) 0.2 %; Eosinophils # (A) 0 X 10*3/uL (0.04-0.35); Eosinophils % (A) 0 %; HCT 25.3 % (37.2-46.3); HGB 7.6 g/dL (12.0-15.0); Lymphocytes % (A) 3.6 %; MCH 28.3 pg (27.0-32.0); MCV 94.1 FL (80.0-97.0); Mean Platelet Volume 9.5 FL (9.5-12.2); Monocytes # (A) 0.15 X 10*3/uL (0.20-1.00); Monocytes % (A) 1.8 %; NRBC Per 100 WBC 0 X 10*3/uL (0.00-0.01); Neutrophils # (A) 7.49 X 10*3/uL (1.80-7.70); Neutrophils % (A) 90.4 %; Platelet Count 352 X 10*3/uL (140-440); RBC 2.69 X 10*6/uL (4.10-5.20); RDW 15.7 % (11.5-14.5); WBC 8.29 X 10*3/uL (4.50-10.00)
[2024-02-25 10:25] LABS: BUN/Creat Ratio 26.17 Ratio (12.00-20.00); Blood Urea Nitrogen 15.7 mg/dL (9.0-27.0); Chloride 103 mmol/L (96-109); Glucose 126 mg/dL (70-110); Potassium 3.6 mmol/L (3.5-5.5); Sodium 135 mmol/L (135-145)
[2024-02-25 10:26] LABS: ALT 7 U/L (8-44); AST 10 U/L (13-35); Albumin 2.6 g/dL (3.8-4.9); Alkaline Phosphatase 98 U/L (41-126); Calcium 7.7 mg/dL (8.7-10.3); Carbon Dioxide 22.3 mmol/L (21.6-31.8); Total Bilirubin <0.2 mg/dL (0.3-1.2); Total Protein 4.6 g/dL (6.2-8.2)
--- NOTE | 2024-02-25 11:46 | P.PN ---
Subjective Progress Note Date: 02/25/24 Principal diagnosis: Altered mental status likely related to sepsis as well as pneumonia, benzodiazepine and narcotics Sepsis related to pneumonia Acute on chronic hypoxic respiratory failure due to baseline COPD as well as added pneumonia Atypical pneumonia versus opportunistic lung disease, patient has been on PCP prophylaxis as well HIV status versus AIDS Chronic back pain due to compression fracture of lower thoracic vertebra Hypertension hypertensive cardiovascular disease, Dyslipidemia, End-stage lung disease due to severe COPD emphysema February 25, 2024, patient seen eval examined during rounds labs reviewed medications and care plan discussed, patient respiratory status slightly improved, on 2 and half liter oxygen breathing comfortably denies any chest pain however gets short of breath minimal activity and exertion mental status almost back to baseline now. No confusion episode have been seen. Patient remains on broad-spectrum antibiotics bronchodilators and aerosolized inhaled steroids. Patient has been having urinary retention, urine positive for gram-negative rods final ID and culture sensitivity are pending. Bronchial washing as well as BAL/bronchoalveolar lavage results are pending February 24, 2024, patient seen evaluate examined during rounds labs reviewed medications reviewed care plan discussed with the patient at length. Patient remains on supplemental oxygen, saturation is 96% on 3 L, afebrile however remains tachycardic blood pressure stabilized and improved. Labs from today reviewed white cell count is down to 8.9, hemoglobin hematocrit remained stable 8.3/26, platelet count of 3 68,000. Sodium is 137 potassium 3.7 BUN/creatinine 13/0.5, glucose 126, urine and blood culture no growth so far. Patient remains on high-dose IV Rocephin along with clindamycin p.o. and IV steroids gently being hydrated. Patient is scheduled for bronchoscopy and BAL later on today procedure at length explained to the patient February 23, 2024, patient seen eval examined during rounds labs reviewed medications reviewed care plan discussed, mental status slightly improved more awake and alert, ongoing shortness of breath cough congestion is present, patient remains on 2 L oxygen, oxygen saturation is 95%, blood pressure is st able, patient remains afebrile, white cell count is 14.27 labs from today reviewed sodium remains low 129 potassium 3.4 has been on replacement protocol and gently being hydrated. Patient on bronchodilators along with IV steroids and breathing treatment Patient is a 63-year-old female well-known to me came into hospital with confusion altered mental status along with shortness of breath, EMS were called due to ongoing shortness of breath and chronic back pain in addition patient has been more confused than baseline thought to be related to benzodiazepine. 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 On arrival patient was tachypneic tachycardic with a respiratory rate of 22 heart rate of 123 soft blood pressure 100/70 she was however afebrile. White cell count is 26.3 stable hemoglobin hematocrit, chemistry significant for low sodium of 126 potassium 3.7, BUN/creatinine 23/0.87. Urinalysis suggestive of ongoing inflammatory process with turbid urine, large leukocyte esterase many WBCs RBCs and bacteria urine drug screen was positive for opiates as well as benzodiazepine and marijuana. Chest x-ray significant for diffuse airspace opacities suggestive of atypical pneumonia versus pulmonary edema, ECG positive for sinus tachycardia, COPD like pattern, incomplete right bundle branch block, RVH. CT scan of the chest irregular infiltrate seen with posterior consolidation and groundglass opacities predominantly more so on the right side compared to left side likely pneumonia/atypical pneumonia overall symptoms are progressive. Patient has been admitted to hospital on broad-spectrum antibiotics currently patient is being continued on home medicine also on IV Zithromax along with Rocephin and clindamycin, Solu-Medrol is being continued 40 mg IV Q8 patient has been on PCP prophylaxis with primaquine also gently being hydrated. Past medical history significant for severe degree of degenerative joint disease and compression fracture of spine, chronic pain syndrome, end-stage COPD oxygen dependent, HIV positive status, mood disorder depression, dyslipidemia, osteoporosis, hypertension hypertensive cardiovascular disease, Objective - Vital Signs Vital signs: Vital Signs Temp 97.4 F L 02/25/24 07:18 Pulse 77 02/25/24 07:18 Resp 17 02/25/24 07:18 BP 125/78 02/25/24 07:18 Pulse Ox 100 02/25/24 07:18 FiO2 Intake & Output 02/24/24 02/25/24 02/25/24 18:59 06:59 18:59 Intake Total 640 1040 Output Total 600 247 Balance 640 440 -247 Weight 67.5 kg Intake: IV 100 Intake, IV Titration 1040 Amount Sodium Chloride 0.9% 1, 1040 000 ml @ 130 mls/hr IV . Q7H42M [facility] Rx#:[id number] Oral 540 Output: Urine 600 Post Void Residual 247 Other: Voiding Method Toilet # Voids 1 - Exam - Constitutional General appearance: average body habitus, cooperative, disheveled, mild distress - EENT Eyes: EOMI, PERRLA Ears: bilateral: normal - Neck Carotids: bilateral: upstroke normal - Respiratory Respiratory: bilateral: diminished, rales (Dry bilateral) - Cardiovascular Rhythm: regular Heart sounds: normal: S1, S2 - Gastrointestinal General gastrointestinal: normal bowel sounds - Integumentary Integumentary: normal turgor - Neurologic Neurologic: CNII-XII intact - Musculoskeletal Musculoskeletal: gait normal, generalized weakness, strength equal bilaterally - Psychiatric Psychiatric: A&O x's 3, appropriate affect, intact judgment & insight - Labs CBC & Chem 7: 02/25/24 05:42 02/25/24 05:42 Labs: Abnormal Lab Results - Last 24 Hours (Table) 02/25/24 02/25/24 Range/Units 05:42 05:42 RBC 2.69 L (4.10-5.20) X 10*6/uL Hgb 7.6 L (12.0-15.0) g/dL Hct 25.3 L (37.2-46.3) % MCHC 30.0 L (32.0-37.0) g/dL RDW 15.7 H (11.5-14.5) % Immature Gran # 0.33 H (0.00-0.04) X 10*3/uL Lymphocytes # 0.30 L (0.90-5.00) X 10*3/uL Monocytes # 0.15 L (0.20-1.00) X 10*3/uL Eosinophils # 0 L (0.04-0.35) X 10*3/uL BUN/Creatinine Ratio 26.17 H (12.00-20.00) Ratio Glucose 126 H (70-110) mg/dL Calcium 7.7 L (8.7-10.3) mg/dL Total Bilirubin <0.2 L (0.3-1.2) mg/dL AST 10 L (13-35) U/L ALT 7 L (8-44) U/L Total Protein 4.6 L (6.2-8.2) g/dL Albumin 2.6 L (3.8-4.9) g/dL Albumin/Globulin Ratio 1.30 L (1.60-3.17) Ratio Microbiology - Last 24 Hours (Table) 02/22/24 09:51 Blood Culture - Preliminary Blood 02/22/24 08:23 Urine Culture - Preliminary Urine,Voided Gram Neg Bacilli Assessment and Plan Assessment: Altered mental status likely related to sepsis as well as pneumonia, benzodiazepine and narcotics, slowly improving, almost back to baseline Sepsis related to pneumonia Acute on chronic hypoxic respiratory failure due to baseline COPD as well as added pneumonia Atypical pneumonia versus opportunistic lung disease, patient has been on PCP prophylaxis as well HIV status versus AIDS as CD4 count very low in 50s with high RNA count ID following Chronic back pain due to compression fracture of lower thoracic vertebra Hypertension hypertensive cardiovascular disease, Dyslipidemia, End-stage lung disease due to severe COPD emphysema Plan: Continue broad-spectrum IV antibiotics IV steroids Status post bronchoscopy and BAL on February 24, 2024, results pending Further plan of care as per clinical response the patient and diagnostic planning Time with Patient: Greater than 30
--- NOTE | 2024-02-25 13:53 | P.PN ---
Subjective Progress Note Date: 02/25/24 Principal diagnosis: Reason for follow-up is HIV and pneumonia Patient is a 63-year-old female with a past medical history significant for COPD HIV but not compliant with her medication patient has been brought into the hospital for evaluation of increasing shortness of breath patient was hypoxic and did have evidence of diffuse airspace opacity concerning for pneumonia also with elevated white count. On today's evaluation that is 02/25/2024, patient did not have any fever and denies any chills, patient is breathing comfortably on 2 L nasal oxygen, patient with no chest pain, cough is decreased in intensity patient did not have any abdominal pain nausea vomiting or any loose stools. Patient white count is 8.29 creatinine 0.6 sputum is growing gram-negative Objective - Vital Signs Vital signs: Vital Signs Temp 97.4 F L 02/25/24 07:18 Pulse 77 02/25/24 07:18 Resp 17 02/25/24 07:18 BP 125/78 02/25/24 07:18 Pulse Ox 100 02/25/24 07:18 FiO2 Intake & Output 02/24/24 02/25/24 02/25/24 18:59 06:59 18:59 Intake Total 640 1040 Output Total 600 247 Balance 640 440 -247 Weight 67.5 kg Intake: IV 100 Intake, IV Titration 1040 Amount Sodium Chloride 0.9% 1, 1040 000 ml @ 130 mls/hr IV . Q7H42M [facility] Rx#:[id number] Oral 540 Output: Urine 600 Post Void Residual 247 Other: Voiding Method Toilet Toilet # Voids 1 - Exam GENERAL DESCRIPTION: An elderly female up in the chair in no distress RESPIRATORY SYSTEM: Unlabored breathing , decreased breath sounds at bases HEART: S1 S2 regular rate and rhythm , ABDOMEN: Soft , no tenderness EXTREMITIES: No edema feet - Labs CBC & Chem 7: 02/25/24 05:42 02/25/24 05:42 Labs: Abnormal Lab Results - Last 24 Hours (Table) 02/25/24 02/25/24 Range/Units 05:42 05:42 RBC 2.69 L (4.10-5.20) X 10*6/uL Hgb 7.6 L (12.0-15.0) g/dL Hct 25.3 L (37.2-46.3) % MCHC 30.0 L (32.0-37.0) g/dL RDW 15.7 H (11.5-14.5) % Immature Gran # 0.33 H (0.00-0.04) X 10*3/uL Lymphocytes # 0.30 L (0.90-5.00) X 10*3/uL Monocytes # 0.15 L (0.20-1.00) X 10*3/uL Eosinophils # 0 L (0.04-0.35) X 10*3/uL BUN/Creatinine Ratio 26.17 H (12.00-20.00) Ratio Glucose 126 H (70-110) mg/dL Calcium 7.7 L (8.7-10.3) mg/dL Total Bilirubin <0.2 L (0.3-1.2) mg/dL AST 10 L (13-35) U/L ALT 7 L (8-44) U/L Total Protein 4.6 L (6.2-8.2) g/dL Albumin 2.6 L (3.8-4.9) g/dL Albumin/Globulin Ratio 1.30 L (1.60-3.17) Ratio Microbiology - Last 24 Hours (Table) 02/24/24 09:04 Gram Stain - Preliminary Sputum Sputum Culture - Preliminary Gram Neg Bacilli 02/22/24 09:51 Blood Culture - Preliminary Blood 02/22/24 08:23 Urine Culture - Preliminary Urine,Voided Gram Neg Bacilli Assessment and Plan (1) AMS (altered mental status) Current Visit: Yes Status: Acute Code(s): R41.82 - ALTERED MENTAL STATUS, UNSPECIFIED SNOMED Code(s): 146267504 (2) Pneumonia Current Visit: Yes Status: Acute Code(s): J18.9 - PNEUMONIA, UNSPECIFIED ORGANISM SNOMED Code(s): 446532141 (3) Allergy to multiple antibiotics Current Visit: No Status: Acute Code(s): Z88.1 - ALLERGY STATUS TO OTHER ANTIBIOTIC AGENTS SNOMED Code(s): 636745394 Plan: 1patient with HIV for many years unfortunately patient not very compliant with her medication and the last CD4 count on 01/23/2024 was 54 and elevated HIV RNA u nfortunately the patient has not follow-up in the office for very long time now presented hospital with increasing shortness of breath with evidence of diffuse infiltrate on the chest x-ray hide likely suspicious for possible PCP pneumonia however we need to cover for the community-acquired pathogen as well while waiting for the workup to be completed. 2patient to have a sulfa allergy 3patient seem to have shown clinical improvement with initial antibiotic exposure and more likely dealing with community-acquired pathogen rather than PCP still waiting on the sputum studies. 4-HIV currently waiting for the genotype before suggesting any antiretroviral therapy because of the patient noncompliance with the previous regime 5patient is status post bronchoscopy on 02/24/2024 unfortunately I do not see any PCP stain which had been sent we will request if the lab has any specimen for it discussed with the nursing staff follow-up continue with the Rocephin clindamycin and primaquine Dictation was produced using [employer] dictation software. please excuse any grammatical, word or spelling errors. Time with Patient: Less than 30
[2024-02-25] MEDS: FUROSEMIDE 10 MG/ML 4 ML VIAL IV STA (18:35)
--- NOTE | 2024-02-26 08:20 | XR ---
EXAMINATION TYPE: XR chest 1V portable DATE OF EXAM: 02/26/2024 COMPARISON: 02/23/2024 CLINICAL INDICATION: Female, 63 years old with history of CHF; TECHNIQUE: Single frontal view of the chest is obtained. FINDINGS: There is decreasing interstitial and airspace opacification in both lungs. There are stable and persi stent small bilateral pleural effusions. The heart size is normal. The pulmonary vasculature is now a ppear congested. The osseous structures are intact. There is a probable hiatal hernia. IMPRESSION: Continued improvement in the acute cardiopulmonary disease as described above. The findings could rep resent improving CHF which is the provided history. [facility], , 02/26/2024 8:18 AM
[2024-02-26 10:53] LABS: ALT 9 U/L (8-44); AST 10 U/L (13-35); Albumin 2.8 g/dL (3.8-4.9); Albumin/Globulin Ratio 1.65 Ratio (1.60-3.17); Alkaline Phosphatase 91 U/L (41-126); BUN/Creat Ratio 29.86 Ratio (12.00-20.00); Blood Urea Nitrogen 20.9 mg/dL (9.0-27.0); Calcium 8.2 mg/dL (8.7-10.3); Carbon Dioxide 23.7 mmol/L (21.6-31.8); Chloride 103 mmol/L (96-109); Globulin 1.7 g/dL (1.6-3.3); Glucose 118 mg/dL (70-110); Potassium 3.6 mmol/L (3.5-5.5); Sodium 137 mmol/L (135-145); Total Bilirubin <0.2 mg/dL (0.3-1.2); Total Protein 4.5 g/dL (6.2-8.2)
--- NOTE | 2024-02-26 10:57 | P.PN ---
Subjective Progress Note Date: 02/26/24 Principal diagnosis: Altered mental status likely related to sepsis as well as pneumonia, benzodiazepine and narcotics Sepsis related to pneumonia Acute on chronic hypoxic respiratory failure due to baseline COPD as well as added pneumonia Atypical pneumonia versus opportunistic lung disease, patient has been on PCP prophylaxis as well HIV status versus AIDS Chronic back pain due to compression fracture of lower thoracic vertebra Hypertension hypertensive cardiovascular disease, Dyslipidemia, End-stage lung disease due to severe COPD emphysema February 26, 2024, patient seen eval examined during rounds labs reviewed medications reviewed overnight patient developed increasing shortness of breath and congestion, thought to be related to fluid overload given extra dose of Lasix and IV has been stopped, patient remains afebrile with oxygen saturation 98% seated nasal cannula hemodynamic status stable chest x-ray performed reviewed overall interstitial and airspace opacification bilaterally slightly improved compared to prior exam small bilateral pleural effusions present, labs are pending from today. Patient remains on high intensity statins along with inhaled bronchodilator as well as aerosolized inhaled steroids with oral clindamycin and IV steroid patient has been on Primacor and as well daily basis. Bronchoalveolar washing results are still pending, however sputum has been positive for Klebsiella urine culture positive for Klebsiella and Proteus, of note that Klebsiella is highly multidrug-resistant/ESBL. Of note that BAL also showing many gram-negative bacilli as well likely multi drug resistance Klebsiella there. February 25, 2024, patient seen eval examined during rounds labs reviewed medications and care plan discussed, patient respiratory status slightly improved, on 2 and half liter oxygen breathing comfortably denies any chest pain however gets short of breath minimal activity and exertion mental status almost back to baseline now. No confusion episode have been seen. Patient remains on broad-spectrum antibiotics bronchodilators and aerosolized inhaled steroids. Patient has been having urinary retention, urine positive for gram-negative rods final ID and culture sensitivity are pending. Bronchial washing as well as BA L/bronchoalveolar lavage results are pending February 24, 2024, patient seen evaluate examined during rounds labs reviewed medications reviewed care plan discussed with the patient at length. Patient remains on supplemental oxygen, saturation is 96% on 3 L, afebrile however remains tachycardic blood pressure stabilized and improved. Labs from today reviewed white cell count is down to 8.9, hemoglobin hematocrit remained stable 8.3/26, platelet count of 3 68,000. Sodium is 137 potassium 3.7 BUN/creatinine 13/0.5, glucose 126, urine and blood culture no growth so far. Patient remains on high-dose IV Rocephin along with clindamycin p.o. and IV steroids gently being hydrated. Patient is scheduled for bronchoscopy and BAL later on today procedure at length explained to the patient February 23, 2024, patient seen eval examined during rounds labs reviewed medications reviewed care plan discussed, mental status slightly improved more awake and alert, ongoing shortness of breath cough congestion is present, patient remains on 2 L oxygen, oxygen saturation is 95%, blood pressure is stable, patient remains afebrile, white cell count is 14.27 labs from today reviewed sodium remains low 129 potassium 3.4 has been on replacement protocol and gently being hydrated. Patient on bronchodilators along with IV steroids and breathing treatment Patient is a 63-year-old female well-known to me came into hospital with confusion altered mental status along with shortness of breath, EMS were called due to ongoing shortness of breath and chronic back pain in addition patient has been more confused than baseline thought to be related to benzodiazepine. 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 On arrival patient was tachypneic tachycardic with a respiratory rate of 22 heart rate of 123 soft blood pressure 100/70 she was however afebrile. White cell count is 26.3 stable hemoglobin hematocrit, chemistry significant for low sodium of 126 potassium 3.7, BUN/creatinine 23/0.87. Urinalysis suggestive of ongoing inflammatory process with turbid urine, large leukocyte esterase many WBCs RBCs and bacteria urine drug screen was positive for opiates as well as paris odiazepine and marijuana. Chest x-ray significant for diffuse airspace opacities suggestive of atypical pneumonia versus pulmonary edema, ECG positive for sinus tachycardia, COPD like pattern, incomplete right bundle branch block, RVH. CT scan of the chest irregular infiltrate seen with posterior consolidation and groundglass opacities predominantly more so on the right side compared to left side likely pneumonia/atypical pneumonia overall symptoms are progressive. Patient has been admitted to hospital on broad-spectrum antibiotics currently patient is being continued on home medicine also on IV Zithromax along with Rocephin and clindamycin, Solu-Medrol is being continued 40 mg IV Q8 patient has been on PCP prophylaxis with primaquine also gently being hydrated. Past medical history significant for severe degree of degenerative joint disease and compression fracture of spine, chronic pain syndrome, end-stage COPD oxygen dependent, HIV positive status, mood disorder depression, dyslipidemia, osteoporosis, hypertension hypertensive cardiovascular disease, Objective - Vital Signs Vital signs: Vital Signs Temp 97.5 F L 02/26/24 07:43 Pulse 89 02/26/24 07:43 Resp 20 02/26/24 07:43 BP 143/84 02/26/24 07:43 Pulse Ox 98 02/26/24 07:43 FiO2 Intake & Output 02/25/24 02/26/24 02/26/24 18:59 06:59 18:59 Intake Total 1600 Output Total 1147 Balance 453 Weight 68.2 kg Intake: Oral 1600 Output: Urine 900 Post Void Residual 247 Other: Voiding Method Toilet Toilet # Voids 1 5 1 # Bowel Movements 1 2 - Exam - Constitutional General appearance: average body habitus, cooperative, disheveled, mild distress - EENT Eyes: EOMI, PERRLA Ears: bilateral: normal - Neck Carotids: bilateral: upstroke normal - Respiratory Respiratory: bilateral: diminished, rales (Dry bilateral) - Cardiovascular Rhythm: regular Heart sounds: normal: S1, S2 - Gastrointestinal General gastrointestinal: normal bowel sounds - Integumentary Integumentary: normal turgor - Neurologic Neurologic: CNII-XII intact - Musculoskeletal Musculoskeletal: gait normal, generalized weakness, strength equal bilaterally - Psychiatric Psychiatric: A&O x's 3, appropriate affect, intact judgment & insight - Labs CBC & Chem 7: 02/25/24 05:42 02/25/24 05:42 Labs: Microbiology - Last 24 Hours (Table) 02/24/24 09:04 Gram Stain - Preliminary Sputum Sputum Culture - Preliminary Klebsiella pneumoniae 02/22/24 08:23 Urine Culture - Final Urine,Voided Klebsiella pneumoniae Proteus mirabilis 02/24/24 14:03 Gram Stain - Preliminary Bronchoalviolar Lavage - Right 02/22/24 09:51 Blood Culture - Preliminary Blood Assessment and Plan Assessment: Multidrug-resistant Klebsiella and Proteus pneumonia, discussed with infectious disease services to start Invanz Altered mental status likely related to sepsis as well as pneumonia, benzodiazepine and narcotics, slowly improving, almost back to baseline Sepsis related to pneumonia Acute on chronic hypoxic respiratory failure due to baseline COPD as well as added pneumonia Atypical pneumonia versus opportunistic lung disease, patient has been on PCP prophylaxis as well HIV status versus AIDS as CD4 count very low in 50s with high RNA count ID following Chronic back pain due to compression fracture of lower thoracic vertebra Hypertension hypertensive cardiovascular disease, Dyslipidemia, End-stage lung disease due to severe COPD emphysema Plan: Continue broad-spectrum IV antibiotics Therapy for pneumocystis pneumonia with clinda and Primacor Invanz to be added per ID services IV steroids Status post bronchoscopy and BAL on February 24, 2024, results pending Further plan of care as per clinical response the patient and diagnostic planning Time with Patient: Greater than 30
[2024-02-26] MEDS: ERTAPENEM 1 GM in SODIUM CHLORIDE 0.9% 50 ML IVPB SCH (12:07)
--- NOTE | 2024-02-26 23:11 | P.PN ---
Subjective Progress Note Date: 02/26/24 Principal diagnosis: Reason for follow-up is HIV and pneumonia Patient is a 63-year-old female with a past medical history significant for COPD HIV but not compliant with her medication patient has been brought into the hospital for evaluation of increasing shortness of breath patient was hypoxic and did have evidence of diffuse airspace opacity concerning for pneumonia also with elevated white count. On today's evaluation that is 02/26/2024, Patient is afebrile patient is currently on 4 L nasal cannula oxygen and denies having any worsening shortness of breath, the patient denies any chest pain patient did have a cough mostly dry in nature, the patient denies any nausea vomiting did not have any abdominal pain and no diarrhea. Patient did not have a CBC done today, creatinine 0.7 sputum is growing ESBL Klebsiella Objective - Vital Signs Vital signs: Vital Signs Temp 97.5 F L 02/26/24 07:43 Pulse 89 02/26/24 07:43 Resp 20 02/26/24 07:43 BP 143/84 02/26/24 07:43 Pulse Ox 98 02/26/24 07:43 FiO2 Intake & Output 02/25/24 02/26/24 02/26/24 18:59 06:59 18:59 Intake Total 1600 Output Total 1147 Balance 453 Weight 68.2 kg Intake: Oral 1600 Output: Urine 900 Post Void Residual 247 Other: Voiding Method Toilet Toilet # Voids 1 5 1 # Bowel Movements 1 2 - Exam GENERAL DESCRIPTION: An elderly female up in the chair in no distress RESPIRATORY SYSTEM: Unlabored breathing , coarse breath sound the left side HEART: S1 S2 regular rate and rhythm , ABDOMEN: Soft , no tenderness EXTREMITIES: No edema feet - Labs CBC & Chem 7: 02/25/24 05:42 02/26/24 03:11 Labs: Abnormal Lab Results - Last 24 Hours (Table) 02/25/24 02/25/24 Range/Units 05:42 05:42 RBC 2.69 L (4.10-5.20) X 10*6/uL Hgb 7.6 L (12.0-15.0) g/dL Hct 25.3 L (37.2-46.3) % MCHC 30.0 L (32.0-37.0) g/dL RDW 15.7 H (11.5-14.5) % Immature Gran # 0.33 H (0.00-0.04) X 10*3/uL Lymphocytes # 0.30 L (0.90-5.00) X 10*3/uL Monocytes # 0.15 L (0.20-1.00) X 10*3/uL Eosinophils # 0 L (0.04-0.35) X 10*3/uL BUN/Creatinine Ratio 26.17 H (12.00-20.00) Ratio Glucose 126 H (70-110) mg/dL Calcium 7.7 L (8.7-10.3) mg/dL Total Bilirubin <0.2 L (0.3-1.2) mg/dL AST 10 L (13-35) U/L ALT 7 L (8-44) U/L Total Protein 4.6 L (6.2-8.2) g/dL Albumin 2.6 L (3.8-4.9) g/dL Albumin/Globulin Ratio 1.30 L (1.60-3.17) Ratio Microbiology - Last 24 Hours (Table) 02/24/24 14:03 Gram Stain - Preliminary Bronchoalviolar Lavage - Right 02/22/24 09:51 Blood Culture - Preliminary Blood 02/24/24 09:04 Gram Stain - Preliminary Sputum Sputum Culture - Preliminary Klebsiella pneumoniae Assessment and Plan (1) AMS (altered mental status) Current Visit: Yes Status: Acute Code(s): R41.82 - ALTERED MENTAL STATUS, UNSPECIFIED SNOMED Code(s): 239651702 (2) Pneumonia Current Visit: Yes Status: Acute Code(s): J18.9 - PNEUMONIA, UNSPECIFIED ORGANISM SNOMED Code(s): 695678180 (3) Allergy to multiple antibiotics Current Visit: No Status: Acute Code(s): Z88.1 - ALLERGY STATUS TO OTHER ANTIBIOTIC AGENTS SNOMED Code(s): 715939511 Plan: 1patient with HIV for many years unfortunately patient not very compliant with her medication and the last CD4 count on 01/23/2024 was 54 and elevated HIV RNA unfortunately the patient has not follow-up in the office for very long time now presented hospital with increasing shortness of breath with evidence of diffuse infiltrate on the chest x-ray hide likely suspicious for possible PCP pneumonia however we need to cover for the community-acquired pathogen as well while waiting for the workup to be completed. 2patient to have a sulfa allergy 3-HIV currently waiting for the genotype before suggesting any antiretroviral therapy because of the patient noncompliance with the previous regime 4patient is status post bronchoscopy on 02/24/2024 with a culture currently growing gram-negative sputum is showing ESBL Klebsiella antibiotic has been switched over to ertapenem to discontinue clindamycin and primaquine low clinical suspicious for PCP pneumonia, case discussed with the pulmonary Dictation was produced using [employer] dictation software. please excuse any grammatical, word or spelling errors. Time with Patient: Less than 30
[2024-02-26] MEDS: MEROPENEM 1 GM in SODIUM CHLORIDE 0.9% 100 ML IVPB SCH (23:38)
--- NOTE | 2024-02-27 11:24 | P.PN ---
Subjective Progress Note Date: 02/27/24 Principal diagnosis: Altered mental status likely related to sepsis as well as pneumonia, benzodiazepine and narcotics Sepsis related to pneumonia Acute on chronic hypoxic respiratory failure due to baseline COPD as well as added pneumonia Atypical pneumonia versus opportunistic lung disease, patient has been on PCP prophylaxis as well HIV status versus AIDS Chronic back pain due to compression fracture of lower thoracic vertebra Hypertension hypertensive cardiovascular disease, Dyslipidemia, End-stage lung disease due to severe COPD emphysema February 27, 2024, patient seen eval examined during rounds labs reviewed medications reviewed ongoing shortness of breath present intermittent cough however oxygen saturation remained stable on supplemental oxygen, patient remains afebrile, on 3 L oxygen saturation 98%, patient remains on IV steroids broad-spectrum antibiotics Rocephin has been discontinued, will start tapering down the steroids as well, no AFB seen on bronchoalveolar lavage BAL positive for Klebsiella as well as Pseudomonas sensitivities pending February 26, 2024, patient seen eval examined during rounds labs reviewed medi cations reviewed overnight patient developed increasing shortness of breath and congestion, thought to be related to fluid overload given extra dose of Lasix and IV has been stopped, patient remains afebrile with oxygen saturation 98% seated nasal cannula hemodynamic status stable chest x-ray performed reviewed overall interstitial and airspace opacification bilaterally slightly improved compared to prior exam small bilateral pleural effusions present, labs are pending from today. Patient remains on high intensity statins along with inhaled bronchodilator as well as aerosolized inhaled steroids with oral clindamycin and IV steroid patient has been on Primacor and as well daily basis. Bronchoalveolar washing results are still pending, however sputum has been positive for Klebsiella urine culture positive for Klebsiella and Proteus, of note that Klebsiella is highly multidrug-resistant/ESBL. Of note that BAL also showing many gram-negative bacilli as well likely multi drug resistance Klebsiella there. February 25, 2024, patient seen eval examined during rounds labs reviewed medications and care plan discussed, patient respiratory status slightly improved, on 2 and half liter oxygen breathing comfortably denies any chest pain however gets short of breath minimal activity and exertion mental status almost back to baseline now. No confusion episode have been seen. Patient remains on broad-spectrum antibiotics bronchodilators and aerosolized inhaled steroids. Patient has been having urinary retention, urine positive for gram-negative rods final ID and culture sensitivity are pending. Bronchial washing as well as BAL/bronchoalveolar lavage results are pending February 24, 2024, patient seen evaluate examined during rounds labs reviewed medications reviewed care plan discussed with the patient at length. Patient remains on supplemental oxygen, saturation is 96% on 3 L, afebrile however remains tachycardic blood pressure stabilized and improved. Labs from today reviewed white cell count is down to 8.9, hemoglobin hematocrit remained stable 8.3/26, platelet count of 3 68,000. Sodium is 137 potassium 3.7 BUN/creatinine 13/0.5, glucose 126, urine and blood culture no growth so far. Patient remains on high-dose IV Rocephin along with clindamycin p.o. and IV steroids gently being hydrated. Patient is scheduled for bronchoscopy and BAL later on today procedure at length explained to the patient February 23, 2024, patient seen eval examined during rounds labs reviewed medications reviewed care plan discussed, mental status slightly improved more awake and alert, ongoing shortness of breath cough congestion is present, patient remains on 2 L oxygen, oxygen saturation is 95%, blood pressure is stable, patient remains afebrile, white cell count is 14.27 labs from today reviewed sodium remains low 129 potassium 3.4 has been on replacement protocol and gently being hydrated. Patient on bronchodilators along with IV steroids and breathing treatment Patient is a 63-year-old female well-known to me came into hospital with confusion altered mental status along with shortness of breath, EMS were called due to ongoing shortness of breath and chronic back pain in addition patient has been more confused than baseline thought to be related to benzodiazepine. 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 On arrival patient was tachypneic tachycardic with a respiratory rate of 22 heart rate of 123 soft blood pressure 100/70 she was however afebrile. White cell count is 26.3 stable hemoglobin hematocrit, chemistry significant for low sodium of 126 potassium 3.7, BUN/creatinine 23/0.87. Urinalysis suggestive of ongoing inflammatory process with turbid urine, large leukocyte esterase many WBCs RBCs and bacteria urine drug screen was positive for opiates as well as benzodiazepine and marijuana. Chest x-ray significant for diffuse airspace opacities suggestive of atypical pneumonia versus pulmonary edema, ECG positive for sinus tachycardia, COPD like pattern, incomplete right bundle branch block, RVH. CT scan of the chest irregular infiltrate seen with posterior consolidation and groundglass opacities predominantly more so on the right side compared to left side likely pneumonia/atypical pneumonia overall symptoms are progressive. Patient has been admitted to hospital on broad-spectrum antibiotics currently patient is being continued on home medicine also on IV Zithromax along with Rocephin and clindamycin, Solu-Medrol is being continued 40 mg IV Q8 patient has been on PCP prophylaxis with primaquine also gently being hydrated. Past medical history significant for severe degree of degenerative joint disease and compression fracture of spine, chronic pain syndrome, end-stage COPD oxygen dependent, HIV positive status, mood disorder depression, dyslipidemia, osteoporosis, hypertension hypertensive cardiovascular disease, Objective - Vital Signs Vital signs: Vital Signs Temp 97.4 F L 02/27/24 07:35 Pulse 92 02/27/24 09:12 Resp 17 02/27/24 07:35 BP 139/84 02/27/24 07:35 Pulse Ox 98 02/27/24 07:35 FiO2 Intake & Output 02/26/24 02/27/24 02/27/24 18:59 06:59 18:59 Intake Total 660 480 240 Output Total 200 Balance 660 280 240 Weight 66.9 kg Intake: Oral 660 480 240 Output: Urine 200 Other: Voiding Method Toilet Bedside Commode Diaper Incontinent # Voids 1 # Bowel Movements 1 - Exam - Constitutional General appearance: average body habitus, cooperative, disheveled, mild distress - EENT Eyes: EOMI, PERRLA Ears: bilateral: normal - Neck Carotids: bilateral: upstroke normal - Respiratory Respiratory: bilateral: diminished, rales (Dry bilateral) - Cardiovascular Rhythm: regular Heart sounds: normal: S1, S2 - Gastrointestinal General gastrointestinal: normal bowel sounds - Integumentary Integumentary: normal turgor - Neurologic Neurologic: CNII-XII intact - Musculoskeletal Musculoskeletal: gait normal, generalized weakness, strength equal bilaterally - Psychiatric Psychiatric: A&O x's 3, appropriate affect, intact judgment & insight - Labs CBC & Chem 7: 02/25/24 05:42 02/26/24 03:11 Labs: Microbiology - Last 24 Hours (Table) 02/24/24 14:03 Acid Fast Bacilli Smear - Preliminary Bronchoalviolar Lavage - Right 02/24/24 14:03 Gram Stain - Preliminary Bronchoalviolar Lavage - Right Bronchial Washings Culture - Preliminary Klebsiella pneumoniae Pseudomonas aeruginosa 02/24/24 09:04 Gram Stain - Preliminary Sputum Sputum Culture - Preliminary Klebsiella pneumoniae 02/22/24 08:23 Urine Culture - Final Urine,Voided Klebsiella pneumoniae Proteus mirabilis Assessment and Plan Assessment: Multidrug-resistant Klebsiella and Pseudomonas pneumonia, discussed with infectious disease services to continue Invanz Altered mental status likely related to sepsis as well as pneumonia, benzodiazepine and narcotics, slowly improving, almost back to baseline Sepsis related to pneumonia Acute on chronic hypoxic respiratory failure due to baseline COPD as well as added pneumonia Atypical pneumonia versus opportunistic lung disease, patient has been on PCP prophylaxis as well HIV status versus AIDS as CD4 count very low ID following Chronic back pain due to compression fracture of lower thoracic vertebra Hypertension hypertensive cardiovascular disease, Dyslipidemia, End-stage lung disease due to severe COPD emphysema Plan: Continue broad-spectrum IV antibiotics now they have been more focused with Merrem for Klebsiella pneumonia and Pseudomonas pneumonia Therapy for pneumocystis pneumonia with clinda and pamaquine awaiting pneumocystis stain r Invanz has been added per ID request IV steroids, start tapering down Status post bronchoscopy and BAL on February 24, 2024, results pending Further plan of care as per clinical response the patient and diagnostic planning Time with Patient: Greater than 30
[2024-02-27] MEDS: IPRATROPIUM-ALBUTEROL 3 ML NEB INHALATION PRN (13:08)
--- NOTE | 2024-02-27 14:10 | CDI ---
Documentation Clarification Form Date: 02/27/2024 01:44:24 PM From: Dora Kim RN CCDS Phone: [phone] Admit Date: 02/22/2024 09:57:00 AM Patient Name: Marina Field Visit Number: [id number] Discharge Date: ATTENTION: The Clinical Documentation Specialists (CDI) and [facility] Coding Staff appreciate your assistance in clarifying documentation. Please respond to the clarification below the line at the bottom and electronically sign. The CDI & [facility] Coding staff will review the response and follow-up if needed. Please note: Queries are made part of the Legal Health Record. If you have any questions, please contact the author of this message via ITS. Doctor: Quoc Saavedra The patient has altered mental status likely related to sepsis as well as pneumonia, benzodiazepine and narcotics. . Based on this information and the findings below, is there an additional diagnosis that is clinically appropriate for this patient? History/Risk Factors: 63 year old female presents to the ED via EMS for shortness of breath, chronic back pain and altered mental status. 02/21: Medical History: HIV, End stage lung disease due to severe COPD and chronic respiratory failure. 02/21, Pulmonary consult Clinical Indicators: WBC, 02/21: 26.3 Urine culture, 02/21: Klebsiella pneumoniae, Proteus mirabilis Sputum culture, 02/23: Klebsiella pneumonia Bronchoaliolar Lavage culture: 02/23 Klebsiella pneumoniae Pseudomonas aeruginosa Vitals signs: B/P 102/71; HR 123; Temp 97.8F Axillary; RR 22; SpO2 95% 3L nc Treatment: 02/21- 02/24 0.9ns 130cc/hr IV ID Consult: Pneumonia Antibiotics: 02/21 Azithromycin IVPB x 1; 02/21 Ceftriaxone IVPB x 1; 02/22 Azithromcyin IVPB Daily x 2 bags; 02/22 Ceftriaxone IVPB Q24H x 4 bags; 02/22- 02/25 Clindamycin 600mg po q 8h, 02/25 Ertapenem IVPB x 1; 02/26 Meropenem IVPB Q8H; IV Bolus: 02/21 0.9NS 1L IVFL Bolus; Is there an additional diagnosis that is clinically appropriate for this patient? [ ] Sepsis, present on admission [ ] Other, please specify [ ] Unable to determine SIRS Criteria: 2 or more of the following may indicate SIRS Temperature < 96.8F (36C) or > 101.0F (38.3C) Heart Rate > 90 bpm Respiratory Rate > 20 breaths/min or PaCO2 < 32 mmHg White Blood Cell Count > 12,000 or < 4,000 cells/mm3 or > 10% bands (Template Last Reviewed: March 2022) MTDD
[2024-02-27] MEDS: methylPREDNISolone SOD SUCCI 40 MG/ML 1 ML VIAL IV SCH (20:57)
--- NOTE | 2024-02-28 01:16 | PN ---
PROGRESS NOTE Emir has HIV, community-acquired pneumonia. IV Solu-Medrol pain control. Meropenem for pneumonia. Bronchial washes for pneumonia. Continue on meropenem. Opportunistic lung disease, PCP prophylaxis, HIV status . Altered mental status, sepsis secondary to pneumonia, and chronic respiratory failure secondary to COPD, chronic back pain due to compression fractures of lumbar spine, thoracic spine, hypertensive cardiovascular disease, dyslipidemia, end-stage lung disease secondary to severe COPD, emphysema, allergic asthma. Tapering down steroids. Path positive for Klebsiella and Pseudomonas. Sensitivities pending. Continue on meropenem at this time. Prognosis guarded. Ambulate as tolerated. Please see further orders. MMODL / IJN: [id number] /
[2024-02-28 05:49] LABS: ALT 9 U/L (4-34); AST 10 U/L (14-36); African American GFR (CKD) >90 (>60 ml/min/1.73 sqM); Albumin 2.1 g/dL (3.5-5.0); Albumin/Globulin Ratio 1.1; Alkaline Phosphatase 72 U/L (38-126); Anion Gap -3 mmol/L; Blood Urea Nitrogen 16 mg/dL (7-17); Calcium 8.1 mg/dL (8.4-10.2); Carbon Dioxide 31 mmol/L (22-30); Chloride 102 mmol/L (98-107); Glucose 87 mg/dL (74-99); Non-African American GFR(CKD) >90 (>60 ml/min/1.73 sqM); Potassium 3.1 mmol/L (3.5-5.1); Sodium 130 mmol/L (137-145); Total Bilirubin 0.2 mg/dL (0.2-1.3); Total Protein 4.1 g/dL (6.3-8.2)
[2024-02-28 06:36] LABS: Basophils # (A) 0.1 k/uL (0-0.2); Basophils % (A) 0 %; Eosinophils # (A) 0.1 k/uL (0-0.7); Eosinophils % (A) 0 %; HCT 24.8 % (34.0-46.0); Hypochromasia Slight; Lymphocytes # (A) 0.6 k/uL (1.0-4.8); Lymphocytes % (A) 5 %; MCH 29.6 pg (25.0-35.0); MCHC 32.4 g/dL (31.0-37.0); MCV 91.5 fL (80.0-100.0); Mean Platelet Volume 7.5; Monocytes # (A) 0.4 k/uL (0-1.0); Monocytes % (A) 3 %; Neutrophils # (A) 11.9 k/uL (1.3-7.7); Neutrophils % (A) 91 %; Platelet Count 438 k/uL (150-450); RBC 2.71 m/uL (3.80-5.40); RDW 15.9 % (11.5-15.5); WBC 13.2 k/uL (3.8-10.6)
--- NOTE | 2024-02-28 07:45 | P.PN ---
Subjective Progress Note Date: 02/27/24 Principal diagnosis: Reason for follow-up is HIV and pneumonia Patient is a 63-year-old female with a past medical history significant for COPD HIV but not compliant with her medication patient has been brought into the hospital for evaluation of increasing shortness of breath patient was hypoxic and did have evidence of diffuse airspace opacity concerning for pneumonia also with elevated white count. On today's evaluation that is 02/27/2024, patient has been afebrile, patient is breathing slightly comfortably and is currently on 3 L nasal cannula oxygen, patient denies having any chest pain still having some cough with minimal sputum production no hemoptysis no nausea vomiting no abdominal pain or diarrhea. No CBC was done today creatinine 0.7 BAL showing Klebsiella and Pseudomonas Objective - Vital Signs Vital signs: Vital Signs Temp 97.5 F L 02/27/24 12:25 Pulse 95 02/27/24 12:25 Resp 16 02/27/24 12:25 BP 134/86 02/27/24 12:25 Pulse Ox 100 02/27/24 12:25 FiO2 Intake & Output 02/26/24 02/27/24 02/27/24 18:59 06:59 18:59 Intake Total 660 480 240 Output Total 200 Balance 660 280 240 Weight 66.9 kg Intake: Oral 660 480 240 Output: Urine 200 Other: Voiding Method Toilet Bedside Commode Diaper Incontinent # Voids 1 # Bowel Movements 1 - Exam GENERAL DESCRIPTION: An elderly female up in the chair in no distress RESPIRATORY SYSTEM: Unlabored breathing , coarse breath sound the left side HEART: S1 S2 regular rate and rhythm , ABDOMEN: Soft , no tenderness EXTREMITIES: No edema feet - Labs CBC & Chem 7: 02/28/24 04:53 02/28/24 04:53 Labs: Microbiology - Last 24 Hours (Table) 02/24/24 14:03 Acid Fast Bacilli Smear - Preliminary Bronchoalviolar Lavage - Right 02/24/24 14:03 Gram Stain - Preliminary Bronchoalviolar Lavage - Right Bronchial Washings Culture - Preliminary Klebsiella pneumoniae Pseudomonas aeruginosa 02/24/24 09:04 Gram Stain - Preliminary Sputum Sputum Culture - Preliminary Klebsiella pneumoniae 02/22/24 08:23 Urine Culture - Final Urine,Voided Klebsiella pneumoniae Proteus mirabilis Assessment and Plan (1) AMS (altered mental status) Current Visit: Yes Status: Acute Code(s): R41.82 - ALTERED MENTAL STATUS, UNSPECIFIED SNOMED Code(s): 918432678 (2) Pneumonia Current Visit: Yes Status: Acute Code(s): J18.9 - PNEUMONIA, UNSPECIFIED ORGANISM SNOMED Code(s): 243452166 (3) Allergy to multiple antibiotics Current Visit: No Status: Acute Code(s): Z88.1 - ALLERGY STATUS TO OTHER ANTIBIOTIC AGENTS SNOMED Code(s): 912379943 Plan: 1patient with HIV for many years unfortunately patient not very compliant with her medication and the last CD4 count on 01/23/2024 was 54 and elevated HIV RNA unfortunately the patient has not follow-up in the office for very long time now presented hospital with increasing shortness of breath with evidence of diffuse infiltrate on the chest x-ray hide likely suspicious for possible PCP pneumonia however we need to cover for the community-acquired pathogen as well while waiting for the workup to be completed. 2patient to have a sulfa allergy 3-HIV currently waiting for the genotype before suggesting any antiretroviral therapy because of the patient noncompliance with the previous regime 4patient is status post bronchoscopy on 02/24/2024 with a culture currently growing ESBL Klebsiella and Pseudomonas aeruginosa, patient currently being treated with meropenem 1 g every 8 hours and monitor clinical course closely Dictation was produced using ice dictation software. please excuse any grammatical, word or spelling errors. Time with Patient: Less than 30
[2024-02-28] MEDS: SODIUM FERRIC GLUCONAT-SUCROSE 125 MG in SODIUM CHLORIDE 0.9% 100 ML IVPB SCH (08:51)
--- NOTE | 2024-02-28 09:48 | P.PN ---
Subjective Progress Note Date: 02/28/24 Principal diagnosis: Altered mental status likely related to sepsis as well as pneumonia, benzodiazepine and narcotics Sepsis related to pneumonia Acute on chronic hypoxic respiratory failure due to baseline COPD as well as added pneumonia Atypical pneumonia versus opportunistic lung disease, patient has been on PCP prophylaxis as well HIV status versus AIDS Chronic back pain due to compression fracture of lower thoracic vertebra Hypertension hypertensive cardiovascular disease, Dyslipidemia, End-stage lung disease due to severe COPD emphysema February 28, 2024, patient seen eval examined during rounds labs reviewed medications reviewed care plan discussed, patient on supplemental oxygen with 3 L nasal cannula, patient antibiotics have been switched to Merrem for Klebsiella pneumonia and Pseudomonas pneumonia found on BAL, pneumocystis stains however is still pending cytology. IV steroids have been lowered down to 40 mg every 12 tolerating well labs from today reviewed white cell count is up to 13.2, hemoglobin hematocrit 24.8, platelet count is 438 sodium was 130 potassium 3.1 BUN/creatinine is 16/0.53 February 27, 2024, patient seen eval examined during rounds labs reviewed medications reviewed ongoing shortness of breath present intermittent cough however oxygen saturation remained stable on supplemental oxygen, patient remains afebrile, on 3 L oxygen saturation 98%, patient remains on IV steroids broad-spectrum antibiotics Rocephin has been discontinued, will start tapering down the steroids as well, no AFB seen on bronchoalveolar lavage BAL positive for Klebsiella as well as Pseudomonas sensitivities pending February 26, 2024, patient seen eval examined during rounds labs reviewed medications reviewed overnight patient developed increasing shortness of breath and congestion, thought to be related to fluid overload given extra dose of Lasix and IV has been stopped, patient remains afebrile with oxygen saturation 98% seated nasal cannula hemodynamic status stable chest x-ray performed reviewed overall interstitial and airspace opacification bilaterally slightly improved compared to prior exam small bilateral pleural effusions present, labs are pending from today. Patient remains on high intensity statins along with inhaled bronchodilator as well as aerosolized inhaled steroids with oral clindamycin and IV steroid patient has been on Primacor and as well daily basis. Bronchoalveolar washing results are still pending, however sputum has been positive for Klebsiella urine culture positive for Klebsiella and Proteus, of note that Klebsiella is highly multidrug-resistant/ESBL. Of note that BAL also showing many gram-negative bacilli as well likely multi drug resistance Klebsiella there. February 25, 2024, patient seen eval examined during rounds labs reviewed medications and care plan discussed, patient respiratory status slightly improved, on 2 and half liter oxygen breathing comfortably denies any chest pain however gets short of breath minimal activity and exertion mental status almost back to baseline now. No confusion episode have been seen. Patient remains on broad-spectrum antibiotics bronchodilators and aerosolized inhaled steroids. Patient has been having urinary retention, urine positive for gram-negative rods final ID and culture sensitivity are pending. Bronchial washing as well as BAL/bronchoalveolar lavage results are pending February 24, 2024, patient seen evaluate examined during rounds labs reviewed medications reviewed care plan discussed with the patient at length. Patient remains on supplemental oxygen, saturation is 96% on 3 L, afebrile however remains tachycardic blood pressure stabilized and improved. Labs from today reviewed white cell count is down to 8.9, hemoglobin hematocrit remained stable 8.3/26, platelet count of 3 68,000. Sodium is 137 potassium 3.7 BUN/creatinine 13/0.5, glucose 126, urine and blood culture no growth so far. Patient remains on high-dose IV Rocephin along with clindamycin p.o. and IV steroids gently being hydrated. Patient is scheduled for bronchoscopy and BAL later on today procedure at length explained to the patient February 23, 2024, patient seen eval examined during rounds labs reviewed medications reviewed care plan discussed, mental status slightly improved more awake and alert, ongoing shortness of breath cough congestion is present, patient remains on 2 L oxygen, oxygen saturation is 95%, blood pressure is stable, patient remains afebrile, white cell count is 14.27 labs from today reviewed sodium remains low 129 potassium 3.4 has been on replacement protocol and gently being hydrated. Patient on bronchodilators along with IV steroids and breathing treatment Patient is a 63-year-old female well-known to me came into hospital with confusion altered mental status along with shortness of breath, EMS were called due to ongoing shortness of breath and chronic back pain in addition patient has been more confused than baseline thought to be related to benzodiazepine. 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 On arrival patient was tachypneic tachycardic with a respiratory rate of 22 heart rate of 123 soft blood pressure 100/70 she was however afebrile. White cell count is 26.3 stable hemoglobin hematocrit, chemistry significant for low sodium of 126 potassium 3.7, BUN/creatinine 23/0.87. Urinalysis suggestive of ongoing inflammatory process with turbid urine, large leukocyte esterase many WBCs RBCs and bacteria urine drug screen was positive for opiates as well as benzodiazepine and marijuana. Chest x-ray significant for diffuse airspace opacities suggestive of atypical pneumonia versus pulmonary edema, ECG positive for sinus tachycardia, COPD like pattern, incomplete right bundle branch block, RVH. CT scan of the chest irregular infiltrate seen with posterior consolidation and groundglass opacities predominantly more so on the right side compared to left side likely pneumonia/atypical pneumonia overall symptoms are progressive. Patient has been admitted to hospital on broad-spectrum antibiotics currently patient is being continued on home medicine also on IV Zithromax along with Rocephin and clindamycin, Solu-Medrol is being continued 40 mg IV Q8 patient has been on PCP prophylaxis with primaquine also gently being hydrated. Past medical history significant for severe degree of degenerative joint disease and compression fracture of spine, chronic pain syndrome, end-stage COPD oxygen dependent, HIV positive status, mood disorder depression, dyslipidemia, osteoporosis, hypertension hypertensive cardiovascular disease, Objective - Vital Signs Vital signs: Vital Signs Temp 97.6 F 02/28/24 08:00 Pulse 121 H 02/28/24 08:00 Resp 16 02/28/24 08:00 BP 145/85 02/28/24 08:00 Pulse Ox 91 L 02/28/24 08:00 FiO2 Intake & Output 02/27/24 02/28/24 02/28/24 18:59 06:59 18:59 Intake Total 2280 750 240 Output Total 200 Balance 2280 550 240 Weight 67.152 kg Intake: Oral 2280 750 240 Output: Urine 200 Other: Voiding Method Bedside Commode Diaper Incontinent # Voids 5 1 # Bowel Movements 1 1 - Exam - Constitutional General appearance: average body habitus, cooperative, disheveled, mild distress - EENT Eyes: EOMI, PERRLA Ears: bilateral: normal - Neck Carotids: bilateral: upstroke normal - Respiratory Respiratory: bilateral: diminished, rales (Dry bilateral) - Cardiovascular Rhythm: regular Heart sounds: normal: S1, S2 - Gastrointestinal General gastrointestinal: normal bowel sounds - Integumentary Integumentary: normal turgor - Neurologic Neurologic: CNII-XII intact - Musculoskeletal Musculoskeletal: gait normal, generalized weakness, strength equal bilaterally - Psychiatric Psychiatric: A&O x's 3, appropriate affect, intact judgment & insight - Labs CBC & Chem 7: 02/28/24 04:53 02/28/24 04:53 Labs: Abnormal Lab Results - Last 24 Hours (Table) 02/28/24 02/28/24 Range/Units 04:53 04:53 WBC 13.2 H (3.8-10.6) k/uL RBC 2.71 L (3.80-5.40) m/uL Hgb 8.0 L D (11.4-16.0) gm/dL Hct 24.8 L (34.0-46.0) % RDW 15.9 H (11.5-15.5) % Neutrophils # 11.9 H (1.3-7.7) k/uL Lymphocytes # 0.6 L (1.0-4.8) k/uL Sodium 130 L (137-145) mmol/L Potassium 3.1 L (3.5-5.1) mmol/L Carbon Dioxide 31 H (22-30) mmol/L Calcium 8.1 L (8.4-10.2) mg/dL AST 10 L (14-36) U/L Total Protein 4.1 L (6.3-8.2) g/dL Albumin 2.1 L (3.5-5.0) g/dL Microbiology - Last 24 Hours (Table) 02/24/24 14:03 Gram Stain - Final Bronchoalviolar Lavage - Right Bronchial Washings Culture - Final Proteus mirabilis Klebsiella pneumoniae Pseudomonas aeruginosa 02/24/24 09:04 Gram Stain - Final Sputum Sputum Culture - Final Klebsiella pneumoniae Pseudomonas aeruginosa 02/22/24 09:51 Blood Culture - Final Blood Assessment and Plan Assessment: Multidrug-resistant Klebsiella and Pseudomonas pneumonia, discussed with infectious disease services biotics have been switched to Merrem Altered mental status likely related to sepsis as well as pneumonia, benzodia zepine and narcotics, slowly improving, almost back to baseline Sepsis related to pneumonia Acute on chronic hypoxic respiratory failure due to baseline COPD as well as added pneumonia Atypical pneumonia versus opportunistic lung disease, pneumocystis stain/cytology pending HIV status versus AIDS as CD4 count very low ID following Chronic back pain due to compression fracture of lower thoracic vertebra Hypertension hypertensive cardiovascular disease, Dyslipidemia, End-stage lung disease due to severe COPD emphysema Plan: Continue broad-spectrum IV antibiotics now they have been more focused with Merrem for Klebsiella pneumonia and Pseudomonas pneumonia awaiting pneumocystis stain IV steroids, continue tapering down Status post bronchoscopy and BAL on February 24, 2024, results pending still Further plan of care as per clinical response the patient and diagnostic planning Time with Patient: Greater than 30
--- NOTE | 2024-02-28 13:33 | P.PN ---
Subjective Progress Note Date: 02/28/24 Principal diagnosis: Reason for follow-up is HIV and pneumonia Patient is a 63-year-old female with a past medical history significant for COPD HIV but not compliant with her medication patient has been brought into the hospital for evaluation of increasing shortness of breath patient was hypoxic and did have evidence of diffuse airspace opacity concerning for pneumonia also with elevated white count. On today's evaluation that is 02/28/2024, Patient is afebrile this morning patient denies having any chest pain shortness of breath and cough is decreased in intensity, the patient is currently on 3 L current oxygen, patient denies any abdominal pain no diarrhea no nausea no vomiting. Patient white count is 13.2 creatinine 0.53 sputum is growing ESBL Klebsiella Proteus and Pseudomonas Objective - Vital Signs Vital signs: Vital Signs Temp 97.7 F 02/28/24 12:38 Pulse 106 H 02/28/24 12:38 Resp 16 02/28/24 12:38 BP 113/73 02/28/24 12:38 Pulse Ox 97 02/28/24 12:38 FiO2 Intake & Output 02/27/24 02/28/24 02/28/24 18:59 06:59 18:59 Intake Total 2280 750 480 Output Total 200 Balance 2280 550 480 Weight 67.152 kg Intake: Oral 2280 750 480 Output: Urine 200 Other: Voiding Method Bedside Commode Diaper Incontinent # Voids 5 1 # Bowel Movements 1 1 - Exam GENERAL DESCRIPTION: An elderly female up in the chair in no distress RESPIRATORY SYSTEM: Unlabored breathing , coarse breath sound the left side HEART: S1 S2 regular rate and rhythm , ABDOMEN: Soft , no tenderness EXTREMITIES: No edema feet - Labs CBC & Chem 7: 02/28/24 04:53 02/28/24 04:53 Labs: Abnormal Lab Results - Last 24 Hours (Table) 02/28/24 02/28/24 Range/Units 04:53 04:53 WBC 13.2 H (3.8-10.6) k/uL RBC 2.71 L (3.80-5.40) m/uL Hgb 8.0 L D (11.4-16.0) gm/dL Hct 24.8 L (34.0-46.0) % RDW 15.9 H (11.5-15.5) % Neutrophils # 11.9 H (1.3-7.7) k/uL Lymphocytes # 0.6 L (1.0-4.8) k/uL Sodium 130 L (137-145) mmol/L Potassium 3.1 L (3.5-5.1) mmol/L Carbon Dioxide 31 H (22-30) mmol/L Calcium 8.1 L (8.4-10.2) mg/dL AST 10 L (14-36) U/L Total Protein 4.1 L (6.3-8.2) g/dL Albumin 2.1 L (3.5-5.0) g/dL Microbiology - Last 24 Hours (Table) 02/24/24 14:03 Gram Stain - Final Bronchoalviolar Lavage - Right Bronchial Washings Culture - Final Proteus mirabilis Klebsiella pneumoniae Pseudomonas aeruginosa 02/24/24 09:04 Gram Stain - Final Sputum Sputum Culture - Final Klebsiella pneumoniae Pseudomonas aeruginosa 02/22/24 09:51 Blood Culture - Final Blood Assessment and Plan (1) AMS (altered mental status) Current Visit: Yes Status: Acute Code(s): R41.82 - ALTERED MENTAL STATUS, UNSPECIFIED SNOMED Code(s): 576143429 (2) Pneumonia Current Visit: Yes Status: Acute Code(s): J18.9 - PNEUMONIA, UNSPECIFIED ORGANISM SNOMED Code(s): 059388419 (3) Allergy to multiple antibiotics Current Visit: No Status: Acute Code(s): Z88.1 - ALLERGY STATUS TO OTHER ANTIBIOTIC AGENTS SNOMED Code(s): 721929225 Plan: 1patient with HIV for many years unfortunately patient not very compliant with her medication and the last CD4 count on 01/23/2024 was 54 and elevated HIV RNA unfortunately the patient has not follow-up in the office for very long time now presented hospital with increasing shortness of breath with evidence of diffuse infiltrate on the chest x-ray hide likely suspicious for possible PCP pneumonia however we need to cover for the community-acquired pathogen as well while waiting for the workup to be completed. 2patient to have a sulfa allergy 3-HIV currently waiting for the genotype before suggesting any antiretroviral therapy because of the patient noncompliance with the previous regime 4patient is status post bronchoscopy on 02/24/2024 with a culture currently growing ESBL Klebsiella and Pseudomonas aeruginosa, 5-day the patient is afebrile white count slightly up today possibly steroid related will monitor closely and continue with meropenem 1 g every 8 hours Dictation was produced using [email or web address] dictation software. please excuse any grammatical, word or spelling errors. Time with Patient: Less than 30
[2024-02-29] MEDS: ERGOCALCIFEROL 1,250 MCG (50,000 IU) CAPSULE PO SCH (08:19)
--- NOTE | 2024-02-29 22:21 | P.PN ---
Subjective Progress Note Date: 02/29/24 Principal diagnosis: Reason for follow-up is HIV and pneumonia Patient is a 63-year-old female with a past medical history significant for COPD HIV but not compliant with her medication patient has been brought into the hospital for evaluation of increasing shortness of breath patient was hypoxic and did have evidence of diffuse airspace opacity concerning for pneumonia also with elevated white count. On today's evaluation that is 02/29/2024,the patient denies any fever or any chills, patient is breathing comfortably on 2 L nasal cannula oxygen, the patient denies chest pain shortness of breath and cough is decreased intensity, patient denies abdominal pain, no nausea vomiting or diarrhea. Patient did not have a lab draw today Objective - Vital Signs Vital signs: Vital Signs Temp 97.4 F L 02/29/24 07:20 Pulse 88 02/29/24 08:04 Resp 16 02/29/24 07:20 BP 129/78 02/29/24 07:20 Pulse Ox 98 02/29/24 07:20 FiO2 Intake & Output 02/28/24 02/29/24 02/29/24 18:59 06:59 18:59 Intake Total 2520 240 480 Balance 2520 240 480 Weight 67.152 kg 68.4 kg Intake: Oral 2520 240 480 Other: Voiding Method Bedside Commode Diaper Incontinent # Voids 4 1 # Bowel Movements 3 - Exam GENERAL DESCRIPTION: An elderly female up in the chair in no distress RESPIRATORY SYSTEM: Unlabored breathing , coarse breath sound the left side HEART: S1 S2 regular rate and rhythm , ABDOMEN: Soft , no tenderness EXTREMITIES: No edema feet - Labs CBC & Chem 7: 02/28/24 04:53 02/28/24 04:53 Labs: Abnormal Lab Results - Last 24 Hours (Table) 02/24/24 Range/Units 14:03 CMV DNA Qual PCR DETECTED A (Not detected) HSV I DNA PCR DETECTED A (Not detected) Microbiology - Last 24 Hours (Table) 02/24/24 14:03 Legionella Culture - Preliminary Bronchial Washings - Right 02/24/24 14:03 Gram Stain - Final Bronchoalviolar Lavage - Right Bronchial Washings Culture - Final Proteus mirabilis Klebsiella pneumoniae Pseudomonas aeruginosa 02/24/24 09:04 Gram Stain - Final Sputum Sputum Culture - Final Klebsiella pneumoniae Pseudomonas aeruginosa Assessment and Plan (1) AMS (altered mental status) Current Visit: Yes Status: Acute Code(s): R41.82 - ALTERED MENTAL STATUS, UNSPECIFIED SNOMED Code(s): 744327631 (2) Pneumonia Current Visit: Yes Status: Acute Code(s): J18.9 - PNEUMONIA, UNSPECIFIED ORGANISM SNOMED Code(s): 123614102 (3) Allergy to multiple antibiotics Current Visit: No Status: Acute Code(s): Z88.1 - ALLERGY STATUS TO OTHER ANTIBIOTIC AGENTS SNOMED Code(s): 378339322 Plan: 1patient with HIV for many years unfortunately patient not very compliant with her medication and the last CD4 count on 01/23/2024 was 54 and elevated HIV RNA unfortunately the patient has not follow-up in the office for very long time now presented hospital with increasing shortness of breath with evidence of diffuse infiltrate on the chest x-ray hide likely suspicious for possible PCP pneumonia however we need to cover for the community-acquired pathogen as well while waiting for the workup to be completed. 2patient to have a sulfa allergy 3-HIV currently waiting for the genotype before suggesting any antiretroviral therapy because of the patient noncompliance with the previous regime 4patient is status post bronchoscopy on 02/24/2024 with a culture currently growing ESBL Klebsiella and Pseudomonas aeruginosa, 5- the patient is afebrile white count slightly up yesterday possibly steroid related, no CBC was done today we will check a CBC with a.m. lab and continue with meropenem 1 g every 8 hours to cover for other 3 pathogen especially ESBL as with oral Cipro may not be a good option for ESBL pathogen this was discussed with the admitting physician with recommending 10-day course on discharge with meropenem midline has been ordered Dictation was produced using [employer] software. please excuse any grammatical, word or spelling errors.
--- NOTE | 2024-03-01 02:14 | PN ---
PROGRESS NOTE SUBJECTIVE: A 63-year-old white female, who has HIV immunodeficiency and pneumonia. She has positive CMV and high viral titers. White count is 13.2, hemoglobin is 8. OBJECTIVE: LUNGS: Scattered wheeze and rhonchi. HEMATOLOGY: Negative Homans. PSYCH: Fair mood and affect. GI: Soft. ASSESSMENT: She has altered mental status, metabolic encephalopathy, pneumonia. Allergies to multiple antibiotics. Status post bronchoscopy, 02/24/2024. Cultures; ESBL, Klebsiella, pneumonia, Pseudomonas aeruginosa. Continue with meropenem. Wait for Infectious Disease to give oral antibiotics on discharge. Wait for further culture and recommendations. Blood cultures are negative. Urine culture is also positive for Klebsiella pneumoniae and Proteus. Prognosis guarded. MMODL / IJN: [id number] /
[2024-03-01 09:17] LABS: ALT 11 U/L (4-34); African American GFR (CKD) >90 (>60 ml/min/1.73 sqM); Albumin 2.7 g/dL (3.5-5.0); Albumin/Globulin Ratio 1.2; Anion Gap 1 mmol/L; Blood Urea Nitrogen 15 mg/dL (7-17); Calcium 8.8 mg/dL (8.4-10.2); Carbon Dioxide 35 mmol/L (22-30); Chloride 98 mmol/L (98-107); Globulin 2.2 g/dL; Glucose 98 mg/dL (74-99); Non-African American GFR(CKD) >90 (>60 ml/min/1.73 sqM); Sodium 134 mmol/L (137-145); Total Bilirubin 0.5 mg/dL (0.2-1.3); Total Protein 4.9 g/dL (6.3-8.2)
[2024-03-01 09:20] LABS: AST 20 U/L (14-36); Alkaline Phosphatase 80 U/L (38-126); Potassium 4.4 mmol/L (3.5-5.1)
[2024-03-01 09:21] LABS: Anisocytosis Slight; Basophils # (A) 0.1 k/uL (0-0.2); Basophils % (A) 1 %; Eosinophils # (A) 0.1 k/uL (0-0.7); Eosinophils % (A) 1 %; HCT 28.2 % (34.0-46.0); HGB 9.3 gm/dL (11.4-16.0); Lymphocytes # (A) 0.7 k/uL (1.0-4.8); Lymphocytes % (A) 4 %; MCH 29.8 pg (25.0-35.0); MCHC 32.9 g/dL (31.0-37.0); MCV 90.8 fL (80.0-100.0); Mean Platelet Volume 10.2; Monocytes # (A) 0.4 k/uL (0-1.0); Monocytes % (A) 2 %; Neutrophils # (A) 15.7 k/uL (1.3-7.7); Neutrophils % (A) 92 %; Platelet Count 376 k/uL (150-450); RBC 3.11 m/uL (3.80-5.40); RDW 16.9 % (11.5-15.5)
--- NOTE | 2024-03-01 12:39 | P.PN ---
Subjective Progress Note Date: 03/01/24 Principal diagnosis: Reason for follow-up is HIV and pneumonia Patient is a 63-year-old female with a past medical history significant for COPD HIV but not compliant with her medication patient has been brought into the hospital for evaluation of increasing shortness of breath patient was hypoxic and did have evidence of diffuse airspace opacity concerning for pneumonia also with elevated white count. On today's evaluation that is 03/01/2024,the patient remains to be afebrile, patient is on 2 L nasal cannula supplemental oxygen and denies any shortness of breath no chest pain cough is decreased in intensity patient denies having any nausea or vomiting, no abdominal pain and no diarrhea has been reported patient did pull out her midline and seem to be refusing IV antibiotic on discharge per the nursing staff. Patient white count is up to 17,000 today, creatinine 0.43 Objective - Vital Signs Vital signs: Vital Signs Temp 97.9 F 03/01/24 12:13 Pulse 77 03/01/24 12:13 Resp 18 03/01/24 12:13 BP 133/78 03/01/24 12:13 Pulse Ox 100 03/01/24 12:13 FiO2 Intake & Output 02/29/24 03/01/24 03/01/24 18:59 06:59 18:59 Intake Total 2517 540 Output Total 600 Balance 2517 -60 Weight 68.8 kg Intake: Oral 2517 540 Output: Urine 600 Other: Voiding Method Bedside Commode Diaper Incontinent # Voids 5 1 # Bowel Movements 3 - Exam GENERAL DESCRIPTION: An elderly female up in the chair in no distress RESPIRATORY SYSTEM: Unlabored breathing , coarse breath sound the left side HEART: S1 S2 regular rate and rhythm , ABDOMEN: Soft , no tenderness EXTREMITIES: No edema feet - Labs CBC & Chem 7: 03/01/24 08:36 03/01/24 08:36 Labs: Abnormal Lab Results - Last 24 Hours (Table) 03/01/24 03/01/24 Range/Units 08:36 08:36 WBC 17.0 H (3.8-10.6) k/uL RBC 3.11 L (3.80-5.40) m/uL Hgb 9.3 L (11.4-16.0) gm/dL Hct 28.2 L (34.0-46.0) % RDW 16.9 H (11.5-15.5) % Neutrophils # 15.7 H (1.3-7.7) k/uL Lymphocytes # 0.7 L (1.0-4.8) k/uL Sodium 134 L (137-145) mmol/L Carbon Dioxide 35 H (22-30) mmol/L Creatinine 0.43 L (0.52-1.04) mg/dL Total Protein 4.9 L (6.3-8.2) g/dL Albumin 2.7 L (3.5-5.0) g/dL Assessment and Plan (1) AMS (altered mental status) Current Visit: Yes Status: Acute Code(s): R41.82 - ALTERED MENTAL STATUS, UNSPECIFIED SNOMED Code(s): 675427598 (2) Pneumonia Current Visit: Yes Status: Acute Code(s): J18.9 - PNEUMONIA, UNSPECIFIED ORGANISM SNOMED Code(s): 183363904 (3) Allergy to multiple antibiotics Current Visit: No Status: Acute Code(s): Z88.1 - ALLERGY STATUS TO OTHER ANTIBIOTIC AGENTS SNOMED Code(s): 828839393 Plan: 1patient with HIV for many years unfortunately patient not very compliant with her medication and the last CD4 count on 01/23/2024 was 54 and elevated HIV RNA unfortunately the patient has not follow-up in the office for very long time now presented hospital with increasing shortness of breath with evidence of diffuse infiltrate on the chest x-ray hide likely suspicious for possible PCP pneumonia however we need to cover for the community-acquired pathogen as well while waiting for the workup to be completed. 2patient to have a sulfa allergy 3-HIV currently waiting for the genotype before suggesting any antiretroviral therapy because of the patient noncompliance with the previous regime 4patient is status post bronchoscopy on 02/24/2024 with a culture currently growing ESBL Klebsiella and Pseudomonas aeruginosa, 5- the patient is afebrile white count slightly up likely secondary to the steroids which should be cut back pulmonary is following the patient 6patient is currently on meropenem to cover for the ESBL Klebsiella Pseudomonas patient been refusing IV antibiotic on discharge and did pull out her midline, we will consider a 10-day course of oral Cipro 750 twice daily and no need to place another midline Dictation was produced using [employer] software. please excuse any grammatical, word or spelling errors. Time with Patient: Less than 30
[2024-03-01] MEDS: CLINDAMYCIN 150 MG CAP PO SCH (16:36)
[2024-03-01] MEDS: PRIMAQUINE PO SCH (16:37)
[2024-03-01] MEDS: CIPROFLOXACIN HCL 250 MG TAB PO SCH (20:59)
[2024-03-02 09:14] LABS: ALT 12 U/L (4-34); AST 21 U/L (14-36); African American GFR (CKD) >90 (>60 ml/min/1.73 sqM); Albumin 2.7 g/dL (3.5-5.0); Albumin/Globulin Ratio 1.2; Alkaline Phosphatase 77 U/L (38-126); Anion Gap -2 mmol/L; Blood Urea Nitrogen 18 mg/dL (7-17); Carbon Dioxide 38 mmol/L (22-30); Chloride 98 mmol/L (98-107); Globulin 2.2 g/dL; Glucose 70 mg/dL (74-99); Non-African American GFR(CKD) >90 (>60 ml/min/1.73 sqM); Potassium 4.4 mmol/L (3.5-5.1); Sodium 134 mmol/L (137-145); Total Bilirubin 0.5 mg/dL (0.2-1.3); Total Protein 4.9 g/dL (6.3-8.2)
[2024-03-02] MEDS: predniSONE 20 MG TAB PO SCH (09:19)
--- NOTE | 2024-03-02 10:09 | P.PN ---
Subjective Progress Note Date: 03/02/24 Principal diagnosis: Altered mental status likely related to sepsis as well as pneumonia, benzodiazepine and narcotics Sepsis related to pneumonia Acute on chronic hypoxic respiratory failure due to baseline COPD as well as added pneumonia Atypical pneumonia versus opportunistic lung disease, patient has been on PCP prophylaxis as well HIV status versus AIDS Chronic back pain due to compression fracture of lower thoracic vertebra Hypertension hypertensive cardiovascular disease, Dyslipidemia, End-stage lung disease due to severe COPD emphysema March 02, 2024, patient seen eval examined during rounds labs reviewed medications and care plan discussed with RN at length, patient remains weaker anti-HIV medicine are being adjusted antibiotics are being switched to oral steroids will recommend to change to oral at the time of discharge cytology has been negative for pneumocystis, AFB, granulomatous infection features however has been positive for multiple multidrug-resistant/ESBL gram-negative infection including Proteus mirabilis, Klebsiella pneumonia, Pseudomonas aeruginosa Legionella culture however has been negative February 28, 2024, patient seen eval examined during rounds labs reviewed medications reviewed care plan discussed, patient on supplemental oxygen with 3 L nasal cannula, patient antibiotics have been switched to Merrem for Klebsiella pneumonia and Pseudomonas pneumonia found on BAL, pneumocystis stains however is still pending cytology. IV steroids have been lowered down to 40 mg every 12 tolerating well labs from today reviewed white cell count is up to 13.2, hemoglobin hematocrit 8/24.8, platelet count is 438 sodium was 130 potassium 3.1 BUN/creatinine is 16/0.53 February 27, 2024, patient seen eval examined during rounds labs reviewed medications reviewed ongoing shortness of breath present intermittent cough however oxygen saturation remained stable on supplemental oxygen, patient remains afebrile, on 3 L oxygen saturation 98%, patient remains on IV steroids broad-spectrum antibiotics Rocephin has been discontinued, will start tapering down the steroids as well, no AFB seen on bronchoalveolar lavage BAL positive for Klebsiella as well as Pseudomonas sensitivities pending February 26, 2024, patient seen eval examined during rounds labs reviewed medications reviewed overnight patient developed increasing shortness of breath and congestion, thought to be related to fluid overload given extra dose of Lasix and IV has been stopped, patient remains afebrile with oxygen saturation 98% seated nasal cannula hemodynamic status stable chest x-ray performed reviewed overall interstitial and airspace opacification bilaterally slightly improved compared to prior exam small bilateral pleural effusions present, labs are pending from today. Patient remains on high intensity statins along with inhaled bronchodilator as well as aerosolized inhaled steroids with oral clindamycin and IV steroid patient has been on Primacor and as well daily basis. Bronchoalveolar washing results are still pending, however sputum has been positive for Klebsiella urine culture positive for Klebsiella and Proteus, of note that Klebsiella is highly multidrug-resistant/ESBL. Of note that BAL also showing many gram-negative bacilli as well likely multi drug resistance Klebsiella there. February 25, 2024, patient seen eval examined during rounds labs reviewed medications and care plan discussed, patient respiratory status slightly improved, on 2 and half liter oxygen breathing comfortably denies any chest pain however gets short of breath minimal activity and exertion mental status almost back to baseline now. No confusion episode have been seen. Patient remains on broad-spectrum antibiotics bronchodilators and aerosolized inhaled steroids. Patient has been having urinary retention, urine positive for gram-negative rods final ID and culture sensitivity are pending. Bronchial washing as well as BAL/bronchoalveolar lavage results are pending February 24, 2024, patient seen evaluate examined during rounds labs reviewed medications reviewed care plan discussed with the patient at length. Patient remains on supplemental oxygen, saturation is 96% on 3 L, afebrile however remains tachycardic blood pressure stabilized and improved. Labs from today reviewed white cell count is down to 8.9, hemoglobin hematocrit remained stable 8.3/26, platelet count of 3 68,000. Sodium is 137 potassium 3.7 BUN/creatinine 13/0.5, glucose 126, urine and blood culture no growth so far. Patient remains on high-dose IV Rocephin along with clindamycin p.o. and IV steroids gently being hydrated. Patient is scheduled for bronchoscopy and BAL later on today procedure at length explained to the patient February 23, 2024, patient seen eval examined during rounds labs reviewed medications reviewed care plan discussed, mental status slightly improved more awake and alert, ongoing shortness of breath cough congestion is present, patient remains on 2 L oxygen, oxygen saturation is 95%, blood pressure is st able, patient remains afebrile, white cell count is 14.27 labs from today reviewed sodium remains low 129 potassium 3.4 has been on replacement protocol and gently being hydrated. Patient on bronchodilators along with IV steroids and breathing treatment Patient is a 63-year-old female well-known to me came into hospital with confusion altered mental status along with shortness of breath, EMS were called due to ongoing shortness of breath and chronic back pain in addition patient has been more confused than baseline thought to be related to benzodiazepine. 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 On arrival patient was tachypneic tachycardic with a respiratory rate of 22 heart rate of 123 soft blood pressure 100/70 she was however afebrile. White cell count is 26.3 stable hemoglobin hematocrit, chemistry significant for low sodium of 126 potassium 3.7, BUN/creatinine 23/0.87. Urinalysis suggestive of ongoing inflammatory process with turbid urine, large leukocyte esterase many WBCs RBCs and bacteria urine drug screen was positive for opiates as well as benzodiazepine and marijuana. Chest x-ray significant for diffuse airspace opacities suggestive of atypical pneumonia versus pulmonary edema, ECG positive for sinus tachycardia, COPD like pattern, incomplete right bundle branch block, RVH. CT scan of the chest irregular infiltrate seen with posterior consolidation and groundglass opacities predominantly more so on the right side compared to left side likely pneumonia/atypical pneumonia overall symptoms are progressive. Patient has been admitted to hospital on broad-spectrum antibiotics currently patient is being continued on home medicine also on IV Zithromax along with Rocephin and clindamycin, Solu-Medrol is being continued 40 mg IV Q8 patient has been on PCP prophylaxis with primaquine also gently being hydrated. Past medical history significant for severe degree of degenerative joint disease and compression fracture of spine, chronic pain syndrome, end-stage COPD oxygen dependent, HIV positive status, mood disorder depression, dyslipidemia, osteoporosis, hypertension hypertensive cardiovascular disease, Objective - Vital Signs Vital signs: Vital Signs Temp 97.5 F L 03/02/24 08:12 Pulse 89 03/02/24 08:12 Resp 17 03/02/24 08:12 BP 123/82 03/02/24 08:12 Pulse Ox 96 03/02/24 08:12 FiO2 Intake & Output 03/01/24 03/02/24 03/02/24 18:59 06:59 18:59 Intake Total 590 Balance 590 Weight 68 kg Intake: Oral 590 Other: Voiding Method Bedside Commode Bedside Commode Diaper Diaper Incontinent # Voids 1 4 1 # Bowel Movements 1 - Exam - Constitutional General appearance: average body habitus, cooperative, disheveled, mild distress - EENT Eyes: EOMI, PERRLA Ears: bilateral: normal - Neck Carotids: bilateral: upstroke normal - Respiratory Respiratory: bilateral: diminished, rales (Dry bilateral) - Cardiovascular Rhythm: regular Heart sounds: normal: S1, S2 - Gastrointestinal General gastrointestinal: normal bowel sounds - Integumentary Integumentary: normal turgor - Neurologic Neurologic: CNII-XII intact - Musculoskeletal Musculoskeletal: gait normal, generalized weakness, strength equal bilaterally - Psychiatric Psychiatric: A&O x's 3, appropriate affect, intact judgment & insight - Labs CBC & Chem 7: 03/01/24 08:36 03/02/24 08:17 Labs: Abnormal Lab Results - Last 24 Hours (Table) 03/02/24 Range/Units 08:17 Sodium 134 L (137-145) mmol/L Carbon Dioxide 38 H (22-30) mmol/L BUN 18 H (7-17) mg/dL Creatinine 0.50 L (0.52-1.04) mg/dL Glucose 70 L (74-99) mg/dL Total Protein 4.9 L (6.3-8.2) g/dL Albumin 2.7 L (3.5-5.0) g/dL Assessment and Plan Assessment: Multidrug-resistant Klebsiella, Proteus Mirabella's and Pseudomonas pneumonia, discussed with infectious disease services biotics have been switched to Merrem, ID service planning to change to p.o. Altered mental status likely related to sepsis as well as pneumonia, benzodiaze pine and narcotics, slowly improving, almost back to baseline Sepsis related to pneumonia Acute on chronic hypoxic respiratory failure due to baseline COPD as well as added pneumonia Atypical pneumonia versus opportunistic lung disease, pneumocystis stain/cytology pending HIV status versus AIDS as CD4 count very low ID following Chronic back pain due to compression fracture of lower thoracic vertebra Hypertension hypertensive cardiovascular disease, Dyslipidemia, End-stage lung disease due to severe COPD emphysema Plan: Continue broad-spectrum antibiotics however they cannot be changed to oral at the time of discharge per ID recommendation awaiting pneumocystis stain IV steroids, be tapered down to oral prednisone like Medrol Dosepak Status post bronchoscopy and BAL on February 24, 2024, results especially cytology reviewed no pneumocystis seen Further plan of care as per clinical response the patient and diagnostic planning Patient stable from pulmonary standpoint for discharge to rehab or home depending upon per PT OT evaluation and primary service recommendation and patient choices
[2024-03-02 10:19] LABS: Anisocytosis Slight; HCT 30.2 % (34.0-46.0); HGB 9.6 gm/dL (11.4-16.0); Hypochromasia Slight; MCH 29.5 pg (25.0-35.0); MCHC 31.6 g/dL (31.0-37.0); MCV 93.2 fL (80.0-100.0); Mean Platelet Volume 9.6; Platelet Count 444 k/uL (150-450); RBC 3.24 m/uL (3.80-5.40); RDW 16.9 % (11.5-15.5); WBC 18.5 k/uL (3.8-10.6)
[2024-03-02 11:49] LABS: Band Neutrophils % 1 %; Eosinophils # (M) 0.19 k/uL (0-0.7); Metamyelocytes # (M) 0.19 k/uL (0); Metamyelocytes % 1 %; Monocytes # (M) 0.56 k/uL (0-1.0); Myelocytes # (M) 0.37 k/uL (0); Myelocytes % 2 %; Neutrophils % (M) 87 %; Nucleated Red Blood Cells 0 /100 WBC (0-0); Total Cells Counted 200
--- NOTE | 2024-03-02 15:56 | P.PN ---
Subjective Progress Note Date: 03/02/24 Principal diagnosis: Reason for follow-up is HIV and pneumonia Patient is a 63-year-old female with a past medical history significant for COPD HIV but not compliant with her medication patient has been brought into the hospital for evaluation of increasing shortness of breath patient was hypoxic and did have evidence of diffuse airspace opacity concerning for pneumonia also with elevated white count. On today's evaluation that is 03/02/2024, the patient continues to be afebrile, the patient is on 2 L nasal oxygen and breathing comfortably, the Pt denies having any chest pain or any worsening cough, the patient denies having any abdominal pain no vomiting or any diarrhea. Patient white count is up to 18.5 today, creatinine 0.50 PCP stain came back positive Objective - Vital Signs Vital signs: Vital Signs Temp 97.5 F L 03/02/24 08:12 Pulse 89 03/02/24 08:12 Resp 17 03/02/24 08:12 BP 123/82 03/02/24 08:12 Pulse Ox 96 03/02/24 08:12 FiO2 Intake & Output 03/01/24 03/02/24 03/02/24 18:59 06:59 18:59 Intake Total 590 Balance 590 Weight 68 kg Intake: Oral 590 Other: Voiding Method Bedside Commode Bedside Commode Diaper Diaper Incontinent # Voids 1 4 1 # Bowel Movements 1 - Exam GENERAL DESCRIPTION: An elderly female up in the chair in no distress RESPIRATORY SYSTEM: Unlabored breathing , coarse breath sound the left side HEART: S1 S2 regular rate and rhythm , ABDOMEN: Soft , no tenderness EXTREMITIES: No edema feet - Labs CBC & Chem 7: 03/02/24 09:34 03/02/24 08:17 Labs: Abnormal Lab Results - Last 24 Hours (Table) 03/02/24 03/02/24 Range/Units 08:17 09:34 WBC 18.5 H (3.8-10.6) k/uL RBC 3.24 L (3.80-5.40) m/uL Hgb 9.6 L (11.4-16.0) gm/dL Hct 30.2 L (34.0-46.0) % RDW 16.9 H (11.5-15.5) % Sodium 134 L (137-145) mmol/L Carbon Dioxide 38 H (22-30) mmol/L BUN 18 H (7-17) mg/dL Creatinine 0.50 L (0.52-1.04) mg/dL Glucose 70 L (74-99) mg/dL Total Protein 4.9 L (6.3-8.2) g/dL Albumin 2.7 L (3.5-5.0) g/dL Assessment and Plan (1) AMS (altered mental status) Current Visit: Yes Status: Acute Code(s): R41.82 - ALTERED MENTAL STATUS, UNSPECIFIED SNOMED Code(s): 469371967 (2) Pneumonia Current Visit: Yes Status: Acute Code(s): J18.9 - PNEUMONIA, UNSPECIFIED ORGANISM SNOMED Code(s): 884837272 (3) Allergy to multiple antibiotics Current Visit: No Status: Acute Code(s): Z88.1 - ALLERGY STATUS TO OTHER ANTIBIOTIC AGENTS SNOMED Code(s): 508281134 (4) PCP (pneumocystis carinii pneumonia) Current Visit: Yes Status: Acute Code(s): B59 - PNEUMOCYSTOSIS SNOMED Code(s): 278201282 Plan: 1patient with HIV for many years unfortunately patient not very compliant with her medication and the last CD4 count on 01/23/2024 was 54 and elevated HIV RNA unfortunately the patient has not follow-up in the office for very long time now presented hospital with increasing shortness of breath with evidence of diffuse infiltrate on the chest x-ray hide likely suspicious for possible PCP pneumonia however we need to cover for the community-acquired pathogen as well while waiting for the workup to be completed. 2patient to have a sulfa allergy 3-HIV currently waiting for the genotype before suggesting any antiretroviral therapy because of the patient noncompliance with the previous regime 4patient is status post bronchoscopy on 02/24/2024 with a culture currently growing ESBL Klebsiella and Pseudomonas aeruginosa, 5- the patient is afebrile white count slightly up likely secondary to the steroids which should be cut back pulmonary is following the patient 6patient BAL PCP stain came back positive patient has been restarted on clindamycin and primaquine prescription for primary care has been sent to the pharmacy once available she should be able to go home from ID standpoint Dictation was produced using [employer] software. please excuse any grammatical, word or spelling errors. Time with Patient: Less than 30
--- NOTE | 2024-03-03 04:17 | PN ---
PROGRESS NOTE SUBJECTIVE: A -[id number] white female. She is supposed to be discharged home. Waiting to get Primatene for her HIV pneumonia with PCP, multiple cultures positive for different bugs. White count is 18.5, hemoglobin is 9.6. OBJECTIVE: LUNGS: Scattered wheeze. HEMATOLOGY: Negative Homans. GI: Soft. NEUROLOGIC: Alert and oriented x3. Post bronchoscopy, ESBL Klebsiella Pseudomonas for regular nausea. She is afebrile. White count slightly up secondary to steroids. We are cutting down her steroids to see if her white count comes back positive, comes down and the patient's BAL PCP stain came back positive today. Restarted on clindamycin and primaquine prescription. She will be able to go home when she gets her medications. Prognosis guarded. MMODL / IJN: [id number] /
[2024-03-03 08:18] LABS: Anisocytosis Slight; Basophils # (A) 0.1 k/uL (0-0.2); Basophils % (A) 1 %; Eosinophils # (A) 0.2 k/uL (0-0.7); Eosinophils % (A) 2 %; HCT 29.4 % (34.0-46.0); HGB 9.2 gm/dL (11.4-16.0); Hypochromasia Moderate; Lymphocytes # (A) 0.5 k/uL (1.0-4.8); Lymphocytes % (A) 4 %; MCH 29.9 pg (25.0-35.0); MCHC 31.2 g/dL (31.0-37.0); MCV 95.6 fL (80.0-100.0); Macrocytosis Slight; Mean Platelet Volume 7.2; Monocytes # (A) 0.4 k/uL (0-1.0); Monocytes % (A) 3 %; Neutrophils # (A) 10.2 k/uL (1.3-7.7); Neutrophils % (A) 90 %; Platelet Count 503 k/uL (150-450); RBC 3.07 m/uL (3.80-5.40); RDW 17.1 % (11.5-15.5); WBC 11.4 k/uL (3.8-10.6)
[2024-03-03 08:44] LABS: ALT 12 U/L (4-34); AST 17 U/L (14-36); African American GFR (CKD) >90 (>60 ml/min/1.73 sqM); Albumin 2.8 g/dL (3.5-5.0); Albumin/Globulin Ratio 1.3; Alkaline Phosphatase 81 U/L (38-126); Anion Gap -2 mmol/L; Blood Urea Nitrogen 15 mg/dL (7-17); Calcium 8.8 mg/dL (8.4-10.2); Carbon Dioxide 40 mmol/L (22-30); Chloride 95 mmol/L (98-107); Globulin 2.1 g/dL; Glucose 71 mg/dL (74-99); Non-African American GFR(CKD) >90 (>60 ml/min/1.73 sqM); Potassium 3.6 mmol/L (3.5-5.1); Sodium 133 mmol/L (137-145); Total Bilirubin 0.5 mg/dL (0.2-1.3); Total Protein 4.9 g/dL (6.3-8.2)
--- NOTE | 2024-03-03 14:17 | P.PN ---
Subjective Progress Note Date: 03/03/24 Principal diagnosis: Reason for follow-up is HIV and pneumonia Patient is a 63-year-old female with a past medical history significant for COPD HIV but not compliant with her medication patient has been brought into the hospital for evaluation of increasing shortness of breath patient was hypoxic and did have evidence of diffuse airspace opacity concerning for pneumonia also with elevated white count. On today's evaluation that is 03/03/2024, patient did not have any fever and denies any chills, patient is breathing comfortably on room air, patient with no chest pain and cough is decreased in intensity patient did not have any abdominal pain nausea vomiting or any loose stools. Patient white count is down to 11.4 creatinine 0.48 Objective - Vital Signs Vital signs: Vital Signs Temp 98.0 F 03/03/24 07:36 Pulse 90 03/03/24 08:33 Resp 19 03/03/24 07:36 BP 162/89 03/03/24 07:36 Pulse Ox 97 03/03/24 07:36 FiO2 Intake & Output 03/02/24 03/03/24 03/03/24 18:59 06:59 18:59 Weight 67.132 kg Other: Voiding Method Bedside Commode Bedside Commode Bedside Commode Diaper Diaper Diaper # Voids 1 3 1 - Exam GENERAL DESCRIPTION: An elderly female up in the chair in no distress RESPIRATORY SYSTEM: Unlabored breathing , coarse breath sound the left side HEART: S1 S2 regular rate and rhythm , ABDOMEN: Soft , no tenderness EXTREMITIES: No edema feet - Labs CBC & Chem 7: 03/03/24 07:49 03/03/24 07:49 Labs: Abnormal Lab Results - Last 24 Hours (Table) 03/03/24 03/03/24 Range/Units 07:49 07:49 WBC 11.4 H (3.8-10.6) k/uL RBC 3.07 L (3.80-5.40) m/uL Hgb 9.2 L (11.4-16.0) gm/dL Hct 29.4 L (34.0-46.0) % RDW 17.1 H (11.5-15.5) % Plt Count 503 H (150-450) k/uL Neutrophils # 10.2 H (1.3-7.7) k/uL Lymphocytes # 0.5 L (1.0-4.8) k/uL Sodium 133 L (137-145) mmol/L Chloride 95 L (98-107) mmol/L Carbon Dioxide 40 H (22-30) mmol/L Creatinine 0.48 L (0.52-1.04) mg/dL Glucose 71 L (74-99) mg/dL Total Protein 4.9 L (6.3-8.2) g/dL Albumin 2.8 L (3.5-5.0) g/dL Microbiology - Last 24 Hours (Table) 02/24/24 14:03 Fungal Culture - Preliminary Bronchoalviolar Lavage - Right Chana albicans Assessment and Plan (1) AMS (altered mental status) Current Visit: Yes Status: Acute Code(s): R41.82 - ALTERED MENTAL STATUS, UNSPECIFIED SNOMED Code(s): 730270986 (2) Pneumonia Current Visit: Yes Status: Acute Code(s): J18.9 - PNEUMONIA, UNSPECIFIED ORGANISM SNOMED Code(s): 546805618 (3) Allergy to multiple antibiotics Current Visit: No Status: Acute Code(s): Z88.1 - ALLERGY STATUS TO OTHER ANTIBIOTIC AGENTS SNOMED Code(s): 151608118 (4) PCP (pneumocystis carinii pneumonia) Current Visit: Yes Status: Acute Code(s): B59 - PNEUMOCYSTOSIS SNOMED Code(s): 280335186 Plan: 1patient with HIV for many years unfortunately patient not very compliant with her medication and the last CD4 count on 01/23/2024 was 54 and elevated HIV RNA unfortunately the patient has not follow-up in the office for very long time now presented hospital with increasing shortness of breath with evidence of diffuse infiltrate on the chest x-ray hide likely suspicious for possible PCP pneumonia however we need to cover for the community-acquired pathogen as well while waiting for the workup to be completed. 2patient to have a sulfa allergy 3-HIV currently waiting for the genotype before suggesting any antiretroviral therapy because of the patient noncompliance with the previous regime 4patient is status post bronchoscopy on 02/24/2024 with a culture currently growing ESBL Klebsiella and Pseudomonas aeruginosa, patient covered with oral Cipro 5- patient BAL PCP stain came back positive patient currently on on clindamycin and primaquine waiting for outpatient primary care arrangement before discharge Dictation was produced using [employer] software. please excuse any grammatical, word or spelling errors. Time with Patient: Less than 30
--- NOTE | 2024-03-04 06:44 | PN ---
PROGRESS NOTE SUBJECTIVE: 63-year-old white female, COPD, HIV. She had PCP pneumonia. She had bronchial lavage which showed Pneumocystis carinii pneumonia. She has Pseudomonas in the sputum culture as well as bronch and she is on oral Cipro for that. For the PCP, she is on clindamycin and primidone. She can get her primidone until Tuesday apparently, so when she gets it on Tuesday, she will be able to be discharged. OBJECTIVE: GENERAL: Physically, she is better. LUNGS: Improving. VITAL SIGNS: O2 sat 97 on 2 L. Blood pressure 117 to 160s/89, pulse rate 82 to 130, temp 98.0. CONDITION: Guarded. PROGNOSIS: Guarded. Ambulate as tolerated with physical therapy. Home, Tuesday. MMALANL / BERTHAN: [id number] /
[2024-03-04 10:01] LABS: ALT 10 U/L (8-44); AST 13 U/L (13-35); Albumin 3.2 g/dL (3.8-4.9); Albumin/Globulin Ratio 1.78 Ratio (1.60-3.17); Alkaline Phosphatase 79 U/L (41-126); Blood Urea Nitrogen 8.2 mg/dL (9.0-27.0); Calcium 8.4 mg/dL (8.7-10.3); Carbon Dioxide 34.3 mmol/L (21.6-31.8); Chloride 97 mmol/L (96-109); Globulin 1.8 g/dL (1.6-3.3); Glucose 75 mg/dL (70-110); Potassium 3.6 mmol/L (3.5-5.5); Sodium 138 mmol/L (135-145); Total Bilirubin 0.4 mg/dL (0.3-1.2)
[2024-03-04] MEDS: FLUCONAZOLE 100 MG TAB PO SCH (13:16)
[2024-03-04 13:20] LABS: Basophils # (A) 0.02 X 10*3/uL (0.00-0.10); Basophils % (A) 0.2 %; Eosinophils # (A) 0.23 X 10*3/uL (0.04-0.35); Eosinophils % (A) 1.9 %; HCT 27.2 % (37.2-46.3); HGB 8.1 g/dL (12.0-15.0); Lymphocytes # (A) 0.51 X 10*3/uL (0.90-5.00); Lymphocytes % (A) 4.3 %; MCH 29.1 pg (27.0-32.0); MCHC 29.8 g/dL (32.0-37.0); MCV 97.8 FL (80.0-97.0); Mean Platelet Volume 9.6 FL (9.5-12.2); Monocytes # (A) 0.47 X 10*3/uL (0.20-1.00); NRBC Per 100 WBC 0.02 X 10*3/uL (0.00-0.01); Neutrophils # (A) 10.04 X 10*3/uL (1.80-7.70); Neutrophils % (A) 84.9 %; Platelet Count 481 X 10*3/uL (140-440); RBC 2.78 X 10*6/uL (4.10-5.20); WBC 11.82 X 10*3/uL (4.50-10.00)
--- NOTE | 2024-03-04 15:12 | P.PN ---
Subjective Progress Note Date: 03/04/24 Principal diagnosis: Reason for follow-up is HIV and pneumonia Patient is a 63-year-old female with a past medical history significant for COPD HIV but not compliant with her medication patient has been brought into the hospital for evaluation of increasing shortness of breath patient was hypoxic and did have evidence of diffuse airspace opacity concerning for pneumonia also with elevated white count. On today's evaluation that is 03/04/2024, Patient is afebrile patient is currently on 2 L nasal cannula oxygen and denies having any shortness of breath, the patient denies any chest pain and cough is decreased in intensity, the patient denies any nausea vomiting did not have any abdominal pain and no diarrhea. Patient white count is 11.82 creatinine 0.4 Objective - Vital Signs Vital signs: Vital Signs Temp 97.7 F 03/04/24 12:57 Pulse 86 03/04/24 12:57 Resp 17 03/04/24 12:57 BP 122/79 03/04/24 12:57 Pulse Ox 94 L 03/04/24 12:57 FiO2 Intake & Output 03/03/24 03/04/24 03/04/24 18:59 06:59 18:59 Intake Total 1180 Balance 1180 Weight 66.763 kg Intake: Oral 1180 Other: Voiding Method Bedside Commode Bedside Commode Bedside Commode Diaper Diaper # Voids 1 3 2 # Bowel Movements 1 - Exam GENERAL DESCRIPTION: An elderly female up in the chair in no distress RESPIRATORY SYSTEM: Unlabored breathing , coarse breath sound the left side HEART: S1 S2 regular rate and rhythm , ABDOMEN: Soft , no tenderness EXTREMITIES: No edema feet - Labs CBC & Chem 7: 03/04/24 07:14 03/04/24 07:14 Labs: Abnormal Lab Results - Last 24 Hours (Table) 03/04/24 03/04/24 Range/Units 07:14 07:14 WBC 11.82 H (4.50-10.00) X 10*3/uL RBC 2.78 L (4.10-5.20) X 10*6/uL Hgb 8.1 L (12.0-15.0) g/dL Hct 27.2 L (37.2-46.3) % MCV 97.8 H (80.0-97.0) FL MCHC 29.8 L (32.0-37.0) g/dL RDW 18.0 H (11.5-14.5) % Plt Count 481 H (140-440) X 10*3/uL Immature Gran # 0.55 H (0.00-0.04) X 10*3/uL Neutrophils # 10.04 H (1.80-7.70) X 10*3/uL Lymphocytes # 0.51 L (0.90-5.00) X 10*3/uL NRBC/100 WBC Diff 0.02 H (0.00-0.01) X 10*3/uL Carbon Dioxide 34.3 H (21.6-31.8) mmol/L BUN 8.2 L (9.0-27.0) mg/dL Creatinine 0.4 L (0.6-1.5) mg/dL BUN/Creatinine Ratio 20.50 H (12.00-20.00) Ratio Calcium 8.4 L (8.7-10.3) mg/dL Total Protein 5.0 L (6.2-8.2) g/dL Albumin 3.2 L (3.8-4.9) g/dL Assessment and Plan (1) AMS (altered mental status) Current Visit: Yes Status: Acute Code(s): R41.82 - ALTERED MENTAL STATUS, UNSPECIFIED SNOMED Code(s): 156673340 (2) Pneumonia Current Visit: Yes Status: Acute Code(s): J18.9 - PNEUMONIA, UNSPECIFIED ORGANISM SNOMED Code(s): 500473313 (3) Allergy to multiple antibiotics Current Visit: No Status: Acute Code(s): Z88.1 - ALLERGY STATUS TO OTHER ANTIBIOTIC AGENTS SNOMED Code(s): 080728805 (4) PCP (pneumocystis carinii pneumonia) Current Visit: Yes Status: Acute Code(s): B59 - PNEUMOCYSTOSIS SNOMED Code(s): 017629779 Plan: 1patient with HIV for many years unfortunately patient not very compliant with her medication and the last CD4 count on 01/23/2024 was 54 and elevated HIV RNA unfortunately the patient has not follow-up in the office for very long time now presented hospital with increasing shortness of breath with evidence of diffuse infiltrate on the chest x-ray hide likely suspicious for possible PCP pneumonia however we need to cover for the community-acquired pathogen as well while waiting for the workup to be completed. 2patient to have a sulfa allergy 3-HIV currently waiting for the genotype before suggesting any antiretroviral t herapy because of the patient noncompliance with the previous regime will need to wait for treatment of underlying PCP pneumonia before starting her on new antiretroviral regime 4patient is status post bronchoscopy on 02/24/2024 with a culture currently growing ESBL Klebsiella and Pseudomonas aeruginosa, patient covered with oral Cipro 5- patient BAL PCP stain came back positive patient currently on on clindamycin and primaquine plan is for total of 21-day course of treatment currently waiting for the outpatient oral pamaquine arrangement before discharge Dictation was produced using [employer] dictation software. please excuse any grammatical, word or spelling errors. Time with Patient: Less than 30
--- NOTE | 2024-03-04 19:05 | PN ---
PROGRESS NOTE SUBJECTIVE: A 63-year-old white female, comes in with PCP pneumonia as well as Pseudomonas pneumonia and Proteus pneumonia for broad-spectrum antibiotics, unable to get her medicines outpatient until tomorrow. Continue with IV antibiotics in the meantime. She is feeling better. OBJECTIVE: VITAL SIGNS: Temperature 98.3, pulse 86, blood pressure 173/76, O2 of 95% on 2 L. CARDIOVASCULAR: S1, S2. LUNGS: Transmitted upper sounds. GI: Soft. HEMATOLOGY: Negative Homans. She has Chana albicans. We are going to give her IV Diflucan. Proteus, Klebsiella, Pseudomonas, and PCP. We can give her a bunch of antibiotics and steroids and antifungals orally home. Continue current treatments. Prognosis extremely guarded. She has HIV with immune deficiency, , oral Cipro, oral Cleocin, and now we have to add Diflucan. Please see further orders. MMODL / IJN: [id number] /
--- NOTE | 2024-03-05 11:07 | P.PN ---
Subjective Progress Note Date: 03/05/24 Principal diagnosis: Altered mental status likely related to sepsis as well as pneumonia, benzodiazepine and narcotics Sepsis related to pneumonia Acute on chronic hypoxic respiratory failure due to baseline COPD as well as added pneumonia Atypical pneumonia versus opportunistic lung disease, patient has been on PCP prophylaxis as well HIV status versus AIDS Chronic back pain due to compression fracture of lower thoracic vertebra Hypertension hypertensive cardiovascular disease, Dyslipidemia, End-stage lung disease due to severe COPD emphysema March 05, 2024, patient seen eval examined during rounds labs reviewed medications reviewed care plan discussed, patient remains afebrile, hemodynamic status stable, oxygen saturation 96% 2 L oxygen. Patient remains on bronchodilators inhaled aerosolized steroids broad-spectrum antibiotics with Cipro clindamycin fluconazole Protonix and oral prednisone. Patient is being treated for pneumocystis pneumonia as preliminary stains were negative however final send out test came back positive March 02, 2024, patient seen eval examined during rounds labs reviewed medications and care plan discussed with RN at length, patient remains weaker anti-HIV medicine are being adjusted antibiotics are being switched to oral steroids will recommend to change to oral at the time of discharge cytology has been negative for pneumocystis, AFB, granulomatous infection features however has been positive for multiple multidrug-resistant/ESBL gram-negative infection including Proteus mirabilis, Klebsiella pneumonia, Pseudomonas aeruginosa Legionella culture however has been negative February 28, 2024, patient seen eval examined during rounds labs reviewed medications reviewed care plan discussed, patient on supplemental oxygen with 3 L nasal cannula, patient antibiotics have been switched to Merrem for Klebsiella pneumonia and Pseudomonas pneumonia found on BAL, pneumocystis stains however is still pending cytology. IV steroids have been lowered down to 40 mg every 12 tolerating well labs from today reviewed white cell count is up to 13.2, hemoglobin hematocrit 24.8, platelet count is 438 sodium was 130 potassium 3.1 BUN/creatinine is 16/0.53 February 27, 2024, patient seen eval examined during rounds labs reviewed medications reviewed ongoing shortness of breath present intermittent cough how ever oxygen saturation remained stable on supplemental oxygen, patient remains afebrile, on 3 L oxygen saturation 98%, patient remains on IV steroids broad- spectrum antibiotics Rocephin has been discontinued, will start tapering down the steroids as well, no AFB seen on bronchoalveolar lavage BAL positive for Klebsiella as well as Pseudomonas sensitivities pending February 26, 2024, patient seen eval examined during rounds labs reviewed medications reviewed overnight patient developed increasing shortness of breath and congestion, thought to be related to fluid overload given extra dose of Lasix and IV has been stopped, patient remains afebrile with oxygen saturation 98% seated nasal cannula hemodynamic status stable chest x-ray performed reviewed overall interstitial and airspace opacification bilaterally slightly improved compared to prior exam small bilateral pleural effusions present, labs are pending from today. Patient remains on high intensity statins along with in haled bronchodilator as well as aerosolized inhaled steroids with oral clindamycin and IV steroid patient has been on Primacor and as well daily basis. Bronchoalveolar washing results are still pending, however sputum has been positive for Klebsiella urine culture positive for Klebsiella and Proteus, of note that Klebsiella is highly multidrug-resistant/ESBL. Of note that BAL also showing many gram-negative bacilli as well likely multi drug resistance Klebsiella there. February 25, 2024, patient seen eval examined during rounds labs reviewed medications and care plan discussed, patient respiratory status slightly improved, on 2 and half liter oxygen breathing comfortably denies any chest pain however gets short of breath minimal activity and exertion mental status almost back to baseline now. No confusion episode have been seen. Patient remains on broad-spectrum antibiotics bronchodilators and aerosolized inhaled steroids. Patient has been having urinary retention, urine positive for gram-negative rods final ID and culture sensitivity are pending. Bronchial washing as well as B AL/bronchoalveolar lavage results are pending February 24, 2024, patient seen evaluate examined during rounds labs reviewed medications reviewed care plan discussed with the patient at length. Patient remains on supplemental oxygen, saturation is 96% on 3 L, afebrile however remains tachycardic blood pressure stabilized and improved. Labs from today reviewed white cell count is down to 8.9, hemoglobin hematocrit remained stable 8.3/26, platelet count of 3 68,000. Sodium is 137 potassium 3.7 BUN/creatinine 13/0.5, glucose 126, urine and blood culture no growth so far. Patient remains on high-dose IV Rocephin along with clindamycin p.o. and IV steroids gently being hydrated. Patient is scheduled for bronchoscopy and BAL later on today procedure at length explained to the patient February 23, 2024, patient seen eval examined during rounds labs reviewed medications reviewed care plan discussed, mental status slightly improved more awake and alert, ongoing shortness of breath cough congestion is present, patient remains on 2 L oxygen, oxygen saturation is 95%, blood pressure is stabl e, patient remains afebrile, white cell count is 14.27 labs from today reviewed sodium remains low 129 potassium 3.4 has been on replacement protocol and gently being hydrated. Patient on bronchodilators along with IV steroids and breathing treatment Patient is a 63-year-old female well-known to me came into hospital with confusion altered mental status along with shortness of breath, EMS were called due to ongoing shortness of breath and chronic back pain in addition patient has been more confused than baseline thought to be related to benzodiazepine. 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 On arrival patient was tachypneic tachycardic with a respiratory rate of 22 heart rate of 123 soft blood pressure 100/70 she was however afebrile. White cell count is 26 .3 stable hemoglobin hematocrit, chemistry significant for low sodium of 126 potassium 3.7, BUN/creatinine 23/0.87. Urinalysis suggestive of ongoing inflammatory process with turbid urine, large leukocyte esterase many WBCs RBCs and bacteria urine drug screen was positive for opiates as well as juliet zodiazepine and marijuana. Chest x-ray significant for diffuse airspace opacities suggestive of atypical pneumonia versus pulmonary edema, ECG positive for sinus tachycardia, COPD like pattern, incomplete right bundle branch block, RVH. CT scan of the chest irregular infiltrate seen with posterior consolidation and groundglass opacities predominantly more so on the right side compared to left side likely pneumonia/atypical pneumonia overall symptoms are progressive. Patient has been admitted to hospital on broad-spectrum antibiotics currently patient is being continued on home medicine also on IV Zithromax along with Rocephin and clindamycin, Solu-Medrol is being continued 40 mg IV Q8 patient has been on PCP prophylaxis with primaquine also gently being hydrated. Past medical history significant for severe degree of degenerative joint disease and compression fracture of spine, chronic pain syndrome, end-stage COPD oxygen dependent, HIV positive status, mood disorder depression, dyslipidemia, osteoporosis, hypertension hypertensive cardiovascular disease, Objective - Vital Signs Vital signs: Vital Signs Temp 97.7 F 03/05/24 07:34 Pulse 76 03/05/24 08:10 Resp 16 03/05/24 07:34 BP 132/87 03/05/24 07:34 Pulse Ox 96 03/05/24 07:34 FiO2 Intake & Output 03/04/24 03/05/24 03/05/24 18:59 06:59 18:59 Intake Total 1180 Balance 1180 Weight 66.2 kg Intake: Oral 1180 Other: Voiding Method Bedside Commode Bedside Commode Diaper # Voids 1 5 # Bowel Movements 1 - Exam - Constitutional General appearance: average body habitus, cooperative, disheveled, mild distress - EENT Eyes: EOMI, PERRLA Ears: bilateral: normal - Neck Carotids: bilateral: upstroke normal - Respiratory Respiratory: bilateral: diminished, rales (Dry bilateral) - Cardiovascular Rhythm: regular Heart sounds: normal: S1, S2 - Gastrointestinal General gastrointestinal: normal bowel sounds - Integumentary Integumentary: normal turgor - Neurologic Neurologic: CNII-XII intact - Musculoskeletal Musculoskeletal: gait normal, generalized weakness, strength equal bilaterally - Psychiatric Psychiatric: A&O x's 3, appropriate affect, intact judgment & insight - Labs CBC & Chem 7: 03/04/24 07:14 03/04/24 07:14 Labs: Abnormal Lab Results - Last 24 Hours (Table) 03/04/24 Range/Units 07:14 WBC 11.82 H (4.50-10.00) X 10*3/uL RBC 2.78 L (4.10-5.20) X 10*6/uL Hgb 8.1 L (12.0-15.0) g/dL Hct 27.2 L (37.2-46.3) % MCV 97.8 H (80.0-97.0) FL MCHC 29.8 L (32.0-37.0) g/dL RDW 18.0 H (11.5-14.5) % Plt Count 481 H (140-440) X 10*3/uL Immature Gran # 0.55 H (0.00-0.04) X 10*3/uL Neutrophils # 10.04 H (1.80-7.70) X 10*3/uL Lymphocytes # 0.51 L (0.90-5.00) X 10*3/uL NRBC/100 WBC Diff 0.02 H (0.00-0.01) X 10*3/uL Assessment and Plan Assessment: Multidrug-resistant Klebsiella, Proteus Mirabella's and Pseudomonas pneumonia, discussed with infectious disease services biotics have been switched Cip ID service Pneumocystis pneumonia on clinda pamaquine and oral prednisone Altered mental status likely related to sepsis as well as pneumonia, benzodiazepine and narcotics, slowly improving, almost back to baseline Sepsis related to pneumonia Acute on chronic hypoxic respiratory failure due to baseline COPD as well as added pneumonia Atypical pneumonia versus opportunistic lung disease, with pneumocystis pneumonia eventually came back positive HIV status versus AIDS as CD4 count very low ID following Chronic back pain due to compression fracture of lower thoracic vertebra Hypertension hypertensive cardiovascular disease, Dyslipidemia, End-stage lung disease due to severe COPD emphysema Plan: Continue broad-spectrum antibiotics however they cannot be changed to oral at the time of discharge per ID recommendation awaiting pneumocystis stain IV steroids, be tapered down to oral prednisone like Medrol Dosepak Status post bronchoscopy and BAL on February 24, 2024, results especially cytology reviewed no pneumocystis seen Further plan of care as per clinical response the patient and diagnostic planning Patient stable from pulmonary standpoint for discharge to rehab or home depending upon per PT OT evaluation and primary service recommendation and patient choices Time with Patient: Greater than 30
--- NOTE | 2024-03-05 21:16 | P.PN ---
Subjective Progress Note Date: 03/05/24 Principal diagnosis: Reason for follow-up is HIV and pneumonia Patient is a 63-year-old female with a past medical history significant for COPD HIV but not compliant with her medication patient has been brought into the hospital for evaluation of increasing shortness of breath patient was hypoxic and did have evidence of diffuse airspace opacity concerning for pneumonia also with elevated white count. On today's evaluation that is 03/05/2024, patient has been afebrile, patient is breathing comfortably and is currently on 2 L nasal cannula, patient denies having any significant chest pain and cough has decreased in intensity, patient denies nausea vomiting or diarrhea and no abdominal pain. White count is 11.82, creatinine 0.4 Objective - Vital Signs Vital signs: Vital Signs Temp 97.7 F 03/05/24 07:34 Pulse 72 03/05/24 11:12 Resp 16 03/05/24 07:34 BP 132/87 03/05/24 07:34 Pulse Ox 96 03/05/24 07:34 FiO2 Intake & Output 03/04/24 03/05/24 03/05/24 18:59 06:59 18:59 Intake Total 1180 Balance 1180 Weight 66.2 kg Intake: Oral 1180 Other: Voiding Method Bedside Commode Bedside Commode Diaper # Voids 1 5 1 # Bowel Movements 1 1 - Exam GENERAL DESCRIPTION: An elderly female up in the chair in no distress RESPIRATORY SYSTEM: Unlabored breathing , coarse breath sound the left side HEART: S1 S2 regular rate and rhythm , ABDOMEN: Soft , no tenderness EXTREMITIES: No edema feet - Labs CBC & Chem 7: 03/04/24 07:14 03/04/24 07:14 Labs: Abnormal Lab Results - Last 24 Hours (Table) 03/04/24 Range/Units 07:14 WBC 11.82 H (4.50-10.00) X 10*3/uL RBC 2.78 L (4.10-5.20) X 10*6/uL Hgb 8.1 L (12.0-15.0) g/dL Hct 27.2 L (37.2-46.3) % MCV 97.8 H (80.0-97.0) FL MCHC 29.8 L (32.0-37.0) g/dL RDW 18.0 H (11.5-14.5) % Plt Count 481 H (140-440) X 10*3/uL Immature Gran # 0.55 H (0.00-0.04) X 10*3/uL Neutrophils # 10.04 H (1.80-7.70) X 10*3/uL Lymphocytes # 0.51 L (0.90-5.00) X 10*3/uL NRBC/100 WBC Diff 0.02 H (0.00-0.01) X 10*3/uL Assessment and Plan (1) AMS (altered mental status) Current Visit: Yes Status: Acute Code(s): R41.82 - ALTERED MENTAL STATUS, UNSPECIFIED SNOMED Code(s): 499272618 (2) Pneumonia Current Visit: Yes Status: Acute Code(s): J18.9 - PNEUMONIA, UNSPECIFIED ORGANISM SNOMED Code(s): 436223828 (3) Allergy to multiple antibiotics Current Visit: No Status: Acute Code(s): Z88.1 - ALLERGY STATUS TO OTHER ANTIBIOTIC AGENTS SNOMED Code(s): 103696510 (4) PCP (pneumocystis carinii pneumonia) Current Visit: Yes Status: Acute Code(s): B59 - PNEUMOCYSTOSIS SNOMED Code(s): 526466425 Plan: 1patient with HIV for many years unfortunately patient not very compliant with her medication and the last CD4 count on 01/23/2024 was 54 and elevated HIV RNA unfortunately the patient has not follow-up in the office for very long time now presented hospital with increasing shortness of breath with evidence of diffuse infiltrate on the chest x-ray hide likely suspicious for possible PCP pneumonia however we need to cover for the community-acquired pathogen as well while waiting for the workup to be completed. 2patient to have a sulfa allergy 3-HIV currently waiting for the genotype before suggesting any antiretroviral therapy because of the patient noncompliance with the previous regime will need to wait for treatment of underlying PCP pneumonia before starting her on new antiretroviral regime 4patient is status post bronchoscopy on 02/24/2024 with a culture currently growing ESBL Klebsiella and Pseudomonas aeruginosa, patient covered with oral Cipro 5- patient BAL PCP stain came back positive patient did have improvement her respiratory status, currently on on clindamycin and primaquine plan is for total of 21-day course of treatment currently waiting for the outpatient oral pamaquine arrangement before discharge Dictation was produced using [employer] software. please excuse any grammatical, word or spelling errors. Time with Patient: Less than 30
[2024-03-05] MEDS: ZINC OXIDE PASTE (Z-GUARD) 1 APPLIC TOPICAL PRN (22:14)
--- NOTE | 2024-03-06 00:12 | PN ---
PROGRESS NOTE SUBJECTIVE: HIV pneumonia, acute on chronic hypercapnic respiratory failure. She was unable to get her home medications until tomorrow due to PCP pneumonia. Dr. Cheatham had seen her and scheduled on multiple antibiotics. OBJECTIVE: VITAL SIGNS: Temp 98.5, O2 of 91% on 2 L, blood pressure 101/67, respiratory rate 18 to 20. GENERAL: She appears better everyday, she says. CARDIOVASCULAR: S1, S2. LUNGS: Scattered wheeze x4. HEMATOLOGY: Negative Homans. White count is 11.82, hemoglobin is 8.1. Neutrophil count 10.04, lymphocytes 0.51, sodium 134, potassium 3.6, carbon dioxide is 34, down from 40, creatinine 0.4, albumin is 3.2. Microbiology from is Chana albicans. Started on Diflucan. She also has Proteus mirabilis, Klebsiella pneumoniae, Pseudomonas aeruginosa, for which multiple antibiotics have been ordered. Urine culture shows Klebsiella pneumonia, Proteus mirabilis also. Possibly discharge home in the next 24 to 48 hours if cleared by Pulmonology. She is going to go home on multiple antibiotics for altered mental status, pneumonia, multiple antibiotics, Pseudomonas carinii pneumonia on top of multiple other biopsies are awaiting, get those before discharge. HIV will have to be assessed outpatient. As far as ESBL, pneumonia and Klebsiella, Pseudomonas pneumonia, on Cipro. Prognosis guarded. She is going to be on clindamycin and primaquine for 21 days and discharge home hopefully tomorrow. MMODL / IJN: [id number] /
--- NOTE | 2024-03-06 09:31 | P.PN ---
Subjective Progress Note Date: 03/06/24 Principal diagnosis: Altered mental status likely related to sepsis as well as pneumonia, benzodiazepine and narcotics Sepsis related to pneumonia Acute on chronic hypoxic respiratory failure due to baseline COPD as well as added pneumonia Atypical pneumonia versus opportunistic lung disease, patient has been on PCP prophylaxis as well HIV status versus AIDS Chronic back pain due to compression fracture of lower thoracic vertebra Hypertension hypertensive cardiovascular disease, Dyslipidemia, End-stage lung disease due to severe COPD emphysema March 06, 2024, patient seen evaluate examined during rounds labs reviewed medications reviewed care plan discussed with the patient and staff. Patient remains afebrile oxygen saturation is 98% 2 L oxygen hemodynamic status stable shortness of breath significantly improved from baseline. Patient remains on bronchodilators along with continuation of home medicines oral Cipro along with clinda and Primaquin for pneumocystis pneumonia. Patient is currently getting 20 mg of prednisone for anti-inflammatory processes. She is being arranged for HIV medications as well March 05, 2024, patient seen eval examined during rounds labs reviewed medications reviewed care plan discussed, patient remains afebrile, hemodynamic status stable, oxygen saturation 96% 2 L oxygen. Patient remains on bronchodilators inhaled aerosolized steroids broad-spectrum antibiotics with Cipro clindamycin fluconazole Protonix and oral prednisone. Patient is being treated for pneumocystis pneumonia as preliminary stains were negative however final send out test came back positive March 02, 2024, patient seen eval examined during rounds labs reviewed medications and care plan discussed with RN at length, patient remains weaker anti-HIV medicine are being adjusted antibiotics are being switched to oral steroids will recommend to change to oral at the time of discharge cytology has been negative for pneumocystis, AFB, granulomatous infection features however has been positive for multiple multidrug-resistant/ESBL gram-negative infection including Proteus mirabilis, Klebsiella pneumonia, Pseudomonas aeruginosa Legion violet culture however has been negative February 28, 2024, patient seen eval examined during rounds labs reviewed medications reviewed care plan discussed, patient on supplemental oxygen with 3 L nasal cannula, patient antibiotics have been switched to Merrem for Klebsiella pneumonia and Pseudomonas pneumonia found on BAL, pneumocystis stains however is still pending cytology. IV steroids have been lowered down to 40 mg every 12 tolerating well labs from today reviewed white cell count is up to 13.2, hemoglobin hematocrit 8/24.8, platelet count is 438 sodium was 130 potassium 3.1 BUN/creatinine is 16/0.53 February 27, 2024, patient seen eval examined during rounds labs reviewed me dications reviewed ongoing shortness of breath present intermittent cough however oxygen saturation remained stable on supplemental oxygen, patient remains afebrile, on 3 L oxygen saturation 98%, patient remains on IV steroids broad-spectrum antibiotics Rocephin has been discontinued, will start tapering down the steroids as well, no AFB seen on bronchoalveolar lavage BAL positive for Klebsiella as well as Pseudomonas sensitivities pending February 26, 2024, patient seen eval examined during rounds labs reviewed medications reviewed overnight patient developed increasing shortness of breath and congestion, thought to be related to fluid overload given extra dose of Lasix and IV has been stopped, patient remains afebrile with oxygen saturation 98% seated nasal cannula hemodynamic status stable chest x-ray performed reviewed overall interstitial and airspace opacification bilaterally slightly improved compared to prior exam small bilateral pleural effusions present, labs are pending from today. Patient remains on high intensity statins along with inhaled bronchodilator as well as aerosolized inhaled steroids with oral clindamycin and IV steroid patient has been on Primacor and as well daily basis. Bronchoalveolar washing results are still pending, however sputum has been positive for Klebsiella urine culture positive for Klebsiella and Proteus, of note that Klebsiella is highly multidrug-resistant/ESBL. Of note that BAL also showing many gram-negative bacilli as well likely multi drug resistance Klebsiella there. February 25, 2024, patient seen eval examined during rounds labs reviewed medications and care plan discussed, patient respiratory status slightly improved, on 2 and half liter oxygen breathing comfortably denies any chest pain however gets short of breath minimal activity and exertion mental status almost back to baseline now. No confusion episode have been seen. Patient remains on broad-spectrum antibiotics bronchodilators and aerosolized inhaled steroids. Patient has been having urinary retention, urine positive for gram-negative rods final ID and culture sensitivity are pending. Bronchial washing as well as BAL/bronchoalveolar lavage results are pending February 24, 2024, patient seen evaluate examined during rounds labs reviewed medications reviewed care plan discussed with the patient at length. Patient remains on supplemental oxygen, saturation is 96% on 3 L, afebrile however remains tachycardic blood pressure stabilized and improved. Labs from today reviewed white cell count is down to 8.9, hemoglobin hematocrit remained stable 8.3/26, platelet count of 3 68,000. Sodium is 137 potassium 3.7 BUN/creatinine 13/0.5, glucose 126, urine and blood culture no growth so far. Patient remains on high-dose IV Rocephin along with clindamycin p.o. and IV steroids gently being hydrated. Patient is scheduled for bronchoscopy and BAL later on today procedure at length explained to the patient February 23, 2024, patient seen eval examined during rounds labs reviewed medications reviewed care plan discussed, mental status slightly improved more awake and alert, ongoing shortness of breath cough congestion is present, pat ient remains on 2 L oxygen, oxygen saturation is 95%, blood pressure is stable, patient remains afebrile, white cell count is 14.27 labs from today reviewed sodium remains low 129 potassium 3.4 has been on replacement protocol and gently being hydrated. Patient on bronchodilators along with IV steroids and breathing treatment Patient is a 63-year-old female well-known to me came into hospital with confusion altered mental status along with shortness of breath, EMS were called due to ongoing shortness of breath and chronic back pain in addition patient has been more confused than baseline thought to be related to benzodiazepine. 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 On arrival patient was tachypneic tachycardic with a respiratory rate of 22 heart rate of 123 soft blood pressure 100/70 she was however afebrile. White cell count is 26.3 stable hemoglobin hematocrit, chemistry significant for low sodium of 126 potassium 3.7, BUN/creatinine 23/0.87. Urinalysis suggestive of ongoing inflammatory process with turbid urine, large leukocyte esterase many WBCs RBCs and bacteria urine drug screen was positive for opiates as well as benzodiazepine and marijuana. Chest x-ray significant for diffuse airspace opacities suggestive of atypical pneumonia versus pulmonary edema, ECG positive for sinus tachycardia, COPD like pattern, incomplete right bundle branch block, RVH. CT scan of the chest irregular infiltrate seen with posterior consolidation and groundglass opacities predominantly more so on the right side compared to left side likely pneumonia/atypical pneumonia overall symptoms are progressive. Patient has been admitted to hospital on broad-spectrum antibiotics currently patient is being continued on home medicine also on IV Zithromax along with Rocephin and clindamycin, Solu-Medrol is being continued 40 mg IV Q8 patient has been on PCP prophylaxis with primaquine also gently being hydrated. Past medical history significant for severe degree of degenerative joint disease and compression fracture of spine, chronic pain syndrome, end-stage COPD oxygen dependent, HIV positive status, mood disorder depression, dyslipidemia, osteoporosis, hypertension hypertensive cardiovascular disease, Objective - Vital Signs Vital signs: Vital Signs Temp 97.5 F L 03/06/24 07:28 Pulse 84 03/06/24 08:16 Resp 15 03/06/24 07:28 BP 113/72 03/06/24 07:28 Pulse Ox 98 03/06/24 07:28 FiO2 Intake & Output 03/05/24 03/06/24 03/06/24 18:59 06:59 18:59 Intake Total 540 Balance 540 Weight 66.1 kg Intake: Oral 540 Other: Voiding Method Bedside Commode Bedside Commode Diaper Diaper # Voids 2 # Bowel Movements 1 - Exam - Constitutional General appearance: average body habitus, cooperative, disheveled, mild distress - EENT Eyes: EOMI, PERRLA Ears: bilateral: normal - Neck Carotids: bilateral: upstroke normal - Respiratory Respiratory: bilateral: diminished, rales (Dry bilateral) - Cardiovascular Rhythm: regular Heart sounds: normal: S1, S2 - Gastrointestinal General gastrointestinal: normal bowel sounds - Integumentary Integumentary: normal turgor - Neurologic Neurologic: CNII-XII intact - Musculoskeletal Musculoskeletal: gait normal, generalized weakness, strength equal bilaterally - Psychiatric Psychiatric: A&O x's 3, appropriate affect, intact judgment & insight - Labs CBC & Chem 7: 03/04/24 07:14 03/04/24 07:14 Labs: Microbiology - Last 24 Hours (Table) 02/24/24 14:03 Acid Fast Bacilli Smear - Preliminary Bronchoalviolar Lavage - Right Acid Fast Bacilli Culture - Preliminary Assessment and Plan Assessment: Multidrug-resistant Klebsiella, Proteus and Pseudomonas pneumonia, on Cipro, ID service following Pneumocystis pneumonia on clinda pamaquine and oral prednisone Altered mental status likely related to sepsis as well as pneumonia, benzodiazepine and narcotics, slowly improving, almost back to baseline Sepsis related to pneumonia Acute on chronic hypoxic respiratory failure due to baseline COPD as well as added pneumonia Atypical pneumonia versus opportunistic lung disease, with pneumocystis pneumonia eventually came back positive HIV status versus AIDS as CD4 count very low ID following Chronic back pain due to compression fracture of lower thoracic vertebra Hypertension hypertensive cardiovascular disease, Dyslipidemia, End-stage lung disease due to severe COPD emphysema Plan: Continue broad-spectrum antibiotics however they cannot be changed to oral at the time of discharge per ID recommendation awaiting pneumocystis stain IV steroids, be tapered down to oral prednisone like Medrol Dosepak Status post bronchoscopy and BAL on February 24, 2024, results especially cytology reviewed no pneumocystis seen Further plan of care as per clinical response the patient and diagnostic planning Patient stable from pulmonary standpoint for discharge to rehab or home depending upon per PT OT evaluation and primary service recommendation and patient choices Time with Patient: Greater than 30
[2024-03-06 14:13] VITALS: BP 130/84; RESP 17; TEMP 98.7
[2024-03-06 14:53] VITALS: BMI 28.4
[2024-03-06] MEDS: IPRATROPIUM-ALBUTEROL 3 ML NEB INHALATION SCH (15:28)
[2024-03-06 15:38] VITALS: PULSE 84
--- NOTE | 2024-03-06 15:54 | P.PN ---
Subjective Progress Note Date: 03/06/24 Principal diagnosis: Reason for follow-up is HIV and pneumonia Patient is a 63-year-old female with a past medical history significant for COPD HIV but not compliant with her medication patient has been brought into the hospital for evaluation of increasing shortness of breath patient was hypoxic and did have evidence of diffuse airspace opacity concerning for pneumonia also with elevated white count. On today's evaluation that is 03/06/2024, Patient is afebrile this morning patient denies having any chest pain shortness of breath and cough is decreased in intensity, the patient is currently on 2 L nasal cannula oxygen, patient denies any abdominal pain no diarrhea no nausea no vomiting. Patient did not have a lab draw today Objective - Vital Signs Vital signs: Vital Signs Temp 97.5 F L 03/06/24 07:28 Pulse 84 03/06/24 08:16 Resp 15 03/06/24 07:28 BP 113/72 03/06/24 07:28 Pulse Ox 98 03/06/24 07:28 FiO2 Intake & Output 03/05/24 03/06/24 03/06/24 18:59 06:59 18:59 Intake Total 540 Balance 540 Weight 66.1 kg Intake: Oral 540 Other: Voiding Method Bedside Commode Bedside Commode Diaper Diaper # Voids 2 # Bowel Movements 1 - Exam GENERAL DESCRIPTION: An elderly female up in the chair in no distress RESPIRATORY SYSTEM: Unlabored breathing , coarse breath sound the left side HEART: S1 S2 regular rate and rhythm , ABDOMEN: Soft , no tenderness EXTREMITIES: No edema feet - Labs CBC & Chem 7: 03/04/24 07:14 03/04/24 07:14 Labs: Microbiology - Last 24 Hours (Table) 02/24/24 14:03 Acid Fast Bacilli Smear - Preliminary Bronchoalviolar Lavage - Right Acid Fast Bacilli Culture - Preliminary Assessment and Plan (1) AMS (altered mental status) Current Visit: Yes Status: Acute Code(s): R41.82 - ALTERED MENTAL STATUS, UNSPECIFIED SNOMED Code(s): 446617074 (2) Pneumonia Current Visit: Yes Status: Acute Code(s): J18.9 - PNEUMONIA, UNSPECIFIED ORGANISM SNOMED Code(s): 591348747 (3) Allergy to multiple antibiotics Current Visit: No Status: Acute Code(s): Z88.1 - ALLERGY STATUS TO OTHER ANTIBIOTIC AGENTS SNOMED Code(s): 937692088 (4) PCP (pneumocystis carinii pneumonia) Current Visit: Yes Status: Acute Code(s): B59 - PNEUMOCYSTOSIS SNOMED Code(s): 421590166 Plan: 1patient with HIV for many years unfortunately patient not very compliant with her medication and the last CD4 count on 01/23/2024 was 54 and elevated HIV RNA unfortunately the patient has not follow-up in the office for very long time now presented hospital with increasing shortness of breath with evidence of diffuse infiltrate on the chest x-ray hide likely suspicious for possible PCP pneumonia however we need to cover for the community-acquired pathogen as well while waiting for the workup to be completed. 2patient to have a sulfa allergy 3-HIV currently waiting for the genotype before suggesting any antiretroviral therapy because of the patient noncompliance with the previous regime will need to wait for treatment of underlying PCP pneumonia before starting her on new antiretroviral regime 4patient is status post bronchoscopy on 02/24/2024 with a culture currently growing ESBL Klebsiella and Pseudomonas aeruginosa, patient covered with oral Cipro 5- patient BAL PCP stain came back positive patient did have improvement her respiratory status, patient is currently on on clindamycin and primaquine, with the patient will continue to finish total of 21-day course of treatment including the days of antibiotic the patient has received here Family the bedside questions answered Dictation was produced using [employer] dictation software. please excuse any grammatical, word or spelling errors. Time with Patient: Less than 30
--- NOTE | 2024-03-09 11:52 | CDI ---
Documentation Clarification Form Date: 02/27/2024 01:44:00 PM From: Dora Kim RN CCDS Phone: [phone] Admit Date: 02/22/2024 09:57:00 AM Patient Name: Marina Field Visit Number: [id number] Discharge Date: 03/06/2024 04:42:00 PM ATTENTION: The Clinical Documentation Specialists (CDI) and [facility] Coding Staff appreciate your assistance in clarifying documentation. Please respond to the clarification below the line at the bottom and electronically sign. The CDI & [facility] Coding staff will review the response and follow-up if needed. Please note: Queries are made part of the Legal Health Record. If you have any questions, please contact the author of this message via ITS. Doctor: Quoc Saavedra The patient has altered mental status likely related to sepsis as well as pneumonia, benzodiazepine and narcotics. . Based on this information and the findings below, is there an additional diagnosis that is clinically appropriate for this patient? History/Risk Factors: 63 year old female presents to the ED via EMS for shortness of breath, chronic back pain and altered mental status. 02/21: Medical History: HIV, End stage lung disease due to severe COPD and chronic respiratory failure. 02/21, Pulmonary consult Clinical Indicators: WBC, 02/21: 26.3 Urine culture, 02/21: Klebsiella pneumoniae, Proteus mirabilis Sputum culture, 02/23: Klebsiella pneumonia Bronchoaliolar Lavage culture: 02/23 Klebsiella pneumoniae Pseudomonas aeruginosa Vitals signs: B/P 102/71; HR 123; Temp 97.8F Axillary; RR 22; SpO2 95% 3L nc Treatment: 02/21- 02/24 0.9ns 130cc/hr IV ID Consult: Pneumonia Antibiotics: 02/21 Azithromycin IVPB x 1; 02/21 Ceftriaxone IVPB x 1; 02/22 Azithromcyin IVPB Daily x 2 bags; 02/22 Ceftriaxone IVPB Q24H x 4 bags; 02/22- 02/25 Clindamycin 600mg po q 8h, 02/25 Ertapenem IVPB x 1; 02/26 Meropenem IVPB Q8H; IV Bolus: 02/21 0.9NS 1L IVFL Bolus; Is there an additional diagnosis that is clinically appropriate for this patient? [ ] Sepsis, present on admission [ ] Other, please specify [ ] Unable to determine SIRS Criteria: 2 or more of the following may indicate SIRS Temperature < 96.8F (36C) or > 101.0F (38.3C) Heart Rate > 90 bpm Respiratory Rate > 20 breaths/min or PaCO2 < 32 mmHg White Blood Cell Count > 12,000 or < 4,000 cells/mm3 or > 10% bands (Template Last Reviewed: March 2022) RETA
--- NOTE | 2024-03-15 08:22 | MISC ---
MISCELLANOUS REPORT Sepsis present on admission. MMODL / IJN: [id number] /
== END 2024-03-06 16:42 | disposition home or self-care (01) | DRG 974 ==
LOC: EC 06:21 → 3SCARD 09:57 → 5NMEDONC 16:23
PROVIDERS: ADMIT Family Medicine; ATTEND Family Medicine
PROC: 0B9C8ZX Drainage of Right Upper Lung Lobe, Via Natural or Artificial Opening Endoscopic, Diagnostic (ICD-10-PCS; 2024-02-24)
PROC: 0B9F8ZX Drainage of Right Lower Lung Lobe, Via Natural or Artificial Opening Endoscopic, Diagnostic (ICD-10-PCS; 2024-02-24)
PROC: 0B9J8ZX Drainage of Left Lower Lung Lobe, Via Natural or Artificial Opening Endoscopic, Diagnostic (ICD-10-PCS; principal; 2024-02-24 14:10)
DX: B20 Human immunodeficiency virus [HIV] disease (principal); J96.21 Acute and chronic respiratory failure with hypoxia; A41.9 Sepsis, unspecified organism; J96.22 Acute and chronic respiratory failure with hypercapnia; J44.0 Chronic obstructive pulmonary disease with (acute) lower respiratory infection; E87.1 Hypo-osmolality and hyponatremia; J90 Pleural effusion, not elsewhere classified; Z16.12 Extended spectrum beta lactamase (ESBL) resistance; Z16.24 Resistance to multiple antibiotics; J15.1 Pneumonia due to Pseudomonas; G93.41 Metabolic encephalopathy; B59 Pneumocystosis; J15.69 Pneumonia due to other Gram-negative bacteria; M54.9 Dorsalgia, unspecified; F41.9 Anxiety disorder, unspecified; R00.0 Tachycardia, unspecified; I45.10 Unspecified right bundle-branch block; M48.50XS Collapsed vertebra, not elsewhere classified, site unspecified, sequela of fracture; E78.5 Hyperlipidemia, unspecified; J43.9 Emphysema, unspecified; E86.0 Dehydration; E87.6 Hypokalemia; D64.9 Anemia, unspecified; B96.1 Klebsiella pneumoniae [K. pneumoniae] as the cause of diseases classified elsewhere; G89.4 Chronic pain syndrome; I10 Essential (primary) hypertension; M81.0 Age-related osteoporosis without current pathological fracture; Z88.5 Allergy status to narcotic agent; Z88.0 Allergy status to penicillin; Z87.891 Personal history of nicotine dependence; Z88.1 Allergy status to other antibiotic agents; Z88.2 Allergy status to sulfonamides; Z79.51 Long term (current) use of inhaled steroids; Z91.148 Patient's other noncompliance with medication regimen for other reason; Z99.81 Dependence on supplemental oxygen
CPT/HCPCS: 31624; 36410; 36415; 71045; 71046; 71250; 76937; 80053; 80306; 81001; 82803; 84145; 84484; 85025; 85610; 85730; 86360; 86738; 87040; 87070; 87077; 87086; 87102; 87116; 87186; 87205; 87206; 87449; 87496; 87498; 87502; 87529; 87634; 87635; 87636; 87798; 87900; 87901; 87906; 88108; 88305; 88312; 88313; 93005; 94640; 94760; 96361; 96365; 96368; 96375; 96376; 99285